=== PATIENT | male | born 1955 | race Caucasian/White ===

== ENCOUNTER 2018-02-08 01:03 | Emergency (ER) | payer MEDICAID, SELFPAY ==
[2018-02-08 01:05] VITALS: BP 124/91; PULSE 68; RESP 17; TEMP 36.7; O2SAT 98; BMI 25.0
--- NOTE | 2018-02-08 01:16 | ED.DCSUM_ITS ---
- ER Visit Summary Date of Service: 02/08/18 Chief Complaint: [] toe laceration History of Present Illness: The patient is a 62 M [] accidentally stepped on a tip of an arrow and cut the bottom of his right first toe. It happened just prior to arrival. No home treatment other than pressure. Tetanus is up -to-date. Thinks he needs stitches. Current severity is mild. He was barefoot coming out of the shower Physical Examination: [] Vital signs reviewed General: Well-nourished well-developed Head: Normocephalic atraumatic Eyes: Pupils equal round and reactive to light extraocular movements intact ENT: TMs clear no hemotympanum no trauma Neck: Nontender full range of motion Cardiovascular: Regular rate rhythm no murmurs normal S1-S2 Respiratory: No distress clear to auscultation bilaterally chest nontender Abdomen: Soft nontender nondistended normal bowel sounds no masses Back: Nontender no CVA tenderness Extremities: 2 cm laceration on the lateral aspect of the base of the right first toe. No active bleeding. It is partial-thickness Neuro alert oriented cranial nerves II through XII intact normal strength sensation reflexes Test Results: [] Emergency Department Course and Treatment: [] Wound was cleansed with chlorhexidine. Anesthetized with 2 cc lidocaine and washed with saline 500 cc. Closed with simple sutures bacitracin applied and dressed. I do not feel he needs antibiotics. This was through bare skin. He will follow-up as an outpatient Treatment Plan: [] Disposition: [] Impression: [] Right great toe laceration status post suture This note was generated with [employer] dictation software. It may contain incorrect words, spelling, and punctuation that were not noted in review of the chart prior to signing ED Disposition - Plan for ED Patient: Chief Complaint: Laceration Referrals: Ben Skaggs MD [Primary Care Provider] -
--- NOTE | 2018-02-08 01:16 | ED.DEP ---
ED Disposition - Plan for ED Patient: Disposition: Home or Assisted Living Chief Complaint: Laceration Instructions: ED Laceration All Referrals: Ben Skaggs MD [Primary Care Provider] - Additional Instructions: follow up 2 weeks for suture removal
[2018-02-08] MEDS: BACITRACIN 15 GM Tube 1 APPLIC TOPICAL (01:42)
== END 2018-02-08 01:43 | disposition home or self-care (01) ==
PROVIDERS: Emergency Provider Emergency Medicine; Family Provider Family Medicine; PCP Family Medicine
DX: S91.111A Laceration without foreign body of right great toe without damage to nail, initial encounter (principal); W26.8XXA Contact with other sharp object(s), not elsewhere classified, initial encounter; Y93.9 Activity, unspecified; Y92.9 Unspecified place or not applicable
CPT/HCPCS: 12001; 99283

== ENCOUNTER 2019-12-22 14:16 | Emergency (ER) | payer MEDICAID, SELFPAY ==
[2019-12-22 14:17] VITALS: BP 145/77; PULSE 64; RESP 16; TEMP 36.4; O2SAT 98; BMI 23.3
--- NOTE | 2019-12-22 14:32 | ED.DCSUM_ITS ---
- ER Visit Summary Date of Service: 12/22/19 Chief Complaint: Back pain History of Present Illness: The patient is a 64 M with right lower back pain since Friday after cutting wood. The pain is localized to his right lower back. He never had this before. No other pain. No abdominal pain or GI symptoms. No symptoms. No neurologic symptoms like weakness or numbness. No history of vascular disease or aortic pathology. No blood thinners. He has an allergy to ibuprofen, he has itching and swelling. Physical Examination: Afebrile and vital signs unremarkable. Inspection is normal. Right lumbar paraspinal muscle tenderness to palpation. Spine is nontender. CVA nontender. Straight leg raise negative. Good strength and sensation. Normal pulses. Test Results: None indicated Emergency Department Course and Treatment: Patient has myofascial back pain. Treated with Norflex and morphine. Will reassess. On reevaluation, patient is up and ambulating. He feels much better. Patient be treated with a course of Flexeril, cdtg-eyc-vjtleba remedies. Outpatient follow-up. Return for any new or worsening issues. Treatment Plan: As above Disposition: Discharge Impression: Right lower back pain This note was generated with [employer] dictation software. It may contain incorrect words, spelling, and punctuation that were not noted in review of the chart prior to signing ED Disposition - Plan for ED Patient: Referrals: Ben Skaggs MD [Primary Care Provider] -
[2019-12-22] MEDS: Orphenadrine 60 MG/2 ML Ampul IM (15:01)
[2019-12-22] MEDS: morphine 10 MG/ML Syringe 4 MG SC (15:02)
--- NOTE | 2019-12-22 15:32 | ED.DEP ---
ED Disposition - Plan for ED Patient: Instructions: ED Back Pain Acute or Chronic Prescriptions: cycloBENZAPRine HCl [Flexeril] 10 mg PO TID PRN #20 tab PRN Reason: Muscle Spasm Prescription Printed Referrals: Ben Skaggs MD [Primary Care Provider] -
[2019-12-22 15:55] VITALS: BP 143/93; PULSE 54; RESP 16
== END 2019-12-22 15:58 | disposition home or self-care (01) ==
LOC: ED 14:42
PROVIDERS: Emergency Provider Emergency Medicine; PCP Family Medicine
DX: M54.5 Low back pain (principal); Z87.891 Personal history of nicotine dependence
CPT/HCPCS: 96372; 99282

== ENCOUNTER 2019-12-29 20:57 | Emergency (ER) | payer MEDICAID, SELFPAY ==
[2019-12-29 20:58] VITALS: BP 118/81; PULSE 90; RESP 18; TEMP 36.6; O2SAT 98; BMI 24.1
--- NOTE | 2019-12-29 22:16 | ED.DCSUM_ITS ---
- ER Visit Summary Date of Service: 12/29/19 Chief Complaint: I think I have sausage stuck in my throat History of Present Illness: The patient is a 64 M dates he had sausage tonight for dinner around 630 mL stuck in his throat. He says he is unable to swallow now. Denies any trouble breathing. Physical Examination: Older male no acute distress vital signs stable afebrile. Pulse ox 90% on room air no signs hypoxia. H EENT exam unremarkable. Posterior pharynx normal. Neck nontender. Lungs clear to auscultation. Heart regular rhythm no murmur. Abdomen soft nontender. Remedies moves all 4. Neurologically is awake alert with no focal motor deficits. I gave the patient a glass of water he drank it but thought it was stuck about residential down his esophagus and then brought it back up. Test Results: None Emergency Department Course and Treatment: I spoke to the general surgeon on- call Dr. Ash Hidalgo will be and evaluate the patient with upper endoscopy for suspected meat impaction obstruction secondary to meat impaction Patient will be turned over to the overnight physician to provide conscious sedation for Dr. Ash Hidalgo when he comes in to the upper endoscopy evaluated patient for esophageal meat impaction. Treatment Plan: [] Disposition: Discharge Impression: Esophageal meat impaction Conscious sedation by ER This note was generated with [employer] dictation software. It may contain incorrect words, spelling, and punctuation that were not noted in review of the chart prior to signing ED Disposition - Plan for ED Patient: Referrals: Ben Skaggs MD [Primary Care Provider] -
--- NOTE | 2019-12-29 22:42 | ED.DEP ---
ED Disposition - Plan for ED Patient: Disposition: Home or Assisted Living Instructions: ED Foreign Body Esophageal Rslv Prescriptions: Omeprazole [Prilosec] 20 mg PO DAILY #30 cap Prescription Printed Referrals: Ben Skaggs MD [Primary Care Provider] - 3-5 Days if not improving Additional Instructions: Shoe your food especially meat thoroughly and slowly and completely before swallowing. Follow-up to ensure this is improving. You may need further scopes. Prilosec for reflux.
--- NOTE | 2019-12-29 23:07 | HP.PCM_ITS ---
Problem List (1) Obstruction of distal esophagus due to foreign body Status: Acute History of Present Illness Date of Admission: 12/29/19 The patient is a 64 year old M who I have been asked to see in the emergency room by Dr. Kamlesh Valera for evaluation of a suspected esophageal food foreign body obstruction. 64-year-old gentleman. 1 year ago he had a similar event with a chicken sandwich. With drinking Coke in the emergency room that was able to be passed. He said that he had elective upper and lower endoscopy done at the [facility]. He states he was told there was some irritation in the esophagus and was instructed to be on omeprazole therapy. He only takes omeprazole when he senses reflux. Today he had a [place] sausage sandwich. He claims the first bite went down well. The second bite obstructed. He is not able to drink liquid or solid. He is been a lifelong cigarette smoker. Claims he quit about 3 years ago. He is aware of the COVID-19 pandemic. He does not wear a mask. He is not aware of any known COVID-19 exposure. Past Medical History Allergies ibuprofen Allergy (Verified 12/29/19 21:00) Swelling Home Medications: Ambulatory Orders Medication Instructions Recorded Omeprazole [Prilosec] 20 mg PO DAILY #30 cap 12/29/19 Smoking Status: Former smoker Review of Systems Constitutional: Denies: Fever HEENT: Reports: Difficulty Swallowing Cardiovascular: Denies: Chest Pain Respiratory: Reports: - - Dyspnea on exertion Gastrointestinal: Denies: Abdominal Pain Endocrine: Denies: Change in Body Habitus VTE Information - Inpt Only VTE Present on Admission: No Patient Problems: Active and Suspected Problems Obstruction of distal esophagus due to foreign body (Acute) - Physical Exam Vitals/I&O's: Vital Signs Temp Pulse Resp BP Pulse Ox 97.9 F 90 18 118/81 H 98 12/29/19 20:58 12/29/19 20:58 12/29/19 20:58 12/29/19 20:58 12/29/19 20:58 Oxygen Delivery Method Room Air Weight: 145 lb Body Mass Index (BMI) 24.1 General: Alert, Oriented x3, Cooperative, No apparent distress HEENT: Atraumatic Oral: Moist Mucosa Lungs: - - Increased anterior posterior diameter. Diminished respiratory excursion. Clear in the apices. Cardiovascular: Regular rate, Regular Rhythm Abdomen: Bowel Sounds Present, Soft, Non Tender Extremities: No Calf Tenderness Psych/Mental Status: Normal Affect Current Medications Sodium Chloride () 1,000 mls @ 999 mls/hr IV .Q1H1M ONE Stop: 12/29/19 23:50 Assessment/Plan All Active Problems Obstruction of distal esophagus due to foreign body (Acute) I have discussed with the patient the diagnosis of suspected [place] sausage food borne esophageal obstruction likely secondary to hiatal hernia or reflux esophagitis or stricturing. I instructed him of the increased risk nature of a emergency procedure for food clearance. We discussed the potential for bleeding and perforation and aspiration and pneumonia and need for additional procedures and . He has had an opportunity to ask and have questions answered. Whereas with his previous occasion it was able to pass on this occasion he does not feel like it is passing and he is having discomfort. He desires to proceed. Dr. Kamlesh Valera has agreed to providing IV sedation and anticipate proc eeding in the emergency room setting. I have already instructed the patient that I will anticipate routine utilization of omeprazole postoperatively. I have additionally counseled the patient regarding COVID-19 and strong recommendations to be utilizing a mask in public. He is aware already that he is placing other people at risk. Ash Hidalgo M.D., F.A.C.S. Procedure Criteria COVID Risk Discussion: Patient is well aware of the COVID-19 pandemic. He is aware of the increased risk of his exposure. He is aware of the potential risk of exposure in this emergency hospitalized setting. He elects to proceed as noted.
[2019-12-29] MEDS: Ondansetron 4 MG/2 ML Vial IV (23:11)
[2019-12-29] MEDS: 0.9% Normal Saline 1,000 ML 999 ML IV (23:11)
[2019-12-29 23:13] VITALS: BP 137/89; PULSE 78; RESP 16; O2SAT 98
[2019-12-29 23:35] VITALS: BP 141/92; PULSE 78; RESP 25; O2SAT 100
--- NOTE | 2019-12-29 23:35 | EGD_PTH ---
PATIENT: JENNIFER COLES LOC: ED U#:[id number] AGE/SX: 64/M ROOM: RE12/29/[address]: Dr. Asad Valera MD : 1955 BED: DIS: 12/30/2019 SPEC #: [id number] RECD: 12/30/19 00:48 STATUS: [place] BRITTVerito #: [id number] FRANCISCO JAVIER: 12/29/19 23:[address]: Ash Hidalgo DEPT: SURGICAL PATHOLOGY RECD BY: Jennifer Field ENTERED: 12/30/19 12:38 SP TYPE: EGD BIOPSY OT DR: MD Dr. Ben Luna MD Tissues: A - Duodenum, NOS B - Gastric mucous membrane C - Esophagus, NOS Procedures: Surgery Specimen Level IV HEADER OPERATION: EGD ([facility] [place] PRE-OP DIAGNOSIS: Foreign body TISSUE SUBMITTED: A - Duodenum biopsy, B - Antrum biopsy for H. pylori and path, C - Distal esophagus biopsy MICROSCOPIC DIAGNOSIS A. Duodenum, biopsy: Mild nonspecific chronic inflammation. B. Gastric antrum, biopsy: Minimal chronic inflammation. C. Distal esophagus, biopsy: Consistent with changes of reflux. AM:lamonte 12/31/19 COMMENT B. The results of immunohistochemistry for Helicobacter pylori will be reported separately ([id number]). MICROSCOPIC DESCRIPTION Slides are reviewed. GROSS DESCRIPTION A - Received in fixative is one container labeled with the patient's name and designated duodenal biopsy. The specimen consists of multiple irregular fragments of light casillas soft tissue that in aggregate measure 0.3 x 0.3 x 0.1 cm. The specimen is totally submitted in one cassette. B - Received in fixative is one container labeled with the patient's name and designated antrum biopsy. The specimen consists of one irregular fragment of light casillas soft tissue that measures 0.3 x 0.2 x 0.1 cm. The specimen is totally submitted in one cassette. C - Received in fixative is one container labeled with the patient's name and designated distal esophagus biopsy. The specimen consists of multiple irregular fragments of light casillas soft tissue that in aggregate measure 0.4 x 0.3 x 0.1 cm. The specimen is totally submitted in one cassette. / SHIVA:lamonte 12/30/19 TC:3 CPT: 06299 x3
--- NOTE | 2019-12-29 23:35 | IMM_PTH ---
PATIENT: JENNIFER COLES LOC: ED U#:[id number] AGE/SX: 64/M ROOM: RE12/29/[address]: Dr. Asad Valera MD : 1955 BED: DIS: 12/30/2019 SPEC #: [id number] RECD: 12/30/19 11:49 STATUS: SALV[place]OR REQ #: [id number] FRANCISCO JAVIER: 12/29/19 23:[address]: Ash Hidalgo DEPT: IMMUNOHISTOCHEMISTRY RECD BY: Linda Hernandez ENTERED: 12/30/19 11:50 SP TYPE: IMMUNO OTHR DR: MD Dr. Ben Luna MD Tissues: B - Stomach, NOS Procedures: H Pylori (initial) PHYSICIAN & INSTITUTION [place] [id number] SPECIMEN INFORMATION: Tissue Source: B - Antrum biopsy Clinical Info: Foreign body Specimen Number: [id number] CPT code: 83625 METHODOLOGY: Deparaffinized sections of prefer/formalin-fixed tissue or PAP/DQ stained slides are incubated with monoclonal/polyclonal antibodies/oligonucleotide probes. Localization is made via biotin free immunoperoxidase method. Appropriate controls are performed and reacted as expected. Results on target cell population are indicated in the following table: RESULTS: ANTIBODY / CLONE RESULT Block B H Pylori (polyclonal) negative These tests were developed and their performance characteristics determined by [facility]. They may not have been cleared or approved by the U.S. Food and Drug Administration. The FDA has determined that such clearance or approval is not necessary. INTERPRETATION: B. Antrum biopsy: Negative for Helicobacter pylori organisms. AM:lamonte 12/31/19
[2019-12-29 23:36] VITALS: BP 129/82; BP 139/90; BP 144/94; BP 145/114; BP 151/106; PULSE 78; PULSE 84; PULSE 87; PULSE 88; PULSE 91; PULSE 98; RESP 20; RESP 22; RESP 23; RESP 39; O2SAT 100; O2SAT 98; O2SAT 99
[2019-12-30 00:01] VITALS: BP 133/97; PULSE 93; RESP 22; O2SAT 99
[2019-12-30] MEDS: Propofol 200 MG/20 ML Vial 120 MG IV BOLUS (00:03)
[2019-12-30 00:06] VITALS: BP 106/90; PULSE 85; RESP 23; O2SAT 99
[2019-12-30] MEDS: Propofol 200 MG/20 ML Vial 40 MG IV BOLUS (00:06)
[2019-12-30 00:11] VITALS: BP 120/93; PULSE 86; RESP 22; O2SAT 95
[2019-12-30 00:27] VITALS: RESP 25; O2SAT 90
--- NOTE | 2019-12-30 00:30 | OP.EGD_ITS ---
Patient Name: Eric Rhodes Procedure Date: 12/29/2019 11:16 PM Date of : 1955 Age: 64 Procedure: Upper GI endoscopy Indications: Foreign body in the esophagus Providers: Ash Hidalgo MD Medicines: See the Anesthesia note for documentation of the administered medications Complications: No immediate complications. Procedure: Pre-Anesthesia Assessment: - Prior to the procedure, a History and Physical was performed, and patient medications and allergies were reviewed. The patient's tolerance of previous anesthesia was also reviewed. The risks and benefits of the procedure and the sedation options and risks were discussed with the patient. All questions were answered, and informed consent was obtained. Prior Anticoagulants: The patient has taken no previous anticoagulant or antiplatelet agents. ASA Grade Assessment: III - A patient with severe systemic disease. After reviewing the risks and benefits, the patient was deemed in satisfactory condition to undergo the procedure. After obtaining informed consent, the endoscope was passed under direct vision. Throughout the procedure, the patient's blood pressure, pulse, and oxygen saturations were monitored continuously. The gastroscope was introduced through the mouth, and advanced to the second part of duodenum. The upper GI endoscopy was accomplished without difficulty. The patient tolerated the procedure well. Scope In: 11:38:30 PM Scope Out: 11:55:25 PM Total Procedure Duration Time 0 hours 16 minutes 55 seconds Findings: LA Grade A (one or more mucosal breaks less than 5 mm, not extending between tops of 2 mucosal folds) esophagitis with no bleeding was found 38 cm from the incisors. Biopsies were taken with a cold forceps for histology. A medium-sized hiatal hernia was present. Food was found in the lower third of the esophagus. The endoscope was removed, and an overtube with cap was fitted. The scope and overtube were then reinserted via the mouth and advanced to the esophagus to aid in foreign body removal. Removal of food was accomplished. Removal of food was accomplished. Diffuse mild inflammation characterized by congestion (edema) was found in the gastric antrum. Biopsies were taken with a cold forceps for histology. Localized moderate inflammation characterized by erythema and linear erosions was found in the duodenal bulb. Biopsies were taken with a cold forceps for histology. Impression: - LA Grade A reflux esophagitis. Biopsied. - Medium-sized hiatal hernia. - Food in the lower third of the esophagus. Removal was successful. - Gastritis. Biopsied. - Chronic duodenitis. Biopsied. - An overtube with cap was used to aid in foreign body removal. During the procedure with each cough free reflux of gastric contents back into the esophagus was noted. The patient was placed fullu upright prior to overtube and scope removal and oral suction was provided. Recommendation: - Discharge patient to home. - Resume previous diet. - Continue present medications. - Use Prilosec (omeprazole) 40 mg PO daily. - Telephone my office for pathology results in 1 week. Procedure Code(s): --- Professional --- 71615, Esophagogastroduodenoscopy, flexible, transoral; with removal of foreign body(s) 64340, Esophagogastroduodenoscopy, flexible, transoral; with biopsy, single or multiple Diagnosis Code(s): --- Professional --- K21.0, Gastro-esophageal reflux disease with esophagitis K44.9, Diaphragmatic hernia without obstruction or gangrene T18.128A, Food in esophagus causing other injury, initial encounter K29.70, Gastritis, unspecified, without bleeding K29.80, Duodenitis without bleeding T18.108A, Unspecified foreign body in esophagus causing other injury, initial encounter CPT copyright 2017 [employer]. All rights reserved. The codes documented in this report are preliminary and upon planning division superintendent review may be revised to meet current compliance requirements. Ash Hidalgo MD 12/30/2019 12:29:52 AM This report has been signed electronically. Number of Addenda: 0 Note Initiated On: 12/29/2019 11:16 PM
--- NOTE | 2019-12-30 00:30 | OP.CCLET_ITS ---
12/30/2019 Ben Skaggs [address] [place] [address] Re : Upper GI endoscopy procedure for Eric Rhodes Dear Dr. Skaggs This procedure was performed on Sunday, December 29, 2019. My impressions and recommendations are as follows: Impressions : - LA Grade A reflux esophagitis. Biopsied. - Medium-sized hiatal hernia. - Food in the lower third of the esophagus. Removal was successful. - Gastritis. Biopsied. - Chronic duodenitis. Biopsied. - An overtube with cap was used to aid in foreign body removal. During the procedure with each cough free reflux of gastric contents back into the esophagus was noted. The patient was placed fullu upright prior to overtube and scope removal and oral suction was provided. Recommendations : - Discharge patient to home. - Resume previous diet. - Continue present medications. - Use Prilosec (omeprazole) 40 mg PO daily. - Telephone my office for pathology results in 1 week. My findings are described in the full procedure note, which is enclosed. If I can be of further assistance, please feel free to contact me at Doctor phone number(s): Work: . Sincerely, Ash Hidalgo MD 12/30/2019 12:29:52 AM This report has been signed electronically.
[2019-12-30 01:46] VITALS: BP 118/80; O2SAT 93
== END 2019-12-30 01:55 | disposition home or self-care (01) ==
PROVIDERS: Surgery; Emergency Provider Emergency Medicine; PCP Family Medicine
PROC: 0DJ08ZZ Inspection of Upper Intestinal Tract, Via Natural or Artificial Opening Endoscopic (ICD-10-PCS; CPT 43235; principal; 2019-12-29 23:30)
DX: K22.2 Esophageal obstruction (principal); T18.128A Food in esophagus causing other injury, initial encounter; X58.XXXA Exposure to other specified factors, initial encounter; Y93.9 Activity, unspecified; Y92.9 Unspecified place or not applicable; K21.0 Gastro-esophageal reflux disease with esophagitis; K29.70 Gastritis, unspecified, without bleeding; K44.9 Diaphragmatic hernia without obstruction or gangrene; K29.80 Duodenitis without bleeding; Z79.899 Other long term (current) drug therapy; Z87.891 Personal history of nicotine dependence
CPT/HCPCS: 43239; 43247; 88305; 88342; 96361; 96374; 99156; 99283; J7030; A4216; J2405

== ENCOUNTER 2020-01-22 21:10 | Emergency (ER) | payer MEDICAID, SELFPAY ==
[2020-01-22 21:10] VITALS: BP 151/120; PULSE 63; RESP 18; TEMP 36.5; O2SAT 99; BMI 24.1
--- NOTE | 2020-01-22 21:19 | CT_ITS ---
STUDY: CT ABDOMEN AND PELVIS WITHOUT CONTRAST REASON FOR EXAM: Male, 64 years old. LT FLANK AND LLQ PAIN THAT RADIATES INTO GROIN,VOMITING -- HX:GERD,APPENDECTOMY RADIATION DOSAGE (If Supplied By Facility): CTDIvol = ( 6.07 ) mGy, DLP = ( 341.38 ) mGycm TECHNIQUE: Transaxial images were obtained from the dome of the diaphragm to the symphysis pubis without oral contrast, and without intravenous contrast. Sagittal and coronal images were reconstructed. Individualized dose optimization techniques were used for this CT. COMPARISON: None. FINDINGS: Mild fibrotic changes at both lung bases. Normal liver. Normal gallbladder and extrahepatic biliary system. Normal spleen. Normal pancreas. Normal bilateral adrenal glands. Normal right kidney. Abnormal left kidney showing evidence for swelling and perinephric stranding. Mild hydronephrosis. Findings are related to a 4 mm left ureteral stone. Evaluation of the GI tract is limited by absence of oral contrast. Cannot exclude stomach wall thickening. No dilated loops of bowel or evidence for obstruction. Cannot exclude segmental thickening of the aquino of the small or large bowel. Cannot exclude enteritis or colitis. Moderate diffuse fecal retention. Appendix is not seen. Normal abdominal aorta. Normal inferior vena cava. Normal retroperitoneum. Normal urinary bladder. There is enlargement of the prostate gland. Normal abdominal wall. Normal osseous structures. CT/Abdomen/Pelvis without Cont IMPRESSION: Obstruction of the left kidney, collecting system and proximal ureter related to a 4 mm proximal left ureteral stone. Electronically Signed: Leonel Bond MD at 22:39 EDT , Service support ,
[2020-01-22] MEDS: Ondansetron 4 MG/2 ML Vial IV (21:36)
[2020-01-22] MEDS: morphine 8 MG/ML Syringe IV (21:36)
[2020-01-22] MEDS: 0.9% Normal Saline 1,000 ML 1000 ML IV (21:37)
--- NOTE | 2020-01-22 21:49 | ED.VIS.GEN ---
History of Present Illness Chief Complaint: Abd Pain Informant: Patient Onset: Today Context: Gradual Onset Timing: Continuous Current Severity: Moderate Maximum Severity: Moderate Narrative: The patient is a 64-year-old male that presents to the emergency department with left lower quadrant pain. He states his pain began just about 12 hours ago. He states he had a dull onset to the pain. He states it is worsened. Does sometimes radiate to his back. He has had some constipation. He denies any fevers or chills. He states the pain did make him vomit once. He is otherwise been in his normal state of health. He does have history of prior appendectomy remotely. Prior similar symptoms: No Recent Illness/Hospitalization: No Past Medical History - Allergies and Home Meds Allergies/Adverse Reactions: Allergies ibuprofen Allergy (Verified 01/22/20 21:13) Swelling Primary Care Physician: Niko Simmons MD [STAFF PHYSICIAN] - Prior records reviewed: Yes Past Medical History: None Surgical History: appendectomy Smoking Status: Former smoker Review of Systems General: Denies: Chills, Fever, Sweats Eyes: Denies: Visual changes - bilaterally, Diplopia ENT: Denies: Rhinorrhea, Sore throat Cardiovascular: Denies: Chest pain, Palpitations Respiratory: Denies: Dyspnea, Cough, Dyspnea on exertion Gastrointestinal: Reports: Abdominal pain, Nausea, Vomiting. Denies: Diarrhea, Melena, Hematochezia Genitourinary: Denies: Dysuria, Hematuria, Frequency Musculoskeletal: Denies: Back pain, Extremity Pain Skin: Denies: Rash, Wounds Neurological: Denies: Headache, Weakness, Numbness Physical Exam Vital Signs/Narrative: Vital Signs Temp Pulse Resp BP Pulse Ox 01/22/20 21:10 97.7 F L 63 18 151/120 H 99 Inital Vital Signs reviewed: Yes General: Well nourished, Well developed, No Acute Distress Head: Normocephalic, Atraumatic Eyes: Perrl, EOMI ENT: Moist mucous membranes, No rhinorrhea Neck: Supple, Nontender Cardiovascular: Regular rate, Regular rhythm, No murmurs Respiratory: No distress, CTA bilaterally, Chest nontender Abdomen: Soft, Nondistended, Normal bowel sounds, Tender. Negative for: Guarding, Rebound tenderness Back: Nontender, Normal Inspection Extremities: Nontender, No edema Skin: Normal color, No rash Neurological: Alert, Oriented x3, Cranial nerves II-XII grossly intact, Normal Strength, Normal Sensation Psychological: Normal affect, Normal Mood Diagnostic/Tx/Re-eval Clinical Impression(s) from Imaging Studies Abdomen/Pelvis CT 01/22/20 21:19 IMPRESSION: Obstruction of the left kidney, collecting system and proximal ureter related to a 4 mm proximal left ureteral stone. Electronically Signed: Leonel Bond MD at 22:39 EDT , Service support , Abnormal Lab Results 01/22/20 01/22/20 21:40 21:40 WBC 7.0 RBC 4.42 L Hgb 14.0 Hct 42.3 MCV 95.7 H MCH 31.7 MCHC 33.1 RDW Std Deviation 44.2 H RDW Coeff of Tim 12.7 Plt Count 198 MPV 10.5 Immature Gran % (Auto) 0.300 Neut % (Auto) 74.3 H Lymph % (Auto) 17.2 L [place] % (Auto) 7.4 Eos % (Auto) 0.4 Baso % (Auto) 0.4 Absolute Neuts (auto) 5.2 Absolute Lymphs (auto) 1.21 Nucleated RBC % 0 Sodium 142 Potassium 4.4 Chloride 110 H Carbon Dioxide 28.0 Anion Gap 4 L BUN 18 Creatinine 1.68 H Estim Creat Clear Calc 39.66 Est GFR (MDRD) Af Amer 53 L Est GFR (MDRD) Non-Af 44 L BUN/Creatinine Ratio 10.7 Glucose 108 H Calcium 9.2 Total Bilirubin 0.60 AST 13 L ALT 17 Alkaline Phosphatase 70 Total Protein 6.9 Albumin 3.8 Globulin 3.1 Albumin/Globulin Ratio 1.2 - Medical Decision Making The patient presents with left flank pain into his left lower quadrant. He had 2 episodes of vomiting. He has mild tenderness to palpation, but does seem harder to reproduce. IV was established. The patient was given analgesics and antiemetics. On reevaluation, he is resting comfortably. Patient underwent CT imaging. This does demonstrate a 4 mm mid obstructing stone with mild hydro-. Patient is now pain-free. Based on the size and location, I do feel that he is safe for outpatient therapy. He does not want to wait to give a urine. I will treat him with analgesics and antiemetics. He was counseled on concerning symptoms and reasons to return. He will be discharged home. Impression 1. 4 mm left-sided kidney stone ED Disposition - Plan for ED Patient: Instructions: ED Renal Stone w Colic Prescriptions: Tamsulosin HCl [Flomax] 0.4 mg PO DAILY #7 cap Prescription Printed Hydrocodone Bitart/Apap 5-325 [[place] 5MG-325MG] 1 tab PO Q6H PRN PRN 3 Days #10 tab PRN Reason: Pain Prescription Printed Ondansetron [Zofran Odt] 4 mg PO Q8H PRN PRN #10 tab PRN Reason: Nausea Prescription Printed Referrals: Niko Simmons MD [STAFF PHYSICIAN] -
[2020-01-22 21:51] LABS: Absolute Lymphocyte Count 1.21 X10^3/uL (0.83-4.51); Absolute Neutrophil Count 5.2 X10^3/uL (2.0-7.7); Basophil# 0.03 X10^3/uL; Basophil% 0.4 % (0-1); Eosinophil# 0.03 X10^3/uL; Eosinophils% 0.4 % (0-5); Hematocrit 42.3 % (40-54); Lymphocyte # 1.21 X10^3/ul (4.0); Lymphocyte % 17.2 % (19-41); Mean Corp Hgb Conc 33.1 g/dL (32-36); Mean Corpuscular Hgb 31.7 pg (27.0-32.0); Mean Corpuscular Volume 95.7 fL (80-94); Mean Platelet Vol. 10.5 fl (6.2-12.0); Monocyte# 0.52 X10^3/uL; Monocyte% 7.4 % (0-10); NRBC Flagged by Analyzer 0 % (0-5); Neutrophil # 5.21 X10^3/uL (2.7-7.7); Neutrophil % 74.3 % (47-70); Platelet Count 198 K/mm3 (150-450); RBC Distribution Width CV 12.7 % (11.6-14.6); RBC Distribution Width SD 44.2 fl (35.1-43.9); Red Blood Count 4.42 M/mm3 (4.6-6.2)
[2020-01-22 22:06] LABS: ALB/GLOB Ratio 1.2 RATIO (0.9-2.4); AST(SGOT) 13 U/L (15-37); Alanine Aminotransfer ALT/SGPT 17 U/L (16-61); Albumin, Serum 3.8 g/dL (3.2-5.0); Alkaline Phosphatase 70 U/L (45-117); Anion Gap 4 (5-15); BUN 18 mg/dL (7-18); BUN/Creat Ratio 10.7 RATIO (10-20); Calcium,Total 9.2 mg/dL (8.5-10.1); Chloride 110 mmol/L (98-107); Creatinine, Serum 1.68 mg/dL (0.70-1.30); EST Glomerular Filtration Rate 44 mL/min (>60); Est Glom Filt Rate - Afr Amer 53 mL/min (>60); Estimated Creatinine Clearance 39.66 ml/min; Globulin 3.1 g/dL (2.2-4.2); Glucose 108 mg/dL (74-106); Potassium 4.4 mmol/L (3.5-5.1); Protein, Total 6.9 g/dL (6.4-8.2); Sodium Level 142 mmol/L (136-145)
== END 2020-01-22 23:01 | disposition home or self-care (01) ==
LOC: ED 21:25
PROVIDERS: Emergency Provider Emergency Medicine; PCP Family Medicine
DX: N13.2 Hydronephrosis with renal and ureteral calculous obstruction (principal); Z87.891 Personal history of nicotine dependence
CPT/HCPCS: 74176; 80053; 85025; 96361; 96374; 96375; 99283; J7030; J2405

== ENCOUNTER 2020-11-02 11:59 | Emergency (ER) | payer MEDICAID, SELFPAY ==
[2020-11-02 11:59] VITALS: BP 148/84; PULSE 57; RESP 17; TEMP 36.3; O2SAT 96; BMI 25.0
--- NOTE | 2020-11-02 12:33 | CT_ITS ---
STUDY: CT ABDOMEN AND PELVIS WITH CONTRAST REASON FOR EXAM: Male, 65 years old. Diarrhea and abdominal pain. RADIATION DOSAGE (If Supplied By Facility): CTDIvol = ( 10.41 ) mGy, DLP = ( 524.15 ) mGycm TECHNIQUE: Transaxial images were obtained from the dome of the diaphragm to the symphysis pubis without oral contrast. IV 100mL Isovue-300 was administered. Sagittal and coronal images were reconstructed. Individualized dose optimization techniques were used for this CT. COMPARISON: Comparison is made with prior examination dated 01/22/2020. FINDINGS: The visualized lung bases are unremarkable. The visualized portions of the heart are within normal limits. There is a 1 cm cyst in the left lobe of the liver superiorly. Normal gallbladder and extrahepatic biliary system. Normal spleen. Normal pancreas. Normal bilateral adrenal glands. Normal right kidney. Mild degree of left hydronephrosis and hydroureter due to a 3.5 mm calculus in the distal portion of the left ureter just proximal to the left ureterovesical junction. Left perinephric and periureteric stranding. There is a small hiatal hernia. Normal small intestine. Normal colon. The appendix is visualized and appears normal. Normal abdominal aorta. Normal inferior vena cava. Normal retroperitoneum. Mild degree of bladder wall thickening at the bladder base likely worse on the left side of the midline. Correlation with cystoscopy is recommended. There is enlargement of the prostate gland. It measures 5.1 cm x 3.5 cm. This causes indentation at the bladder base. There is a small umbilical hernia containing fat. There are mild degenerative changes of the visualized lumbar spine. CT/Abdomen/Pelvis W IV Cont ONLY IMPRESSION: 3.5 mm pancreas and distal portion of the left ureter just proximal to the left ureterovesical junction causing a mild degree of left hydronephrosis and hydroureter. Left perinephric and periureteric stranding. Mild thickening of the bladder wall at its base. Prostatic enlargement. Electronically Signed: Leon Espino MD at 14:17 EDT , Service support ,
--- NOTE | 2020-11-02 12:35 | ED.VIS.GI ---
HPI HPI - GI History of Present Illness Chief Complaint: Abd Pain Narrative Narrative: 64-year-old male presenting with nausea, vomiting, diarrhea. He states his diarrhea has resolved and now he has left lower quadrant pain. He also has been vomiting. He denies fever or chills. He denies urinary complaints. Patient denies any black or bloody stools. He denies any hematemesis or coffee-ground emesis. He localizes his pain to the left lower quadrant 1 finger PFSH PFSH Home Medications ondansetron HCl [Zofran] 4 mg PO Q8H PRN #14 tab 11/02/20 [Rx Last Taken Unknown] oxycodone-acetaminophen [Percocet] 1 tab PO Q6H PRN 3 Days #12 tab 11/02/20 [Rx Last Taken Unknown] Allergy/AdvReac Type Severity Reaction Status Date / Time ibuprofen Allergy Swelling Verified 01/22/20 21:13 Social History Smoking Status: Former smoker ROS ROS ED Constitutional Constitutional ED: Denies fever(s) or subjective ENT ENT ED: Denies rhinorrhea or sore throat Cardiovascular Cardiovascular: Denies chest pain or palpitations Respiratory/Chest Respiratory/Chest: Denies cough or dyspnea Gastrointestinal Gastrointestinal: Reports abdominal pain, diarrhea, nausea and vomiting Genitourinary Genitourinary ED: Denies dysuria or hematuria Musculoskeletal Musculoskeletal: Denies arthralgias or myalgias Integumentary Denies abscess or rash Neurologic Neurologic: Denies headache(s), paresthesias or weakness EXAM Physical Exam Const Vital Signs: 11/02/20 11:59 Temperature 97.3 F L Temperature Source Temporal Pulse Rate 57 L Respiratory Rate 17 Blood Pressure 148/84 H Blood Pressure Mean 105 Pulse Ox 96 Oxygen Delivery Method Room Air Positive well nourished General Appearance ED: NAD HEENT Reports moist mucous membranes normocephalic and atraumatic Eyes PERRL and EOMs intact bilaterally General Eye ED: Negative for scleral icterus Resp normal respiratory effort and clear to auscultation bilaterally Cardio regular rate and regular rhythm GI GI Narrative: Tenderness to palpation left lower quadrant. Abdomen is nonperitoneal. Palpation: soft Back/Spine no CVA tenderness Extremity full ROM General Extremety ED: Negative for edema General Extremity: Negative for edema Neuro Sensorium / Orientation: alert, oriented to person, oriented to place and oriented to time Psych mental status grossly normal and thought process normal Skin Lesions: no lesions Rashes: no rashes MDM MDM MDM Narrative Medical decision making narrative: Patient presenting with left lower quadrant pain and diarrhea. Patient given morphine and Zofran as well as IV fluids. Patient's blood work shows no leukocytosis. Hemoglobin macular stable. Renal function is near baseline and electrolytes are normal. Urinalysis did show occult blood however given the patient is complaining of diarrhea as well I was concerned for diverticulitis. Patient CT shows a 3.5 mm stone just proximal to the UVJ. Patient counseled on findings. He will be given follow-up with Dr. Velasco. Patient given Percocet and Zofran for home. Patient stable discharge. Impression: 1. 3.5 mm ureteral stone 2. Hematuria Lab Data Labs: Laboratory Results - last 24 hr 11/02/20 11/02/20 11/02/20 12:15 12:20 12:20 WBC 7.5 RBC 4.79 Hgb 14.8 Hct 44.7 MCV 93.3 MCH 30.9 MCHC 33.1 RDW Std Deviation 43.3 RDW Coeff of Tim 12.6 Plt Count 210 MPV 10.5 Immature Gran % (Auto) 0.400 Neut % (Auto) 82.5 H Lymph % (Auto) 11.4 L [place] % (Auto) 5.2 Eos % (Auto) 0.1 Baso % (Auto) 0.4 Absolute Neuts (auto) 6.2 Absolute Lymphs (auto) 0.86 Nucleated RBC % 0 Sodium 142 Potassium 3.8 Chloride 107 Carbon Dioxide 27.0 Anion Gap 8 BUN 14 Creatinine 1.49 H Estim Creat Clear Calc 44.14 Est GFR (MDRD) Af Amer 61 Est GFR (MDRD) Non-Af 51 L BUN/Creatinine Ratio 9.4 L Glucose 139 H Calcium 8.9 Urine Color Yellow Urine Clarity Sl. Cloudy Urine pH 5.0 Ur Specific [place] 1.030 Urine Protein 30 H Urine Glucose (UA) Normal Urine Ketones Negative Urine Occult Blood 150 H Urine Nitrite Negative Urine Bilirubin Negative Urine Urobilinogen Normal Ur Leukocyte Esterase 25 H Urine RBC 0-5 SEEN Urine WBC 0 SEEN Ur Squamous Epith Cells 0-5 SEEN Calcium Oxalate Crystal 2+ Urine Bacteria RARE Urine Mucus RARE Radiography Diagnostic Testing: Radiology Impression Abdomen/Pelvis CT 11/02/20 12:33 IMPRESSION: 3.5 mm pancreas and distal portion of the left ureter just proximal to the left ureterovesical junction causing a mild degree of left hydronephrosis and hydroureter. Left perinephric and periureteric stranding. Mild thickening of the bladder wall at its base. Prostatic enlargement. Electronically Signed: Leon Espino MD at 14:17 EDT , Service support , Discharge Plan Triage Chief Complaint: Abd Pain ED Provider: Masoud Bridges Dx/Rx/DC Orders Instructions: ED Kidney Stone w/ Colic Prescriptions: New oxycodone-acetaminophen [Percocet] 5-325 mg tablet 1 tab PO Q6H PRN (Reason: pain) 3 Days Qty: 12 RF: 0 ondansetron HCl [Zofran] 4 mg tablet 4 mg PO Q8H PRN (Reason: nausea and vomiting) Qty: 14 RF: 0 Primary Care Provider: Ben Skaggs Referrals: Niko Simmons MD [STAFF PHYSICIAN] - As soon as possible Ben Skaggs MD [Primary Care Provider] - Disposition Disposition: Home, Self Care
[2020-11-02 12:44] LABS: White Blood Cells 0 SEEN /hpf (0-5)
[2020-11-02] MEDS: Morphine 4 MG/ML Syringe IV (12:45)
[2020-11-02 12:46] LABS: Color, Urine Yellow (Yellow); Glucose, Dipstick Normal (Normal); Ketone-Dipstick Negative (Negative); Leukocyte Esterase-Dipstick 25 /ul (Negative); Nitrite-Dipstick Negative (Negative); Occult Blood-Urine 150 /ul (Negative); Protein-Dipstick 30 mg/dl (Negative); Urine Bilirubin Dipstick Negative (Negative); Urine Clarity Sl. Cloudy (Clear); Urine Urobilinogen Normal (Normal)
[2020-11-02 12:46] LABS: Absolute Lymphocyte Count 0.86 X10^3/uL (0.83-4.51); Absolute Neutrophil Count 6.2 X10^3/uL (2.0-7.7); Basophil# 0.03 X10^3/uL; Basophil% 0.4 % (0-1); Eosinophil# 0.01 X10^3/uL; Eosinophils% 0.1 % (0-5); Hematocrit 44.7 % (40-54); Hemoglobin 14.8 g/dL (13.0-16.5); Lymphocyte # 0.86 X10^3/ul (0.83-4.51); Lymphocyte % 11.4 % (19-41); Mean Corp Hgb Conc 33.1 g/dL (32-36); Mean Corpuscular Hgb 30.9 pg (27.0-32.0); Mean Corpuscular Volume 93.3 fL (80-94); Mean Platelet Vol. 10.5 fl (6.2-12.0); Monocyte# 0.39 X10^3/uL; Monocyte% 5.2 % (0-10); NRBC Flagged by Analyzer 0 % (0-5); Neutrophil # 6.22 X10^3/uL (2.7-7.7); Neutrophil % 82.5 % (47-70); Platelet Count 210 K/mm3 (150-450); RBC Distribution Width CV 12.6 % (11.6-14.6); RBC Distribution Width SD 43.3 fl (35.1-43.9); Red Blood Count 4.79 M/mm3 (4.6-6.2); White Blood Count 7.5 K/mm3 (4.4-11.0)
[2020-11-02] MEDS: 0.9% Normal Saline 1,000 ML 1000 ML IV (12:46)
[2020-11-02] MEDS: Ondansetron 4 MG/2 ML Vial IV (12:46)
[2020-11-02 12:51] LABS: Bacteria RARE /hpf (None Seen); Calcium Oxalate Crystals Ur 2+ /hpf (<or=2+); Mucous, Urine RARE /hpf (<or=2+); Red Blood Cells-Urine 0-5 SEEN /hpf (0-5); Squamous Epithelial Cells - UA 0-5 SEEN /hpf (0-5)
[2020-11-02 12:54] LABS: Anion Gap 8 (5-15); BUN 14 mg/dL (7-18); BUN/Creat Ratio 9.4 RATIO (10-20); Calcium,Total 8.9 mg/dL (8.5-10.1); Chloride 107 mmol/L (98-107); Creatinine, Serum 1.49 mg/dL (0.70-1.30); EST Glomerular Filtration Rate 51 mL/min (>60); Est Glom Filt Rate - Afr Amer 61 mL/min (>60); Estimated Creatinine Clearance 44.14 ml/min; Glucose 139 mg/dL (74-106); Potassium 3.8 mmol/L (3.5-5.1); Sodium Level 142 mmol/L (136-145)
[2020-11-02] MEDS: Contrast Allergy Safety Check IV (13:19)
[2020-11-02 14:34] VITALS: BP 126/60; PULSE 65; RESP 16; O2SAT 97
== END 2020-11-02 14:35 | disposition home or self-care (01) ==
PROVIDERS: Emergency Provider Student in an Organized Health Care Education/Training Program; PCP Family Medicine
DX: N13.2 Hydronephrosis with renal and ureteral calculous obstruction (principal); Z87.891 Personal history of nicotine dependence
CPT/HCPCS: 74177; 80048; 81001; 85025; 96361; 96374; 96375; 99283; Q9967; A4216; J2405

== ENCOUNTER 2021-02-09 12:58 | Emergency (ER) | payer MEDICAID, SELFPAY ==
[2021-02-09 12:59] VITALS: BP 134/96; PULSE 78; RESP 18; TEMP 36.4; O2SAT 97; BMI 25.9
--- NOTE | 2021-02-09 14:02 | RAD_ITS ---
STUDY: X-RAY CHEST REASON FOR EXAM: Male, 65 years old. Chest pain TECHNIQUE: Single AP portable view of the chest. COMPARISON: Comparison is made with prior study dated 10/02/2014. FINDINGS: EKG electrodes are seen. Mild increased markings at the left lung base suggestive of early infiltrate. There is no demonstrated pleural abnormality. Normal size heart. Normal mediastinum and chidi. Normal visualized pulmonary arteries. Normal visualized aortic arch and descending thoracic aorta. Normal visualized thoracic spine. Normal visualized ribs, clavicles, and shoulders. There is no demonstrated abnormality of the visualized soft tissue structures of the upper abdomen. RAD/Chest 1 View (Portable) IMPRESSION: Findings suggestive of early infiltrate at the left lung base. Electronically Signed: Leon Espino MD at 15:06 EDT , Service support ,
--- NOTE | 2021-02-09 14:02 | EKG12_ITS ---
Test Reason : CP Blood Pressure : / mmHG Vent. Rate : 067 BPM Atrial Rate : 067 BPM P-R Int : 118 ms QRS Dur : 082 ms QT Int : 400 ms P-R-T Axes : -08 043 022 degrees QTc Int : 422 ms Normal sinus rhythm Normal ECG No previous ECGs available Confirmed by JANAY HUMPHREY, ALEXUS ([id number]), editor book RAYMOND ASTORGA ([id number]) on 02/14/2021 10:02:58 AM Referred By: /BB Confirmed By:ALEXUS GUSTAFSON MD
[2021-02-09] MEDS: Aspirin 81 MG TAB.CHEW 324 MG PO (14:21)
[2021-02-09 14:29] LABS: Absolute Lymphocyte Count 0.98 X10^3/uL (0.83-4.51); Absolute Neutrophil Count 1.2 X10^3/uL (2.0-7.7); Basophil# 0.01 X10^3/uL; Basophil% 0.4 % (0-1); Eosinophil# 0.02 X10^3/uL; Eosinophils% 0.8 % (0-5); Hemoglobin 14.6 g/dL (13.0-16.5); Lymphocyte # 0.98 X10^3/ul (0.83-4.51); Lymphocyte % 38.4 % (19-41); Mean Corp Hgb Conc 33.2 g/dL (32-36); Mean Corpuscular Hgb 31.5 pg (27.0-32.0); Mean Platelet Vol. 10.1 fl (6.2-12.0); Monocyte# 0.33 X10^3/uL; Monocyte% 12.9 % (0-10); NRBC Flagged by Analyzer 0 % (0-5); Neutrophil # 1.21 X10^3/uL (2.7-7.7); Neutrophil % 47.5 % (47-70); Platelet Count 175 K/mm3 (150-450); RBC Distribution Width CV 12.9 % (11.6-14.6); RBC Distribution Width SD 44.6 fl (35.1-43.9); Red Blood Count 4.63 M/mm3 (4.6-6.2); White Blood Count 2.6 K/mm3 (4.4-11.0)
[2021-02-09 14:43] LABS: Anion Gap 5 (5-15); BUN 15 mg/dL (7-18); BUN/Creat Ratio 12.8 RATIO (10-20); Calcium,Total 8.6 mg/dL (8.5-10.1); Chloride 106 mmol/L (98-107); Creatinine, Serum 1.17 mg/dL (0.70-1.30); EST Glomerular Filtration Rate 67 mL/min (>60); Est Glom Filt Rate - Afr Amer 81 mL/min (>60); Estimated Creatinine Clearance 56.21 ml/min; Glucose 101 mg/dL (74-106); Potassium 4.1 mmol/L (3.5-5.1); Sodium Level 139 mmol/L (136-145); Troponin-I HS 43 pg/mL (3.0-78.0)
[2021-02-09 16:00] VITALS: BP 122/76; PULSE 68; RESP 12; O2SAT 98
--- NOTE | 2021-02-09 17:12 | EDS_ITS ---
HPI History of Present Illness Chief Complaint: Chest Pain Informant: patient Narrative Narrative: 65-year-old male presenting with chest pain. He states that he felt that he may have pulled a muscle. He states this started 3 to 4 days ago. He states he was lifting an air conditioner before this started. He denies shortness of breath, nausea, diaphoresis. Prior similar symptoms: Yes Recent Illness/Hospitalization: No PFSH PFSH Medical History (Updated 02/09/21 @ 17:[address] Maureen Pan MD) Heartburn Home Medications benzonatate [Tessalon Perles] 100 mg PO TID PRN #20 cap 02/09/21 [Rx Last Taken Unknown] omeprazole 40 mg PO DAILY 02/09/21 [History Last Taken Unknown] Allergy/AdvReac Type Severity Reaction Status Date / Time ibuprofen Allergy Swelling Verified 02/09/21 12:59 Surgical History (Updated 02/09/21 @ 13:08 by Deb Britt) Hx of appendectomy Social History Smoking Status: Former smoker ROS ROS ED Constitutional Constitutional ED: Denies fever(s) Eyes Eyes: Denies change in vision ENT ENT ED: Denies rhinorrhea or sore throat Cardiovascular Cardiovascular: Reports chest pain; Denies palpitations Respiratory/Chest Respiratory/Chest: Reports cough; Denies dyspnea Gastrointestinal Gastrointestinal: Denies abdominal pain, diarrhea, nausea or vomiting Genitourinary Genitourinary ED: Denies dysuria Musculoskeletal Musculoskeletal: Denies myalgias Integumentary Denies rash Neurologic Neurologic: Denies headache(s) Psychiatric Psychiatric: Denies suicidal thoughts EXAM Physical Exam Const Vital Signs: 02/09/21 12:59 02/09/21 13:06 02/09/21 14:16 Temperature 97.5 F L Temperature Source Temporal Pulse Rate 78 Respiratory Rate 18 Respiratory Effort Normal Non-Labored Respiratory Pattern Normal Blood Pressure 134/96 H Blood Pressure Mean 108 Pulse Ox 97 Oxygen Delivery Method Room Air Room Air 02/09/21 16:00 Temperature Temperature Source Pulse Rate 68 Respiratory Rate 12 Respiratory Effort Respiratory Pattern Blood Pressure 122/76 H Blood Pressure Mean 91 Pulse Ox 98 Oxygen Delivery Method Room Air Positive well nourished and well developed General Appearance ED: well developed HEENT Reports normocephalic and head/scalp atraumatic Eyes PERRL and EOMs intact bilaterally Neck supple General: Negative for tenderness Chest Wall inspection of chest normal and palpation of chest normal Resp normal respiratory effort and clear to auscultation bilaterally Cardio regular rate and regular rhythm GI non-tender and non-distended Palpation: soft; Negative for guarding or rebound tenderness present no CVA tenderness Extremity normal to inspection Neuro oriented x3 Sensorium / Orientation: alert Psych mental status grossly normal Skin no rashes or lesions noted MDM MDM MDM Narrative Medical decision making narrative: CBC shows white count 2.6. Chemistries are unremarkable. Troponin is negative. He has had 3-4 days of chest pain with a negative troponin. He is not tachycardic or hypoxic. He has no PE/DVT risk factors. He admits to mild cough. Covid is positive. His pulse ox is 98% on room air. He is advised to wear a mask, socially distance. He is given prescription for Tessalon Perles. Advised to follow-up with his primary care physician. Advised signs and symptoms for which to return to the ED. Lab Data Attestation: I reviewed the patient's lab results. Labs: Laboratory Results - last 24 hr 02/09/21 02/09/21 13:05 13:05 WBC 2.6 L RBC 4.63 Hgb 14.6 Hct 44.0 MCV 95.0 H MCH 31.5 MCHC 33.2 RDW Std Deviation 44.6 H RDW Coeff of Tim 12.9 Plt Count 175 MPV 10.1 Immature Gran % (Auto) 0.000 Neut % (Auto) 47.5 Lymph % (Auto) 38.4 [place] % (Auto) 12.9 H Eos % (Auto) 0.8 Baso % (Auto) 0.4 Absolute Neuts (auto) 1.2 L Absolute Lymphs (auto) 0.98 Nucleated RBC % 0 Sodium 139 Potassium 4.1 Chloride 106 Carbon Dioxide 28.0 Anion Gap 5 BUN 15 Creatinine 1.17 Estim Creat Clear Calc 56.21 Est GFR (MDRD) Af Amer 81 Est GFR (MDRD) Non-Af 67 BUN/Creatinine Ratio 12.8 Glucose 101 Calcium 8.6 Troponin I High Sens 43 Radiography Chest X-Ray - ED: 1 View, Read by ED Physician and Read by Radiologist Diagnostic Testing: Clinical Impression(s) from Imaging Studies Chest X-Ray 02/09/21 14:02 IMPRESSION: Findings suggestive of early infiltrate at the left lung base. Electronically Signed: Leon Espino MD at 15:06 EDT , Service support , EKG Initial EKG: Attestation: I personally reviewed and interpreted this EKG as follows: Interpretation: Sinus Rhythm and No Acute Injury Pattern Discharge Plan Triage Chief Complaint: Chest Pain Other Complaint: Back ED Provider: Maureen Pan Dx/Rx/DC Orders Clinical Impression: COVID-19 Instructions: Coronavirus Disease 2019 (COVID-19): Overview Prescriptions: New benzonatate [Tessalon Perles] 100 mg capsule 100 mg PO TID PRN (Reason: cough) Qty: 20 RF: 0 No Action omeprazole 40 mg capsule,delayed release(DR/EC) 40 mg PO DAILY RF: 0 Primary Care Provider: Ben Skaggs Referrals: Ben Skaggs MD [Primary Care Provider] - Disposition Disposition: Home, Self Care Discharge Date/Time: 02/09/21 17:16
[2021-02-09 17:15] VITALS: BP 126/83; PULSE 64; RESP 21; O2SAT 99
== END 2021-02-09 17:16 | disposition home or self-care (01) ==
PROVIDERS: Emergency Provider Emergency Medicine; PCP Family Medicine
DX: U07.1 COVID-19 (principal); Z87.891 Personal history of nicotine dependence
CPT/HCPCS: 71045; 80048; 84484; 85025; 87426; 93005; 99285; A4216

== ENCOUNTER 2021-02-17 11:27 | Emergency (ER) | payer MEDICAID, SELFPAY ==
[2021-02-17] VITALS (7 sets, daily range): BP systolic 113–159; BP diastolic 75–89; PULSE 84–117; RESP 18–26; TEMP 36.7; O2SAT 91–94; BMI 25.9
--- NOTE | 2021-02-17 11:50 | RAD_ITS ---
STUDY: X-RAY CHEST REASON FOR EXAM: Male, 65 years old. covid TECHNIQUE: Frontal portable view of the chest COMPARISON: 09 February 2021 FINDINGS: Bilateral multifocal pneumonia is more clearly seen on the current images, likely disease progression/worsening. There is no pneumothorax, pulmonary edema or pleural effusions. RAD/Chest 1 View (Portable) IMPRESSION: Progression of multifocal Covid pneumonia. Electronically Signed: Vitaly Claudio MD at 13:18 EDT Tel , Service support ,
--- NOTE | 2021-02-17 11:52 | EX.ED.DYSGE1 ---
HPI History of Present Illness Chief Complaint: Nausea/Vomiting Informant: patient Narrative Narrative: Note: Patient is a poor historian offering 1 or 2 word answers as to what is going on. Open ended questions are not effective in elucidating a history from him. 65-year-old male states that on 09 February he tested positive for COVID-19. That ED visit was for chest pain and he endorsed a cough and was noted to be leukopenic. His Covid test returned positive. He states that since that time he is worsened. He notes vomiting and diarrhea. He states that his body hurts and he is fatigued. He states he called his doctor and was told to come to emergency [facility] Medical History Heartburn Home Medications ondansetron 4 mg PO Q6H PRN PRN #15 tab 02/17/21 [Rx Last Taken Unknown] Allergy/AdvReac Type Severity Reaction Status Date / Time ibuprofen Allergy Swelling Verified 02/09/21 12:59 Surgical History Hx of appendectomy Social History (Updated 02/17/21 @ 11:[address] Cirilo Feldman DO) current gender identity: male Smoking Status: Former smoker ROS ROS ED ROS Narrative Generalized fatigue Constitutional Constitutional ED: Reports chills and fever(s); Denies weight loss Eyes Eyes: Denies change in vision or diplopia ENT ENT ED: Denies ear pain, rhinorrhea or sore throat Cardiovascular Cardiovascular: Reports chest pain; Denies orthopnea, palpitations or racing heartbeat Respiratory/Chest Respiratory/Chest: Reports cough and dyspnea; Denies orthopnea Gastrointestinal Gastrointestinal: Reports abdominal pain, diarrhea, nausea and vomiting Genitourinary Genitourinary ED: Denies dysuria, hematuria or urinary frequency Musculoskeletal Musculoskeletal: Reports myalgias; Denies arthralgias Integumentary Denies abscess or rash Neurologic Neurologic: Denies headache(s) or weakness Psychiatric Psychiatric: Denies anxiety, depression, suicidal ideation or suicidal thoughts Endocrine Endocrinology: Denies polydipsia, polyphagia or polyuria Allergic/Immunologic Allergic/Immunologic ED: Denies mouth swelling, tongue swelling or urticaria EXAM Physical Exam Narrative Exam Narrative: Patient is tachypneic at rest Const Vital Signs: 02/17/21 11:28 02/17/21 11:41 02/17/21 12:33 Temperature 98.1 F 98.1 F 98.1 F Temperature Source Temporal Temporal Temporal Pulse Rate 117 H 102 H 90 Respiratory Rate 24 H 24 H 18 Blood Pressure 113/89 H 113/89 H 122/85 H Blood Pressure Mean 97 97 97 Pulse Ox 94 93 93 Oxygen Delivery Method Room Air Room Air Room Air 02/17/21 14:24 02/17/21 14:52 02/17/21 16:00 Temperature 98.1 F Temperature Source Temporal Pulse Rate 87 93 84 Respiratory Rate 22 H 26 H 22 H Blood Pressure 120/77 159/75 H Blood Pressure Mean 91 103 Pulse Ox 91 94 93 Oxygen Delivery Method Room Air Room Air Room Air Positive well nourished and well developed General Appearance ED: well developed HEENT Reports normocephalic, head/scalp atraumatic, TM's clear and moist mucous membranes Negative for trauma Tympanic Membrane ED: Yes TM's clear Eyes PERRL and EOMs intact bilaterally Neck no lymphadenopathy, supple and no JVD Resp clear to auscultation bilaterally Resp Narrative: Patient is tachypneic Cardio regular rate and no murmurs Rate: tachycardic GI non-tender GI Narrative: Diffusely tender to palpation Palpation: soft; Negative for guarding or rebound tenderness present Back/Spine no CVA tenderness and normal ROM Lumbar Spine / Lower Back: Negative for lumbar spinal tenderness Extremity normal to inspection General Extremety ED: Negative for edema General Extremity: Negative for edema Neuro oriented x3 and CN's II-XII intact bilaterally Sensorium / Orientation: alert Motor Exam: strength 5/5 throughout Psych mental status grossly normal Mood & Affect: Negative for depressed or tearful Skin no rashes or lesions noted and no wounds MDM MDM MDM Narrative Medical decision making narrative: White count 4.5. D-dimer greater than 20. BUN of 42 with a creatinine 1.28. Lactic acid elevated 2.30. Patient received IV fluids and Zofran. He has not required any oxygen. He ambulates without hypoxemia. He has been tolerant of fluids p.o. Heart rate is down to 84. Spoke with her hospitalist. Patient is out of the window for and does appear. Does not appear steroids would be of benefit. I will write for him to have Zofran. Patient will be discharged home return if worsening or concerns Lab Data Attestation: I reviewed the patient's lab results. Labs: Laboratory Results - last 24 hr 02/17/21 02/17/21 02/17/21 12:15 12:15 12:15 WBC 4.5 RBC 5.30 Hgb 16.5 Hct 48.2 MCV 90.9 MCH 31.1 MCHC 34.2 RDW Std Deviation 44.4 H RDW Coeff of Tim 13.2 Plt Count 214 MPV 10.4 Immature Gran % (Auto) 1.800 H Neut % (Auto) 69.5 Lymph % (Auto) 19.0 [place] % (Auto) 9.5 Eos % (Auto) 0.0 Baso % (Auto) 0.2 Absolute Neuts (auto) 3.1 Absolute Lymphs (auto) 0.86 Nucleated RBC % 0 Differential Comment SCANNED PT 15.0 H INR 1.3 APTT 31.8 D-Dimer Quant (PE/DVT) > 20.00 H* Sodium 140 Potassium 3.5 Chloride 104 Carbon Dioxide 23.0 Anion Gap 13 BUN 42 H Creatinine 1.28 Estim Creat Clear Calc 51.38 Est GFR (MDRD) Af Amer 73 Est GFR (MDRD) Non-Af 60 BUN/Creatinine Ratio 32.8 H Glucose 117 H Lactic Acid Calcium 8.9 Total Bilirubin 0.80 AST 31 ALT 18 Alkaline Phosphatase 69 Troponin I High Sens 41 Total Protein 7.8 Albumin 3.2 Globulin 4.6 H Albumin/Globulin Ratio 0.7 L Lipase 368 02/17/21 12:15 WBC RBC Hgb Hct MCV MCH MCHC RDW Std Deviation RDW Coeff of Tim Plt Count MPV Immature Gran % (Auto) Neut % (Auto) Lymph % (Auto) [place] % (Auto) Eos % (Auto) Baso % (Auto) Absolute Neuts (auto) Absolute Lymphs (auto) Nucleated RBC % Differential Comment PT INR APTT D-Dimer Quant (PE/DVT) Sodium Potassium Chloride Carbon Dioxide Anion Gap BUN Creatinine Estim Creat Clear Calc Est GFR (MDRD) Af Amer Est GFR (MDRD) Non-Af BUN/Creatinine Ratio Glucose Lactic Acid 2.3 H* Calcium Total Bilirubin AST ALT Alkaline Phosphatase Troponin I High Sens Total Protein Albumin Globulin Albumin/Globulin Ratio Lipase Radiography Diagnostic Testing: Clinical Impression(s) from Imaging Studies Chest X-Ray 02/17/21 11:50 IMPRESSION: Progression of multifocal Covid pneumonia. Electronically Signed: Vitaly Claudio MD at 13:18 EDT Tel , Service support , Chest CTA 02/17/21 13:18 IMPRESSION: 1. No pulmonary embolism 2. Acute Covid pneumonia. 3. Emphysema. Electronically Signed: Vitaly Claudio MD at 14:46 EDT Tel , Service support , Discharge Plan Triage Chief Complaint: Nausea/Vomiting ED Provider: Cirilo Feldman Dx/Rx/DC Orders Clinical Impression: COVID-19, Acute dehydration, Elevated lactic acid level Prescriptions: New ondansetron [ondansetron] 4 MG tablet 4 mg PO Q6H PRN PRN (Reason: Nausea) Qty: 15 RF: 0 Primary Care Provider: Ben Skaggs Referrals: Ben Skaggs MD [Primary Care Provider] - As Needed Disposition Disposition: Home, Self Care
[2021-02-17] MEDS: 0.9% Normal Saline 1,000 ML 1000 ML IV (12:27)
[2021-02-17] MEDS: Ondansetron 4 MG/2 ML Vial IV (12:28)
[2021-02-17 12:29] LABS: Absolute Lymphocyte Count 0.86 X10^3/uL (0.83-4.51); Absolute Neutrophil Count 3.1 X10^3/uL (2.0-7.7); Basophil# 0.01 X10^3/uL; Basophil% 0.2 % (0-1); Hematocrit 48.2 % (40-54); Hemoglobin 16.5 g/dL (13.0-16.5); Lymphocyte # 0.86 X10^3/ul (0.83-4.51); Mean Corp Hgb Conc 34.2 g/dL (32-36); Mean Corpuscular Hgb 31.1 pg (27.0-32.0); Mean Corpuscular Volume 90.9 fL (80-94); Mean Platelet Vol. 10.4 fl (6.2-12.0); Monocyte# 0.43 X10^3/uL; Monocyte% 9.5 % (0-10); NRBC Flagged by Analyzer 0 % (0-5); Neutrophil # 3.14 X10^3/uL (2.7-7.7); Neutrophil % 69.5 % (47-70); POSITIVE MORPHOLOGY YES; Platelet Count 214 K/mm3 (150-450); RBC Distribution Width CV 13.2 % (11.6-14.6); RBC Distribution Width SD 44.4 fl (35.1-43.9); White Blood Count 4.5 K/mm3 (4.4-11.0)
[2021-02-17 12:32] LABS: Differential Indicated SCAN CRITERIA MET
[2021-02-17 12:43] LABS: ALB/GLOB Ratio 0.7 RATIO (0.9-2.4); AST(SGOT) 31 U/L (15-37); Alanine Aminotransfer ALT/SGPT 18 U/L (16-61); Albumin, Serum 3.2 g/dL (3.2-5.0); Alkaline Phosphatase 69 U/L (45-117); Anion Gap 13 (5-15); BUN 42 mg/dL (7-18); BUN/Creat Ratio 32.8 RATIO (10-20); Calcium,Total 8.9 mg/dL (8.5-10.1); Chloride 104 mmol/L (98-107); Creatinine, Serum 1.28 mg/dL (0.70-1.30); EST Glomerular Filtration Rate 60 mL/min (>60); Est Glom Filt Rate - Afr Amer 73 mL/min (>60); Estimated Creatinine Clearance 51.38 ml/min; Globulin 4.6 g/dL (2.2-4.2); Glucose 117 mg/dL (74-106); Lipase 368 U/L (73-393); Potassium 3.5 mmol/L (3.5-5.1); Protein, Total 7.8 g/dL (6.4-8.2); Sodium Level 140 mmol/L (136-145); Troponin-I HS 41 pg/mL (3.0-78.0)
[2021-02-17 12:59] LABS: Differential Comment SCANNED
[2021-02-17 13:01] LABS: Lactic Acid 2.3 mmol/L (0.4-1.9)
[2021-02-17 13:10] LABS: International Normalized Ratio 1.3
[2021-02-17 13:11] LABS: Partial Thromboplast Time 31.8 Seconds (24.1-36.2)
[2021-02-17 13:16] LABS: D-Dimer Quantitative (DVT/PE) > 20.00 FEU/ug/m (0.27-0.49)
--- NOTE | 2021-02-17 13:18 | CT_ITS ---
STUDY: CTA CHEST REASON FOR EXAM: Male, 65 years old. Covid 19 shortness of breath pulmonary embolism evaluation RADIATION DOSAGE (If Supplied By Facility): CTDIvol = ( 6.54 ) mGy, DLP = ( 193.47 ) mGycm TECHNIQUE: The examination was performed with the intravenous administration of IV 100mL Isovue-370. Post-processing of the angiographic images was performed, with multiplanar reformation and 3D reconstruction. Individualized dose optimization techniques were used for this CT. COMPARISON: None. FINDINGS: There is no acute or chronic pulmonary embolism. Aorta is of normal caliber. There is multifocal groundglass viral pneumonia. Lungs are emphysematous with cystic bullous change in the apices. There is no pneumothorax, pulmonary edema or pleural effusions. Mediastinal contents are normal. Osseous structures are intact. Abdominal structures are unremarkable. CT/CTA Chest W/WO Contrast IMPRESSION: 1. No pulmonary embolism 2. Acute Covid pneumonia. 3. Emphysema. Electronically Signed: Vitaly Claudio MD at 14:46 EDT Tel , Service support ,
[2021-02-17] MEDS: 0.9% Normal Saline 1,000 ML 250 ML IV (15:30)
[2021-02-17 16:21] LABS: Reflex Lactate? Y
== END 2021-02-17 16:40 | disposition home or self-care (01) ==
PROVIDERS: Emergency Provider Emergency Medicine; PCP Family Medicine
DX: U07.1 COVID-19 (principal); E86.0 Dehydration; E87.2 Acidosis; Z87.891 Personal history of nicotine dependence
CPT/HCPCS: 71045; 71275; 80053; 83605; 83690; 84484; 85025; 85379; 85610; 85730; 96361; 96374; 99283; J7030; Q9967; A4216; J2405

== ENCOUNTER 2022-12-01 17:11 | Emergency (ER) | payer MEDICARE, MEDICAID, SELFPAY ==
[2022-12-01 17:12] VITALS: BP 112/71; PULSE 79; RESP 18; TEMP 35.8; O2SAT 98; BMI 27.0
--- NOTE | 2022-12-01 17:19 | EDS_ITS ---
HPI History of Present Illness Chief Complaint: Bite [facility] Medical History Heartburn Home Medications ondansetron 4 mg disintegrating tablet 4 mg PO Q6H PRN PRN Nausea #15 tabs 02/17/21 [Rx Last Taken Unknown] prednisone 50 mg tablet 50 mg PO DAILY 5 days #5 tabs 12/01/22 [Rx Last Taken Unknown] Allergy/AdvReac Type Severity Reaction Status Date / Time ibuprofen Allergy Swelling Verified 02/09/21 12:59 Surgical History Hx of appendectomy Social History (Updated 02/17/21 @ 11:[address] Cirilo Feldman DO) Smoking Status: Former smoker EXAM Physical Exam Const Vital Signs: 12/01/22 17:12 Temperature 96.5 F L Temperature Source Temporal Pulse Rate 79 Respiratory Rate 18 Blood Pressure 112/71 Blood Pressure Mean 84 Pulse Ox 98 Oxygen Delivery Method Room Air MDM MDM MDM Narrative Medical decision making narrative: HISTORY OF PRESENT ILLNESS: 67-year-old male here with concern for bee stings last night. He states he has several areas of redness and swelling in his legs and arms. He further states he is concerned from the itching and irritation on bilateral arms and bilateral legs. Denies any trouble swallowing, abdominal pain, shortness of breath, throat closure drooling or difficulty swallowing. REVIEW OF SYSTEMS: Pertinent positives: Bee stings, redness Pertinent negatives: Throat closure, difficulty swallowing, drooling PHYSICAL EXAM: Nursing triage notes reviewed, Vital signs reviewed Constitutional: please see mdm HENT: MMM, posterior oropharynx patent. No stridor. Eyes: Pupils equal round and reactive to light, Extraocular muscles intact Neck: No stridor, no JVD, full neck ROM Lungs: Clear to auscultation, No wheezing or rales. No increased work of breathing, no conversational dyspnea, no accessory muscle use, no nasal flaring. No respiratory distress noted Heart: Regular rate and rhythm, No murmurs, No rubs and No gallops, 2+ distal pulses (radial, femoral, posterior tibial) in all extremities Abdomen: Soft, there is no tenderness, rigidity, rebound or guarding, no obvious peritoneal signs, no palpable pulsatile abdominal masses, no auscultated abdominal bruit : No CVAT Extremities: No edema Neuro: No focal neurological deficits, cranial nerves II through XII intact, 5/5 strength in all extremities. Intact sensation to light touch in all extremities, 2+ reflexes bilateral patella tendons. Normal gait. No ataxia. Skin: Erythematous lesions noted to upper and lower extremity, not obviously urticaria. There is no crepitus bullae. There is no fluctuance or induration. MEDICAL DECISION MAKING: Chief Complaint: Bee sting ALL IMAGES (IF OBTAINED) HAVE BEEN PERSONALLY REVIEWED AND INTERPRETED BY MYSELF. MDM Narrative: Patient was hemodynamically stable, afebrile, nontoxic-appearing. Exam with nonspecific skin irritation likely allergic in origin. There is no sign of anaphylaxis or respiratory compromise. There is no drooling. Patient speaking full sentences. He will be given symptomatic treatment including IM Decadron and instructions to take p.o. Benadryl/Zyrtec as well as Pepcid for H1 and H2 blockade. Strict return precautions were discussed. Follow-up was discussed. The patient and/or family, caregivers express understanding. The patient and/or family, caregivers agrees with the plan. Shared decision making: I will have a discussion with the patient and or visitors regarding risk/benefits of further testing or admission. They will be made aware of of the risk/benefits inherent in this decision they will be given the opportunity to voice understanding. Total critical care time today provided was at least 0 minutes. This excludes separately billable procedures. Critical care time (if documented) is secondary to the patient having high probability of clinically significant/life threatening deterioration in the patient's condition which required my urgent intervention. Discharge Plan Triage Chief Complaint: Bite ED Provider: Phill Wu Dx/Rx/DC Orders Clinical Impression: Allergic reaction, Accidental bee sting Instructions: ED BEE STING General Allergic Rxn Prescriptions: New prednisone 50 mg tablet 50 mg PO DAILY 5 Days Qty: 5 0RF No Action ondansetron [ondansetron] 4 MG tablet 4 mg PO Q6H PRN PRN (Reason: Nausea) Qty: 15 0RF Primary Care Provider: Ben Skaggs Referrals: Ben Skaggs MD [Primary Care Provider] - Activity Restrictions/Additional Instructions: Thank you for trusting us with your care today! Please take Zyrtec (cetirizine)/Benadryl daily. Please also take Pepcid daily. You may obtain Benadryl/Zyrtec and Pepcid [id number] at any drugstore pharmacy. Please take prednisone as prescribed. Please return to the emergency department if your symptoms change or worsen. Specifically if develop drooling, difficulty swallowing, shortness of breath. Please follow with your primary care physician for further outpatient evaluation and management. Disposition Disposition: Home, Self Care
[2022-12-01] MEDS: Famotidine 20 MG Tablet PO (17:45)
[2022-12-01] MEDS: dexAMETHasone 10 MG/ML Vial 6 MG IM (17:45)
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
[2022-12-01] MEDS: Epi Pen (EQUIV) 0.3 MG Syringe IM (20:10)
--- NOTE | 2022-12-01 21:28 | ED.RN ---
pt returned and had a dose of epi 0.3mg IM and is discharged home at this william.
== END 2022-12-01 18:08 | disposition home or self-care (01) ==
PROVIDERS: Emergency Provider Emergency Medicine; PCP Family Medicine; Visit Provider Emergency Medicine
DX: T63.441A Toxic effect of venom of bees, accidental (unintentional), initial encounter (principal); Z87.891 Personal history of nicotine dependence; R21 Rash and other nonspecific skin eruption
CPT/HCPCS: 96372; 99283

== ENCOUNTER → 2023-03-04 | Outpatient (CLI) | payer MEDICARE, MEDICAID, SELFPAY ==
--- NOTE | 2023-03-04 13:02 | CT_ITS ---
STUDY: LOW DOSE CT LUNG CANCER SCREENING REASON FOR EXAM: Male, 67 years old. Lung cancer screening -- and gt;20 pkk yr hx; former smoker; asymptomatic RADIATION DOSAGE (If Supplied By Facility): CTDIvol = ( 2.01 ) mGy, DLP = ( 69.72 ) mGycm TECHNIQUE: No contrast was administered. Low dose technique was utilized (average mAS-38 and kVp 120). 1.25 mm axial source images with a slice interval of 1.25-mm were reconstructed in lung windows. 2.5 mm axial source images with a slice interval of 2.5-mm were reconstructed in lung windows. 5.0 mm axial source images with a slice interval of 5.0-mm were reconstructed in soft tissue windows. COMPARISON: Comparison is made with prior study dated February 17, 2021. NODULES: No suspicious nodules are seen. Emphysema: Hyperinflation. Emphysematous changes more pronounced in the upper lobes. Bullous formation in the posterior aspect of the right upper lobe. Endobronchial lesion: None Aorta: Mild degree of atherosclerotic calcific plaques at the level of the aortic arch. CORONARY ARTERIES: Coronary artery calcification is not seen. Heart: Unremarkable Pulmonary artery: Unremarkable Mediastinal nodes: Small mediastinal lymph nodes. Other chest and abdominal findings: CT/Low Dose CT Lung Screening IMPRESSION: Lung-RADS category 2 - Continue annual screening with LDCT in 12 months. IMPORTANT NOTES FOR USE: ACR Lung-RADS Version 1.1 Assessment Categories Release Date: 2018 Category: Coded 0-4 bases on nodule(s) with highest degree of suspicion. Negative screen is defined as categories 1 and 2; a positive screen is defined as categories 3 and 4. Category 3 and 4A nodules that are unchanged on interval CT should be coded as category 2, and individuals returned to screening in 12 months. Category 4X: Category 3 or 4 nodules with additional imaging findings that increase the suspicion of lung cancer, such as spiculation, GGN that doubles in size in 1 year, enlarged lymph notes, etc. Category Modifiers: S (significant finding unrelated to lung cancer) Electronically Signed: Leon Espino MD at 13:42 EST ,
== END | disposition home or self-care (01) ==
PROVIDERS: PCP Family Medicine; Referring Provider Nurse Practitioner Family; Visit Provider Nurse Practitioner Family
DX: Z12.2 Encounter for screening for malignant neoplasm of respiratory organs (principal); Z87.891 Personal history of nicotine dependence
CPT/HCPCS: 71271

== ENCOUNTER 2023-07-15 00:01 | Emergency (ER) | payer MEDICARE, MEDICAID, SELFPAY ==
[2023-07-15] VITALS (9 sets, daily range): BP systolic 122–145; BP diastolic 74–96; PULSE 62–73; RESP 17–25; TEMP 36.3–36.5; O2SAT 93–98; BMI 28.0
--- NOTE | 2023-07-15 00:16 | EKG12_ITS ---
Test Reason : CP Blood Pressure : / mmHG Vent. Rate : 064 BPM Atrial Rate : 064 BPM P-R Int : 118 ms QRS Dur : 086 ms QT Int : 400 ms P-R-T Axes : 010 045 042 degrees QTc Int : 412 ms Normal sinus rhythm Normal ECG Confirmed by ALEXUS GUSTAFSON MD ([id number]), marketing editor ALYCIA ALARCON ([id number]) on 07/15/2023 8:02:50 AM Referred By: BB Confirmed By:ALEXUS GUSTAFSON MD
--- NOTE | 2023-07-15 00:16 | RAD_ITS ---
INDICATION: chest pain EXAMINATION/TECHNIQUE: X-RAY - XR Chest 2 Views COMPARISON: 02/17/2021 FINDINGS: LINES/DEVICES: None. LUNGS: No consolidation, vascular congestion or pleural effusion. Stable coarsening of interstitial markings. MEDIASTINUM AND CARDIOVASCULAR STRUCTURES: Cardiac silhouette stable within normal limits. BONES AND SOFT TISSUES: No acute changes. RAD/Chest PA and Lateral IMPRESSION: No acute consolidative process. Electronically Signed: Suleman Chamorro MD at 0:51 EDT ,
--- NOTE | 2023-07-15 00:16 | ED.VIS.CHEST ---
HPI History of Present Illness Chief Complaint: Chest Pain Informant: patient Onset/Context/Timing Onset: Hours (6) Activity at onset: gradual and onset Timing: Intermittent (2 episodes) and Lasts (10-15 min each) Quality: Positive for Sharp and Stabbing Location: - (lower central chest radiating into mid-back) Current Severity: Gone Maximum Severity: Moderate Worsened By: Nothing Relieved By: Nothing (Did not take anything, spontaneously abated) Associated Symptoms: Negative for Nausea, Vomiting, Diaphoresis, Dyspnea, Cough, Fever, Lightheadedness or Palpitations Narrative Narrative: Patient states he was resting sitting at a table drawing tonight after dinner at some point started having discomfort in his chest radiating into his back. He had another episode about an hour ago so he presents out of concern. Family history of heart disease in brothers but none personally that he knows of. History of some esophagus issues, he states he had a dilatation about 6 years ago and for the last half year to a year or so he has been having issues with swallowing things sometimes but never to the point where anything is stuck and he had to come to the hospital. [facility] Medical History Encounter for screening for malignant neoplasm of lung Heartburn History of tobacco use Home Medications NK 07/15/23 [History Last Taken Unknown] Allergy/AdvReac Type Severity Reaction Status Date / Time dexamethasone [From Decadron] Allergy Mild Hives Verified 03/04/23 12:31 famotidine [From Pepcid] Allergy Mild Hives Verified 03/04/23 12:31 ibuprofen Allergy Swelling Verified 03/04/23 12:31 Surgical History Hx of appendectomy Social History Smoking Status: Former smoker ROS ROS ED Constitutional Constitutional ED: Denies chills or fever(s) Eyes Eyes: Denies change in vision or diplopia ENT ENT ED: Denies rhinorrhea or sore throat Cardiovascular Cardiovascular: Reports chest pain; Denies palpitations Respiratory/Chest Respiratory/Chest: Denies cough or dyspnea Gastrointestinal Gastrointestinal: Denies abdominal pain, diarrhea, nausea or vomiting Genitourinary Genitourinary ED: Denies dysuria or hematuria Musculoskeletal Musculoskeletal: Reports back pain; Denies neck pain Integumentary Denies abscess or rash Neurologic Neurologic: Denies headache(s), paresthesias or weakness Psychiatric Psychiatric: Denies anxiety or suicidal thoughts EXAM Physical Exam Const Vital Signs: 07/15/23 00:02 07/15/23 00:07 07/15/23 00:25 Temperature 97.7 F L Temperature Source Oral Pulse Rate 63 Respiratory Rate 19 H Respiratory Effort Normal Non-Labored Blood Pressure 145/90 H Blood Pressure Mean 108 Pulse Ox 96 95 Oxygen Delivery Method Room Air Room Air 07/15/23 01:01 07/15/23 01:24 07/15/23 01:30 Temperature Temperature Source Pulse Rate 73 73 68 Respiratory Rate 17 19 H 24 H Respiratory Effort Blood Pressure 122/74 H 132/88 H Blood Pressure Mean 90 102 Pulse Ox 98 95 93 Oxygen Delivery Method Room Air 07/15/23 01:45 07/15/23 02:00 07/15/23 03:00 Temperature Temperature Source Pulse Rate 63 62 63 Respiratory Rate 25 H 23 H 18 Respiratory Effort Blood Pressure 139/96 H 136/81 H Blood Pressure Mean 110 99 Pulse Ox 97 96 98 Oxygen Delivery Method Room Air Room Air Positive well nourished and well developed General Appearance ED: well developed and NAD HEENT Reports moist mucous membranes normocephalic and atraumatic Eyes PERRL and EOMs intact bilaterally Neck full ROM and supple Chest Wall inspection of chest normal and palpation of chest normal Resp normal respiratory effort and clear to auscultation bilaterally Cardio regular rate, regular rhythm and no murmurs Peripheral Pulses: pulses 2+ throughout and radial pulses present bilateral 2+ GI non-tender and non-distended GI Narrative: No pulsatile mass. No [place] sign. No [place] sign. Auscultation: normoactive bowel sounds Palpation: soft Back/Spine no CVA tenderness General Back: other FROM Extremity normal to inspection General Extremety ED: Negative for edema, pulses abnormal or tenderness General Extremity: Negative for edema or pulses abnormal Neuro oriented x3, CN's II-XII intact bilaterally and no sensory deficits noted Sensorium / Orientation: awake and alert Motor Exam: strength 5/5 throughout Skin no rashes or lesions noted and no wounds Heart Score History: Slightly/Non-Suspicious ECG: Normal Age: >/= 65 years Risk Factors: 1 or 2 Risk Factors (Former smoker, family history Brothers) Troponin: </= Normal Limit Score: 3 MDM MDM MDM Narrative Medical decision making narrative: Esophageal etiologies in the differential, the symptoms sound less like cardiac etiologies, he denies any tearing sensations to suggest an aortic dissection, and he has equal pulses everywhere and the symptoms really do not suggest AAA rupture or an aortic catastrophe. EKG was obtained, it is normal in my interpretation. 2 view chest x-ray obtained screening mediastinum, on my interpretation appears normal including the mediastinum. Radiology in agreement. Soon after I saw him, he did have some back discomfort that was starting again like it was another episode, he was given a GI cocktail, he states the discomfort resolved and did not recur. He is not sure if it was a GI cocktail or if it went away on its own, but it occurred after we given the treatment. His initial troponin came back within normal limits, we obtained a 2-hour repeat it came back just a little lower 43 compared with 44, for a delta of -1. Heart score is a low risk 3. He is feeling well and stable for discharge home and close outpatient follow-up. Lab Data Attestation: I reviewed the patient's lab results. Labs: Laboratory Results - last 24 hr 07/15/23 07/15/23 00:05 02:49 WBC 5.8 RBC 4.66 Hgb 14.2 Hct 44.2 MCV 94.8 H MCH 30.5 MCHC 32.1 RDW Std Deviation 44.8 H RDW Coeff of Tim 12.9 Plt Count 217 MPV 10.3 Immature Gran % (Auto) 0.300 Neut % (Auto) 46.0 L Lymph % (Auto) 42.2 H [place] % (Auto) 8.7 Eos % (Auto) 1.4 Baso % (Auto) 1.4 H Absolute Neuts (auto) 2.7 Absolute Lymphs (auto) 2.46 Nucleated RBC % 0 Sodium 141 Potassium 3.7 Chloride 107 Carbon Dioxide 28.0 Anion Gap 6 BUN 10 Creatinine 1.20 Estim Creat Clear Calc 57.85 Est GFR (MDRD) Af Amer 78 Est GFR (MDRD) Non-Af 64 BUN/Creatinine Ratio 8.3 L Glucose 97 Calcium 8.7 Troponin I High Sens 44 43 Radiography Diagnostic Testing: Clinical Impression(s) from Imaging Studies Chest X-Ray 07/15/23 00:16 IMPRESSION: No acute consolidative process. Electronically Signed: Suleman Chamorro MD at 0:51 EDT , Rhythm Strip Rhythm Strip: Sinus Rhythm Rate: 65 Ectopy: None EKG Initial EKG: Attestation: I personally reviewed and interpreted this EKG as follows: Interpretation: Sinus Rhythm and No Acute Injury Pattern Comments: Normal EKG Discharge Plan Triage Chief Complaint: Chest Pain ED Provider: Kris Urrutia Dx/Rx/DC Orders Clinical Impression: Chest pain, unspecified Instructions: ED Chest Pain, Uncertain Cause Prescriptions: No Action NK Primary Care Provider: Ben Skaggs Referrals: Ben Skaggs MD [Primary Care Provider] - As soon as possible Disposition Disposition: Home, Self Care
[2023-07-15 00:30] LABS: Absolute Lymphocyte Count 2.46 X10^3/uL (0.83-4.51); Absolute Neutrophil Count 2.7 X10^3/uL (2.0-7.7); Basophil# 0.08 X10^3/uL; Basophil% 1.4 % (0-1); Eosinophil# 0.08 X10^3/uL; Eosinophils% 1.4 % (0-5); Hematocrit 44.2 % (40-54); Hemoglobin 14.2 g/dL (13.0-16.5); Lymphocyte # 2.46 X10^3/ul (0.83-4.51); Lymphocyte % 42.2 % (19-41); Mean Corp Hgb Conc 32.1 g/dL (32-36); Mean Corpuscular Hgb 30.5 pg (27.0-32.0); Mean Corpuscular Volume 94.8 fL (80-94); Mean Platelet Vol. 10.3 fl (6.2-12.0); Monocyte# 0.51 X10^3/uL; Monocyte% 8.7 % (0-10); NRBC Flagged by Analyzer 0 % (0-5); Neutrophil # 2.68 X10^3/uL (2.7-7.7); Platelet Count 217 K/mm3 (150-450); RBC Distribution Width CV 12.9 % (11.6-14.6); RBC Distribution Width SD 44.8 fl (35.1-43.9); Red Blood Count 4.66 M/mm3 (4.6-6.2); White Blood Count 5.8 K/mm3 (4.4-11.0)
[2023-07-15] MEDS: Mag Hydrox/Al Hydrox/Simeth 30 ML UDC PO (00:36)
[2023-07-15 00:55] LABS: Anion Gap 6 (5-15); BUN 10 mg/dL (7-18); BUN/Creat Ratio 8.3 RATIO (10-20); Calcium,Total 8.7 mg/dL (8.5-10.1); Chloride 107 mmol/L (98-107); EST Glomerular Filtration Rate 64 mL/min (>60); Est Glom Filt Rate - Afr Amer 78 mL/min (>60); Estimated Creatinine Clearance 57.85 ml/min; Glucose 97 mg/dL (74-106); Potassium 3.7 mmol/L (3.5-5.1); Sodium Level 141 mmol/L (136-145); Troponin-I HS (w/2H Reflex) 44 pg/mL (3.0-78.0)
[2023-07-15 00:58] LABS: Reflex Troponin-HS? (from REC) N
[2023-07-15 03:20] LABS: Troponin-I HS 43 pg/mL (3.0-78.0)
== END 2023-07-15 03:29 | disposition home or self-care (01) ==
PROVIDERS: Emergency Provider Emergency Medicine; PCP Family Medicine; Visit Provider Emergency Medicine
DX: R07.9 Chest pain, unspecified (principal); Z87.891 Personal history of nicotine dependence; Z82.49 Family history of ischemic heart disease and other diseases of the circulatory system
CPT/HCPCS: 71046; 80048; 84484; 85025; 93005; 99285; A4216

== ENCOUNTER → 2024-04-09 | Outpatient (CLI) | payer MEDICARE, MEDICAID, SELFPAY ==
--- NOTE | 2024-04-09 15:31 | CT_ITS ---
STUDY: LOW DOSE CT LUNG CANCER SCREENING REASON FOR EXAM: Male, 69 years old. NICOTINE DEP RADIATION DOSAGE (If Supplied By Facility): CTDIvol = ( 2.01 ) mGy, DLP = ( 66.70 ) mGycm TECHNIQUE: No contrast was administered. Low dose technique was utilized (average mAS-38 and kVp 120). 1.25 mm axial source images with a slice interval of 1.25-mm were reconstructed in lung windows. 2.5 mm axial source images with a slice interval of 2.5-mm were reconstructed in lung windows. 5.0 mm axial source images with a slice interval of 5.0-mm were reconstructed in soft tissue windows. COMPARISON: 03/04/2023 Emphysema: Moderate emphysema. No noncalcified nodule or mass. Endobronchial lesion: None Aorta: No thoracic aortic aneurysm. CORONARY ARTERIES: Coronary artery calcification is not seen. Heart: No cardiomegaly. Pulmonary artery: Normal Mediastinal nodes: Normal Other chest and abdominal findings: None CT/Low Dose CT Lung Screening IMPRESSION: Lung-RADS category 1 - Continue annual screening with LDCT in 12 months. IMPORTANT NOTES FOR USE: ACR Lung-RADS Version 1.1 Assessment Categories Release Date: 2018 Category: Coded 0-4 bases on nodule(s) with highest degree of suspicion. Negative screen is defined as categories 1 and 2; a positive screen is defined as categories 3 and 4. Category 3 and 4A nodules that are unchanged on interval CT should be coded as category 2, and individuals returned to screening in 12 months. Category 4X: Category 3 or 4 nodules with additional imaging findings that increase the suspicion of lung cancer, such as spiculation, GGN that doubles in size in 1 year, enlarged lymph notes, etc. Category Modifiers: S (significant finding unrelated to lung cancer) Electronically Signed: Vasiliy Turner MD at 9:31 EST ,
== END | disposition home or self-care (01) ==
LOC: CT 15:30
PROVIDERS: PCP Family Medicine; Referring Provider Nurse Practitioner Family; Visit Provider Nurse Practitioner Family
DX: Z12.2 Encounter for screening for malignant neoplasm of respiratory organs (principal); F17.210 Nicotine dependence, cigarettes, uncomplicated
CPT/HCPCS: 71271

== ENCOUNTER → 2025-04-12 | Outpatient (CLI) | payer MEDICARE, MEDICAID, SELFPAY ==
--- NOTE | 2025-04-12 13:35 | CT_ITS ---
PROCEDURE: LOW DOSE CT LUNG SCREENING 04/12/2025 REASON FOR EXAM: LUNG CANCER SCREENING Former smoker. Patient has smoked 1-1/2 pack per day for multiple years. COPD. Emphysema. TECHNIQUE: Procedure Code: [id number] Modality: CT Procedure: LOW DOSE CT LUNG SCREENING Coronal and Sagittal reconstruction series were provided. One or more dose reduction techniques were used (e.g., Automated exposure control, adjustment of the mA and/or kV according to patient size, use of iterative reconstruction technique). REFERENCE LINK: [facility] Lung-RADS RADIATION DOSE SUMMARY: CTDlvol: 2.39 mGy DLP: 77.13 mGycm COMPARISON: April 09, 2024. FINDINGS: PULMONARY NODULES: (Only nodules >3mm are reported) Nodules described below are on series 1 unless otherwise specified. Pulmonary Nodules: No suspicious pulmonary nodule is seen. Hardware:None Lymph Nodes:No significant mediastinal or hilar adenopathy is seen. Heart and Vasculature:The heart is nonenlarged. Coronary Artery Calcifications: No significant coronary artery calcification is present. Lungs and Airways: Advanced emphysematous changes are present. Pleura:Unremarkable Upper Abdomen:Small hiatal hernia. Bones:Degenerative changes of the thoracic spine. CT/Low Dose CT Lung Screening IMPRESSION: Emphysematous changes. Coronary artery calcification (CAC) is is absent Lung-RADS Category: 2 BENIGN (BASED ON IMAGING FEATURES OR INDOLENT BEHAVIOR). RECOMMEND 12-MONTH SCREENING LDCT. Other Significant Findings: Reading Location: [facility]
--- OUTSIDE RECORDS SUMMARY | 2025-04-12 19:53 | XMS RPT_ITS | CCD ---
Author Organization [facility] Care Team Providers Care Highway Safety Engineer Name Role Phone Darian Skaggs MD Primary Care Provider Dr. Darian Skaggs Primary Care Provider Wilbert CASE BRIEFER, CASE BRIEFER-Melvin Giordano Attending Provider Referred, Self Referring Provider Unavailable Darian Skaggs MD Primary Care Provider aDrian Skaggs MD Primary Care Provider Stephen INSTRUMENT TECHNICIAN HELPER.Eugenia BETANCUR Unavailable Prsahant INSTRUMENT TECHNICIAN HELPER.Isidra BETANCURe Unavailable Eugenia Mitchell Referring Unavailable Darian Skaggs Primary Care Unavailable Eugenia Mitchell Attending Unavailable Kris Urrutia Attending Unavailable Darian Skaggs Primary Care Unavailable Stephen INSTRUMENT TECHNICIAN HELPER.Eugenia BETANCUR Unavailable EUGENIA MITCHELL Attending UnavailDARIAN Bennett Primary Care Unavailable EUGENIA MITCHELL Attending UnavailDARIAN Bennett Primary Care Unavailable DARIAN SKAGGS Primary Care Unavailable MADYSON NOBLE Attending Unavailable SELF Referring Unavailable CAILIN JEFFREY Attending Unavailable DARIAN SKAGGS Primary Care Unavailable DARIAN SKAGGS Primary Care Unavailable ALEXUS DUMONT Attending Unavailable DARIAN SKAGGS Primary Care Unavailable IQRA SARABIA Attending Unavailable DARIAN SKAGGS Primary Care Unavailable ALEXUS DUMONT Attending Unavailable CAILIN JEFFREY Referring Unavailable DARIAN SKAGGS Primary Care Unavailable PODMADYSON LIRA Referring Unavailable DARIAN SKAGGS Primary Care Unavailable DARIAN SKAGGS Primary Care Unavailable Allergies Allergy Classification Reported Allergen(s) Allergy Type Date of Onset Reaction(s) Facility (20 sources) Ibuprofen; Translations: [IBUPROFEN] Drug Allergy 02-03-2014 Itching [facility] (20 sources) meloxicam; Translations: [MELOXICAM] Drug Allergy 08-27-2021 Swelling [facility] Work Phone: (2 sources) Dexamethasone Drug Allergy 03-04-2023 [facility] (2 sources) Famotidine Drug Allergy 03-04-2023 [facility] (1 source) Dexamethasone Drug Allergy 03-04-2023 [facility] (1 source) Famotidine Drug Allergy 03-04-2023 [facility] (1 source) Ibuprofen Drug Allergy 03-04-2023 [facility] Medications Current Medications Medication Drug Class(es) Dates Sig (Normalized) Sig (Original) [id number] 200 actuat albuterol 0.09 mg/actuat metered dose inhaler (20 sources) beta2-Adrenergic Agonist Start: 05-07-2021 End: 05-05-2024 take 2 puff(s) by inhalation every four hours as needed for wheezing albuterol HFA (PROVENTIL HFA, VENTOLIN HFA) 90 mcg/actuation inhaler Indications: Pulmonary emphysema, unspecified emphysema type (HCC) Inhale 2 Puffs as instructed every 4 hours as needed for wheezing/shortness of breath. 1 Each 3 05/05/2024 Active Start: 03-06-2019 End: 03-27-2021 take 2 puff(s) by inhalation every four hours as needed albuterol HFA (PROVENTIL HFA, VENTOLIN HFA) 90 mcg/actuation inhaler Indications: Bronchitis Inhale 2 Puffs as instructed every 4 hours as needed. 1 Inhaler 03/06/2019 03/27/2021 Discontinued Comment on above: Inhale 2 Puffs as in structed every 4 hours as needed for wheezing/shortness of breath. amoxicillin 875 mg / clavulanate 125 mg oral tablet (3 sources) Penicillin-class Antibacterial Start: 025 End: take 1 tablet by mouth twice daily amoxicillin-clavula jairon potassium (AUGMENTIN) 875-125 mg per tablet Take 1 tablet by mouth two times a day for 5 days. 10 tablet 09/03/2024 09/08/2024 Active azithromycin 250 mg oral tablet (2 sources) Macrolide Antimicrobial Start: End: azithromycin (ZITHROMAX Z-KRISTA) 250 mg tablet Indications: Bronchitis Take 2 tablets day one, then, 1 tablet daily until gone. 6 tablet 0 05/27/2022 06/01/2022 Active Comment on above: Take 2 tablets day o ne, then, 1 tablet daily until gone. codeine phosphate 2 mg/ml / guaiFENesin 20 mg/ml oral solution (3 sources) Opioid Agonist Start: End: take 5 mL by mouth three times daily as needed codeine-guaiFENesin (ROBITUSSIN AC) 10-100 mg/5 mL syrup Indications: Bronchitis Take 5 mL by mouth three times daily as needed for up to 5 days. 118 mL 0 05/27/2022 06/01/2022 Active Start: 05-27-2022 End: 05-27-2022 take 5 mL by mouth three times daily as needed Codeine-guaiFENesin 10-200 mg/5 mL liqd Indications: Bronchitis Take 5 mL by mouth three times daily as needed for up to 5 days. 100 mL 0 05/27/2022 05/27/2022 Discontinued Comment on above: Take 5 mL by mouth t hree times daily as needed for up to 5 days. cyclobenzaprine hydrochloride 10 mg oral tablet (1 source) Muscle Relaxant Start: End: take 1 tablet by mouth three times daily as needed for muscle spasms cyclobenzaprine (FLEXERIL) 10 mg tablet Indications: Strain of neck muscle, initial encounter Take 1 tablet by mouth three times daily as needed for muscle spasm for up to 10 days. 30 tablet 0 04/04/2022 04/14/2022 Active Comment on above: Take 1 tablet by brandon three times daily as needed for muscle spasm for up to 10 days. doxycycline monohydrate 100 mg oral tablet (3 sources) Tetracycline-class Drug Start: End: take 1 tablet by mouth twice daily doxycycline monohydrate 100 mg tablet Take 1 tablet by mouth two times a day for 5 days. 10 tablet 09/03/2024 09/08/2024 Active [id number] 0.3 ml EPINEPHrine 1 mg/ml auto-injector (20 sources) alpha-Adrenergic Agonist, beta-Adrenergic Agonist, Catecholamine Start: EPINEPHrine (EPIPEN) 0.3 mg/0.3 mL auto-injector Indications: Allergic reaction to bee sting Administer 1 pen to thigh after being stung. 2 Each 1 12/02/2022 Active Comment on above: Administer 1 pen to thigh after being stung. hydrocortisone 10 mg/ml topical cream (2 sources) Corticosteroid Start: End: hydrocortisone 1 % cream Indications: Atopic dermatitis, unspecified type Apply to affected area two times a day for 7 days. 20 g 1 02/26/2024 03/04/2024 Active Start: 03-18-2023 End: 03-25-2023 hydrocortisone 1 % cream Ind ications: Atopic dermatitis, unspecified type Apply to affected area two times a day for 7 days. 20 g 1 03/18/2023 03/25/2023 Active Comment on above: Apply to affected ar ea two times a day for 7 days. mupirocin 0.02 mg/mg topical ointment (7 sources) RNA Synthetase Inhibitor Antibacterial Start: 08-25-19 25 mupirocin (BACTROBAN) 2 % ointment Indications: Insect bite of left front wall of thorax, initial encounter Apply 1 application to affected area three times a day. 15 g 08/24/2024 Active [place] (Nk) (1 source) Start: 07-15-19 24 [place] (Nk) Active July 15, 2023 12:00am omeprazole 40 mg delayed release oral capsule (20 sources) Proton Pump Inhibitor Start: 01-06-20 25 take 1 capsule by mouth once daily omeprazole (PRILOSEC) 40 mg capsule Indications: Gastroesophageal reflux disease with esophagitis , Esophageal dysphagia Take 1 capsule by mouth once daily. 30 capsule 11 01/05/2025 Active Start: 03-09-2020 End: 01-04-2025 take 1 capsule by mouth once daily omeprazole (PRILOSEC) 40 mg capsule Indications: Gastroesophageal reflux disease with esophagitis , Esophageal dysphagia Take 1 capsule by mouth once daily. 30 capsule 11 10/03/2023 01/04/2025 Discontinued Comment on above: Take 1 capsule by mo [facility] once daily. tiZANidine 4 mg oral tablet (1 source) Central alpha-2 Adrenergic Agonist Start: 07-19-19 End: 07-29-19 take 1 tablet by mouth every eight hours as needed for muscle spasms tiZANidine (ZANAFLEX) 4 mg tablet Indications: Acute right-sided low back pain without sciatica Take 1 tablet by mouth every 8 hours as needed (muscle spasms) for up to 10 days. 30 tablet 0 07/18/2022 07/28/2022 Active Comment on above: Take 1 tablet by [facility] every 8 hours as needed (muscle spasms) for up to 10 days. triamcinolone acetonide 1 mg/ml topical cream (7 sources) Corticosteroid Start: 08-25-19 triamcinolone acetonide (KENALOG) 0.1 % cream Indications: Insect bite of left front wall of thorax, initial encounter Apply to affected area two times a day. 15 g 08/24/2024 Active Completed/Discontinued Medications Medication Drug Class(es) Dates Sig (Normalized) Sig (Original) acetaminophen 325 mg / HYDROcodone bitartrate 5 mg oral tablet (3 sources) Opioid Agonist Start: 01-22-2020 End: 01-25-2020 take 1 tablet by mouth every six hours as needed Hydrocodone-Aceta minophen Discontinued 1 TABLET PO EVERY 6 HOURS NEEDED 10 3 January 22, 2020 January 25, 2020 12:03am baclofen 10 mg oral tablet (1 source) gamma-Aminobutyric Acid-ergic Agonist Start: 09-09-2018 End: 09-06-2020 take 1 tablet by mouth every eight hours as needed baclofen (LIORESAL) 10 mg tablet Take 1 tablet by mouth three times daily as needed (muscle spasms). 20 tablet 09/09/2018 09/06/2020 Discontinued diclofenac sodium 0.01 mg/mg topical gel (4 sources) Nonsteroidal Anti-inflammatory Drug Start: 09-06-2021 End: 10-06-2021 diclofenac (VOLTAREN ARTHRITIS PAIN) 1 % topical gel Indications: Right hip pain Apply 2 g to affected area four times daily. 200 g 3 09/06/2021 10/06/2021 Comment on above: Apply 2 g to affecte d area four times daily. famotidine 20 mg oral tablet (9 sources) Histamine-2 Receptor Antagonist Start: 12-02-2022 End: 10-03-2023 take 1 tablet by mouth twice daily famotidine (PEPCID) 20 mg tablet Indications: Allergic reaction to bee sting Take 1 tablet by mouth two times a day. 10 tablet 2 01/23/2023 10/03/2023 Discontinued Comment on above: Take 1 tablet by brandon th twice daily. Take 1 tablet by brandon th two times a day. 12 hr guaiFENesin 600 mg extended release oral tablet (1 source) Start: 12-30-2019 End: 09-06-2020 take 2 tablets by mouth twice daily guaiFENesin (MUCINEX) 600 mg 12 hr tablet Indications: Cough Take 2 tablets by mouth twice daily. 30 tablet 12/30/2019 09/06/2020 Discontinued (Course of therapy completed) 200 actuat ipratropium bromide 0.017 mg/actuat metered dose inhaler (1 source) Anticholinergic Start: 03-06-2019 End: 09-06-2020 take 2 puff(s) by inhalation every six hours Ipratropium (ATROVENT) 17 mcg/actuation inhaler Indications: Bronchitis Inhale 2 Puffs as instructed every 6 hours. 1 Inhaler 03/06/2019 09/06/2020 Discontinued meloxicam 15 mg oral tablet (20 sources) Nonsteroidal Anti-inflammatory Drug Start: 07-02-2021 End: 10-03-2023 take 1 tablet by mouth once daily at mealtime meloxicam (MOBIC) 15 mg tablet Indications: Thumb pain, right Take 1 tablet by mouth once daily. Take with food. 30 tablet 1 07/02/2021 10/03/2023 Discontinued Comment on above: Take 1 tablet by brandon once daily. Take with food. ondansetron 4 mg disintegrating oral tablet (3 sources) Serotonin-3 Receptor Antagonist Start: 02-17-2021 End: 03-04-2023 take 4 mg by mouth every six hours as needed Ondansetron Discontinued 4 MG PO EVERY 6 HOURS NEEDED February 17, 2021 4:16pm March 04, 2023 1:44pm predniSONE 50 mg oral tablet (4 sources) Start: 12-01-2022 End: 03-04-2023 take 50 mg by mouth once daily Prednisone Discontinued 50 MG PO DAILY 5 December 01, 2022 12:00am March 04, 2023 1:44pm Start: 07-18-2022 End: 07-27-2022 predniSONE (DELTASONE) 10 mg tablet Indications: Acute right-sided low back pain without sciatica Take 4 tabs daily for 3 days, then 2 tabs daily for 3 days, then 1 tab daily for 3 days with food. 21 tablet 0 07/18/2022 07/27/2022 Active Comment on above: Take 4 tabs daily fo r 3 days, then 2 tabs daily for 3 days, then 1 tab daily for 3 days with food. Problems Active Problems Problem Classification Problem Date Documented Da te Episodic/Chronic Allergic reactions (2 sources) Atopic dermatitis; Translations: [Atopic dermatitis, unspecified] 03-18-2023 Chronic Allergic reactions (3 sources) Allergic reaction; Translations: [Allergy, unspecified, initial encounter] 12-01-2022 Episodic Calculus of urinary tract (3 sources) Renal colic; Translations: [Unspecified renal colic] 11-02-2020 Episodic Chronic obstructive pulmonary disease and bronchiectasis (5 sources) Pulmonary emphysema; Translations: [Emphysema, unspecified] Onset: 05-05-2024 05-05-2024 Chronic Chronic obstructive pulmonary disease and bronchiectasis (4 sources) Bronchitis; Translations: [Bronchitis, not specified as acute or chronic] Episodic Esophageal disorders (20 sources) Gastro-esophageal reflux disease with esophagitis; Translations: [Gastroesophageal reflux disease with esophagitis] Onset: 09-02-2017 Resolved: 09-17-2017 Chronic Fluid and electrolyte disorders (3 sources) Dehydration; Translations: [Dehydration] 02-25-2021 Episodic Osteoarthritis (20 sources) Degenerative joint disease involving multiple joints; Translations: [Polyosteoarthritis , unspecified] 01-30-2005 Chronic Other aftercare (1 source) Encounter for removal of sutures; Translations: [Visit for suture removal] Onset: 01-31-2025 Episodic Other aftercare (1 source) Encounter for other specified aftercare; Translations: [Visit for wound check] Onset: 01-24-2025 Episodic Other connective tissue disease (2 sources) Chronic pain of right upper limb; Translations: [Pain in right finger(s)] Episodic Other connective tissue disease (1 source) Acquired trigger finger; Translations: [Trigger finger, unspecified finger] Episodic Other connective tissue disease (2 sources) Trigger thumb of right hand; Translations: [Trigger thumb, right thumb] Episodic Other connective tissue disease (2 sources) Pain in right thumb; Translations: [Pain in right finger(s)] Episodic Other connective tissue disease (1 source) Tendinitis of right elbow; Translations: [Other enthesopathies, not elsewhere classified] 10-03-2023 Episodic Other gastrointestinal disorders (4 sources) Esophageal dysphagia; Translations: [Other dysphagia] Episodic Other injuries and conditions due to external causes (3 sources) Obstruction of esophagus; Translations: [Unspecified foreign body in esophagus causing other injury, initial encounter] 01-22-2020 Episodic Other injuries and conditions due to external causes (1 source) Injury of finger of right hand; Translations: [Unspecified injury of right wrist, hand and finger(s), initial encounter] 2020 Episodic Other non-traumatic joint disorders (1 source) Pain in right hip joint; Translations: [Pain in right hip] Episodic Other non-traumatic joint disorders (1 source) Hip pain; Translations: [Pain in right hip] 09-06-2021 Episodic Other skin disorders (1 source) Skin lesion; Translations: [Disorder of the skin and subcutaneous tissue, unspecified] 03-18-2024 Episodic Other skin disorders (1 source) Sebaceous cyst of skin; Translations: [Sebaceous cyst] 01-10-2025 Episodic Other skin disorders (1 source) Sebaceous cyst; Translations: [Sebaceous cyst] Onset: 01-10-2025 Episodic Poisoning by nonmedicinal substances (5 sources) Bee sting; Translations: [Toxic effect of venom of bees, accidental (unintentional), initial encounter] 12-01-2022 Episodic Residual codes; unclassified (2 sources) Bilateral lower limb edema; Translations: [Localized edema] Episodic Screening and history of mental health and substance abuse codes (3 sources) Tobacco use and exposure - finding; Translations: [Personal history of nicotine dependence] 03-04-2023 Episodic Sprains and strains (1 source) Strain of neck muscle; Translations: [Strain of muscle, fascia and tendon at neck level, initial encounter] Episodic Viral infection (3 sources) Disease caused by 2019-nCoV; Translations: [COVID-19] 02-17-2021 Episodic Past or Other Problems Problem Classification Problem Date Documented Da te Episodic/Chronic E Codes: Natural/environment (1 source) Bitten or stung by nonvenomous insect and other nonvenomous arthropods, initial encounter; Translations: [Insect bite of left front wall of thorax, initial encounter] Onset: 08-24-2024 Episodic Nonspecific chest pain (2 sources) Chest pain; Translations: [Chest pain, unspecified] Onset: 07-21-2023 07-15-2023 Episodic Other connective tissue disease (20 sources) Lateral epicondylitis; Translations: [Lateral epicondylitis, unspecified elbow] Onset: 01-30-2006 01-17-2021 Episodic Other gastrointestinal disorders (20 sources) Dysphagia; Translations: [Dysphagia, unspecified] Onset: 09-02-2017 09-02-2017 Episodic Other screening for suspected conditions (not mental disorders or infectious disease) (16 sources) Increased lactic acid level; Translations: [Other specified abnormal findings of blood chemistry] Onset: 03-18-2024 02-25-2021 Episodic Other skin disorders (1 source) Disorder of the skin and subcutaneous tissue, unspecified; Translations: [Skin lesion] Onset: 03-18-2024 Episodic Spondylosis; intervertebral disc disorders; other back problems (20 sources) Chronic low back pain; Translations: [Lumbago with sciatica, right side] Onset: 01-17-2021 01-17-2021 Episodic Substance-related disorders (18 sources) Smoker; Translations: [Nicotine dependence, unspecified, uncomplicated] Onset: 10-06-2014 Resolved: 07-30-2016 07-30-2016 Chronic Superficial injury; contusion (2 sources) Insect bite of trunk; Translations: [Insect bite (nonvenomous) of left front wall of thorax, initial encounter] Onset: 08-24-2024 08-24-2024 Episodic Unclassified (1 source) Sebaceous cyst of skin 01-10-2025 Results Test Name Value Interpretation Reference Range Facility [facility] 01-31-2025 CNNURSE Nurse Visit (GENSWS) CARMELOERIC ([id number]) 1955 M Date Time Provider Department 01/31/25 2:00 PM NURSE IRON [facility] GENJULES During your visit today, we recorded the following information about you: Terry Vasques RN 01/31/2025 2:20 PM Signed The chest (site) was assessed and sutures were removed as ordered. Dressing was applied. Patient instructed on wound care and verbalized understanding. Allergies As of Date: 01/31/2025 Noted Allergy Reaction IBUPROFEN 02/03/2014 9 - Itching Comments: Swelling and itching MOBIC (MELOXICAM) 08/27/2021 7 - Swelling Date Reviewed: 01/10/2025 Reviewed by: Terry Vasques RN - Fully Assessed Primary Visit Diagnosis:Visit for suture removal [Z48.02] Prescriptions as of 01/31/2025 - omeprazole (PRILOSEC) 40 mg capsule Take 1 capsule by mouth once daily. - triamcinolone acetonide (KENALOG) 0.1 % cream Apply to affected area two times a day. - mupirocin (BACTROBAN) 2 % ointment Apply 1 application to affected area three times a day. - albuterol HFA (PROVENTIL HFA, VENTOLIN HFA) 90 mcg/actuation inhaler Inhale 2 Puffs as instructed every 4 hours as needed for wheezing/shortness of breath. - EPINEPHrine (EPIPEN) 0.3 mg/0.3 mL auto-injector Administer 1 pen to thigh after being stung. Problem List As Of Date 01/31/2025 Noted Resolved Esophageal reflux [K21.9] 09/17/2017 GENERAL OSTEOARTHROSIS [M15.9] Lateral epicondylitis [M77.10] 01/30/2006 Smoker [F17.200] 10/06/2014 07/30/2016 Gastroesophageal reflux disease with esophagiti*09/02/2017 Dysphagia [R13.10] 09/02/2017 Vaccine refused by patient [Z28.20] 01/17/2021 Chronic midline low back pain with right-sided *01/17/2021 Encounter Status:[facility] Visit (GENSWS) CARMELOERIC A ([id number]) 1955 M Date Time Provider Department 01/24/25 2:00 PM NURSE IRON [facility] GENSWS During your visit today, we recorded the following information about you: Enrico Tyler RN 01/24/2025 1:47 PM Signed Incision site to rt chest with no redness, swelling or drainage. Pt aware to look for same, denies fevers. T 97.3 TA. Dressing changed. Opsite applied. Pt tolerated well. Aware to make follow up appointment with nurse in one week. RLM Allergies As of Date: 01/24/2025 Noted Allergy Reaction IBUPROFEN 02/03/2014 9 - Itching Comments: Swelling and itching MOBIC (MELOXICAM) 08/27/2021 7 - Swelling Date Reviewed: 01/10/2025 Reviewed by: Terry Vasques RN - Fully Assessed Primary Visit Diagnosis:Visit for wound check [Z51.89] Order(s):FOLLOW UP IN GENERAL SURGERY [[id number]] Order #: [id number]: 1 FUTURE Prescriptions as of 01/24/2025 - omeprazole (PRILOSEC) 40 mg capsule Take 1 capsule by mouth once daily. - triamcinolone acetonide (KENALOG) 0.1 % cream Apply to affected area two times a day. - mupirocin (BACTROBAN) 2 % ointment Apply 1 application to affected area three times a day. - albuterol HFA (PROVENTIL HFA, VENTOLIN HFA) 90 mcg/actuation inhaler Inhale 2 Puffs as instructed every 4 hours as needed for wheezing/shortness of breath. - EPINEPHrine (EPIPEN) 0.3 mg/0.3 mL auto-injector Administer 1 pen to thigh after being stung. Problem List As Of Date 01/24/2025 Noted Resolved Esophageal reflux [K21.9] 09/17/2017 GENERAL OSTEOARTHROSIS [M15.9] Lateral epicondylitis [M77.10] 01/30/2006 Smoker [F17.200] 10/06/2014 07/30/2016 Gastroesophageal reflux disease with esophagiti*09/02/2017 Dysphagia [R13.10] 09/02/2017 Vaccine refused by patient [Z28.20] 01/17/2021 Chronic midline low back pain with right-sided *01/17/2021 Encounter Status:Closed by ENRICO TYLER on 01/24/25 [facility] 01-17-2025 CNOV Office Visit (GENSWS ) ERIC RHODES ([id number]) 1955 M Date Time Provider Department 01/17/25 2:30 PM ALEXUS DUMONT During your visit today, we recorded the following information about you: Enrico Tyler RN 01/18/2025 3:03 PM Signed UNIVERSAL PROTOCOL / SAFETY CHECKLIST Excision of skin cyst of chest wall Procedure to be Performed: Sign In: A Moment of CARE was completed. Appropriate PPE (Personal Protective Equipment) worn by all providers involved with the procedure. Special equipment not required. Patient/Surrogate Stated/Verified: Patient name, Date of , Relevant allergies, and The intended procedure Time Out: Relevant labs, photos, and/or imaging studies have been reviewed. Intended patient and procedure match the source document(s) (e.g. consent, HANDP, associated studies [imaging, pathology]) match the intended patient and procedure. Consent obtained and matches the intended procedure. Yes. Correct side/site is not applicable. Medications required for this procedure are verified. Fire risk assessed and is not applicable. Implants: are not applicable. Sign Out: Specimens are all correctly labeled and sent. All instruments, equipment, possible retained foreign bodies are accounted for. Yes. The post-procedure plan of care has been communicated to the patient or surrogate. Enrico Tyler RN 01/17/2025 2:46 PM Signed The following instructions are important for you related to your office visit today with the [facility]. Instructions After SKIN EXCISION-SUTURES You can remove the dressing in two days. If the dressing becomes soaked or had significant drainage, the dressing should be changed. If there is minor bleeding from this skin edge, you should hold pressure on the incision until the bleeding stops. If there is continued bleeding, you should contact our office immediately. You do not need to leave a dressing on the wound after two days. If the wound shows signs of redness, inflammation, or purulent drainage, you should contact our office immediately. You should keep the wound dry for the one week. After that time, you may wash the wound with gentle soap and water. The wound should not be immersed in a pool, bathtub, or even hot tub. We prefer to check the incision and remove the stitches in our office when ready. Please make an appointment to return to our office in one week. Please do not remove the stitches yourself without approval from our office. Wound check,in one week do not remove sutures per Dr Dumont. Follow up one week after that to remove 2 mattress sutures Alexus Dumont MD 01/18/2025 3:03 PM Signed Eric presents with infected sebaceous cyst of chest area. PROCEDURE NOTE: Description of procedure: After informed consent was obtained, patient was brought to the procedure room. Appropriate time out protocol was followed. Patient was placed in the supine position. The site of the lesion was then cleansed with a sterile surgical skin preparation. Appropriate sterile surgical drapes were placed. The skin and subcutaneous tissues at the site were then infiltrated with local anesthetic. A skin incision was made at the site in an elliptical fashion to entirely incorporate the lesion with a pore opening noted with a 15 blade scalpel. The incision was carried down to the subcutaneous tissues. Dissection was done to separate the skin lesion from the surrounding subcutaneous tissues. The lesion was excised sharply down to the subcutaneous tissues. The lesion was 1.5 cm in size. Findings consistent with infected sebaceous cyst The tissue was then removed and patient did not want it to be forwarded to pathology for analysis. Hemostasis was controlled by pressure. The skin edges were then reapproximated with interrupted 3-0 nylon suture in a vertical mattress fashion x 2.. Sterile dressing was applied. Patient tolerated procedure well. PLAN: Wound care instructions given by clinic staff. Patient to follow up for nursing visit for wound check in one week, nursing visit for suture visit in two weeks Patient to return to clinic if any signs/symptoms of infection/etc. Patient acknowledges the above. Allergies As of Date: 01/17/2025 Noted Allergy Reaction IBUPROFEN 02/03/2014 9 - Itching Comments: Swelling and itching MOBIC (MELOXICAM) 08/27/2021 7 - Swelling Date Reviewed: 01/10/2025 Reviewed by: Terry Vasques RN - Fully Assessed Primary Visit Diagnosis:Infected sebaceous cyst [L72.3, L08.9] Prescriptions as of 01/18/2025 - omeprazole (PRILOSEC) 40 mg capsule Take 1 capsule by mouth once daily. - triamcinolone acetonide (KENALOG) 0.1 % cream Apply to affected area two times a day. - mupirocin (BACTROBAN) 2 % ointment Apply 1 application to affected area three times a day (more content not included)... Normal [facility] CNOVon 01-10-2025 CNOV Office Visit (GENSWS ) ERIC RHODES ([id number]) 1955 Date Time Provider Department 01/10/25 2:45 PM ALEXUS DUMONT During your visit today, we recorded the following information about you: Alexus Dumont MD 01/13/2025 2:02 PM Signed Eric Rhodes 1955 REFERRING PHYSICIAN: Cailin Jeffrey APRN.Melvin* CHIEF COMPLAINT: Consult (Painful lump right chest wall) HPI: The patient is a 69 year old male presents with infected sebaceous cyst of chest wall. He has noted the lesion for over a year, but it has become increasing painful and larger over time. PAST MEDICAL HISTORY Diagnosis Date Arthritis COPD (chronic obstructive pulmonary disease) (HCC) Dysphagia Esophageal reflux Generalized osteoarthrosis, unspecified site Lactose intolerance in adult Snoring PAST SURGICAL HISTORY Procedure Laterality Date APPENDECTOMY APPENDECTOMY HX COLONOSCOPY FLX DX W/COLLJ SPEC WHEN PFRMD 11/11/2016 Colonoscopy EGD 12/29/2019 Dr. Ash Hidalgo. dx foreign body, Hpylori test negative ESOPHAGOGASTRODUODENOS COPY TRANSORAL DIAGNOSTIC 11/11/2016 EGD INCISE FINGER TENDON SHEATH Right 08/16/2021 Right trigger thumb release PAST SURGICAL HISTORY OF Repair of lateral epicondylitis right elbow PAST SURGICAL HISTORY OF hemorrhoidectomy TNOT ELBOW LATERAL/MEDIAL DEBRIDE OPEN 05/06/2014 Debridement left elbow Current Outpatient Medications Medication Sig omeprazole (PRILOSEC) 40 mg capsule Take 1 capsule by mouth once daily. triamcinolone acetonide (KENALOG) 0.1 % cream Apply to affected area two times a day. mupirocin (BACTROBAN) 2 % ointment Apply 1 application to affected area three times a day. albuterol HFA (PROVENTIL HFA, VENTOLIN HFA) 90 mcg/actuation inhaler Inhale 2 Puffs as instructed every 4 hours as needed for wheezing/shortness of breath. EPINEPHrine (EPIPEN) 0.3 mg/0.3 mL auto-injector Administer 1 pen to thigh after being stung. No current facility-administered medications for this visit. ALLERGIES: Ibuprofen and Mobic [Meloxicam] PERSONAL HISTORY: SOCIAL HISTORY[1] FAMILY HISTORY Problem Relation Age of Onset Cancer Mother colon Alcohol/Drug Father Cancer Brother 63 esophagus Cancer Brother 53 lung and brain Heart Brother 53 heart attack Heart Brother heart attack Heart Brother heart attack Heart Brother heart attack REVIEW OF SYSTEMS: Denies chest pain Denies shortness of breath PHYSICAL EXAMINATION: General: The patient is 69 year old male, well nourished, well hydrated in no acute distress. The patient is oriented to time, place, and person. VITALS: There were no vitals taken for this visit. There is no height or weight on file to calculate BMI. Head: Normal cephalic, atraumatic Eyes: pupils are equally round, sclera are clear/anicteric, wearing glasses Neck is supple with no tracheal deviation Cardiac: normal heart sounds, regular Chest: upper right side chest wall - 2 cm skin cyst of anterior chest wall, - erythematous, no drainage noted Respiratory: normal breath sounds, normal respiratory excursion and pattern. Abdominal exam: benign Extremities: no clubbing, cyanosis or edema. Neuro: non focal Psych: normal mood The sensitive examination was discussed with the Patient or Patient's Authorized Digital Associate. As applicable, any other physician, advance practice provider, medical student, or other health professional student that will be observing or involved in the sensitive examination for educational or training purposes was discussed with the Patient or Authorized Digital Associate. The Patient or Authorized Digital Associate has agreed to proceed with the sensitive examination. (Sensitive examination includes inspection and/or palpation of the breasts, pelvis, prostate and anorectal regions) Assessment IMPRESSION: infected sebaceous cyst of chest wall PLAN: I have discussed the above with the patient. I have offered excision of sebaceous cyst. I have explained the procedure to the patient. To be done in the office using local anesthesia I have counseled the patient as to the risks of the procedure, including but not limited to: infection, bleeding, injury to any blood vessels/nerves, scar tissue, cosmetic deformity, wound infections, complications of anesthesia, etc. - the patient understands. The patient wishes to proceed. I have answered all questions to the patient?s satisfaction and the patient has no further questions. I have confirmed and edited as necessary, the PFSH and ROS obtained by others. Consultation requested by Cailin Jeffrey for an opinion regarding patient's infected sebaceous cyst. My final recommendations will be communicated back to the requesting physician by way of shared Medical record or letter to requesting physician via [place] mail. . Diagnoses: (L72.3) Jumaou (more content not included)... Normal [facility] Office Visit (FAMPWS ) ERIC RHODES ([id number]) 1955 M Date Time Provider Department 01/10/25 1:40 PM CAILIN JEFFREY During your visit today, we recorded the following information about you: Temperature Pulse Respiration Blood pressure 97.6 degrees 64/minute 16/minute 130/78 Weight 71.7 kg Cailin Jeffrey APRN.CNP 01/10/2025 2:04 PM Signed Schedule w/ general surgery Cailin Jeffrey APRN.CNP 01/10/2025 2:10 PM Signed This is a 69 year old male who presents today with: The patient is a 69-year-old male presenting for evaluation and surgical management of a one-year history of an enlarging, intermittently painful cutaneous lump on the right chest wall. HISTORY OF PRESENT ILLNESS: Lump: - Eric Hussein Carmelo noticed a lump approximately one year ago. - Reports the lump has increased in size since initial observation. - Occasionally experiences mild pain associated with the lump. - Denies any previous similar lumps. Had contemplated self removal. PAST MEDICAL HISTORY: PAST MEDICAL HISTORY Diagnosis Date Arthritis COPD (chronic obstructive pulmonary disease) (HCC) Dysphagia Esophageal reflux Generalized osteoarthrosis, unspecified site Lactose intolerance in adult Snoring PAST SURGICAL HISTORY Procedure Laterality Date APPENDECTOMY APPENDECTOMY HX COLONOSCOPY FLX DX W/COLLJ SPEC WHEN PFRMD 11/11/2016 Colonoscopy EGD 12/29/2019 Dr. Ash Hidalgo. dx foreign body, Hpylori test negative ESOPHAGOGASTRODUODENOS COPY TRANSORAL DIAGNOSTIC 11/11/2016 EGD INCISE FINGER TENDON SHEATH Right 08/16/2021 Right trigger thumb release PAST SURGICAL HISTORY OF Repair of lateral epicondylitis right elbow PAST SURGICAL HISTORY OF hemorrhoidectomy TNOT ELBOW LATERAL/MEDIAL DEBRIDE OPEN 05/06/2014 Debridement left elbow ALLERGIES Ibuprofen and Mobic [Meloxicam] MEDICATIONS Current Outpatient Medications Medication Sig omeprazole (PRILOSEC) 40 mg capsule Take 1 capsule by mouth once daily. triamcinolone acetonide (KENALOG) 0.1 % cream Apply to affected area two times a day. mupirocin (BACTROBAN) 2 % ointment Apply 1 application to affected area three times a day. albuterol HFA (PROVENTIL HFA, VENTOLIN HFA) 90 mcg/actuation inhaler Inhale 2 Puffs as instructed every 4 hours as needed for wheezing/shortness of breath. EPINEPHrine (EPIPEN) 0.3 mg/0.3 mL auto-injector Administer 1 pen to thigh after being stung. No current facility-administered medications for this visit. FAMILY HISTORY Problem Relation Age of Onset Cancer Mother colon Alcohol/Drug Father Cancer Brother 63 esophagus Cancer Brother 53 lung and brain Heart Brother 53 heart attack Heart Brother heart attack Heart Brother heart attack Heart Brother heart attack SOCIAL HISTORY[1] REVIEW OF SYSTEMS Skin: (+) lump, (+) intermittent localized pain EXAM: BP 130/78 Pulse 64 Temp 36.4 ?C (97.6 ?F) Resp 16 Wt 71.7 kg (158 lb) SpO2 97% BMI 26.81 kg/m? PHYSICAL EXAM: General Appearance: Well appearing, alert, in no acute distress, well-hydrated, well nourished.. Skin: Skin color, texture, turgor normal, no suspicious rashes. 2.3 cm firm lump right chest wall. Head: Normocephalic, no masses, lesions, tenderness or abnormalities. Eyes: Anicteric sclera. Extraocular movements are intact. . Neurologic: Gait normal. ASSESSMENT/PLAN 1. Sebaceous cyst (L72.3) - Chronic lesion present for over a year with gradual enlargement and occasional mild pain. - Clinically consistent with a sebaceous cyst. - Educated patient on the nature of sebaceous cysts, including the presence of a sac that must be removed to prevent recurrence. - Advised against self-removal due to risk of recurrence and complications. - Referral to general surgery for eval for in-office excision. Discussed treatment plan and patient voices understanding. Patient's questions answered appropriately. Medications and potential side effects were discussed and patient voices understanding. Return to the office as scheduled or as needed for worsening/no improvement. Cailin Jeffrey APRN.HEAD STOCK OPERATOR Recording using [employer] software for draft documentation of the visit was discussed with the patient/authorized patient registration representative; all questions welcomed and answered. Patient/authorized patient registration representative agreed to proceed [1] Social History Tobacco Use Smoking status: Former Current packs/day: 0.00 Average packs/day: 1.5 packs/day for 38.0 years (57.0 ttl pk-yrs) Types: Cigarettes Start date: 05/31/1978 Quit date: 05/31/2016 Years since quittin.6 Smokeless tobacco: Never Vaping Use Vaping status: Never Used Substance Use Topics Alcohol use: No Drug use: No Frequency: 3.0 times per week Types: Marijuana Comment: stopped 10 year ago Allergies As of Date: 01/10/2025 Noted Allergy Reaction IBU (more content not included)... Normal [facility] CNOVon 09-03-2024 CNOV Office Visit (FAMPWS ) ERIC RHODES ([id number]) 1955 M Date Time Provider Department 09/03/24 12:40 PM MADYSON NOBLE During your visit today, we recorded the following information about you: Temperature Pulse Respiration Blood pressure 99.4 degrees 78/minute 18/minute 94/68 Weight 72 kg Madyson Noble APRN.CNP 09/03/2024 1:21 PM Signed 09/03/2024 Patient presents with: Cough: X couple days, had a sore throat, currently has sinus pressure. SUBJECTIVE: This is a 69 year old that is here today for Above Complaints. Upper Respiratory Symptoms: - Cough, sore throat, and sinus pressure x2 days. - Reports chills and believes he broke a fever last night, waking up soaked this morning. - Denies nausea, emesis, or diarrhea. - Using Tylenol for symptom relief. - Denies home testing for COVID-19 or influenza. - Reports exposure to a sick grandson with a cough. COPD: - Chronic wheezing. - Using albuterol inhaler PRN. - Concerns about exacerbation of emphysema when ill. - Allergic to ibuprofen. PAST MEDICAL HISTORY Diagnosis Date Arthritis COPD (chronic obstructive pulmonary disease) (HCC) Dysphagia Esophageal reflux Generalized osteoarthrosis, unspecified site Lactose intolerance in adult Snoring ALLERGIES Ibuprofen and Mobic [Meloxicam] MEDICATIONS Current Outpatient Medications Medication Sig triamcinolone acetonide (KENALOG) 0.1 % cream Apply to affected area two times a day. mupirocin (BACTROBAN) 2 % ointment Apply 1 application to affected area three times a day. albuterol HFA (PROVENTIL HFA, VENTOLIN HFA) 90 mcg/actuation inhaler Inhale 2 Puffs as instructed every 4 hours as needed for wheezing/shortness of breath. omeprazole (PRILOSEC) 40 mg capsule Take 1 capsule by mouth once daily. EPINEPHrine (EPIPEN) 0.3 mg/0.3 mL auto-injector Administer 1 pen to thigh after being stung. No current facility-administered medications for this visit. Medications and allergies reviewed by this provider. SOCIAL HISTORY Social History Tobacco Use Smoking status: Former Current packs/day: 0.00 Average packs/day: 1.5 packs/day for 38.0 years (57.0 ttl pk-yrs) Types: Cigarettes Start date: 05/31/1978 Quit date: 05/31/2016 Years since quittin.2 Smokeless tobacco: Never Vaping Use Vaping status: Never Used Substance Use Topics Alcohol use: No Drug use: No Frequency: 3.0 times per week Types: Marijuana Comment: stopped 10 year ago REVIEW OF SYSTEMS Constitutional: (+) chills, (-) fever Head: (+) head pressure Ears/Nose/Mouth/Throat : (+) runny nose, (+) sore throat Respiratory: (+) cough, (+) wheezing, (+) green phlegm Gastrointestinal: (-) nausea, (-) vomiting, (-) diarrhea OBJECTIVE: BP 94/68 Pulse 78 Temp 37.4 ?C (99.4 ?F) Resp 18 Wt 72 kg (158 lb 12.8 oz) SpO2 96% BMI 26.95 kg/m? . Vital signs reviewed by this provider. GENERAL: NAD, alert and oriented. SKIN: Unremarkable, no rash or skin lesions. HEAD: Normocephalic, tenderness noted across forehead and under eyes. EYES: conjunctiva clear. EARS: External ears normal, canals clear, TM's normal. NOSE/SINUSES: Nares normal. Septum midline. OROPHARYNX: Lips, mucosa, and tongue normal, good dentition. No oral lesions noted. Strong gag reflex observed. NECK: Supple, no lymphadenopathy, n LUNGS: Diminished breath sounds bilaterally, no wheezes/rhonchi/rales. HEART: Regular rate and rhythm, no murmurs. No ectopy. Lung Cancer Screening Never done Colorectal Cancer Screening due on 11/11/2021 DTaP,Tdap,Td Vaccine(2 - Td or Tdap) due on 02/25/2024 Advance Directive Discussion due on 04/28/2024 Diabetes Screening due on 08/03/2024 Depression Screening due on 10/02/2024 Anxiety Screening due on 10/02/2024 Hepatitis C Screening due on 03/18/2025 Shingrix Vaccine(1 of 2) due on 03/18/2025 Covid-19 Vaccine( - season) due on 03/18/2025 Pneumococcal Vaccine: 50+(2 of 2 - PCV) due on 03/18/2025 Influenza Vaccine(Season Ended) due on 12/27/2024 Prostate Cancer Screening Discussion due on 03/27/2026 Lipid Screening due on 06/23/2026 RSV Vaccine(1 - 1-dose 75+ series) due on 2032 Abdominal Aortic Aneurysm Screening Completed 1. Chronic obstructive pulmonary disease with acute exacerbation (HCC) (J44.1) - Symptoms include cough, sore throat, sinus pressure, chills, and post-febrile diaphoresis. Reports increased wheezing and productive cough with green sputum. Denies nausea, vomiting, or diarrhea. - Physical exam reveals diminished breath sounds, sinus tenderness, and clear oropharynx. - Differential diagnosis includes pneumonia. - Ordered chest X-ray to evaluate for pneumonia. - Initiated antibiotic therapy with Augmentin 1 tablet PO BID for 5 days and doxycycline 1 tablet PO BID for 5 days. - Advised use of albuterol inhaler prn for dyspnea or cough. (more content not included)... Normal [facility] XR CHEST 2V FRONTAL/LATon XR CHEST 2V FRONTAL/LAT * * *Final Report* * * DATE OF EXAM: Sep 03 2024 1:24PM WOX [id number] - XR CHEST 2V FRONTAL/LAT / PROCEDURE REASON: Chronic obstructive pulmonary disease with acute exacerbation (HCC) * * * * Physician Interpretation * * * * EXAMINATION: CHEST RADIOGRAPH (2 VIEW FRONTAL and LATERAL) CLINICAL HISTORY: Chronic obstructive pulmonary disease with acute exacerbation (HCC) MQ: XC2_6 EXAM DATE/TIME: 09/03/2024 1:24 PM COMPARISON: 03/06/2019 RESULT: Lines, tubes, and devices: None. Lungs and pleura: No consolidation. No lung mass. No pleural effusion. No pneumothorax. Cardiomediastinal silhouette: Normal cardiomediastinal silhouette. Bones and soft tissues: Unremarkable. IMPRESSION: No acute radiographic abnormality. Healthcare Marketer: PSCB Transcribe Date/Time: Sep 03 2024 1:27P Dictated by : ANIA SIMON MD This examination was interpreted and the report reviewed and electronically signed by: ANIA SIMON MD on Sep 03 2024 1:27PM EST [id number] Normal [facility] XR Chest PA and Lateralon IMPRESSION: No acute radiographic abnormality. Healthcare Marketer: [email or web address] Transcribe Date/Time: Sep 03 2024 1:27P Dictated by : ANIA SIMON MD This examination was interpreted and the report reviewed and electronically signed by: ANIA SIMON MD on Sep 03 2024 1:27PM EST DIVISION OF RADIOLOGY * * *Final Report* * * DATE OF EXAM: Sep 03 2024 1:24PM WOX [id number] - XR CHEST 2V FRONTAL/LAT / PROCEDURE REASON: Chronic obstructive pulmonary disease with acute exacerbation (HCC) * * * * Physician Interpretation * * * * EXAMINATION: CHEST RADIOGRAPH (2 VIEW FRONTAL & LATERAL) CLINICAL HISTORY: Chronic obstructive pulmonary disease with acute exacerbation (HCC) MQ: XC2_6 EXAM DATE/TIME: 09/03/2024 1:24 PM COMPARISON: 03/06/2019 RESULT: Lines, tubes, and devices: None. Lungs and pleura: No consolidation. No lung mass. No pleural effusion. No pneumothorax. Cardiomediastinal silhouette: Normal cardiomediastinal silhouette. Bones and soft tissues: Unremarkable. DIVISION OF RADIOLOGY Provider, [facility] - 09/03/2024 * * *Final Report* * * DATE OF EXAM: Sep 03 2024 1:24PM WOX 5291 - XR CHEST 2V FRONTAL/LAT / PROCEDURE REASON: Chronic obstructive pulmonary disease with acute exacerbation (HCC) * * * * Physician Interpretation * * * * EXAMINATION: CHEST RADIOGRAPH (2 VIEW FRONTAL & LATERAL) CLINICAL HISTORY: Chronic obstructive pulmonary disease with acute exacerbation (HCC) MQ: XC2_6 EXAM DATE/TIME: 09/03/2024 1:24 PM COMPARISON: 03/06/2019 RESULT: Lines, tubes, and devices: None. Lungs and pleura: No consolidation. No lung mass. No pleural effusion. No pneumothorax. Cardiomediastinal silhouette: Normal cardiomediastinal silhouette. Bones and soft tissues: Unremarkable. IMPRESSION IMPRESSION: No acute radiographic abnormality. Healthcare Marketer: PSCB Transcribe Date/Time: Sep 03 2024 1:27P Dictated by : ANIA SIMON MD This examination was interpreted and the report reviewed and electronically signed by: ANIA SIMON MD on Sep 03 2024 1:27PM EST [facility] Radiology Study observation (narrative) [facility] XR Chest PA and LateralOrder ed By: [facility] Provider on 09-03-2024 [facility] CNOVon 08-24-2024 CNOV Office Visit (FAMPWS ) ERIC RHODES ([id number]) 1955 M Date Time Provider Department 08/24/24 11:20 AM IQRA SARABIA During your visit today, we recorded the following information about you: Pulse Respiration Blood pressure Weight 69/minute 16/minute 114/73 75.1 kg Iqra Sarabia PA-C 08/24/2024 11:49 AM Signed Apply the steroid cream and antibiotic cream to the affected area as provided at your preferred pharmacy. Monitor the area for any signs of spreading redness, red streaking, fever over 100?F, or severe pain. If any of these occur, contact the office promptly. Iqra Sarabia PA-C 08/24/2024 11:53 AM Signed Recording using [employer] software for draft documentation of the visit was discussed with the patient/authorized patient registration representative; all questions welcomed and answered. Patient/authorized patient registration representative agreed to proceed 08/24/2024 Suspected Tick Bite: - Noticed a small black spot on the skin last night, accompanied by pruritus. - No tick was attached; Eric used tweezers to pick at the spot, resulting in erythema. - Denies pain or soreness at the site. - Uncertain about the cause of the bite; [place] time [place]. Current Outpatient Medications on File Prior to Visit Medication Sig albuterol HFA (PROVENTIL HFA, VENTOLIN HFA) 90 mcg/actuation inhaler Inhale 2 Puffs as instructed every 4 hours as needed for wheezing/shortness of breath. omeprazole (PRILOSEC) 40 mg capsule Take 1 capsule by mouth once daily. EPINEPHrine (EPIPEN) 0.3 mg/0.3 mL auto-injector Administer 1 pen to thigh after being stung. No current facility-administered medications on file prior to visit. PAST MEDICAL HISTORY Diagnosis Date Arthritis COPD (chronic obstructive pulmonary disease) (HCC) Dysphagia Esophageal reflux Generalized osteoarthrosis, unspecified site Lactose intolerance in adult Snoring Allergies: Ibuprofen Itching Comment:Swelling and itching Mobic [Meloxicam] Swelling Skin: (-) pain, (-) itching resolved now. BP 114/73 Pulse 69 Resp 16 Wt 75.1 kg (165 lb 9.1 oz) BMI 28.09 kg/m? GENERAL: NAD, alert and oriented SKIN: 4 mm erythematous papule noted, no drainage. No tick attached. Otherwise unremarkable, no rash or skin lesions. no lymphangitic streaking. located on left lateral thorax. 1. Insect bite of left front wall of thorax, initial encounter (S20.791A) - Exam reveals a 4 mm erythematous papule without drainage or evidence of an attached tick. - Differential diagnosis includes other insect bites; does not appear consistent with erythema migrans or herpes zoster. - Prescribed topical corticosteroid cream and topical antibiotic cream to be applied to the affected area. - Advised patient to monitor for signs of infection such as spreading erythema, lymphangitic streaking, fever >100 degreeF, or severe pain, and to seek medical attention if these occur. - Discussed low risk of Lyme disease transmission given the absence of an attached tick for >48 hours. - Prescriptions sent to [facility] pharmacy. The patient indicates understanding of these issues and agrees with the plan. Reviewed red flags and when to seek care sooner. Iqra Sarabia PA-C 08/24/2024 Allergies As of Date: 08/24/2024 Noted Allergy Reaction IBUPROFEN 02/03/2014 9 - Itching Comments: Swelling and itching MOBIC (MELOXICAM) 08/27/2021 7 - Swelling Date Reviewed: 08/24/2024 Reviewed by: Shaila Hsieh MA - Fully Assessed Reason for Visit: Insect Bite [929] Cmt: Possible tick bite; Left side/torso Primary Visit Diagnosis:Insect bite of left front wall of thorax, initial encounter [S20.362A, W57.XXXA] Order(s):triamcinolone acetonide (KENALOG) 0.1 % creamApply to affected area two times a day.Disp: 15 gRfl: 0 mupirocin (BACTROBAN) 2 % ointmentApply 1 application to affected area three times a day.Disp: 15 gRfl: 0 Prescriptions as of 08/24/2024 - triamcinolone acetonide (KENALOG) 0.1 % cream Apply to affected area two times a day. - mupirocin (BACTROBAN) 2 % ointment Apply 1 application to affected area three times a day. - albuterol HFA (PROVENTIL HFA, VENTOLIN HFA) 90 mcg/actuation inhaler Inhale 2 Puffs as instructed every 4 hours as needed for wheezing/shortness of breath. - omeprazole (PRILOSEC) 40 mg capsule Take 1 capsule by mouth once daily. - EPINEPHrine (EPIPEN) 0.3 mg/0.3 mL auto-injector Administer 1 pen to thigh after being stung. Problem List As Of Date 08/24/2024 Noted Resolved Esophageal reflux [K21.9] 09/17/2017 GENERAL OSTEOARTHROSIS [M15.9] Lateral epicondylitis [M77.10] 01/30/2006 Smoker [F17.200] 10/06/2014 07/30/2016 Gastroesophageal reflux disease with esophagiti*09/02/2017 Dysphagia [R13.10] 09/02/2017 Vaccine refused by patient [Z28.20] 01/17/2021 Chronic midlin (more content not included)... [facility] [facility] 05-05-2024 CNOV Office Visit (FAMPWS ) ERIC RHODES ([id number]) 1955 M Date Time Provider Department 05/05/24 2:20 PM [facility] During your visit today, we recorded the following information about you: Pulse Respiration Blood pressure Weight 69/minute 16/minute 120/90 75.1 kg Eugenia Mitchell APRN.HEAD STOCK OPERATOR 05/05/2024 2:55 PM Signed This is a 69 year old male who presents today with: Patient presents with: Follow Up: discuss dx of emphysema HISTORY OF PRESENT ILLNESS: Eric Rhodes is a 69 year old male. Patient presents with: Follow Up: discuss dx of emphysema Here in the office to discuss empythema noted on recent lung cancer screening. No nodules noted. Radiology recommending repeat Chest CT in 1 year. Former Smoker, started at age [age] years old, reports he smoked for 42 years. Reports productive cough every now and then, clear/light green and thin. Reports that his cough increases when lying down. Reports no longer smoking for 7 years. Denies wheezing, fever, or chills. Reports SOB with physical activity with the grand children or exercise. Using Albuterol as needed. PAST MEDICAL HISTORY: PAST MEDICAL HISTORY Diagnosis Date Arthritis COPD (chronic obstructive pulmonary disease) (HCC) Dysphagia Esophageal reflux Generalized osteoarthrosis, unspecified site Lactose intolerance in adult Snoring PAST SURGICAL HISTORY Procedure Laterality Date APPENDECTOMY APPENDECTOMY HX COLONOSCOPY FLX DX W/COLLJ SPEC WHEN PFRMD 11/11/2016 Colonoscopy EGD 12/29/2019 Dr. Ash Hidalgo. dx foreign body, Hpylori test negative ESOPHAGOGASTRODUODENOS COPY TRANSORAL DIAGNOSTIC 11/11/2016 EGD INCISE FINGER TENDON SHEATH Right 08/16/2021 Right trigger thumb release PAST SURGICAL HISTORY OF Repair of lateral epicondylitis right elbow PAST SURGICAL HISTORY OF hemorrhoidectomy TNOT ELBOW LATERAL/MEDIAL DEBRIDE OPEN 05/06/2014 Debridement left elbow ALLERGIES Ibuprofen and Mobic [Meloxicam] MEDICATIONS Current Outpatient Medications Medication Sig omeprazole (PRILOSEC) 40 mg capsule Take 1 capsule by mouth once daily. albuterol HFA (PROVENTIL HFA, VENTOLIN HFA) 90 mcg/actuation inhaler Inhale 2 Puffs as instructed every 4 hours as needed for wheezing/shortness of breath. EPINEPHrine (EPIPEN) 0.3 mg/0.3 mL auto-injector Administer 1 pen to thigh after being stung. No current facility-administered medications for this visit. FAMILY HISTORY Problem Relation Age of Onset Cancer Mother colon Alcohol/Drug Father Cancer Brother 63 esophagus Cancer Brother 53 lung and brain Heart Brother 53 heart attack Heart Brother heart attack Heart Brother heart attack Heart Brother heart attack Social History Tobacco Use Smoking status: Former Current packs/day: 0.00 Average packs/day: 1.5 packs/day for 38.0 years (57.0 ttl pk-yrs) Types: Cigarettes Start date: 05/31/1978 Quit date: 05/31/2016 Years since quittin.9 Smokeless tobacco: Never Vaping Use Vaping status: Never Used Substance Use Topics Alcohol use: No Drug use: No Frequency: 3.0 times per week Types: Marijuana Comment: stopped 10 year ago REVIEW OF SYSTEMS GENERAL: No weight loss, malaise or fevers/chills HEENT: Negative for frequent or significant headaches, No changes in hearing or vision. NECK: Negative for lumps, goiter, pain and significant neck swelling RESPIRATORY: Negative for cough, hemoptysis, wheezing, dyspnea or shortness of breath CARDIOVASCULAR: Negative for chest pain, leg swelling, orthopnea, or palpitations GI: No nausea, vomiting, or diarrhea/constipation. No hematochezia/melena. No heartburn or reflux symptoms. : No history of dysuria, frequency or incontinence MUSCULOSKELETAL: Negative for joint pain or swelling. SKIN: Negative for lesions, rash, and itching ENDOCRINE: Negative for cold or heat intolerance, polyuria, polydipsia and goiter NEURO: No history of headaches, syncope, paralysis, seizures or tremors MOOD: Negative for depression, anxiety, or suicidal ideation. EXAM: There were no vitals taken for this visit. PHYSICAL EXAM: General Appearance: Well appearing, alert, in no acute distress, well-hydrated, well nourished.. Skin: Skin color, texture, turgor normal, no suspicious rashes or lesions. Head: Normocephalic, no masses, lesions, tenderness or abnormalities. Eyes: Anicteric sclera. Extraocular movements are intact. . Lungs: Lungs clear to auscultation. No wheezing, rhonchi, rales.. Heart: RRR without murmur, gallop, or rubs. No ectopy. Extremities: No deformities, edema, skin discoloration, clubbing or cyanosis. Good capillary refill. . Musculoskeletal: No joint swelling, deformity, or tenderness. Peripheral Pulses: Normal, Capillary refill <2secs, strong peripheral pulses, Pulses palpable. Neurologic: Gait normal. Sensation grossly int (more content not included)... [facility] ERIC RHODES ([id number]) 1955 M Date Time Provider Department 04/29/24 EUGENIA MITCHELL [facility] During your visit today, we recorded the following information about you: Eugenia Mitchell APRN.CNP 04/29/2024 3:47 PM Signed Can you please call the patient and let him know that I reviewed his lung cancer screening that was completed at [facility]. Emphysema was noted however no lung nodules were seen. Recommending repeat screening in 1 year. Please let me know if he has any questions. Thank you. GABRIELA Townsend Rilee, MA 04/29/2024 4:42 PM Signed Attempted to reach pt number on file and received message that number dialed has been disconnected or is no longer on service. Mailed letter to patient asking for a call back regarding results below. Pt advised to contact office and speak with Triage Nurse regarding lung cancer screening. SILVIA Lockett Laurie Lynn, LPN 05/04/2024 10:39 AM Signed Pt called for results and updated phone number. Pt requested an apt to discuss dx of Emphysema. Vania Armijo LPN Allergies As of Date: 04/29/2024 Noted Allergy Reaction IBUPROFEN 02/03/2014 9 - Itching Comments: Swelling and itching MOBIC (MELOXICAM) 08/27/2021 7 - Swelling Date Reviewed: 03/18/2024 Reviewed by: Yenni Negrete LPN - Fully Assessed Reason for Visit: Results [95] Cmt: Lung Cancer Screening Prescriptions as of 05/04/2024 - omeprazole (PRILOSEC) 40 mg capsule Take 1 capsule by mouth once daily. - albuterol HFA (PROVENTIL HFA, VENTOLIN HFA) 90 mcg/actuation inhaler Inhale 2 Puffs as instructed every 4 hours as needed for wheezing/shortness of breath. - EPINEPHrine (EPIPEN) 0.3 mg/0.3 mL auto-injector Administer 1 pen to thigh after being stung. Problem List As Of Date 04/29/2024 Noted Resolved Esophageal reflux [K21.9] 09/17/2017 GENERAL OSTEOARTHROSIS [M15.9] Lateral epicondylitis [M77.10] 01/30/2006 Smoker [F17.200] 10/06/2014 07/30/2016 Gastroesophageal reflux disease with esophagiti*09/02/2017 Dysphagia [R13.10] 09/02/2017 Vaccine refused by patient [Z28.20] 01/17/2021 Chronic midline low back pain with right-sided *01/17/2021 Letter Text Encounter Status:Closed by EUGENIA MITCHELL on 04/30/24 Normal [facility] Low Dose CT Lung Screeningon 04-09-[address] Lung Screening [facility] Imaging Services [address] [place] [id number] Lung Screening MR#: [id number] Acct: [id number] Name: ERIC RHODES Rep #: [id number] : 1955 M 69 From: Vasiliy Turner MD PCP: Dr. Darian Skaggs MD Status: REG CLI Study: Low Dose CT Lung Screening Date of Exam: 04/09 Exam# [id number] Ordering Dr: Eugenia Mitchell CASE BRIEFER-C [id number] STUDY: LOW DOSE CT LUNG CANCER SCREENING REASON FOR EXAM: Male, 69 years old. NICOTINE DEP RADIATION DOSAGE (If Supplied By Facility): CTDIvol = ( 2.01 ) mGy, DLP = ( 66.70 ) mGycm TECHNIQUE: No contrast was administered. Low dose technique was utilized (average mAS-38 and kVp 120). 1.25 mm axial source images with a slice interval of 1.25-mm were reconstructed in lung windows. 2.5 mm axial source images with a slice interval of 2.5-mm were reconstructed in lung windows. 5.0 mm axial source images with a slice interval of 5.0-mm were reconstructed in soft tissue windows. COMPARISON: 03/04/2023 Emphysema: Moderate emphysema. No noncalcified nodule or mass. Endobronchial lesion: None Aorta: No thoracic aortic aneurysm. CORONARY ARTERIES: Coronary artery calcification is not seen. Heart: No cardiomegaly. Pulmonary artery: Normal Mediastinal nodes: Normal Other chest and abdominal findings: None CT/Low Dose CT Lung Screening IMPRESSION: Lung-RADS category 1 - Continue annual screening with LDCT in 12 months. IMPORTANT NOTES FOR USE: ACR Lung-RADS Version 1.1 Assessment Categories Release Date: 2018 Category: Coded 0-4 bases on nodule(s) with highest degree of suspicion. Negative screen is defined as categories 1 and 2; a positive screen is defined as categories 3 and 4. Category 3 and 4A nodules that are unchanged on interval CT should be coded as category 2, and individuals returned to screening in 12 months. Category 4X: Category 3 or 4 nodules with additional imaging findings that increase the suspicion of lung cancer, such as spiculation, GGN that doubles in size in 1 year, enlarged lymph notes, etc. Category Modifiers: S (significant finding unrelated to lung cancer) Electronically Signed: Vasiliy Turner MD at 9:31 EST , CC: LISBETH Mitchell; Dr. Darian Skaggs MD Healthcare Marketer: Signed [facility] CNOVon 03-18-2024 CNOV Office Visit (FAMPWS ) ERIC RHODES ([id number]) 1955 M Date Time Provider Department 03/18/24 1:20 PM [facility] During your visit today, we recorded the following information about you: Pulse Respiration Blood pressure Weight 69/minute 16/minute 118/84 75.3 kg Eugenia Mitchell APRN.CNP 03/18/2024 3:44 PM Signed This is a 68 year old male who presents today with: Patient presents with: Acute Visit: mass on right pectoral region HISTORY OF PRESENT ILLNESS: Eric Rhodes is a 68 year old male. Patient presents with: Acute Visit: mass on right pectoral region Here in the office for chest mass. Noticeable a couple of months ago, right side of the chest. Non-tender, has not gotten larger. No seeping, fever, or chills. Would like repeat lung cancer screening, stopped smoking 7 years ago. Would like complete at [facility]. PAST MEDICAL HISTORY: PAST MEDICAL HISTORY Diagnosis Date Arthritis COPD (chronic obstructive pulmonary disease) (HCC) Dysphagia Esophageal reflux Generalized osteoarthrosis, unspecified site Lactose intolerance in adult Snoring PAST SURGICAL HISTORY Procedure Laterality Date APPENDECTOMY APPENDECTOMY HX COLONOSCOPY FLX DX W/COLLJ SPEC WHEN PFRMD 11/11/2016 Colonoscopy EGD 12/29/2019 Dr. Ash Hidalgo. dx foreign body, Hpylori test negative ESOPHAGOGASTRODUODENOS COPY TRANSORAL DIAGNOSTIC 11/11/2016 EGD INCISE FINGER TENDON SHEATH Right 08/16/2021 Right trigger thumb release PAST SURGICAL HISTORY OF Repair of lateral epicondylitis right elbow PAST SURGICAL HISTORY OF hemorrhoidectomy TNOT ELBOW LATERAL/MEDIAL DEBRIDE OPEN 05/06/2014 Debridement left elbow ALLERGIES Ibuprofen and Mobic [Meloxicam] MEDICATIONS Current Outpatient Medications Medication Sig omeprazole (PRILOSEC) 40 mg capsule Take 1 capsule by mouth once daily. albuterol HFA (PROVENTIL HFA, VENTOLIN HFA) 90 mcg/actuation inhaler Inhale 2 Puffs as instructed every 4 hours as needed for wheezing/shortness of breath. EPINEPHrine (EPIPEN) 0.3 mg/0.3 mL auto-injector Administer 1 pen to thigh after being stung. No current facility-administered medications for this visit. FAMILY HISTORY Problem Relation Age of Onset Cancer Mother colon Alcohol/Drug Father Cancer Brother 63 esophagus Cancer Brother 53 lung and brain Heart Brother 53 heart attack Heart Brother heart attack Heart Brother heart attack Heart Brother heart attack Social History Tobacco Use Smoking status: Former Current packs/day: 0.00 Average packs/day: 1.5 packs/day for 38.0 years (57.0 ttl pk-yrs) Types: Cigarettes Start date: 05/31/1978 Quit date: 05/31/2016 Years since quittin.8 Smokeless tobacco: Never Vaping Use Vaping status: Never Used Substance Use Topics Alcohol use: No Drug use: No Frequency: 3.0 times per week Types: Marijuana Comment: stopped 10 year ago REVIEW OF SYSTEMS GENERAL: No weight loss, malaise or fevers/chills HEENT: Negative for frequent or significant headaches, No changes in hearing or vision. NECK: Negative for lumps, goiter, pain and significant neck swelling RESPIRATORY: Negative for cough, hemoptysis, wheezing, dyspnea or shortness of breath CARDIOVASCULAR: Negative for chest pain, leg swelling, orthopnea, or palpitations GI: No nausea, vomiting, or diarrhea/constipation. No hematochezia/melena. No heartburn or reflux symptoms. : No history of dysuria, frequency or incontinence MUSCULOSKELETAL: Negative for joint pain or swelling. SKIN: + Chest mass ENDOCRINE: Negative for cold or heat intolerance, polyuria, polydipsia and goiter NEURO: No history of headaches, syncope, paralysis, seizures or tremors MOOD: Negative for depression, anxiety, or suicidal ideation. EXAM: BP 118/84 Pulse 69 Resp 16 Wt 75.3 kg (166 lb 0.1 oz) SpO2 98% BMI 28.17 kg/m? PHYSICAL EXAM: General Appearance: Well appearing, alert, in no acute distress, well-hydrated, well nourished. Skin: 2 skin colored lesions noted to the right side of his chest, no erythema or crusting noted. Head: Normocephalic, no masses, lesions, tenderness or abnormalities. Eyes: Anicteric sclera. Extraocular movements are intact. Lungs: Lungs clear to auscultation. No wheezing, rhonchi, rales. Heart: RRR without murmur, gallop, or rubs. No ectopy. Extremities: No deformities, edema, skin discoloration, clubbing or cyanosis. Good capillary refill. Peripheral Pulses: Normal, Capillary refill <2secs, strong peripheral pulses, Pulses palpable. Neurologic: Gait normal. Sensation grossly intact. ASSESSMENT/PLAN: 1. Skin lesion - ICD9: 709.9, ICD10: L98.9 (primary diagnosis) - Recommend consult with Dermatology for further evaluation, may need biopsy. - CONSULT TO DERMATOLOGY 2. Encounter for screening for lung cancer - ICD9: V76.0, ICD10: Z12.2 (more content not included)... Normal [facility] 02-25-2024 [facility] Tele[facility] (FAMPWS) ERIC RHODES ([id number]) 1955 M Date Time Provider Department 02/25/24 [facility] During your visit today, we recorded the following information about you: Rhonda Parker 02/25/2024 11:44 AM Signed Patient asking for medication that is : hydrocortisone 1 % cream ( Patient last seen 10/03/23 Future appt. Scheduled: no PHARMACY: [facility] Please return call to patient when complete. Darian Skaggs MD 02/26/2024 11:44 AM Signed OK to refill as ordered MD Pato Cason Kathryn, MA 02/26/2024 11:56 AM Signed Tried to reach pt, VM is full. Unable to leave message. SILVIA Nroiega Kathryn, MA 02/27/2024 2:41 PM Signed Pt notified. Erika Whyte MA Allergies As of Date: 02/25/2024 Noted Allergy Reaction IBUPROFEN 02/03/2014 9 - Itching Comments: Swelling and itching MOBIC (MELOXICAM) 08/27/2021 7 - Swelling Date Reviewed: 10/03/2023 Reviewed by: Erika Whyte MA - Fully Assessed Reason for Visit: requesting medication that is on list [Other] Visit Diagnosis:Atopic dermatitis, unspecified type [L20.9] Order(s):hydrocortison e 1 % creamApply to affected area two times a day for 7 days.Disp: 20 gRfl: 1 Prescriptions as of 02/27/2024 - hydrocortisone 1 % cream Apply to affected area two times a day for 7 days. - omeprazole (PRILOSEC) 40 mg capsule Take 1 capsule by mouth once daily. - albuterol HFA (PROVENTIL HFA, VENTOLIN HFA) 90 mcg/actuation inhaler Inhale 2 Puffs as instructed every 4 hours as needed for wheezing/shortness of breath. - EPINEPHrine (EPIPEN) 0.3 mg/0.3 mL auto-injector Administer 1 pen to thigh after being stung. Problem List As Of Date 02/25/2024 Noted Resolved Esophageal reflux [K21.9] 09/17/2017 GENERAL OSTEOARTHROSIS [M15.9] Lateral epicondylitis [M77.10] 01/30/2006 Smoker [F17.200] 10/06/2014 07/30/2016 Gastroesophageal reflux disease with esophagiti*09/02/2017 Dysphagia [R13.10] 09/02/2017 Vaccine refused by patient [Z28.20] 01/17/2021 Chronic midline low back pain with right-sided *01/17/2021 Prescriptions ordered this encounter Disp Refills Start End HYDROCORTISONE 1 % TOPICAL CREAM 20 g 1 02/26/2024 03/04/2024 Route: TOPICAL Sig: Apply to affected area two times a day for 7 days. Medications Discontinued During This Encounter Prescriptions - hydrocortisone 1 % cream (Discontinued) Apply to affected area two times a day for 7 days. Encounter Status:Closed by ERIKA WHYTE on 02/27/24 Normal [facility] 12 Lead EKGon 07-15-2023 12 Lead EKG [facility] Cardiovascular Services [address] [place] [address] 12 Lead EKG 07/15/23 0002 MR#: [id number] Acct: [id number] Name: ERIC RHODES Rep #: [id number] : 1955 68 From: Terence Camacho MD Attending Dr: Status: DEP ER Ordering Dr: Kris Urrutia MD Date: 07/15/23 Location: ED Sex: M C Admitted: Test Reason : CP Blood Pressure : / mmHG Vent. Rate : 064 BPM Atrial Rate : 064 BPM P-R Int : 118 ms QRS Dur : 086 ms QT Int : 400 ms P-R-T Axes : 010 045 042 degrees QTc Int : 412 ms Normal sinus rhythm Normal ECG Confirmed by TERENCE CAMACHO MD ([id number]), video editor ALYCIA ALARCON ([id number]) on 07/15/2023 8:02:50 AM Referred By: BB Confirmed By:TERENCE CAMACHO MD 07/15/23 0802 Date Terence Camacho MD CC: Dr. Kris Urrutia MD; Dr. Darian Skaggs MD Signed Normal [facility] Absolute lymphocyte countOrd ered By: Kris Urrutia on 07-15-2023 Lymphocytes Auto (Unsp spec) [#/Vol] 2.46 10*3/uL 0.83-4.51 [facility] Automated lymphocyte count a s percentage of total leukocytesOrdered By: Kris Urrutia on 07-15-2023 Lymphocytes/100 WBC Auto (Unsp spec) 42.2 % [facility] Basic Metabolic Profile (BMP )on 07-15-2023 BUN/CRE 8.3 RATIO Low 10-20 [facility] Comment on above: Order Comment: 1 Y Performed By: #### L 500.2500, L501.5425, L100.0100 #### [facility] [address] [place], [address] CA,Total 8.7 mg/dL Normal 8.5-10.1 [facility] Comment on above: Order Comment: 1 Y Performed By: #### L 500.2500, L501.5425, L100.0100 #### [facility] [address] [place], [address] Chloride [Moles/Vol] 107 mmol/L Normal 98-107 [facility] Comment on above: Order Comment: 1 Y Performed By: #### L 500.2500, L501.5425, L100.0100 #### [facility] [address] [place], [address] CO2 [Moles/Vol] 28.0 mmol/L Normal 21.0-32.0 [facility] Comment on above: Order Comment: 1 Y Performed By: #### L 500.2500, L501.5425, L100.0100 #### [facility] [address] [place], [address] Creatinine [Mass/Vol] 1.20 mg/dL Normal 0.70-1.30 [facility] Comment on above: Order Comment: 1 Y Result Comment: The validity of the calculated GFR GFRAA in patients over 70 years has not been determined. Clinical correlation is essential. Performed By: #### L 500.2500, L501.5425, L100.0100 #### [facility] [address] [place], [address] ECRCL 57.85 ml/min Normal [facility] Comment on above: Order Comment: 1 Y Performed By: #### L 500.2500, L501.5425, L100.0100 #### [facility] [address] [place], [address] EST GFR - AA 78 mL/min Normal >60 [facility] Comment on above: Order Comment: 1 Y Result Comment: Afri can Georgian GFR Calc Performed By: #### L 500.2500, L501.5425, L100.0100 #### [facility] [address] [place], [address] GAP 6 Normal 5-15 [facility] Comment on above: Order Comment: 1 Y Performed By: #### L 500.2500, L501.5425, L100.0100 #### [facility] [address] [place], [address] GFR/1.73 sq M.predicted among non-blacks MDRD (S/P/Bld) [Vol rate/Area] 64 mL/min/{1.73_m2} Normal >60 [facility] Comment on above: Order Comment: 1 Y Result Comment: Non- GFR Calc Performed By: #### L 500.2500, L501.5425, L100.0100 #### [facility] [address] [place], [address] Glucose [Mass/Vol] 97 mg/dL Normal 74-106 [facility] Comment on above: Order Comment: 1 Y Performed By: #### L 500.2500, L501.5425, L100.0100 #### [facility] [address] [place], [address] Potassium [Moles/Vol] 3.7 mmol/L Normal 3.5-5.1 [facility] Comment on above: Order Comment: 1 Y Performed By: #### L 500.2500, L501.5425, L100.0100 #### [facility] [address] [place], [address] Sodium [Moles/Vol] 141 mmol/L Normal 136-145 [facility] Comment on above: Order Comment: 1 Y Performed By: #### L 500.2500, L501.5425, L100.0100 #### [facility] [address] [place], [address] Urea nitrogen [Mass/Vol] 10 mg/dL Normal 7-18 [facility] Comment on above: Order Comment: 1 Y Performed By: #### L 500.2500, L501.5425, L100.0100 #### [facility] [address] [place], [address] Basophil percentageOrdered B y: Kris Urrutia on 07-15-2023 Basophils/100 WBC (Bld) 1.4 % 0-1 [facility] Chloride [Moles/Vol] 107 mmol/L 98-107 [facility] Eosinophils/100 WBC (Bld) 1.4 % 0-5 [facility] Glucose [Mass/Vol] 97 mg/dL 74-106 [facility] Hemoglobin (Bld) [Mass/Vol] 14.2 g/dL 13.0-16.5 [facility] Monocytes/100 WBC (Bld) 8.7 % 0-10 [facility] Neutrophils (Bld) [#/Vol] 2.7 10*3/uL 2.0-7.7 [facility] Neutrophils/100 WBC (Bld) 46.0 % 47-70 [facility] Potassium [Moles/Vol] 3.7 mmol/L 3.5-5.1 [facility] Sodium [Moles/Vol] 141 mmol/L 136-145 [facility] WBC (Bld) [#/Vol] 5.8 10*3/uL 4.4-11.0 [facility] CBC W/Diff, Automatedon 06-26 Absolute Lymph 2.46 X10 3/uL Normal 0.83-4.51 [facility] Comment on above: Performed By: #### L 500.2500, L501.5425, L100.0100 #### [facility] [address] [place], [address] Absolute Neut 2.7 X10 3/uL Normal 2.0-7.7 [facility] Comment on above: Performed By: #### L 500.2500, L501.5425, L100.0100 #### [facility] [address] [place], [address] Basophils/100 WBC (Bld) 1.4 % High 0-1 [facility] Comment on above: Performed By: #### L 500.2500, L501.5425, L100.0100 #### [facility] [address] [place], [address] Eosinophils/100 WBC (Bld) 1.4 % Normal 0-5 [facility] Comment on above: Performed By: #### L 500.2500, L501.5425, L100.0100 #### [facility] [address] [place], [address] Erythrocyte distribution width (RBC) [Ratio] 12.9 % Normal 11.6-14.6 [facility] Comment on above: Performed By: #### L 500.2500, L501.5425, L100.0100 #### [facility] [address] [place], [address] Hematocrit (Bld) [Volume fraction] 44.2 % Normal 40-54 [facility] Comment on above: Performed By: #### L 500.2500, L501.5425, L100.0100 #### [facility] [address] [place], [address] Hemoglobin (Bld) [Mass/Vol] 14.2 g/dL Normal 13.0-16.5 [facility] Comment on above: Performed By: #### L 500.2500, L501.5425, L100.0100 #### [facility] [address] [place], [address] IG% 0.300 Normal 0.0-0.9 [facility] Comment on above: Result Comment: IG% - Immature Granulocytes (promyelocytes, myelocytes and metamyelocytes) > 1% indicates that a LEFT SHIFT is Present. Performed By: #### L 500.2500, L501.5425, L100.0100 #### [facility] [address] [place], [address] Lymphocytes/100 WBC (Bld) 42.2 % High 19-41 [facility] Comment on above: Performed By: #### L 500.2500, L501.5425, L100.0100 #### [facility] [address] [place], [address] MCH (RBC) [Entitic mass] 30.5 pg Normal 27.0-32.0 [facility] Comment on above: Performed By: #### L 500.2500, L501.5425, L100.0100 #### [facility] [address] [place], [address] MCHC (RBC) [Mass/Vol] 32.1 g/dL Normal 32-36 [facility] Comment on above: Performed By: #### L 500.2500, L501.5425, L100.0100 #### [facility] [address] [place], [address] MCV (RBC) [Entitic vol] 94.8 fL High 80-94 [facility] Comment on above: Performed By: #### L 500.2500, L501.5425, L100.0100 #### [facility] [address] [place], [address] Monocytes/100 WBC (Bld) 8.7 % Normal 0-10 [facility] Comment on above: Performed By: #### L 500.2500, L501.5425, L100.0100 #### [facility] [address] [place], [address] Neutrophils/100 WBC (Bld) 46.0 % Low 47-70 [facility] Comment on above: Performed By: #### L 500.2500, L501.5425, L100.0100 #### [facility] [address] [place], [address] Nucleated RBC (Bld) [#/Vol] 0 10*3/uL Normal 0-5 [facility] Comment on above: Performed By: #### L 500.2500, L501.5425, L100.0100 #### [facility] [address] [place], [address] Platelet mean volume (Bld) [Entitic vol] 10.3 fL Normal 6.2-12.0 [facility] Comment on above: Performed By: #### L 500.2500, L501.5425, L100.0100 #### [facility] [address] [place], [address] Platelets (Bld) [#/Vol] 217 10*3/uL Normal 150-450 [facility] Comment on above: Performed By: #### L 500.2500, L501.5425, L100.0100 #### [facility] [address] [place], [address] RBC (Bld) [#/Vol] 4.66 10*6/uL Normal 4.6-6.2 [facility] Comment on above: Performed By: #### L 500.2500, L501.5425, L100.0100 #### [facility] [address] [place], [address] RDW SD 44.8 fl High 35.1-43.9 [facility] Comment on above: Performed By: #### L 500.2500, L501.5425, L100.0100 #### [facility] [address] [place], [address] WBC (Bld) [#/Vol] 5.8 10*3/uL Normal 4.4-11.0 [facility] Comment on above: Performed By: #### L 500.2500, L501.5425, L100.0100 #### [facility] [address] [place], [address] Chest PA and Lateralon 07-14 Chest PA and Lateral [facility] Imaging Services [address] [place] [address] Chest PA and Lateral MR#: [id number] Acct: [id number] Name: ERIC RHODES Rep #: [id number] : 1955 M 68 From: Suleman Chaomrro MD PCP: Dr. Darian Skaggs MD Status: REG ER Study: Chest PA and Lateral Date of Exam: 07/15/23 Exam# [id number] Ordering Dr: Kris Urrutia MD [id number] INDICATION: chest pain EXAMINATION/TECHNIQUE: X-RAY - XR Chest 2 Views COMPARISON: 02/17/2021 FINDINGS: LINES/DEVICES: None. LUNGS: No consolidation, vascular congestion or pleural effusion. Stable coarsening of interstitial markings. MEDIASTINUM AND CARDIOVASCULAR STRUCTURES: Cardiac silhouette stable within normal limits. BONES AND SOFT TISSUES: No acute changes. RAD/Chest PA and Lateral IMPRESSION: No acute consolidative process. Electronically Signed: Suleman Chamorro MD at 0:51 EDT , CC: Dr. Kris Urrutia MD; Dr. Darian Skaggs MD Healthcare Marketer: Signed Normal [facility] Determination of erythrocyte mean corpuscular volume (MCV)Ordered By: Kris Urrutia on 07-15-2023 MCV (RBC) [Entitic vol] 94.8 fL 80-94 [facility] Emergency Department Summary on 07-15-2023 Emergency Department Summary [facility] Medical Records Department [address] [place] [address] Emergency Department Summary 07/15/23 MR#: [id number] Acct: [id number] Name: ERIC RHODES Rep #: [id number] : 1955 68 From: Kris Urrutia MD PCP: Dr. Darian Skaggs MD Status:REG ER Location: ED HPI History of Present Illness Chief Complaint: Chest Pain Informant: patient Onset/Context/Timing Onset: Hours (6) Activity at onset: gradual and onset Timing: Intermittent (2 episodes) and Lasts (10-15 min each) Quality: Positive for Sharp and Stabbing Location: - (lower central chest radiating into mid-back) Current Severity: Gone Maximum Severity: Moderate Worsened By: Nothing Relieved By: Nothing (Did not take anything, spontaneously abated) Associated Symptoms: Negative for Nausea, Vomiting, Diaphoresis, Dyspnea, Cough, Fever, Lightheadedness or Palpitations Narrative Narrative: Patient states he was resting sitting at a table drawing tonight after dinner at some point started having discomfort in his chest radiating into his back. He had another episode about an hour ago so he presents out of concern. Family history of heart disease in brothers but none personally that he knows of. History of some esophagus issues, he states he had a dilatation about 6 years ago and for the last half year to a year or so he has been having issues with swallowing things sometimes but never to the point where anything is stuck and he had to come to the hospital. [facility] Medical History Encounter for screening for malignant neoplasm of lung Heartburn History of tobacco use Home Medications NK 07/15/23 [History Last Taken Unknown] Allergy/AdvReac Type Severity Reaction Status Date / Time dexamethasone [From Decadron] Allergy Mild Hives Verified 03/04/23 12:31 famotidine [From Pepcid] Allergy Mild Hives Verified 03/04/23 12:31 ibuprofen Allergy Swelling Verified 03/04/23 12:31 Surgical History Hx of appendectomy Social History Smoking Status: Former smoker ROS ROS ED Constitutional Constitutional ED: Denies chills or fever(s) Eyes Eyes: Denies change in vision or diplopia ENT ENT ED: Denies rhinorrhea or sore throat Cardiovascular Cardiovascular: Reports chest pain; Denies palpitations Respiratory/Chest Respiratory/Chest: Denies cough or dyspnea Gastrointestinal Gastrointestinal: Denies abdominal pain, diarrhea, nausea or vomiting Genitourinary Genitourinary ED: Denies dysuria or hematuria Musculoskeletal Musculoskeletal: Reports back pain; Denies neck pain Integumentary Denies abscess or rash Neurologic Neurologic: Denies headache(s), paresthesias or weakness Psychiatric Psychiatric: Denies anxiety or suicidal thoughts EXAM Physical Exam Const Vital Signs: 07/15/23 00:02 07/15/23 00:07 07/15/23 00:25 Temperature 97.7 F L Temperature Source Oral Pulse Rate 63 Respiratory Rate 19 H Respiratory Effort Normal Non-Labored Blood Pressure 145/90 H Blood Pressure Mean 108 Pulse Ox 96 95 Oxygen Delivery Method Room Air Room Air 07/15/23 01:01 07/15/23 01:24 07/15/23 01:30 Temperature Temperature Source Pulse Rate 73 73 68 Respiratory Rate 17 19 H 24 H Respiratory Effort Blood Pressure 122/74 H 132/88 H Blood Pressure Mean 90 102 Pulse Ox 98 95 93 Oxygen Delivery Method Room Air 07/15/23 01:45 07/15/23 02:00 07/15/23 03:00 Temperature Temperature Source Pulse Rate 63 62 63 Respiratory Rate 25 H 23 H 18 Respiratory Effort Blood Pressure 139/96 H 136/81 H Blood Pressure Mean 110 99 Pulse Ox 97 96 98 Oxygen Delivery Method Room Air Room Air Positive well nourished and well developed General Appearance ED: well developed and NAD HEENT Reports moist mucous membranes normocephalic and atraumatic Eyes PERRL and EOMs intact bilaterally Neck full ROM and supple Chest Wall inspection of chest normal and palpation of chest normal Resp normal respiratory effort and clear to auscultation bilaterally Cardio regular rate, regular rhythm and no murmurs Peripheral Pulses: pulses 2+ throughout and radial pulses present bilateral 2+ GI non-tender and non-distended GI Narrative: No pulsatile mass. No Brantley Ann sign. No Laci sign. Auscultation: normoactive bowel sounds Palpation: soft Back/Spine no CVA tenderness General Back: other FROM Extremity normal to inspection General Extremety ED: Negative for edema, pulses abnormal or tenderness General Extremity: Negative for edema or pulses abnormal Neuro oriented x3, CN's II-XII intact bilaterally and no sensory deficits noted Sensorium / Orientatio (more content not included)... Normal [facility] Erythrocyte distribution wid th ratioOrdered By: [facility] on 07-15-2023 Erythrocyte distribution width (RBC) [Ratio] 12.9 % 11.6-14.6 [facility] Erythrocyte distribution wid th standard deviationOrdered By: [facility] on 07-15-2023 Erythrocyte distribution width (RBC) [Entitic vol] 44.8 fL 35.1-43.9 [facility] Hematocrit Auto (Bld) [Volum e fraction]Ordered By: [facility] on 07-15-2023 Hematocrit (Bld) [Volume fraction] 44.2 % 40-54 [facility] Immature granulocytes/100 WB C Auto (Bld)Ordered By: [facility] on 07-15-2023 Immature granulocytes/100 WBC (Bld) 0.300 % 0.0-0.9 [facility] Comment on above: IG% - Immature Granu locytes (promyelocytes, myelocytes and metamyelocytes) > 1% indicates that a LEFT SHIFT is Present. L501.4020on 07-15-2023 TROPONIN-I HS 43 pg/mL Normal 3.0-78.0 [facility] Comment on above: Order Comment: 2 Result Comment: Plea se Note: New Test Units and Gender Specific Reference Ranges. For more information see Policy Stat Procedure [place] High Sensitivity Troponin (TNIH) and attachments. Performed By: #### L 501.4020 #### [facility] [address] [facility] [place], [place], [id number] L501.5425on 07-15-2023 TROPONIN-I HS 44 pg/mL Normal 3.0-78.0 [facility] Comment on above: Order Comment: 1 Y Result Comment: Plea se Note: New Test Units and Gender Specific Reference Ranges. For more information see Policy Stat Procedure [place] High Sensitivity Troponin (TNIH) and attachments. Performed By: #### L 500.2500, L501.5425, L100.0100 #### [facility] [address] [place], [address] Laboratory - Chemistry and C hemistry - challengeOrdered By: Kris Urrutia on 07-15-2023 CO2 [Moles/Vol] 28.0 mmol/L 21.0-32.0 [facility] Urea nitrogen/Creatinine [Mass ratio] 8.3 mg/mg 10-20 [facility] - Hematology and Cell countsOrdered By: Kris Urrutia on 07-15-2023 MCH (RBC) [Entitic mass] 30.5 pg 27.0-32.0 [facility] MCHC (RBC) [Mass/Vol] 32.1 g/dL 32- [facility] Nucleated RBC/100 WBC (Bld) [Ratio] 0 % 0-5 [facility] Platelet mean volume (Bld) [Entitic vol] 10.3 fL 6.2-12.0 [facility] Platelets (Bld) [#/Vol] 217 10*3/uL 150-450 [facility] No Panel InformationOrdered By: Kris Urrutia on 07-15-2023 Troponin I High Sensitivity 43 pg/mL 3.0-78.0 [facility] Comment on above: Please Note: [place] t Units and Gender Specific Reference Ranges. For more information see Policy Stat Procedure [place] High Sensitivity Troponin (TNIH) and attachments. Estimated Creatinine Clearance Calc 57.85 ml/min [facility] Estimated GFR (MDRD) Amer 78 mL/min >60 [facility] Comment on above: GFR Calc Estimated GFR (MDRD) Non-Af Amer 64 mL/min >60 [facility] Comment on above: Non- GFR Calc RBC Auto (Bld) [#/Vol]Ordere d By: Kris Urrutia on 07-15-2023 RBC (Bld) [#/Vol] 4.66 10*6/uL 4.6-6.2 [facility] Serum or plasma calcium leanna urement (mass/volume)Ordered By: Kris Urrutia on 07-15-2023 Calcium [Mass/Vol] 8.7 mg/dL 8.5-10.1 [facility] Serum or plasma creatinine m easurement (mass/volume)Ordered By: Kris Urrutia on 07-15-2023 Creatinine [Mass/Vol] 1.20 mg/dL 0.70-1.30 [facility] Comment on above: The validity of the calculated GFR & GFRAA in patients over 70 years has not been determined. Clinical correlation is essential. Serum or plasma urea nitroge n measurement (mass/volume)Ordered By: Kris Urrutia on 07-15-2023 Urea nitrogen [Mass/Vol] 10 mg/dL - [facility] Thin prep Papanicolaou smear with manual screeningOrdered By: Kris Urrutia on 07-15-2023 Thin prep Papanicolaou smear with manual screening 6 09-09 [facility] US SCREENING FOR AAAon 03-13 [facility] XR HIP GENERAL 3V PELV/AP/LA T RIGHTon 09-06-2021 [facility] XR Pelvis and Hip - right AP and Lateral frogon 09-06-2021 IMPRESSION: NEGATIVE HIP. Healthcare Marketer: SHIRLENE Transcribe Date/Time: Sep 06 2021 12:17P Dictated by : SKIP CURRY MD This examination was interpreted and the report reviewed and electronically signed by: SKIP CURRY MD on Sep 06 2021 12:18PM ANGELA FRANKEL_DO_NOT_US E_DIVISION OF RADIOLOGY * * *Final Report* * * DATE OF EXAM: Sep 06 2021 12:09PM WOX [id number] - XR HIP 3V PELV+ AP/LAT RT / PROCEDURE REASON: Right hip pain * * * * Physician Interpretation * * * * EXAMINATION: XR HIP 3V PELV+ AP/LAT RT HISTORY: Right lateral hip pain x 1 week without injury. Right hip pain. TECHNIQUE: XR HIP 3V PELV+ AP/LAT RT Laterality: RIGHT Number of different views (projections): 3 M: XB_1 COMPARISON: There are no prior relevant examinations available for comparison within the [facility] Imaging Archives. RESULT: Supine radiograph of the pelvis as well as AP and frogleg views of the right hip demonstrate the bony pelvic ring intact. The hips are bilaterally symmetric without fracture or dislocation. No acute bony process is noted. The soft tissues are unremarkable. JOSTIN_DO_NOT_US E_DIVISION OF RADIOLOGY Provider, [facility] Kraig Carmel - 09/06/2021 * * *Final Report* * * DATE OF EXAM: Sep 06 2021 12:09PM WOX 5352 - XR HIP 3V PELV+ AP/LAT RT / PROCEDURE REASON: Right hip pain * * * * Physician Interpretation * * * * EXAMINATION: XR HIP 3V PELV+ AP/LAT RT HISTORY: Right lateral hip pain x 1 week without injury. Right hip pain. TECHNIQUE: XR HIP 3V PELV+ AP/LAT RT Laterality: RIGHT Number of different views (projections): 3 M: XB_1 COMPARISON: There are no prior relevant examinations available for comparison within the [facility] Imaging Archives. RESULT: Supine radiograph of the pelvis as well as AP and frogleg views of the right hip demonstrate the bony pelvic ring intact. The hips are bilaterally symmetric without fracture or dislocation. No acute bony process is noted. The soft tissues are unremarkable. IMPRESSION IMPRESSION: NEGATIVE HIP. Healthcare Marketer: SHIRLENE Transcribe Date/Time: Sep 06 2021 12:17P Dictated by : SKIP CURRY MD This examination was interpreted and the report reviewed and electronically signed by: SKIP CURRY MD on Sep 06 2021 12:18PM [facility] Radiology Study observation (narrative) [facility] XR Pelvis and Hip - right AP and Lateral frogOrdered By: Cc Provider on 09-06-2021 [facility] XR Hand - right PA and Later al and Obliqueon 07-03-2021 * * *Final Report* * * DATE OF EXAM: Jul 02 2021 5:21PM WOX 5346 - XR HAND 3V PA/LAT/OBL RT / PROCEDURE REASON: Thumb pain, right * * * * Physician Interpretation * * * * Indication: Right thumb pain Comparison: None 3 views of the right hand are obtained. There is normal architecture and mineralization of the bones. There is no acute fracture or dislocation. Joint spaces are maintained. There are no periarticular erosions. Impression: 1. No acute fracture or dislocation. Healthcare Marketer: SHIRLENE Transcribe Date/Time: Jul 03 2021 8:15A Dictated by : IVETTE ARECHIGA MD This examination was interpreted and the report reviewed and electronically signed by: IVETTE ARECHIGA MD on Jul 03 2021 8:21AM EST DIVISION OF RADIOLOGY Provider, [facility] - 07/03/2021 * * *Final Report* * * DATE OF EXAM: Jul 02 2021 5:21PM WOX 5346 - XR HAND 3V PA/LAT/OBL RT / PROCEDURE REASON: Thumb pain, right * * * * Physician Interpretation * * * * Indication: Right thumb pain Comparison: None 3 views of the right hand are obtained. There is normal architecture and mineralization of the bones. There is no acute fracture or dislocation. Joint spaces are maintained. There are no periarticular erosions. Impression: 1. No acute fracture or dislocation. Healthcare Marketer: SHIRLENE Transcribe Date/Time: Jul 03 2021 8:15A Dictated by : IVETTE ARECHIGA MD This examination was interpreted and the report reviewed and electronically signed by: IVETTE ARECHIGA MD on Jul 03 2021 8:21AM EST [facility] XR Hand - right PA and Later al and ObliqueOrdered By: Ccf Provider on 07-03-2021 [facility] XR Hand - right PA and Later al and Obliqueon 07-02-2021 Radiology Study observation (narrative) [facility] XR SPINE LUMBOSACRAL 2 OR 3 VIEWSon 09-26-2020 XR SPINE LUMBOSACRAL 2 OR 3 VIEWS ORIGINAL XR SPINE LUMBOSACRAL 3 VIEWS CLINICAL STATEMENT: LOW BACK PAIN. COMPARISON: None FINDINGS: Multilevel disc osteophytes seen in the lumbar spine. Multilevel facet arthropathy. The vertebral body heights are normal. IMPRESSION: Mild degenerative changes. No compression deformities Interpreted By: Mj Rapp MD Preliminary Report By: Mj Rapp MD Electronically Signed By: Mj Rapp MD Dictated Date: 09/26/2020 6:06:40 PM Prelim Date: 09/26/2020 6:06:40 PM Sign Date: 09/26/2020 6:08:08 PM Ordering Provider:Tod Sorto [facility] ([place]) XR Finger - right AP and Lat eral and obliqueon 2020 IMPRESSION: INTRA-ARTICULAR FRACTURE OF THE DORSAL BASE OF THE RING FINGER DISTAL PHALANX Healthcare Marketer: SHIRLENE Transcribe Date/Time: 2020 4:23P Dictated by : PARKER ROY MD This examination was interpreted and the report reviewed and electronically signed by: PARKER ROY MD on 2020 4:24PM [facility] DIVISION OF RADIOLOGY * * *Final Report* * * DATE OF EXAM: 2020 4:15PM WOX 5319 - XR DIGIT 3V FRONTAL/LAT/OBL RT / PROCEDURE REASON: Injury of finger of right hand, initial encounter * * * * Physician Interpretation * * * * HISTORY: Injury of finger of right hand, initial encounter TECHNIQUE: 3 views of the right ring finger COMPARISON: None. RESULT: There is an intra-articular fracture of the dorsal base of the ring finger distal phalanx with only minimal displacement at the fracture site. No other fracture identified. Joint spaces are preserved. There is mild soft tissue swelling about the fracture site. DIVISION OF RADIOLOGY Provider, [facility] - 2020 * * *Final Report* * * DATE OF EXAM: 2020 4:15PM WOX 5319 - XR DIGIT 3V FRONTAL/LAT/OBL RT / PROCEDURE REASON: Injury of finger of right hand, initial encounter * * * * Physician Interpretation * * * * HISTORY: Injury of finger of right hand, initial encounter TECHNIQUE: 3 views of the right ring finger COMPARISON: None. RESULT: There is an intra-articular fracture of the dorsal base of the ring finger distal phalanx with only minimal displacement at the fracture site. No other fracture identified. Joint spaces are preserved. There is mild soft tissue swelling about the fracture site. IMPRESSION IMPRESSION: INTRA-ARTICULAR FRACTURE OF THE DORSAL BASE OF THE RING FINGER DISTAL PHALANX Healthcare Marketer: [facility] Transcribe Date/Time: 2020 4:23P Dictated by : PARKER ROY MD This examination was interpreted and the report reviewed and electronically signed by: PARKER ROY MD on 2020 4:24PM [facility] Radiology Study observation (narrative) [facility] XR Finger - right AP and Lat eral and obliqueOrdered By: Ccf Provider on 2020 [facility] ABDOMEN AP VIEWon 01-26-2020 ABDOMEN AP VIEW Patient Name: ERIC RHODES STUDY: ABDOMEN AP VIEW; 01/26/2020 12:39 pm INDICATION: kidney stone on L (4mm). COMPARISON: None. ACCESSION NUMBER(S): [id number] ORDERING CLINICIAN: KAMLESH SOLITARIO FINDINGS: 2 supine AP radiographs of the abdomen were obtained. A rounded calcification is seen over the left mid abdomen, and may represent a ureteral calculus. There is a nonobstructive bowel gas pattern present. Free intraperitoneal air and air-fluid levels cannot be excluded without upright or decubitus images. IMPRESSION: Calcification over the left mid abdomen, may represent ureteral calculus. Clinical correlation is recommended. Electronically signed by: ALBIN WADSWORTH MD Normal [facility] BASIC METABOLIC PANELon 3 Anion gap [Moles/Vol] 9 mmol/L Low 10 - 20 [facility] Comment on above: Performed By: #### B MP #### [address] [address] Calcium [Mass/Vol] 8.8 mg/dL Normal 8.6 - 10.3 [facility] Comment on above: Performed By: #### B MP #### [address] [address] Chloride [Moles/Vol] 108 mmol/L High 98 - 107 [facility] Comment on above: Performed By: #### B MP #### [address] [address] Creatinine [Mass/Vol] 1.53 mg/dL High 0.50 - 1.30 [facility] Comment on above: Performed By: #### B MP #### [address] [address] GFR- AM. 56 mL/min/1.73m2 Abnormal >60 [facility] Comment on above: Result Comment: CALC ULATIONS OF ESTIMATED GFR ARE PERFORMED USING THE MDRD STUDY EQUATION FOR THE IDMS-TRACEABLE CREATININE METHODS. CLIN CHEM 2007;53:766-72 Performed By: #### B MP #### [address] [address] GFR-NON AM. 46 mL/min/1.73m2 Abnormal >60 [facility] Comment on above: Performed By: #### B MP #### [address] [address] Glucose [Mass/Vol] 100 mg/dL High 74 - 99 [facility] Comment on above: Performed By: #### B MP #### [address] [address] HCO3 (Bld) [Moles/Vol] 27 mmol/L Normal 21 - 32 [facility] Comment on above: Performed By: #### B MP #### [address] [address] Potassium [Moles/Vol] 4.2 mmol/L Normal 3.5 - 5.3 [facility] Comment on above: Performed By: #### B MP #### [address] [address] Sodium [Moles/Vol] 140 mmol/L Normal 136 - 145 [facility] Comment on above: Performed By: #### B MP #### [address] [address] Urea nitrogen [Mass/Vol] 21 mg/dL Normal 6 - 23 [facility] Comment on above: Performed By: #### B MP #### [address] [address] Provider Note - ED v2on 09-3 Provider Note - ED v2 Provider Note - ED v2: Chart Review: ED NOTES ED NOTES: ====HPI==== Patient continues have pain after recent diagnosis of kidney stone on the left. He says that the pain is now rating anteriorly. He denies any fevers chills vomiting diarrhea sore throat cough or any other complaints on full review of systems. Character: Severity: Mild to moderate Exacerbated by: Nothing Improved by: Nothing Recently seen by: Denies ====Review of Systems==== 10 point system review is negative except for those specifically mentioned in history of present illness ====Physical Exam==== Constitutional/General : Alert and conversant, well appearing, nontoxic, and in NAD. Head: Normocephalic and atraumatic. Eyes: PER, conjunctive normal, sclera nonicteric, subconjunctival layer is pink. Mouth: handling secretions, no trismus, moist mucous membranes Neck: Supple, full ROM, no stridor, no crepitus, no meningeal signs. Trachea at midline. Respiratory: not in respiratory distress. Chest: normal chest movement GI: nondistended Musculoskeletal: Moves all extremities, warm and well perfused Integument: Skin warm and dry, no rashes. Neurologic: GCS 15, no focal deficits Psychiatric: Normal affect. ====ED Course and Medical Decision Making==== He has a benign exam but does seem to be in pain. Abdominal x-ray showed a mid ureter stone. The patient was asked to follow-up with his doctor. Given some pain medicine. His kidney function was good and he should do well as an outpatient. He was given some oxycodone. All his questions were answered. He felt comfortable with the plan. Portions of this note were dictated by speech recognition. An attempt at proof reading was made to minimize errors. Minor errors in process worker may be present. Please call if questions.. HISTORY OF PRESENTING ILLNESS ERIC is a 64 year old Male and was seen by me at 26-Jan-2020 12:03 for a chief complaint of abdominal pain (Pt to ED for LLQ abdominal pain. Pt went to [place] ED for symptoms on Friday and was diagnosed with kidney stones. Pt is out of medication to manage pain. No nausea, vomiting, diarrhea, urinary issues, fever.)(1). Triage Information: Most recent Vital Sign Value Date Temp (F): 97.5 01-26-2020 12:15 Temp (C): 36.3 01-26-2020 12:15 Heart Rate (beats/min): 73 01-26-2020 12:15 Respirations (breaths/min): 20 01-26-2020 12:15 SpO2 (%): 97 01-26-2020 12:15 BP Systolic (mm Hg): 147 01-26-2020 12:15 BP Diastolic (mm Hg): 93 01-26-2020 12:15 PAST MEDICAL HISTORY ATTESTATION: I have reviewed and confirmed nurse's/medic's notes for patient's medications, allergies, medical history, and surgical history ALLERGIES/INTOLERANCES : Allergy Allergen: ibuprofen Type: Drug Reaction: Swelling/Edema Itching HEALTH HISTORY: No documented data. OUTPATIENT MEDICATIONS: Home Medications Review Status for Reconciliation: Complete Med Status: Patient Currently Takes Medications Drug Name: omeprazole 20 mg oral delayed release tablet Instructions: 1 tab(s) orally once a day Drug Name: Endocet 5/325 oral tablet Instructions: 1 tab(s) orally every 6 hours Drug Name: Flomax 0.4 mg oral capsule Instructions: 1 cap(s) orally once a day SIGNIFICANT EVENTS: No documented data. CLINICAL IMPRESSION Diagnosis/Annotation: ED Dx Name:Kidney stone on left side Code:N20.0 Dispostion: discharged Type: home ATTESTATION CRITICAL CARE TIME Is this a critically ill patient: no Electronic Signatures: Kamlesh Solitario) (Signed 17-Feb-2020 11:52) Authored: ED Notes, HPI, PMH, Clinical Impression, Attestation, Chart Review, Scores Last Updated: 17-Feb-2020 11:52 by Kamlesh Solitario) References: 1. Data Referenced From Triage - ED 26-Jan-2020 12:15 Normal [facility] Risk Screen - Adult Emergenc yon 01-26-2020 Risk Screen - Adult Emergency Preferred Language: Preferred Language: Preferred Language for Discussing Health Care (patient/designee)Engl hellen Advanced Directives: Advance Directive/DNRno Family Violence Adult: Abuse Screen: Are you or have you been threatened or abused physically, emotionally, or sexually by anyoneno Learning Assessment (Patient): Learning Assessment (Patient): Patient is Able to be Assessed for Learningyes Factors Influencing Readiness to Learninterest in learning; pain Factors that Impact Ability to Learnnone Devices/Methods Used to Communicatenone Learning Preferenceswritten material; verbal instruction Cultural Considerationsnone Developmental Considerationsnone Uatsdin Considerationsnone Learning Assessment (Other Learner): Learning Assessment (Other Learner): Other learner availableno Pressure Injury/TB/Substance: Pressure Injury: Do you have a coughno Substance Use Current or Former Historynever: Cigarette/Tobacco, e-Cigarette/Vaping, Alcohol YES: Street Drugs Drug Usedaily Street Drug/Medication/ Inhalant Use Additional Commentsmarijuana Admission Risk Screen: Significant IndicatorsComplete CAGE: CAGE: Is this an injured patient at a Trauma Center ([facility]/[place]): no Electronic Signatures: Alvina Davis (RN) (Signed 26-Jan-2020 12:18) Authored: Preferred Language, Advanced Directives, Family Violence Adult, Learning Assessment (Patient), Learning Assessment (Other Learner), Pressure Injury/TB/Substance, Pressure Injury, CAGE Last Updated: 26-Jan-2020 12:18 by Alvina Davis (RN) [facility] Triage - EDon 01-26-2020 Triage - ED Chart Review: PRIMARY ASSESSMENT ABCD Normal Findings: airway open and patent, breathing normal, circulation normal and alert and oriented ARRIVAL INFORMATION Mode of Arrival: private vehicle CHIEF COMPLAINT ERIC A STONE is a Male patient with a chief complaint of abdominal pain (Pt to ED for LLQ abdominal pain. Pt went to [place] ED for symptoms on Friday and was diagnosed with kidney stones. Pt is out of medication to manage pain. No nausea, vomiting, diarrhea, urinary issues, fever.). Triage Date/Time: 26-Jan-2020 12:10 Pain Rating (0-10): 8 = Severe Pain location: LLQ Vital Signs: Temperature: 97.5F ( 36.3C) taken oral Blood Pressure: 147/93 Mean: Heart Rate: 73 Respiratory Rate: 20 Pulse Oximetry: 97% on room air, no respiratory support. Height: 5 feet 5.00 inches. 165.1 CM Weight: 145.5 pounds. Calculated 66.0 kg. (stated) Calculated BMI (kg/m2): 24.213 Calculated BSA (m2) 1.74 Julia Coma Scale: Best Eye Response: (E4) spontaneous Best Motor Response: (M6) obeys commands Best Verbal Response: (V5) oriented [place] Score: 15 Cough lasting greater than 3 weeks: no Allergies: yes Mask applied: yes Patient has homicidal thoughts: no CHICHO: 3 Symptoms Are Negative For: anorexia, constipation, diaphoresis, diarrhea, distention, fever, nausea, rectal blood and vomiting. Risk Screens Suicide Risk Screen In the Past Month: Have you wished you were or wished you could go to sleep and not wake up no In the Past Month: Have you had any actual thoughts of killing yourself no In Your Lifetime: Have you ever done anything, started to do anything, or prepared to do anything to end your life no L[place]y Fall Scale Screening Has the patient fallen before (or is the patient in the ED as a result of a fall) has not had a fall Does the patient have an impaired gait does not have impaired gait Is the patient cognitively impaired not cognitively impaired Interventions: Langley Fall Interventions: LOW INTERVENTIONS: *patient oriented to surroundings and call system, * patient/family falls education completed and documented, *patients fall status communicated during bedside handoff, *whiteboard updated, *mode of toileting discussed with patient, *bed in low position with brakes locked, *call light in reach, * non-skid footwear TRAVEL HISTORY Travel History Coronavirus Screening: no exposure or symptoms PAIN Pain Scale Used: POORNIMA Pain Rating (0-10): 8 = Severe Past Medical History: Past Medical History Reviewedyes Electronic Signatures: Alvina Davis (RN) (Signed 26-Jan-2020 12:17) Authored: Quick Triage, Risk Screens, Pain, ABCD, Chart Review, Scores, Past Medical History Last Updated: 26-Jan-2020 12:17 by Alvina Davis (RN) Normal [facility] UA MICROSCOPICon 01-26-2020 MUCUS 1+ /LPF Normal [facility] Comment on above: Performed By: #### U AMIC #### [place] [address] RBC 14 /HPF Abnormal 0-5 [facility] Comment on above: Performed By: #### U AMIC #### [place] [address] SQUAMOUS EPITH. CELLS 1 /HPF Normal [facility] Comment on above: Performed By: #### U AMIC #### [place] [address] WBC 12 /HPF Abnormal 0-5 [facility] Comment on above: Performed By: #### U AMIC #### [place] [address] URINALYSISon 01-26-2020 Appearance (U) CLEAR Normal CLEAR [facility] Comment on above: Performed By: #### U A #### [place] [address] Bilirubin (U) [Mass/Vol] Negative Normal NEGATIVE [facility] Comment on above: Performed By: #### U A #### [address] [address] BLOOD MODERATE(2+) Abnormal NEGATIVE [facility] Comment on above: Performed By: #### U A #### [address] [address] Color (U) Yellow Normal STRAW,YELLOW [facility] Comment on above: Performed By: #### U A #### [place] [id number] Glucose [Mass/Vol] Negative Normal NEGATIVE [facility] Comment on above: Performed By: #### U A #### [place] [id number] Ketones Ql (U) Negative Normal NEGATIVE [facility] Comment on above: Performed By: #### U A #### [place] [address] Leukocyte esterase Test strip Ql (U) TRACE Abnormal NEGATIVE [facility] Comment on above: Performed By: #### U A #### [place] [address] Nitrite Ql (U) Negative Normal NEGATIVE [facility] Comment on above: Performed By: #### U A #### [place] [id number] pH (Bld) 5.0 Normal 5.0 - 8.0 [facility] Comment on above: Performed By: #### U A #### [place] [id number] Protein (U) [Mass/Vol] 30(1+) Abnormal NEGATIVE [facility] Comment on above: Performed By: #### U A #### [address] [address] Specific gravity (U) [Rel density] 1.031 Normal 1.005 - 1.035 [facility] Comment on above: Performed By: #### U A #### [place] [id number] Urobilinogen Qn (U) 4.0 mg/dL High 0.0 - 1.9 [facility] Comment on above: Result Comment: SOME PIGMENTS AND MEDICATIONS MAY CAUSE A FALSE POSITIVE UROBILINOGEN Performed By: #### U A #### [place] [id number] [place] [id number] Vital Signs Date Time Vital Sign Value Performing Clinician Facility 01-10-2025 13:50-0400 Body mass index (BMI) [Ratio] 26.81 kg/m2 Cailin Jeffrey INSTRUMENT TECHNICIAN HELPER.HEAD STOCK OPERATOR Work Phone: [facility] 01-10-2025 13:50-0400 Body temperature 97.59 [degF] Cailin Jeffrey INSTRUMENT TECHNICIAN HELPER.HEAD STOCK OPERATOR Work Phone: [facility] 01-10-2025 13:50-0400 Body weight 71.67 kg Cailin Jeffrey INSTRUMENT TECHNICIAN HELPER.HEAD STOCK OPERATOR Work Phone: [facility] 01-10-2025 13:50-0400 Diastolic blood pressure 78 mm[Hg] Cailin Jeffrey INSTRUMENT TECHNICIAN HELPER.HEAD STOCK OPERATOR Work Phone: [facility] 01-10-2025 13:50-0400 Heart rate 64 /min Cailin Jeffrey INSTRUMENT TECHNICIAN HELPER.HEAD STOCK OPERATOR Work Phone: [facility] 01-10-2025 13:50-0400 Respiratory rate 16 /min Cailin Jeffrey INSTRUMENT TECHNICIAN HELPER.HEAD STOCK OPERATOR Work Phone: [facility] 01-10-2025 13:50-0400 SaO2% (BldA) [Mass fraction] 97 % Cailin Jeffrey INSTRUMENT TECHNICIAN HELPER.HEAD STOCK OPERATOR Work Phone: [facility] 01-10-2025 13:50-0400 Systolic blood pressure 130 mm[Hg] Cailin Jeffrey INSTRUMENT TECHNICIAN HELPER.HEAD STOCK OPERATOR Work Phone: [facility] 09-03-2024 12:49-0400 Body mass index (BMI) [Ratio] 26.95 kg/m2 Madyson Noble INSTRUMENT TECHNICIAN HELPER.HEAD STOCK OPERATOR Work Phone: [facility] 09-03-2024 12:49-0400 Body temperature 99.39 [degF] Madyson Noble INSTRUMENT TECHNICIAN HELPER.HEAD STOCK OPERATOR Work Phone: [facility] 09-03-2024 12:49-0400 Body weight 72.03 kg Madyson Podlogar INSTRUMENT TECHNICIAN HELPER.HEAD STOCK OPERATOR Work Phone: [facility] 09-03-2024 12:49-0400 Diastolic blood pressure 68 mm[Hg] Madyson Podlogar INSTRUMENT TECHNICIAN HELPER.HEAD STOCK OPERATOR Work Phone: [facility] 09-03-2024 12:49-0400 Heart rate 78 /min Madyson Podlogar INSTRUMENT TECHNICIAN HELPER.HEAD STOCK OPERATOR Work Phone: [facility] 09-03-2024 12:49-0400 Respiratory rate 18 /min Madyson Podlogar INSTRUMENT TECHNICIAN HELPER.HEAD STOCK OPERATOR Work Phone: [facility] 09-03-2024 12:49-0400 SaO2% (BldA) [Mass fraction] 96 % Madyson Podlogar INSTRUMENT TECHNICIAN HELPER.HEAD STOCK OPERATOR Work Phone: [facility] 09-03-2024 12:49-0400 Systolic blood pressure 94 mm[Hg] Madyson Podlogar INSTRUMENT TECHNICIAN HELPER.HEAD STOCK OPERATOR Work Phone: [facility] 08-24-2024 11:39-0400 Body mass index (BMI) [Ratio] 28.09 kg/m2 Iqra Bogner PA-C Work Phone: [facility] 08-24-2024 11:39-0400 Body weight 75.1 kg Iqra Bogner PA-C Work Phone: [facility] 08-24-2024 11:39-0400 Diastolic blood pressure 73 mm[Hg] Iqra Bogner PA-C Work Phone: [facility] 08-24-2024 11:39-0400 Heart rate 69 /min Iqra Bogner PA-C Work Phone: [facility] 08-24-2024 11:39-0400 Respiratory rate 16 /min Iqra Bogner PA-C Work Phone: [facility] 08-24-2024 11:39-0400 Systolic blood pressure 114 mm[Hg] Iqra Bogner PA-C Work Phone: [facility] 05-05-2024 14:22-0500 Body mass index (BMI) [Ratio] 28.09 kg/m2 Uegenia Tannhof INSTRUMENT TECHNICIAN HELPER.HEAD STOCK OPERATOR Work Phone: [facility] 05-05-2024 14:22-0500 Body weight 75.1 kg Eugenia Tannhof INSTRUMENT TECHNICIAN HELPER.HEAD STOCK OPERATOR Work Phone: [facility] 05-05-2024 14:22-0500 Diastolic blood pressure 90 mm[Hg] Eugenia Tannhof INSTRUMENT TECHNICIAN HELPER.HEAD STOCK OPERATOR Work Phone: [facility] 05-05-2024 14:22-0500 Heart rate 69 /min Eugenia Tannhof INSTRUMENT TECHNICIAN HELPER.HEAD STOCK OPERATOR Work Phone: [facility] 05-05-2024 14:22-0500 Respiratory rate 16 /min Eugenia Tannhof INSTRUMENT TECHNICIAN HELPER.HEAD STOCK OPERATOR Work Phone: [facility] 05-05-2024 14:22-0500 SaO2% (BldA) [Mass fraction] 100 % Eugenia Tannhof INSTRUMENT TECHNICIAN HELPER.HEAD STOCK OPERATOR Work Phone: [facility] 05-05-2024 14:22-0500 Systolic blood pressure 120 mm[Hg] Eugenia Tannhof INSTRUMENT TECHNICIAN HELPER.HEAD STOCK OPERATOR Work Phone: [facility] 03-18-2024 13:19-0500 Body mass index (BMI) [Ratio] 28.17 kg/m2 Eugenia Tannhof INSTRUMENT TECHNICIAN HELPER.HEAD STOCK OPERATOR Work Phone: [facility] 03-18-2024 13:19-0500 Body weight 75.3 kg Eugenia Tannhof INSTRUMENT TECHNICIAN HELPER.HEAD STOCK OPERATOR Work Phone: [facility] 03-18-2024 13:19-0500 Diastolic blood pressure 84 mm[Hg] Eugenia Tannhof INSTRUMENT TECHNICIAN HELPER.HEAD STOCK OPERATOR Work Phone: [facility] 03-18-2024 13:19-0500 Heart rate 69 /min Eugenia Tannhof INSTRUMENT TECHNICIAN HELPER.HEAD STOCK OPERATOR Work Phone: [facility] 03-18-2024 13:19-0500 Respiratory rate 16 /min Eugenia Mitchell INSTRUMENT TECHNICIAN HELPER.HEAD STOCK OPERATOR Work Phone: [facility] 03-18-2024 13:19-0500 SaO2% (BldA) [Mass fraction] 98 % Eugenia Stephen INSTRUMENT TECHNICIAN HELPER.HEAD STOCK OPERATOR Work Phone: [facility] 03-18-2024 13:19-0500 Systolic blood pressure 118 mm[Hg] Eugenia Mitchell INSTRUMENT TECHNICIAN HELPER.HEAD STOCK OPERATOR Work Phone: [facility] 10-03-2023 11:50-0400 Body mass index (BMI) [Ratio] 27.2 kg/m2 Darian Skaggs MD Work Phone: [facility] 10-03-2023 11:50-0400 Body weight 72.71 kg Darian Skaggs MD Work Phone: [facility] 10-03-2023 11:50-0400 Diastolic blood pressure 72 mm[Hg] Darian Skaggs MD Work Phone: [facility] 10-03-2023 11:50-0400 Heart rate 62 /min Darian Skaggs MD Work Phone: [facility] 10-03-2023 11:50-0400 Respiratory rate 16 /min Darian Skaggs MD Work Phone: [facility] 10-03-2023 11:50-0400 Systolic blood pressure 120 mm[Hg] Darian Skaggs MD Work Phone: [facility] 07-15-2023 03:28-0400 Body temperature 97.3 [degF] [facility] 07-15-2023 03:28-0400 Diastolic blood pressure 92 mm[Hg] [facility] 07-15-2023 03:28-0400 Heart rate 63 /min [facility] 07-15-2023 03:28-0400 Respiratory rate 18 /min [facility] 07-15-2023 03:28-0400 SaO2% (BldA) [Mass fraction] 96 % [facility] 07-15-2023 03:28-0400 Systolic blood pressure 131 mm[Hg] [facility] 07-15-2023 00:02-0400 Body height 165.1 cm [facility] 07-15-2023 00:02-0400 Body mass index (BMI) [Ratio] 28 kg/m2 [facility] 07-15-2023 00:02-0400 Body weight 76.6 kg [facility] 03-18-2023 13:26-0500 Body weight 74.66 kg Madyson Podlogar INSTRUMENT TECHNICIAN HELPER.HEAD STOCK OPERATOR Work Phone: [facility] 03-18-2023 13:26-0500 Diastolic blood pressure 70 mm[Hg] Madyson Podlogar INSTRUMENT TECHNICIAN HELPER.HEAD STOCK OPERATOR Work Phone: [facility] 03-18-2023 13:26-0500 Heart rate 65 /min Madyson Podlogar INSTRUMENT TECHNICIAN HELPER.HEAD STOCK OPERATOR Work Phone: [facility] 03-18-2023 13:26-0500 Respiratory rate 16 /min Madyson Podlogar INSTRUMENT TECHNICIAN HELPER.HEAD STOCK OPERATOR Work Phone: [facility] 03-18-2023 13:26-0500 SaO2% (BldA) [Mass fraction] 99 % Madyson Podlogar INSTRUMENT TECHNICIAN HELPER.HEAD STOCK OPERATOR Work Phone: [facility] 03-18-2023 13:26-0500 Systolic blood pressure 116 mm[Hg] Madyson Podlogar INSTRUMENT TECHNICIAN HELPER.HEAD STOCK OPERATOR Work Phone: [facility] 03-04-2023 12:32-0500 Body height 165.[address] Darian Skaggs Work Phone: [facility] 03-04-2023 12:32-0500 Body mass index (BMI) [Ratio] 27.3 kg/m2 Dr. Darian Skaggs Work Phone: [facility] 03-04-2023 12:32-0500 Body temperature 98.8 [degF] Dr. Darian Skaggs Work Phone: [facility] 03-04-2023 12:32-0500 Body weight 74.[address] Darian Skaggs Work Phone: [facility] 03-04-2023 12:32-0500 Diastolic blood pressure 79 mm[Hg] Dr. Darian Skaggs Work Phone: [facility] 03-04-2023 12:32-0500 Heart rate 65 /min Dr. Darian Skaggs Work Phone: [facility] 03-04-2023 12:32-0500 Respiratory rate 18 /min Dr. Darian Skaggs Work Phone: [facility] 03-04-2023 12:32-0500 SaO2% (BldA) [Mass fraction] 97 % Dr. Darian Skaggs Work Phone: [facility] 03-04-2023 12:32-0500 Systolic blood pressure 128 mm[Hg] Dr. Darian Skaggs Work Phone: [facility] 02-14-2023 13:12-0400 Body height 163.5 cm Eugenia Mitchell INSTRUMENT TECHNICIAN HELPER.HEAD STOCK OPERATOR Work Phone: [facility] 02-14-2023 13:12-0400 Body weight 75.3 kg Eugenia Mitchell INSTRUMENT TECHNICIAN HELPER.HEAD STOCK OPERATOR Work Phone: [facility] 02-14-2023 13:12-0400 Diastolic blood pressure 88 mm[Hg] Eugenia Riveraf INSTRUMENT TECHNICIAN HELPER.HEAD STOCK OPERATOR Work Phone: [facility] 02-14-2023 13:12-0400 Heart rate 60 /min Eugenia Teranhof INSTRUMENT TECHNICIAN HELPER.HEAD STOCK OPERATOR Work Phone: [facility] 02-14-2023 13:12-0400 Respiratory rate 16 /min Eugenia Teranhof INSTRUMENT TECHNICIAN HELPER.HEAD STOCK OPERATOR Work Phone: [facility] 02-14-2023 13:12-0400 SaO2% (BldA) [Mass fraction] 97 % Eugenia Mitchell INSTRUMENT TECHNICIAN HELPER.HEAD STOCK OPERATOR Work Phone: [facility] 02-14-2023 13:12-0400 Systolic blood pressure 120 mm[Hg] Eugenia Teranhof INSTRUMENT TECHNICIAN HELPER.HEAD STOCK OPERATOR Work Phone: [facility] 12-02-2022 13:20-0400 Body weight 73.94 kg Destiney Dong INSTRUMENT TECHNICIAN HELPER.HEAD STOCK OPERATOR Work Phone: [facility] 12-02-2022 13:20-0400 Diastolic blood pressure 80 mm[Hg] Destiney Dong INSTRUMENT TECHNICIAN HELPER.HEAD STOCK OPERATOR Work Phone: [facility] 12-02-2022 13:20-0400 Heart rate 86 /min Destiney Dong INSTRUMENT TECHNICIAN HELPER.HEAD STOCK OPERATOR Work Phone: [facility] 12-02-2022 13:20-0400 Respiratory rate 16 /min Destiney Dong INSTRUMENT TECHNICIAN HELPER.HEAD STOCK OPERATOR Work Phone: [facility] 12-02-2022 13:20-0400 Systolic blood pressure 132 mm[Hg] Destiney Dong INSTRUMENT TECHNICIAN HELPER.HEAD STOCK OPERATOR Work Phone: [facility] 12-01-2022 17:12-0400 Body height 165.1 cm [facility] 12-01-2022 17:12-0400 Body mass index (BMI) [Ratio] 27 kg/m2 [facility] 12-01-2022 17:12-0400 Body temperature 96.5 [degF] [facility] 12-01-2022 17:12-0400 Body weight 73.66 kg [facility] 12-01-2022 17:12-0400 Diastolic blood pressure 71 mm[Hg] [facility] 12-01-2022 17:12-0400 Heart rate 79 /min [facility] 12-01-2022 17:12-0400 Respiratory rate 18 /min [facility] 12-01-2022 17:12-0400 SaO2% (BldA) [Mass fraction] 98 % [facility] 12-01-2022 17:12-0400 Systolic blood pressure 112 mm[Hg] [facility] 07-18-2022 07:49-0400 Body weight 77.11 kg Eugenia Mitchell APRN.HEAD STOCK OPERATOR Work Phone: [facility] 07-18-2022 07:49-0400 Diastolic blood pressure 78 mm[Hg] Eugenia Tannhof INSTRUMENT TECHNICIAN HELPER.HEAD STOCK OPERATOR Work Phone: [facility] 07-18-2022 07:49-0400 Heart rate 71 /min Eugenia Tannhof INSTRUMENT TECHNICIAN HELPER.HEAD STOCK OPERATOR Work Phone: [facility] 07-18-2022 07:49-0400 Respiratory rate 16 /min Eugenia Tannhof INSTRUMENT TECHNICIAN HELPER.HEAD STOCK OPERATOR Work Phone: [facility] 07-18-2022 07:49-0400 SaO2% (BldA) [Mass fraction] 95 % Eugenia Tannhof INSTRUMENT TECHNICIAN HELPER.HEAD STOCK OPERATOR Work Phone: [facility] 07-18-2022 07:49-0400 Systolic blood pressure 120 mm[Hg] Eugenia Tannhof INSTRUMENT TECHNICIAN HELPER.HEAD STOCK OPERATOR Work Phone: [facility] 05-27-2022 11:38-0500 Body weight 75.3 kg Eugenia Tannhof INSTRUMENT TECHNICIAN HELPER.HEAD STOCK OPERATOR Work Phone: [facility] 05-27-2022 11:38-0500 Diastolic blood pressure 80 mm[Hg] Eugenia Tannhof INSTRUMENT TECHNICIAN HELPER.HEAD STOCK OPERATOR Work Phone: [facility] 05-27-2022 11:38-0500 Heart rate 66 /min Eugenia Tannhof INSTRUMENT TECHNICIAN HELPER.HEAD STOCK OPERATOR Work Phone: [facility] 05-27-2022 11:38-0500 Respiratory rate 16 /min Eugenia Tannhof INSTRUMENT TECHNICIAN HELPER.HEAD STOCK OPERATOR Work Phone: [facility] 05-27-2022 11:38-0500 SaO2% (BldA) [Mass fraction] 98 % Eugenia Tannhof INSTRUMENT TECHNICIAN HELPER.HEAD STOCK OPERATOR Work Phone: [facility] 05-27-2022 11:38-0500 Systolic blood pressure 114 mm[Hg] Eugenia Tannhof INSTRUMENT TECHNICIAN HELPER.HEAD STOCK OPERATOR Work Phone: [facility] 04-04-2022 11:03-0500 Body weight 75.3 kg Eugenia Tannhof INSTRUMENT TECHNICIAN HELPER.HEAD STOCK OPERATOR Work Phone: [facility] 04-04-2022 11:03-0500 Diastolic blood pressure 88 mm[Hg] Eugenia Tannhof INSTRUMENT TECHNICIAN HELPER.HEAD STOCK OPERATOR [facility] [facility] 04-04-2022 11:03-0500 Heart rate 67 /min Eugenia Tannhof INSTRUMENT TECHNICIAN HELPER.HEAD STOCK OPERATOR Work Phone: [facility] 04-04-2022 11:03-0500 Respiratory rate 16 /min Eugenia Tannhof INSTRUMENT TECHNICIAN HELPER.HEAD STOCK OPERATOR Work Phone: [facility] 04-04-2022 11:03-0500 SaO2% (BldA) [Mass fraction] 97 % Eugenia Tannhof INSTRUMENT TECHNICIAN HELPER.HEAD STOCK OPERATOR Work Phone: [facility] 04-04-2022 11:03-0500 Systolic blood pressure 126 mm[Hg] Eugenia Tannhof INSTRUMENT TECHNICIAN HELPER.HEAD STOCK OPERATOR Work Phone: [facility] 09-06-2021 11:39-0400 Body weight 74.39 kg Eugenia Tannhof INSTRUMENT TECHNICIAN HELPER.HEAD STOCK OPERATOR Work Phone: [facility] 09-06-2021 11:39-0400 Diastolic blood pressure 72 mm[Hg] Eugenia Tannhof INSTRUMENT TECHNICIAN HELPER.HEAD STOCK OPERATOR Work Phone: [facility] 09-06-2021 11:39-0400 Heart rate 71 /min Eugenia Tannhof INSTRUMENT TECHNICIAN HELPER.HEAD STOCK OPERATOR Work Phone: [facility] 09-06-2021 11:39-0400 Respiratory rate 16 /min Eugenia Tannhof INSTRUMENT TECHNICIAN HELPER.HEAD STOCK OPERATOR Work Phone: [facility] 09-06-2021 11:39-0400 SaO2% (BldA) [Mass fraction] 97 % Eugenia Tannhof INSTRUMENT TECHNICIAN HELPER.HEAD STOCK OPERATOR Work Phone: [facility] 09-06-2021 11:39-0400 Systolic blood pressure 110 mm[Hg] Eugenia Tannhof INSTRUMENT TECHNICIAN HELPER.HEAD STOCK OPERATOR Work Phone: [facility] 08-06-2021 08:56-0400 Body height 165.1 cm Kris Muñoz MD Work Phone: [facility] 08-06-2021 08:56-0400 Body weight 77.11 kg Kris Muñoz MD Work Phone: [facility] 08-03-2021 09:43-0400 Body weight 77.11 kg Darian Skaggs MD Work Phone: [facility] 08-03-2021 09:43-0400 Diastolic blood pressure 82 mm[Hg] Darian Skaggs MD Work Phone: [facility] 08-03-2021 09:43-0400 Heart rate 64 /min Darian Skaggs MD Work Phone: [facility] 08-03-2021 09:43-0400 Respiratory rate 16 /min Darian Skaggs MD Work Phone: [facility] 08-03-2021 09:43-0400 Systolic blood pressure 132 mm[Hg] Darian Skaggs MD Work Phone: [facility] Encounters Encounter Date Encounter Type Care Provider Facility Start: 01-31-2025 End: 01-31-2025 ambulatory DARIAN SKAGGS Facility:[facility] Start: 01-24-2025 End: 01-24-2025 ambulatory DARIAN Skip [facility] Facility:[facility] Start: 01-17-2025 End: 01-17-2025 ambulatory ALEXUS DUMONT Facility:[facility] Start: 01-10-2025 End: 01-10-2025 Office outpatient visit 15 minutes Cailin Jeffrey APRN.CNP Work Phone: [facility] [place] Comment on above: Sebaceous cyst (Prim neptali Dx) Start: 01-10-2025 End: 01-10-2025 ambulatory ALEXUS DUMONT Facility:[facility] Start: 01-04-2025 End: 01-05-2025 Refill Darian Skaggs MD Work Phone: [facility] [place] [facility] Comment on above: Refill Request Start: 09-03-2024 End: 09-03-2024 Follow-up encounter Myrna Gutierrez LPN [facility] Start: 09-03-2024 End: 09-03-2024 Subsequent hospital visit by physician [facility] [place] Work Phone: Radiology Comment on above: Chronic obstructive pulmonary disease with acute exacerbation (HCC) [J44.1] Start: 09-03-2024 End: 09-03-2024 ambulatory DARIAN SKAGGS Facility:[facility] Start: 09-03-2024 End: 09-03-2024 Patient encounter procedure Madyson Noble APRN.HEAD STOCK OPERATOR Work Phone: [facility] [place] Comment on above: Chronic obstructive pulmonary disease with acute exacerbation (HCC) (Primary Dx) Start: 08-24-2024 End: 08-24-2024 ambulatory Darian Skaggs MD Work Phone: [facility] [place] Comment on above: Tick bite Start: 08-24-2024 End: 08-24-2024 Office outpatient visit 15 minutes Iqra Sarabia PA-C Work Phone: [facility] [place] Comment on above: Insect bite of left front wall of thorax, initial encounter (Primary Dx) Start: 05-05-2024 End: 05-05-2024 Patient encounter procedure Eugenia Mitchell APRN.HEAD STOCK OPERATOR Work Phone: [facility] [place] Comment on above: Pulmonary emphysema, unspecified emphysema type (HCC) (Primary Dx) Start: 05-05-2024 End: 05-05-2024 [facility] Start: 04-29-2024 End: 04-30-2024 Telephone encounter Eugenia Mitchell APRN.HEAD STOCK OPERATOR Work Phone: [facility] [place] Comment on above: Results (Lung Cancer Screening ) Start: 04-13-2024 End: 04-13-2024 ambulatory Lori Charlton MA [facility] [place] Start: 04-13-2024 End: 04-13-2024 Patient encounter procedure Lori Charlton MA [facility] [place] Comment on above: Population Health Na vigation Outreach (Heydi lisa) Start: 04-09-2024 End: 04-09-2024 ambulatory Eugeniajose a Mitchell Facility:[facility] Start: 03-18-2024 End: 03-18-2024 Patient encounter procedure Eugenia Mitchell APRN.HEAD STOCK OPERATOR Work Phone: [facility] Comment on above: Skin lesion (Primary Dx); Encounter for screening for lung cancer Start: 03-18-2024 End: 03-18-2024 ambulatory EUGENIA MITCHELL Facility:[facility] Start: 02-25-2024 End: 02-27-2024 Telephone encounter Darian Skaggs MD Work Phone: [facility] [place] Comment on above: requesting medicatio n that is on list Start: 02-10-2024 End: 02-10-2024 Telephone encounter Darian Skaggs MD Work Phone: [facility] Comment on above: Erroneous encounter- disregard Start: 10-21-2023 ambulatory [facility] [place] Start: 10-21-2023 Patient encounter procedure Lori Charlton MA [facility] [place] Comment on above: Population Health Na vigation Outreach ([facility]) Start: 10-03-2023 End: 10-03-2023 Patient encounter procedure Darian Skaggs MD Work Phone: [facility] Comment on above: Gastroesophageal ref lux disease with esophagitis (Primary Dx); Esophageal dysphagia; Screening for colon cancer; Bronchitis; Tendonitis of elbow, right; Gastroesophageal reflux disease with esophagitis without hemorrhage Start: 07-15-2023 End: 07-15-2023 Emergency department patient visit [facility] Work Phone: Start: 03-18-2023 End: 03-18-2023 Patient encounter procedure Madyson Noble APRN.HEAD STOCK OPERATOR Work Phone: [facility] Comment on above: Atopic dermatitis, u nspecified type (Primary Dx) Start: 03-14-2023 Telephone encounter Reece kelley APRN.HEAD STOCK OPERATOR Work Phone: [facility] Comment on above: Results Start: 03-13-2023 End: 03-13-2023 Subsequent hospital visit by physician [facility] Work Phone: Radiology Comment on above: Screening for abdomi nal aortic aneurysm [Z13.6] Start: 03-04-2023 End: 03-04-[address] Darian Skaggs Work Phone: [facility] Work Phone: Start: 03-04-2023 End: 03-04-[address] Darian Skaggs Work Phone: [facility] Work Phone: Start: 02-14-2023 End: 02-14-2023 Patient encounter procedure Eugenia Mitchell APRN.HEAD STOCK OPERATOR Work Phone: [facility] Comment on above: Medicare welcome exa m (Primary Dx); Gastroesophageal reflux disease with esophagitis without hemorrhage; Encounter for screening for lung cancer; Screening for abdominal aortic aneurysm; Screening for lipid disorders; Special screening for malignant neoplasms, colon; Screening for prostate cancer Start: 02-14-2023 End: 02-14-2023 Patient encounter status Eugenia Mitchell APRN.HEAD STOCK OPERATOR Work Phone: [facility] Work Phone: Start: 01-27-2023 Telephone encounter Darian duque MD Work Phone: [facility] Comment on above: Rx issue; wrong medi cation ordered Start: 01-23-2023 Refill Darian mukherjee MD Work Phone: [facility] Comment on above: Refill Request Start: 12-02-2022 End: 12-02-2022 Patient encounter procedure Destiney Dong APRN.HEAD STOCK OPERATOR Work Phone: [facility] Comment on above: Allergic reaction to bee sting (Primary Dx) Start: 12-01-2022 End: 12-01-2022 Emergency department patient visit [facility] Work Phone: Start: 11-25-2022 Refill Eugenia Mitchell APRN.HEAD STOCK OPERATOR Work Phone: [facility] Comment on above: Refill Request Start: 07-18-2022 End: 07-18-2022 Patient encounter procedure Eugenia Mitchell APRN.HEAD STOCK OPERATOR Work Phone: [facility] [place] Comment on above: Acute right-sided lo w back pain without sciatica (Primary Dx) Start: 05-27-2022 Telephone encounter Darian duque MD Work Phone: [facility] [place] Comment on above: Medication Problem Start: 05-27-2022 End: 05-27-2022 Patient encounter procedure Eugenia Mitchell INSTRUMENT TECHNICIAN HELPER.HEAD STOCK OPERATOR Work Phone: [facility] [place] Comment on above: Bronchitis (Primary Dx) Start: 04-04-2022 End: 04-04-2022 Patient encounter procedure Eugenia Mitchell INSTRUMENT TECHNICIAN HELPER.HEAD STOCK OPERATOR Work Phone: [facility] [place] Comment on above: Strain of neck muscl e, initial encounter (Primary Dx) Start: 10-01-2021 End: 10-01-2021 Patient encounter procedure Yolanda Paige PA-C Work Phone: Orthopaedics Comment on above: Thumb pain, right (P rimary Dx) Start: 09-07-2021 Telephone encounter Eugenia sawyerof INSTRUMENT TECHNICIAN HELPER.HEAD STOCK OPERATOR Work Phone: [facility] [place] Comment on above: Results Start: 09-06-2021 End: 09-06-2021 Subsequent hospital visit by physician Luanne [facility] [place] Work Phone: Radiology Comment on above: Right hip pain [M25. 551] Start: 09-06-2021 End: 09-06-2021 Patient encounter procedure Eugenia Mitchell APRN.HEAD STOCK OPERATOR Work Phone: [facility] [place] Comment on above: Right hip pain (Prim neptali Dx) Start: 08-27-2021 End: 08-27-2021 Patient encounter procedure Kris Muñoz MD Work Phone: Orthopaedics Comment on above: Trigger finger of ri ght thumb (Primary Dx) Start: 08-08-2021 Telephone encounter Eugenia mcclellan INSTRUMENT TECHNICIAN HELPER.HEAD STOCK OPERATOR Work Phone: [facility] [place] Comment on above: Results Start: 08-06-2021 Telephone encounter Kris mathews MD Work Phone: Orthopaedics Comment on above: Schedule Surgery Start: 08-06-2021 End: 08-06-2021 Patient encounter procedure Kris Muñoz MD Work Phone: Orthopaedics Comment on above: Trigger finger of ri ght thumb (Primary Dx); Chronic pain of right thumb; Bilateral leg edema Start: 08-03-2021 End: 08-03-2021 Patient encounter procedure Darian Skaggs MD Work Phone: [facility] Comment on above: Chronic pain of righ t thumb (Primary Dx); Bilateral leg edema Start: 07-23-2021 Refill Darian mukherjee MD Work Phone: [facility] Comment on above: Prescription Refills Start: 07-02-2021 End: 07-02-2021 Subsequent hospital visit by physician [facility] [place] Work Phone: Radiology Comment on above: Thumb pain, right [M 79.644] Start: 2020 End: 2020 Subsequent hospital visit by physician [facility] [place] Work Phone: Radiology Comment on above: Injury of finger of right hand, initial encounter [S69.91XA] Procedures Date Procedure Procedure Detail Performing Clinician Start: 09-03-2024 Radiologic exam ches t 2 views Madyson Noble INSTRUMENT TECHNICIAN HELPER.HEAD STOCK OPERATOR Work Phone: Start: 10-03-2023 Adult depression screening assessment [facility] [place] Work Phone: Start: 07-15-2023 Plain chest X-ray Start: 03-13-2023 Us abdominal aorta r eal time screen study aaa Eguenia Mitchell INSTRUMENT TECHNICIAN HELPER.HEAD STOCK OPERATOR Work Phone: Start: 03-04-[address] Darian coreas Work Phone: Start: 09-06-2021 Radex hip unilateral with pelvis 2-3 views Eugenia Mitchell INSTRUMENT TECHNICIAN HELPER.HEAD STOCK OPERATOR Work Phone: Start: 07-02-2021 Radex hand minimum 3 views Darian Skaggs MD Work Phone: Start: 06-23-2021 Lipid 1996 panel - S barbi or Plasma Darian Skaggs MD Work Phone: Start: 03-27-2021 Adult depression screening assessment Darian Skaggs MD Work Phone: Start: 01-17-2021 Vaccine refused by patient Vaccine refused by patient Darian Skaggs MD Work Phone: Start: 2020 Radex fingr minimum 2 views Darian Skaggs MD Work Phone: Start: 11-11-2016 Colonoscopy Darian vora MD Work Phone: Plan of Treatment Date Care Activity Detail Author Start: 2032 RSV Vaccine (1 - 1-d ose 75+ series) RSV Vaccine (1 - 1-dose 75+ series) [facility] Start: 06-23-2026 Lipid 1996 panel - Serum or Plasma Lipid Screening [facility] Start: 06-23-2026 Lipid panel Lipid Screening [facility] Start: 06-23-2026 LIPID SCREEN LIPID SCREEN [facility] Start: 03-27-2026 PROSTATE CANCER SCREENING DISCUSSION PROSTATE CANCER SCREENING DISCUSSION [facility] Start: 03-27-2026 Prostate specific antigen measurement Prostate Cancer Screening Discussion [facility] Start: 01-10-2026 Annual PCP Team Senior Center Manager erlin Disease Visit Annual PCP Team Chronic Disease Visit [facility] Start: 09-03-2025 Annual PCP Team Senior Center Manager erlin Disease Visit Annual PCP Team Chronic Disease Visit [facility] Start: 03-18-2025 Covid-19 Vaccine ( season) Covid-19 Vaccine () [facility] Comment on above: Postponed from 12/27 (Declined at this time) Start: 03-18-2025 Hepatitis C screening Hepatitis C Dc liliana [facility] Comment on above: Postponed from 03/29 (Declined at this time) Start: 03-18-2025 Pneumococcal Vaccine : 50+ (2 of 2 - PCV) Pneumococcal Vaccine: 50+ (2 of 2 - PCV) [facility] Comment on above: Postponed from 02/24 (Declined at this time) Start: 03-18-2025 Pneumococcal Vaccine : 65+ (2 of 2 - PCV) Pneumococcal Vaccine: 65+ (2 of 2 - PCV) [facility] Comment on above: Postponed from 03/29 (Declined at this time) Start: 03-18-2025 Shingrix Vaccine (1 of 2) Shingrix Vaccine (1 of 2) [facility] Comment on above: Postponed from 03/29 (Declined at this time) Start: 01-17-2025 End: 01-17-2025 Patient encounter procedure 01/17/2025 2:30 PM EDT Office Visit General Surgery [address] [place], [place] [id number] Alexus Dumont MD [address] [place] [address] cyst removal General Surgery Comment on above: cyst removal Start: 12-27-2024 Influenza vaccination [facility] Start: 10-25-2024 Influenza vaccination Influenza Vacc ine (#1) [facility] Comment on above: Postponed from 12/27 (Declined at this time) Start: 10-02-2024 Anxiety Screening Anxiety Screening [facility] Start: 10-02-2024 Depression Screening Depression Scre ening [facility] Start: 08-03-2024 DIABETES SCREEN DIABETES SCREEN [facility] Start: 08-03-2024 Diabetes Screening Diabetes Screenin g [facility] Start: 04-28-2024 Advance Directive Discussion Advance Directive Discussion [facility] Start: 04-28-2024 Medicare Advantage Annual Wellness Visit Medicare Advantage Annual Wellness Visit [facility] Start: 02-25-2024 Urine microalbumin profile [facility] Start: 02-15-2024 Covid-19 Vaccine (#1) Covid-19 Vacci ne (#1) [facility] Comment on above: Postponed from 09/27 (Declined at this time) Start: 02-15-2024 Covid-19 Vaccine () Covid-19 Vaccine () [facility] Comment on above: Postponed from 12/27 (Declined at this time) Start: 02-15-2024 Hepatitis C Screening Hepatitis C Sc liliana [facility] Comment on above: Postponed from 03/29 (Declined at this time) Start: 02-15-2024 Hepatitis C screening Hepatitis C Sc reening [facility] Comment on above: Postponed from 03/29 (Declined at this time) Start: 02-15-2024 HIV Screening HIV Screening [facility] Comment on above: Postponed from 03/29 (Declined at this time) Start: 02-15-2024 Pneumococcal Vaccine : 65+ (2 - PCV) Pneumococcal Vaccine: 65+ (2 - PCV) [facility] Comment on above: Postponed from 03/29 (Declined at this time) Start: 02-15-2024 Pneumococcal Vaccine : 65+ (2 of 2 - PCV) Pneumococcal Vaccine: 65+ (2 of 2 - PCV) [facility] Comment on above: Postponed from 03/29 (Declined at this time) Start: 02-15-2024 RSV Vaccine (1 - 1-d ose 60+ series) RSV Vaccine (1 - 1-dose 60+ series) [facility] Comment on above: Postponed from 03/29 (Declined at this time) Start: 02-15-2024 Shingrix Vaccine (1 of 2) Shingrix Vaccine (1 of 2) [facility] Comment on above: Postponed from 03/29 (Declined at this time) Start: 12-28-2023 Covid-19 Vaccine ( season) Covid-19 Vaccine ( season) [facility] Start: 12-28-2023 Influenza vaccination [facility] Start: 10-26-2023 Influenza vaccination Influenza Vacc ine (#1) [facility] Comment on above: Postponed from 12/27 (Declined at this time) Start: 10-08-2023 End: 10-08-2023 Patient encounter procedure 10/08/2023 2:15 PM EDT Office Visit General Surgery [address] [place] [address] Cirilo Salazar MD [address] [place] [address] reening for colon cancer [Z12.11] General Surgery Comment on above: reening for colon ca ncer [Z12.11] Start: 07-15-2023 [facility] Start: 07-15-2023 End: 07-15-2023 [facility] Start: 04-28-2023 Behavioral Health Screening Behavioral Health Screening [facility] Start: 02-14-2023 End: 05-16-2023 Comprehensive metabolic 2000 panel - Serum or Plasma COMP METABOLIC PANEL Lab Routine Gastroesophageal reflux disease with esophagitis without hemorrhage Expected: 02/14/2023, Expires: 05/16/2023 [facility] Work Phone: Comment on above: Expected: 02/14/2023 , Expires: 05/16/2023 Start: 02-14-2023 End: 05-16-2023 Lipid 1996 panel - Serum or Plasma LIPID PANEL BASIC Lab Routine Screening for lipid disorders Expected: 02/14/2023, Expires: 05/16/2023 [facility] Work Phone: Comment on above: Expected: 02/14/2023 , Expires: 05/16/2023 Start: 02-14-2023 End: 05-16-2023 PSA/PROSTSPECAG SCRN PSA/PROSTSPECAG SCRN Lab Routine Screening for prostate cancer Expected: 02/14/2023, Expires: 05/16/2023 [facility] Work Phone: Comment on above: Expected: 02/14/2023 , Expires: 05/16/2023 Start: 12-27-2022 Influenza vaccination [facility] Start: 04-28-2022 ADVANCE DIRECTIVE DISCUSSION ADVANCE DIRECTIVE DISCUSSION [facility] Start: 04-28-2022 DEPRESSION ASSESSMENT DEPRESSION ASS ESSMENT [facility] Start: 2022 ADVANCE DIRECTIVE DISCUSSION ADVANCE DIRECTIVE DISCUSSION [facility] Start: 2022 Pneumococcal Vaccine : 65+ (2 - PCV) Pneumococcal Vaccine: 65+ (2 - PCV) [facility] Start: 2022 Pneumococcal Vaccine : 65+ (2 of 2 - PCV) Pneumococcal Vaccine: 65+ (2 of 2 - PCV) [facility] Start: 2022 PNEUMOCOCCAL: 65+ (2 - PCV) PNEUMOCOCCAL: 65+ (2 - PCV) [facility] Start: 03-27-2022 Adult depression screening assessment DEPRESSION SCREENING [facility] Start: 03-27-2022 HEPATITIS C SCREENING HEPATITIS C SC LILIANA [facility] Comment on above: Postponed from 03/29 (Declined at this time) Start: 03-27-2022 HIV SCREENING HIV SCREENING [facility] Comment on above: Postponed from 03/29 (Declined at this time) Start: 03-27-2022 SHINGRIX VACCINE (1 of 2) SHINGRIX VACCINE (1 of 2) [facility] Comment on above: Postponed from 03/29 (Declined at this time) Start: 02-02-2022 End: 04-04-2022 Comprehensive metabolic 2000 panel - Serum or Plasma COMP METABOLIC PANEL Lab Routine Bilateral leg edema Expected: 02/02/2022 (Approximate), Expires: 04/04/2022 [facility] Work Phone: Comment on above: Expected: 02/02/2022 (Approximate), Expires: 04/04/2022 Start: 01-17-2022 COVID-19 VACCINE (#1) COVID-19 VACCI NE (#1) [facility] Comment on above: Postponed from 03/29 (Declined at this time) Start: 01-17-2022 COVID-19 VACCINE (1) COVID-19 VACCIN E (1) [facility] Comment on above: Postponed from 03/29 (Declined at this time) Start: 12-27-2021 Influenza vaccination [facility] Start: 11-11-2021 Colonoscopy COLONOSCOPY [facility] Start: 11-11-2021 COLORECTAL CANCER SCREENING COLORECTAL CANCER SCREENING [facility] Start: 11-11-2021 Screening for malign ant neoplasm of colon [facility] Start: 10-25-2021 Influenza vaccination INFLUENZA (#1) [facility] Comment on above: Postponed from 12/27 (Declined at this time) Start: 04-28-2021 DEPRESSION ASSESSMENT DEPRESSION ASS ESSMENT [facility] Start: 04-15-2021 DIABETES SCREEN DIABETES SCREEN [facility] Start: 2017 RSV Vaccine (1 - Ris k 60-74 years 1-dose series) RSV Vaccine (1 - Risk 60-74 years 1-dose series) [facility] Start: 03-25-2017 FECAL OCCULT BLOOD FECAL OCCULT BLOO D [facility] Start: 03-25-2017 Screening for malign ant neoplasm of colon Fecal Occult Blood [facility] Start: 02-24-2015 PNEUMOCOCCAL: 65+ (2 - PCV) PNEUMOCOCCAL: 65+ (2 - PCV) [facility] Start: 2012 Influenza vaccination LUNG CANCER [facility] Start: 2007 Influenza vaccination LUNG CANCER [facility] Start: 2007 Screening for malign ant neoplasm of lung Lung Cancer Screening [facility] Start: 2007 SHINGRIX VACCINE (1 of 2) SHINGRIX VACCINE (1 of 2) [facility] Start: 2002 COLOGUARD (FIT-DNA) COLOGUARD (FIT-D NA) [facility] Start: [address] COLONOGRAPHY [facility] Start: 2002 Screening for malign ant neoplasm of colon [facility] Start: 2002 SIGMOIDOSCOPY SIGMOIDOSCOPY [facility] Start: 1975 HEPATITIS C SCREENING HEPATITIS C [facility] Start: 1973 Hepatitis C screening Hepatitis C [facility] Start: 1975 HIV SCREENING HIV SCREENING [facility] Start: 1955 COVID-19 VACCINE (#1) COVID-19 VACCI NE (#1) [facility] Start: 1955 ABDOMINAL AORTIC ANEURYSM SCREENING ABDOMINAL AORTIC ANEURYSM SCREENING [facility] Patient Education [facility] Work Phone: Patient referral [facility] Work Phone: End: 02-15-2024 Screening colonoscopy COLONOSCOPY SCREENING Endoscopy Routine Special screening for malignant neoplasms, colon 1 Occurrences starting 02/14/2023 until 02/15/2024 [facility] Work Phone: Comment on above: 1 Occurrences starti ng 02/14/2023 until 02/15/2024 End: 03-15-2024 Us abdominal aorta real time screen study aaa US SCREENING FOR AAA Radiology Routine Screening for abdominal aortic aneurysm 1 Occurrences starting 02/14/2023 until 03/15/2024 [facility] Work Phone: Comment on above: 1 Occurrences starti ng 02/14/2023 until 03/15/2024 [facility] Immunizations Immunization Date Immunization Notes Care Provider Fa gabriel 04-15-2018 influenza virus vacc ine, unspecified formulation Darian Skaggs MD Work Phone: [facility] 02-24-2014 pneumococcal polysaccharide vaccine, 23 valent Darian Skaggs MD Work Phone: [facility] 02-24-2014 tetanus toxoid, redu april diphtheria toxoid, and acellular pertussis vaccine, adsorbed Darian Skaggs MD Work Phone: [facility] Payers Date Payer Category Payer Medicare (Managed Care) 1.2. [id number] 2023 Self-pay [id number] 2023 Unknown [id number] 2023 Private Health Insurance [id number] 2022 Medicaid [id number] 2022 Medicare [id number] 2014 Unknown [facility] COMMUNITY PLAN [id number] 2014 Unknown [id number] 2014 Medicaid [facility] MEDICAID [facility] COMMUNITY PLAN MEDICAID [id number] 2014-Present [phone] [address] [place] [address] Medicaid [id number] 2014 Medicaid [id number] Unknown TOSIN [facility] [id number] Unknown [id number] Unknown [id number] Social History Date Type Detail Facility Start: 07-30-2016 End: 03-18-2024 Tobacco smoking status NHIS Ex-smoker [facility] Start: 05-31-1978 End: 05-31-2016 History of tobacco use Current smoker [facility] Start: 05-31-1978 End: 05-31-2016 History of tobacco use Cigarette Smoker [facility] Start: 07-30-2016 End: 02-14-2023 Cigarettes smoked current (pack per day) - Reported 1.5 [facility] Start: 07-30-2016 End: 03-18-2024 Tobacco use and exposure Smokeless tobacco non-user [facility] Start: 07-02-2021 End: 01-10-2025 Alcohol intake Current non-drinker of alcohol (finding) [facility] Start: 1955 Sex Assigned At Not on file [facility] Start: 02-28-2020 End: 10-01-2021 Exposure to SARS-CoV-2 (event) Not sure [facility] Start: 07-18-2022 End: 02-14-2023 Tobacco use panel [facility] Start: 12-01-2022 End: 07-15-2023 Tobacco smoking status NCIS Unknown if ever smoked [facility] Start: 1955 Sex Assigned At Male [facility] Start: 2012 Adult Depression Screening Assessment 0 [facility] Functional Status Date Assessment Result Facility 10-06-2014 Are you deaf, or do you have serious difficulty hearing No 10/06/2014 3:05 PM Margarita Atkinson Cma No [facility] 10-06-2014 Are you blind, or do you have serious difficulty seeing, even when wearing glasses No 10/06/2014 3:05 PM Margarita Atkinson Cma No [facility] 10-06-2014 Do you have serious difficulty walking or climbing stairs No 10/06/2014 3:05 PM EDT Giovaniamber Margarita Spencer No [facility] 10-06-2014 Do you have difficul ty dressing or bathing No 10/06/2014 3:05 PM EDT Giovaniamber Margarita Spencer No [facility] 10-06-2014 Because of a physica l, mental, or emotional condition, do you have difficulty doing errands alone such as visiting a physician's office or shopping No 10/06/2014 3:05 PM EDT Rosette Margarita Spencer No [facility] Mental Status Date Assessment Result Facility 07-15-2023 Cognitive function Voice/Name [facility] Work Phone: 10-06-2014 Because of a physica l, mental, or emotional condition, do you have serious difficulty concentrating, remembering, or making decisions No 10/06/2014 3:05 PM EDT Rosette SpencerMargarita No [facility] Clinical Notes 10-06-2014 to 01-31-2025 Cailin Jeffrey APRN.HEAD STOCK OPERATOR - 01/10/2025 2:06 PM EDTPatient InstructionsTelephone Encounter - Reece Villa APRN.[facility] - 01/05/2025 5:34 AM Nishant Macdonald RT(R) - 09/03/2024 1:10 PM EDT Note Date & Type Note Facility 01-31-2025 Note HNO ID: [id number] Author: TERRY VASQUES RN Service: ? Author Type: Registered Nurse Type: Progress Notes Filed: 01/31/2025 14:20 Note Text: The chest (site) was assessed and sutures were removed as ordered. Dressing was applied. Patient instructed on wound care and verbalized understanding. [facility] 01-24-2025 Note HNO ID: [id number] Author: ENRICO TYLER RN Service: ? Author Type: Registered Nurse Type: Progress Notes Filed: 01/24/2025 13:47 Note Text: Incision site to rt chest with no redness, swelling or drainage. Pt aware to look for same, denies fevers. T 97.3 TA. Dressing changed. Opsite applied. Pt tolerated well. Aware to make follow up appointment with nurse in one week. [facility] HNO ID: [id number] Author: ALEXUS DUMONT MD Service: ? Author Type: Physician Type: Progress Notes Filed: 01/18/2025 15:03 Note Text: Eric presents with infected sebaceous cyst of chest area. PROCEDURE NOTE: Description of procedure: After informed consent was obtained, patient was brought to the procedure room. Appropriate time out protocol was followed. Patient was placed in the supine position. The site of the lesion was then cleansed with a sterile surgical skin preparation. Appropriate sterile surgical drapes were placed. The skin and subcutaneous tissues at the site were then infiltrated with local anesthetic. A skin incision was made at the site in an elliptical fashion to entirely incorporate the lesion with a pore opening noted with a 15 blade scalpel. The incision was carried down to the subcutaneous tissues. Dissection was done to separate the skin lesion from the surrounding subcutaneous tissues. The lesion was excised sharply down to the subcutaneous tissues. The lesion was 1.5 cm in size. Findings consistent with infected sebaceous cyst The tissue was then removed and patient did not want it to be forwarded to pathology for analysis. Hemostasis was controlled by pressure. The skin edges were then reapproximated with interrupted 3-0 nylon suture in a vertical mattress fashion x 2.. Sterile dressing was applied. Patient tolerated procedure well. PLAN: Wound care instructions given by clinic staff. Patient to follow up for nursing visit for wound check in one week, nursing visit for suture visit in two weeks Patient to return to clinic if any signs/symptoms of infection/etc. Patient acknowledges the above. [facility] 01-17-2025 Note HNO ID: [id number] Author: ENRICO TYLER RN Service: ? Author Type: Registered Nurse Type: Progress Notes Filed: 01/18/2025 15:03 Note Text: UNIVERSAL PROTOCOL / SAFETY CHECKLIST Excision of skin cyst of chest wall Procedure to be Performed: Sign In: A Moment of CARE was completed. Appropriate PPE (Personal Protective Equipment) worn by all providers involved with the procedure. Special equipment not required. Patient/Surrogate Stated/Verified: Patient name, Date of , Relevant allergies, and The intended procedure Time Out: Relevant labs, photos, and/or imaging studies have been reviewed. Intended patient and procedure match the source document(s) (e.g. consent, HANDP, associated studies [imaging, pathology]) match the intended patient and procedure. Consent obtained and matches the intended procedure. Yes. Correct side/site is not applicable. Medications required for this procedure are verified. Fire risk assessed and is not applicable. Implants: are not applicable. Sign Out: Specimens are all correctly labeled and sent. All instruments, equipment, possible retained foreign bodies are accounted for. Yes. The post-procedure plan of care has been communicated to the patient or surrogate. [facility] 01-10-2025 Note HNO ID: [id number] Author: ALEXUS DUMONT MD Service: ? Author Type: Physician Type: Progress Notes Filed: 01/13/2025 14:02 Note Text: Eric Rhodes 1955 REFERRING PHYSICIAN: Cailin Jeffrey APRN.C* CHIEF COMPLAINT: Consult (Painful lump right chest wall) HPI: The patient is a 69 year old male presents with infected sebaceous cyst of chest wall. He has noted the lesion for over a year, but it has become increasing painful and larger over time. PAST MEDICAL HISTORY Diagnosis Date Arthritis COPD (chronic obstructive pulmonary disease) (HCC) Dysphagia Esophageal reflux Generalized osteoarthrosis, unspecified site Lactose intolerance in adult Snoring PAST SURGICAL HISTORY Procedure Laterality Date APPENDECTOMY APPENDECTOMY HX COLONOSCOPY FLX DX W/COLLJ SPEC WHEN PFRMD 11/11/2016 Colonoscopy EGD 12/29/2019 Dr. Ash Hidalgo. dx foreign body, Hpylori test negative ESOPHAGOGASTRODUODENOSCOPY TRANSORAL DIAGNOSTIC 11/11/2016 EGD INCISE FINGER TENDON SHEATH Right 08/16/2021 Right trigger thumb release PAST SURGICAL HISTORY OF Repair of lateral epicondylitis right elbow PAST SURGICAL HISTORY OF hemorrhoidectomy TNOT ELBOW LATERAL/MEDIAL DEBRIDE OPEN 05/06/2014 Debridement left elbow Current Outpatient Medications Medication Sig omeprazole (PRILOSEC) 40 mg capsule Take 1 capsule by mouth once daily. triamcinolone acetonide (KENALOG) 0.1 % cream Apply to affected area two times a day. mupirocin (BACTROBAN) 2 % ointment Apply 1 application to affected area three times a day. albuterol HFA (PROVENTIL HFA, VENTOLIN HFA) 90 mcg/actuation inhaler Inhale 2 Puffs as instructed every 4 hours as needed for wheezing/shortness of breath. EPINEPHrine (EPIPEN) 0.3 mg/0.3 mL auto-injector Administer 1 pen to thigh after being stung. No current facility-administered medications for this visit. ALLERGIES: Ibuprofen and Mobic [Meloxicam] PERSONAL HISTORY: SOCIAL HISTORY[1] FAMILY HISTORY Problem Relation Age of Onset Cancer Mother colon Alcohol/Drug Father Cancer Brother 63 esophagus Cancer Brother 53 lung and brain Heart Brother 53 heart attack Heart Brother heart attack Heart Brother heart attack Heart Brother heart attack REVIEW OF SYSTEMS: Denies chest pain Denies shortness of breath PHYSICAL EXAMINATION: General: The patient is 69 year old male, well nourished, well hydrated in no acute distress. The patient is oriented to time, place, and person. VITALS: There were no vitals taken for this visit. There is no height or weight on file to calculate BMI. Head: Normal cephalic, atraumatic Eyes: pupils are equally round, sclera are clear/anicteric, wearing glasses Neck is supple with no tracheal deviation Cardiac: normal heart sounds, regular Chest: upper right side chest wall - 2 cm skin cyst of anterior chest wall, - erythematous, no drainage noted Respiratory: normal breath sounds, normal respiratory excursion and pattern. Abdominal exam: benign Extremities: no clubbing, cyanosis or edema. Neuro: non focal Psych: normal mood The sensitive examination was discussed with the Patient or Patient's Authorized Digital Associate. As applicable, any other physician, advance practice provider, medical student, or other health professional student that will be observing or involved in the sensitive examination for educational or training purposes was discussed with the Patient or Authorized Digital Associate. The Patient or Authorized Digital Associate has agreed to proceed with the sensitive examination. (Sensitive examination includes inspection and/or palpation of the breasts, pelvis, prostate and anorectal regions) Assessment IMPRESSION: infected sebaceous cyst of chest wall PLAN: I have discussed the above with the patient. I have offered excision of sebaceous cyst. I have explained the procedure to the patient. To be done in the office using local anesthesia I have counseled the patient as to the risks of the procedure, including but not limited to: infection, bleeding, injury to any blood vessels/nerves, scar tissue, cosmetic deformity, wound infections, complications of anesthesia, etc. - the patient understands. The patient wishes to proceed. I have answered all questions to the patient?s satisfaction and the patient has no further questions. I have confirmed and edited as necessary, the PFSH and ROS obtained by others. Consultation requested by Cailin Jeffrey for an opinion regarding patient's infected sebaceous cyst. My final recommendations will be communicated back to the requesting physician by way of shared Medical record or letter to requesting physician via US mail. . Diagnoses: (L72.3) Sebaceous cyst Medical Decision Making: Risk: Low: Low risk from testing/treatment Medical Decision Making Level: 2 - Straightforward Alexus Dumont MD [1] Social His (more content not included)... [facility] 01-10-2025 Note HNO ID: [id number] Author: CAILIN JEFFREY APRN.HEAD STOCK OPERATOR Service: ? Author Type: Nurse Practitioner Type: Progress Notes Filed: 01/10/2025 14:10 Note Text: This is a 69 year old male who presents today with: The patient is a 69-year-old male presenting for evaluation and surgical management of a one-year history of an enlarging, intermittently painful cutaneous lump on the right chest wall. HISTORY OF PRESENT ILLNESS: Lump: - Eric A Stone noticed a lump approximately one year ago. - Reports the lump has increased in size since initial observation. - Occasionally experiences mild pain associated with the lump. - Denies any previous similar lumps. Had contemplated self removal. PAST MEDICAL HISTORY: PAST MEDICAL HISTORY Diagnosis Date Arthritis COPD (chronic obstructive pulmonary disease) (HCC) Dysphagia Esophageal reflux Generalized osteoarthrosis, unspecified site Lactose intolerance in adult Snoring PAST SURGICAL HISTORY Procedure Laterality Date APPENDECTOMY APPENDECTOMY HX COLONOSCOPY FLX DX W/COLLJ SPEC WHEN PFRMD 11/11/2016 Colonoscopy EGD 12/29/2019 Dr. Ash Hidalgo. dx foreign body, Hpylori test negative ESOPHAGOGASTRODUODENOSCOPY TRANSORAL DIAGNOSTIC 11/11/2016 EGD INCISE FINGER TENDON SHEATH Right 08/16/2021 Right trigger thumb release PAST SURGICAL HISTORY OF Repair of lateral epicondylitis right elbow PAST SURGICAL HISTORY OF hemorrhoidectomy TNOT ELBOW LATERAL/MEDIAL DEBRIDE OPEN 05/06/2014 Debridement left elbow ALLERGIES Ibuprofen and Mobic [Meloxicam] MEDICATIONS Current Outpatient Medications Medication Sig omeprazole (PRILOSEC) 40 mg capsule Take 1 capsule by mouth once daily. triamcinolone acetonide (KENALOG) 0.1 % cream Apply to affected area two times a day. mupirocin (BACTROBAN) 2 % ointment Apply 1 application to affected area three times a day. albuterol HFA (PROVENTIL HFA, VENTOLIN HFA) 90 mcg/actuation inhaler Inhale 2 Puffs as instructed every 4 hours as needed for wheezing/shortness of breath. EPINEPHrine (EPIPEN) 0.3 mg/0.3 mL auto-injector Administer 1 pen to thigh after being stung. No current facility-administered medications for this visit. FAMILY HISTORY Problem Relation Age of Onset Cancer Mother colon Alcohol/Drug Father Cancer Brother 63 esophagus Cancer Brother 53 lung and brain Heart Brother 53 heart attack Heart Brother heart attack Heart Brother heart attack Heart Brother heart attack SOCIAL HISTORY[1] REVIEW OF SYSTEMS Skin: (+) lump, (+) intermittent localized pain EXAM: BP 130/78 Pulse 64 Temp 36.4 ?C (97.6 ?F) Resp 16 Wt 71.7 kg (158 lb) SpO2 97% BMI 26.81 kg/m? PHYSICAL EXAM: General Appearance: Well appearing, alert, in no acute distress, well-hydrated, well nourished.. Skin: Skin color, texture, turgor normal, no suspicious rashes. 2.3 cm firm lump right chest wall. Head: Normocephalic, no masses, lesions, tenderness or abnormalities. Eyes: Anicteric sclera. Extraocular movements are intact. . Neurologic: Gait normal. ASSESSMENT/PLAN 1. Sebaceous cyst (L72.3) - Chronic lesion present for over a year with gradual enlargement and occasional mild pain. - Clinically consistent with a sebaceous cyst. - Educated patient on the nature of sebaceous cysts, including the presence of a sac that must be removed to prevent recurrence. - Advised against self-removal due to risk of recurrence and complications. - Referral to general surgery for eval for in-office excision. Discussed treatment plan and patient voices understanding. Patient's questions answered appropriately. Medications and potential side effects were discussed and patient voices understanding. Return to the office as scheduled or as needed for worsening/no improvement. Cailin Jeffrey APRN.HEAD STOCK OPERATOR Recording using [employer] software for draft documentation of the visit was discussed with the patient/authorized patient registration representative; all questions welcomed and answered. Patient/authorized patient registration representative agreed to proceed [1] Social History Tobacco Use Smoking status: Former Current packs/day: 0.00 Average packs/day: 1.5 packs/day for 38.0 years (57.0 ttl pk-yrs) Types: Cigarettes Start date: 05/31/1978 Quit date: 05/31/2016 Years since quittin.6 Smokeless tobacco: Never Vaping Use Vaping status: Never Used Substance Use Topics Alcohol use: No Drug use: No Frequency: 3.0 times per week Types: Marijuana Comment: stopped 10 year ago [facility] 01-10-2025 History of Presen t illness Narrative This is a 69 year old male who presents today with: The patient is a 69-year-old male presenting for evaluation and surgical management of a one-year history of an enlarging, intermittently painful cutaneous lump on the right chest wall. HISTORY OF PRESENT ILLNESS: Lump: - Eric A Stone noticed a lump approximately one year ago. - Reports the lump has increased in size since initial observation. - Occasionally experiences mild pain associated with the lump. - Denies any previous similar lumps. Had contemplated self removal. PAST MEDICAL HISTORY: PAST MEDICAL HISTORY Diagnosis Date Arthritis COPD (chronic obstructive pulmonary disease) (HCC) Dysphagia Esophageal reflux Generalized osteoarthrosis, unspecified site Lactose intolerance in adult Snoring PAST SURGICAL HISTORY Procedure Laterality Date APPENDECTOMY APPENDECTOMY HX COLONOSCOPY FLX DX W/COLLJ SPEC WHEN PFRMD 11/11/2016 Colonoscopy EGD 12/29/2019 Dr. Ash Hidalgo. dx foreign body, Hpylori test negative ESOPHAGOGASTRODUODENOSCOPY TRANSORAL DIAGNOSTIC 11/11/2016 EGD INCISE FINGER TENDON SHEATH Right 08/16/2021 Right trigger thumb release PAST SURGICAL HISTORY OF Repair of lateral epicondylitis right elbow PAST SURGICAL HISTORY OF hemorrhoidectomy TNOT ELBOW LATERAL/MEDIAL DEBRIDE OPEN 05/06/2014 Debridement left elbow ALLERGIES Ibuprofen and Mobic [Meloxicam] MEDICATIONS Current Outpatient Medications Medication Sig omeprazole (PRILOSEC) 40 mg capsule Take 1 capsule by mouth once daily. triamcinolone acetonide (KENALOG) 0.1 % cream Apply to affected area two times a day. mupirocin (BACTROBAN) 2 % ointment Apply 1 application to affected area three times a day. albuterol HFA (PROVENTIL HFA, VENTOLIN HFA) 90 mcg/actuation inhaler Inhale 2 Puffs as instructed every 4 hours as needed for wheezing/shortness of breath. EPINEPHrine (EPIPEN) 0.3 mg/0.3 mL auto-injector Administer 1 pen to thigh after being stung. No current facility-administered medications for this visit. FAMILY HISTORY Problem Relation Age of Onset Cancer Mother colon Alcohol/Drug Father Cancer Brother 63 esophagus Cancer Brother 53 lung and brain Heart Brother 53 heart attack Heart Brother heart attack Heart Brother heart attack Heart Brother heart attack SOCIAL HISTORY[1] REVIEW OF SYSTEMS Skin: (+) lump, (+) intermittent localized pain EXAM: BP 130/78 Pulse 64 Temp 36.4 C (97.6 F) Resp 16 Wt 71.7 kg (158 lb) SpO2 97% BMI 26.81 kg/m PHYSICAL EXAM: General Appearance: Well appearing, alert, in no acute distress, well-hydrated, well nourished.. Skin: Skin color, texture, turgor normal, no suspicious rashes. 2.3 cm firm lump right chest wall. Head: Normocephalic, no masses, lesions, tenderness or abnormalities. Eyes: Anicteric sclera. Extraocular movements are intact. . Neurologic: Gait normal. ASSESSMENT/PLAN 1. Sebaceous cyst (L72.3) - Chronic lesion present for over a year with gradual enlargement and occasional mild pain. - Clinically consistent with a sebaceous cyst. - Educated patient on the nature of sebaceous cysts, including the presence of a sac that must be removed to prevent recurrence. - Advised against self-removal due to risk of recurrence and complications. - Referral to general surgery for eval for in-office excision. Discussed treatment plan and patient voices understanding. Patient's questions answered appropriately. Medications and potential side effects were discussed and patient voices understanding. Return to the office as scheduled or as needed for worsening/no improvement. Cailin Jeffrey APRN.HEAD STOCK OPERATOR Recording using [employer] software for draft documentation of the visit was discussed with the patient/authorized patient registration representative; all questions welcomed and answered. Patient/authorized patient registration representative agreed to proceed [1] Social History Tobacco Use Smoking status: Former Current packs/day: 0.00 Average packs/day: 1.5 packs/day for 38.0 years (57.0 ttl pk-yrs) Types: Cigarettes Start date: 05/31/1978 Quit date: 05/31/2016 Years since quittin.6 Smokeless tobacco: Never Vaping Use Vaping status: Never Used Substance Use Topics Alcohol use: No Drug use: No Frequency: 3.0 times per week Types: Marijuana Comment: stopped 10 year ago documented in this encounter [facility] 01-10-2025 Instructions Cailin Jeffrey APRN.CNP - 01/10/2025 2:04 PM EDT Schedule w/ general surgery documented in this encounter [facility] 01-05-2025 Telephone encounter Note The following approved medication requests have been transmitted electronically. Requested Prescriptions Pending Prescriptions Disp Refills omeprazole (PRILOSEC) 40 mg capsule 30 capsule 11 Sig: Take 1 capsule by mouth once daily. Reece Villa APRN.CNP [facility] 01-05-2025 Miscellaneous Notes The following approved medication requests have been transmitted electronically. Requested Prescriptions Pending Prescriptions Disp Refills omeprazole (PRILOSEC) 40 mg capsule 30 capsule 11 Sig: Take 1 capsule by mouth once daily. Reece Villa APRN.CNP Prescription Refill Information The patient has been identified by name and date of : Yes Caregiver verified no other encounters exist for this prescription request: Yes Caregiver confirmed with patient/requestor that no other refills are due, in the near future, with this provider at this time: Yes The last office visit in the department: 09/03/24 Does the patient have a future office visit with this provider/department: Yes Requested Prescriptions Pending Prescriptions Disp Refills omeprazole (PRILOSEC) 40 mg capsule 30 capsule 11 Sig: Take 1 capsule by mouth once daily. Shaye Harden January 04, 2025 1:03 PM documented in this encounter [facility] 01-04-2025 Telephone encounter Note Prescription Refill Information The patient has been identified by name and date of : Yes Caregiver verified no other encounters exist for this prescription request: Yes Caregiver confirmed with patient/requestor that no other refills are due, in the near future, with this provider at this time: Yes The last office visit in the department: 09/03/24 Does the patient have a future office visit with this provider/department: Yes Requested Prescriptions Pending Prescriptions Disp Refills omeprazole (PRILOSEC) 40 mg capsule 30 capsule 11 Sig: Take 1 capsule by mouth once daily. Shaye Harden January 04, 2025 1:03 PM [facility] 09-03-2024 Telephone encounter Note Patient notified. Myrna Gutierrez LPN [facility] 09-03-2024 Miscellaneous Notes Patient notified. Myrna Gutierrez LPN ----- Message from Madyson Noble APRN.HEAD STOCK OPERATOR sent at 09/03/2024 1:30 PM EDT ----- Chest xray is normal. Complete antibiotics Madyson Noble APRN.HEAD STOCK OPERATOR documented in this encounter [facility] 09-03-2024 Telephone encounter Note ----- Message from Madyson Noble APRN.PIPE sent at 09/03/2024 1:30 PM EDT ----- Chest xray is normal. Complete antibiotics Madyson Noble APRN.HEAD STOCK OPERATOR [facility] 09-03-2024 History of Presen t illness Narrative Radiology Service Progress Note PATIENT NAME: Eric Rhodes DATE OF SERVICE: September 03, 2024 TIME: 1:17 PM PATIENT IDENTITY VERIFICATION COMPLETED USING TWO (2) IDENTIFIERS: Name and Date of confirmed by patient verbally. FALL SCREENING: Has the patient had 2 falls in the last year or 1 fall with injury or currently using an Ambulatory Assistive Device (Walker, Cane, Wheelchair, Crutches, etc.)? No PATIENT GENDER DATA: Assigned male at PATIENT RELEVANT IMPLANT DATA REVIEWED: Yes PATIENT PRESENTS WITH AN IMPLANTABLE OR ATTACHED MOBILE APPLICATION DEVELOPMENT LEAD: No RADIOLOGY DEPARTMENT: General X-ray: Exam(s) Completed: Chest X-Ray PERIPHERAL IV DATA: Not applicable SIGNED BY: RT Mike(Sondra) September 03, 2024 1:17 PM documented in this encounter [facility] 09-03-2024 Note HNO ID: [id number] Author: NISHANT TERRY RT(Sondra) Service: ? Author Type: Pipe Fitter Maintenance Type: Progress Notes Filed: 09/03/2024 13:24 Note Text: Radiology Service Progress Note PATIENT NAME: Eric Rhodes DATE OF SERVICE: September 03, 2024 TIME: 1:17 PM PATIENT IDENTITY VERIFICATION COMPLETED USING TWO (2) IDENTIFIERS: Name and Date of confirmed by patient verbally. FALL SCREENING: Has the patient had 2 falls in the last year or 1 fall with injury or currently using an Ambulatory Assistive Device (Walker, Cane, Wheelchair, Crutches, etc.)? No PATIENT GENDER DATA: Assigned male at PATIENT RELEVANT IMPLANT DATA REVIEWED: Yes PATIENT PRESENTS WITH AN IMPLANTABLE OR ATTACHED MOBILE APPLICATION DEVELOPMENT LEAD: No RADIOLOGY DEPARTMENT: General X-ray: Exam(s) Completed: Chest X-Ray PERIPHERAL IV DATA: Not applicable SIGNED BY: RT Mike(R) September 03, 2024 1:17 PM [facility] 09-03-2024 Instructions Madyson Noble APRN.PIPE - 09/03/2024 1:00 PM EDT Start Augmentin - take one tablet by mouth twice daily for 5 days. Start Doxycycline - take one tablet by mouth twice daily for 5 days. Undergo a chest x-ray to document your lung condition. Use your albuterol inhaler as needed for shortness of breath or coughing. For cough and congestion, you may use ghsj-srs-xslljni cough syrup (such as Delsym or Robitussin), a decongestant, or saline nasal spray. Optionally, try Flonase nasal spray--administer 1-2 squirts in each nostril, and rinse your mouth after use. Your prescriptions will be sent to [facility]. documented in this encounter [facility] 09-03-2024 History of Presen t illness Narrative 09/03/2024 Patient presents with: Cough: X couple days, had a sore throat, currently has sinus pressure. SUBJECTIVE: This is a 69 year old that is here today for Above Complaints. Upper Respiratory Symptoms: - Cough, sore throat, and sinus pressure x2 days. - Reports chills and believes he broke a fever last night, waking up soaked this morning. - Denies nausea, emesis, or diarrhea. - Using Tylenol for symptom relief. - Denies home testing for COVID-19 or influenza. - Reports exposure to a sick grandson with a cough. COPD: - Chronic wheezing. - Using albuterol inhaler PRN. - Concerns about exacerbation of emphysema when ill. - Allergic to ibuprofen. PAST MEDICAL HISTORY Diagnosis Date Arthritis COPD (chronic obstructive pulmonary disease) (HCC) Dysphagia Esophageal reflux Generalized osteoarthrosis, unspecified site Lactose intolerance in adult Snoring ALLERGIES Ibuprofen and Mobic [Meloxicam] MEDICATIONS Current Outpatient Medications Medication Sig triamcinolone acetonide (KENALOG) 0.1 % cream Apply to affected area two times a day. mupirocin (BACTROBAN) 2 % ointment Apply 1 application to affected area three times a day. albuterol HFA (PROVENTIL HFA, VENTOLIN HFA) 90 mcg/actuation inhaler Inhale 2 Puffs as instructed every 4 hours as needed for wheezing/shortness of breath. omeprazole (PRILOSEC) 40 mg capsule Take 1 capsule by mouth once daily. EPINEPHrine (EPIPEN) 0.3 mg/0.3 mL auto-injector Administer 1 pen to thigh after being stung. No current facility-administered medications for this visit. Medications and allergies reviewed by this provider. SOCIAL HISTORY Social History Tobacco Use Smoking status: Former Current packs/day: 0.00 Average packs/day: 1.5 packs/day for 38.0 years (57.0 ttl pk-yrs) Types: Cigarettes Start date: 05/31/1978 Quit date: 05/31/2016 Years since quittin.2 Smokeless tobacco: Never Vaping Use Vaping status: Never Used Substance Use Topics Alcohol use: No Drug use: No Frequency: 3.0 times per week Types: Marijuana Comment: stopped 10 year ago REVIEW OF SYSTEMS Constitutional: (+) chills, (-) fever Head: (+) head pressure Ears/Nose/Mouth/Throat: (+) runny nose, (+) sore throat Respiratory: (+) cough, (+) wheezing, (+) green phlegm Gastrointestinal: (-) nausea, (-) vomiting, (-) diarrhea OBJECTIVE: BP 94/68 Pulse 78 Temp 37.4 C (99.4 F) Resp 18 Wt 72 kg (158 lb 12.8 oz) SpO2 96% BMI 26.95 kg/m . Vital signs reviewed by this provider. GENERAL: NAD, alert and oriented. SKIN: Unremarkable, no rash or skin lesions. HEAD: Normocephalic, tenderness noted across forehead and under eyes. EYES: conjunctiva clear. EARS: External ears normal, canals clear, TM's normal. NOSE/SINUSES: Nares normal. Septum midline. OROPHARYNX: Lips, mucosa, and tongue normal, good dentition. No oral lesions noted. Strong gag reflex observed. NECK: Supple, no lymphadenopathy, n LUNGS: Diminished breath sounds bilaterally, no wheezes/rhonchi/rales. HEART: Regular rate and rhythm, no murmurs. No ectopy. Lung Cancer Screening Never done Colorectal Cancer Screening due on 11/11/2021 DTaP,Tdap,Td Vaccine(2 - Td or Tdap) due on 02/25/2024 Advance Directive Discussion due on 04/28/2024 Diabetes Screening due on 08/03/2024 Depression Screening due on 10/02/2024 Anxiety Screening due on 10/02/2024 Hepatitis C Screening due on 03/18/2025 Shingrix Vaccine(1 of 2) due on 03/18/2025 Covid-19 Vaccine( - season) due on 03/18/2025 Pneumococcal Vaccine: 50+(2 of 2 - PCV) due on 03/18/2025 Influenza Vaccine(Season Ended) due on 12/27/2024 Prostate Cancer Screening Discussion due on 03/27/2026 Lipid Screening due on 06/23/2026 RSV Vaccine(1 - 1-dose 75+ series) due on 2032 Abdominal Aortic Aneurysm Screening Completed 1. Chronic obstructive pulmonary disease with acute exacerbation (HCC) (J44.1) - Symptoms include cough, sore throat, sinus pressure, chills, and post-febrile diaphoresis. Reports increased wheezing and productive cough with green sputum. Denies nausea, vomiting, or diarrhea. - Physical exam reveals diminished breath sounds, sinus tenderness, and clear oropharynx. - Differential diagnosis includes pneumonia. - Ordered chest X-ray to evaluate for pneumonia. - Initiated antibiotic therapy with Augmentin 1 tablet PO BID for 5 days and doxycycline 1 tablet PO BID for 5 days. - Advised use of albuterol inhaler prn for dyspnea or cough. - Recommended [id number] cough suppressants such as Delsym or Robitussin and decongestants as needed. - Suggested saline nasal spray and Flonase nasal spray, 1-2 squirts per nostril daily, with instructions to rinse mouth after use. - Prescriptions sent to [facility] pharmacy. Madyson Noble APRN.PIPE Prescription instructions reviewed with patient as applicable. Patient advised if symptoms do not improve or if symptoms worsen sooner, to contact their primary care physician. Potential red flag symptoms discussed with the patient. Reviewed appropriate action plan to take if red flag symptoms occur. Patient agreeable to treatment plan. Medical Decision Making: Problems: Low: Acute, uncomplicated illness or injury Data: Unique test(s) ordered: 1 Risk: Moderate: Drug management and Moderate risk from testing/treatment Medical Decision Making Level: 3 - Low documented in this encounter [facility] 09-03-2024 Note HNO ID: [id number] Author: MADYSON NOBLE APRN.PIPE Service: ? Author Type: Nurse Practitioner Type: Progress Notes Filed: 09/03/2024 13:21 Note Text: 09/03/2024 Patient presents with: Cough: X couple days, had a sore throat, currently has sinus pressure. SUBJECTIVE: This is a 69 year old that is here today for Above Complaints. Upper Respiratory Symptoms: - Cough, sore throat, and sinus pressure x2 days. - Reports chills and believes he broke a fever last night, waking up soaked this morning. - Denies nausea, emesis, or diarrhea. - Using Tylenol for symptom relief. - Denies home testing for COVID-19 or influenza. - Reports exposure to a sick grandson with a cough. COPD: - Chronic wheezing. - Using albuterol inhaler PRN. - Concerns about exacerbation of emphysema when ill. - Allergic to ibuprofen. PAST MEDICAL HISTORY Diagnosis Date Arthritis COPD (chronic obstructive pulmonary disease) (HCC) Dysphagia Esophageal reflux Generalized osteoarthrosis, unspecified site Lactose intolerance in adult Snoring ALLERGIES Ibuprofen and Mobic [Meloxicam] MEDICATIONS Current Outpatient Medications Medication Sig triamcinolone acetonide (KENALOG) 0.1 % cream Apply to affected area two times a day. mupirocin (BACTROBAN) 2 % ointment Apply 1 application to affected area three times a day. albuterol HFA (PROVENTIL HFA, VENTOLIN HFA) 90 mcg/actuation inhaler Inhale 2 Puffs as instructed every 4 hours as needed for wheezing/shortness of breath. omeprazole (PRILOSEC) 40 mg capsule Take 1 capsule by mouth once daily. EPINEPHrine (EPIPEN) 0.3 mg/0.3 mL auto-injector Administer 1 pen to thigh after being stung. No current facility-administered medications for this visit. Medications and allergies reviewed by this provider. SOCIAL HISTORY Social History Tobacco Use Smoking status: Former Current packs/day: 0.00 Average packs/day: 1.5 packs/day for 38.0 years (57.0 ttl pk-yrs) Types: Cigarettes Start date: 05/31/1978 Quit date: 05/31/2016 Years since quittin.2 Smokeless tobacco: Never Vaping Use Vaping status: Never Used Substance Use Topics Alcohol use: No Drug use: No Frequency: 3.0 times per week Types: Marijuana Comment: stopped 10 year ago REVIEW OF SYSTEMS Constitutional: (+) chills, (-) fever Head: (+) head pressure Ears/Nose/Mouth/Throat: (+) runny nose, (+) sore throat Respiratory: (+) cough, (+) wheezing, (+) green phlegm Gastrointestinal: (-) nausea, (-) vomiting, (-) diarrhea OBJECTIVE: BP 94/68 Pulse 78 Temp 37.4 ?C (99.4 ?F) Resp 18 Wt 72 kg (158 lb 12.8 oz) SpO2 96% BMI 26.95 kg/m? . Vital signs reviewed by this provider. GENERAL: NAD, alert and oriented. SKIN: Unremarkable, no rash or skin lesions. HEAD: Normocephalic, tenderness noted across forehead and under eyes. EYES: conjunctiva clear. EARS: External ears normal, canals clear, TM's normal. NOSE/SINUSES: Nares normal. Septum midline. OROPHARYNX: Lips, mucosa, and tongue normal, good dentition. No oral lesions noted. Strong gag reflex observed. NECK: Supple, no lymphadenopathy, n LUNGS: Diminished breath sounds bilaterally, no wheezes/rhonchi/rales. HEART: Regular rate and rhythm, no murmurs. No ectopy. Lung Cancer Screening Never done Colorectal Cancer Screening due on 11/11/2021 DTaP,Tdap,Td Vaccine(2 - Td or Tdap) due on 02/25/2024 Advance Directive Discussion due on 04/28/2024 Diabetes Screening due on 08/03/2024 Depression Screening due on 10/02/2024 Anxiety Screening due on 10/02/2024 Hepatitis C Screening due on 03/18/2025 Shingrix Vaccine(1 of 2) due on 03/18/2025 Covid-19 Vaccine( - season) due on 03/18/2025 Pneumococcal Vaccine: 50+(2 of 2 - PCV) due on 03/18/2025 Influenza Vaccine(Season Ended) due on 12/27/2024 Prostate Cancer Screening Discussion due on 03/27/2026 Lipid Screening due on 06/23/2026 RSV Vaccine(1 - 1-dose 75+ series) due on 2032 Abdominal Aortic Aneurysm Screening Completed 1. Chronic obstructive pulmonary disease with acute exacerbation (HCC) (J44.1) - Symptoms include cough, sore throat, sinus pressure, chills, and post-febrile diaphoresis. Reports increased wheezing and productive cough with green sputum. Denies nausea, vomiting, or diarrhea. - Physical exam reveals diminished breath sounds, sinus tenderness, and clear oropharynx. - Differential diagnosis includes pneumonia. - Ordered chest X-ray to evaluate for pneumonia. - Initiated antibiotic therapy with Augmentin 1 tablet PO BID for 5 days and doxycycline 1 tablet PO BID for 5 days. - Advised use of albuterol inhaler prn for dyspnea or cough. - Recommended [id number]-[id number] cough suppressants such as Delsym or Robitussin and decongestants as needed. - Suggested saline nasal spray and Flonase nasal spray, 1-2 squirts per nostril daily, with instructions to rinse mouth after use. - Prescriptions sent to [facility] pharmacy. (more content not included)... [facility] 08-24-2024 Note HNO ID: [id number] Author: IQRA SARABIA PA-C Service: ? Author Type: Physician Traffic Safety Administrator Type: Progress Notes Filed: 08/24/2024 11:53 Note Text: Recording using [employer] software for draft documentation of the visit was discussed with the patient/authorized patient registration representative; all questions welcomed and answered. Patient/authorized patient registration representative agreed to proceed 08/24/2024 Suspected Tick Bite: - Noticed a small black spot on the skin last night, accompanied by pruritus. - No tick was attached; Eric used tweezers to pick at the spot, resulting in erythema. - Denies pain or soreness at the site. - Uncertain about the cause of the bite; has been spending time in the [place]. Current Outpatient Medications on File Prior to Visit Medication Sig albuterol HFA (PROVENTIL HFA, VENTOLIN HFA) 90 mcg/actuation inhaler Inhale 2 Puffs as instructed every 4 hours as needed for wheezing/shortness of breath. omeprazole (PRILOSEC) 40 mg capsule Take 1 capsule by mouth once daily. EPINEPHrine (EPIPEN) 0.3 mg/0.3 mL auto-injector Administer 1 pen to thigh after being stung. No current facility-administered medications on file prior to visit. PAST MEDICAL HISTORY Diagnosis Date Arthritis COPD (chronic obstructive pulmonary disease) (HCC) Dysphagia Esophageal reflux Generalized osteoarthrosis, unspecified site Lactose intolerance in adult Snoring Allergies: Ibuprofen Itching Comment:Swelling and itching Mobic [Meloxicam] Swelling Skin: (-) pain, (-) itching resolved now. BP 114/73 Pulse 69 Resp 16 Wt 75.1 kg (165 lb 9.1 oz) BMI 28.09 kg/m? GENERAL: NAD, alert and oriented SKIN: 4 mm erythematous papule noted, no drainage. No tick attached. Otherwise unremarkable, no rash or skin lesions. no lymphangitic streaking. located on left lateral thorax. 1. Insect bite of left front wall of thorax, initial encounter (S20.205A) - Exam reveals a 4 mm erythematous papule without drainage or evidence of an attached tick. - Differential diagnosis includes other insect bites; does not appear consistent with erythema migrans or herpes zoster. - Prescribed topical corticosteroid cream and topical antibiotic cream to be applied to the affected area. - Advised patient to monitor for signs of infection such as spreading erythema, lymphangitic streaking, fever >100 degreeF, or severe pain, and to seek medical attention if these occur. - Discussed low risk of Lyme disease transmission given the absence of an attached tick for >48 hours. - Prescriptions sent to [facility] pharmacy. The patient indicates understanding of these issues and agrees with the plan. Reviewed red flags and when to seek care sooner. Iqra Sarabia PA-C 08/24/2024 [facility] 08-24-2024 History of Presen t illness Narrative Recording using [employer] software for draft documentation of the visit was discussed with the patient/authorized patient registration representative; all questions welcomed and answered. Patient/authorized patient registration representative agreed to proceed 08/24/2024 Suspected Tick Bite: - Noticed a small black spot on the skin last night, accompanied by pruritus. - No tick was attached; Eric used tweezers to pick at the spot, resulting in erythema. - Denies pain or soreness at the site. - Uncertain about the cause of the bite; has been spending time [place] the [place]. Current Outpatient Medications on File Prior to Visit Medication Sig albuterol HFA (PROVENTIL HFA, VENTOLIN HFA) 90 mcg/actuation inhaler Inhale 2 Puffs as instructed every 4 hours as needed for wheezing/shortness of breath. omeprazole (PRILOSEC) 40 mg capsule Take 1 capsule by mouth once daily. EPINEPHrine (EPIPEN) 0.3 mg/0.3 mL auto-injector Administer 1 pen to thigh after being stung. No current facility-administered medications on file prior to visit. PAST MEDICAL HISTORY Diagnosis Date Arthritis COPD (chronic obstructive pulmonary disease) (HCC) Dysphagia Esophageal reflux Generalized osteoarthrosis, unspecified site Lactose intolerance in adult Snoring Allergies: Ibuprofen Itching Comment:Swelling and itching Mobic [Meloxicam] Swelling Skin: (-) pain, (-) itching resolved now. BP 114/73 Pulse 69 Resp 16 Wt 75.1 kg (165 lb 9.1 oz) BMI 28.09 kg/m GENERAL: NAD, alert and oriented SKIN: 4 mm erythematous papule noted, no drainage. No tick attached. Otherwise unremarkable, no rash or skin lesions. no lymphangitic streaking. located on left lateral thorax. 1. Insect bite of left front wall of thorax, initial encounter (S20.598A) - Exam reveals a 4 mm erythematous papule without drainage or evidence of an attached tick. - Differential diagnosis includes other insect bites; does not appear consistent with erythema migrans or herpes zoster. - Prescribed topical corticosteroid cream and topical antibiotic cream to be applied to the affected area. - Advised patient to monitor for signs of infection such as spreading erythema, lymphangitic streaking, fever >100 degreeF, or severe pain, and to seek medical attention if these occur. - Discussed low risk of Lyme disease transmission given the absence of an attached tick for >48 hours. - Prescriptions sent to [facility] pharmacy. The patient indicates understanding of these issues and agrees with the plan. Reviewed red flags and when to seek care sooner. Iqra Sarabia PA-C 08/24/2024 documented in this encounter [facility] 08-24-2024 Instructions Iqra Sarabia PA-C - 08/24/2024 11:49 AM EDT Apply the steroid cream and antibiotic cream to the affected area as provided at your preferred pharmacy. Monitor the area for any signs of spreading redness, red streaking, fever over 100 F, or severe pain. If any of these occur, contact the office promptly. documented in this encounter [facility] 08-24-2024 Telephone encounter Note Reason for Disposition Can't remove live tick (after trying Care Advice) Answer Assessment - Initial Assessment Questions 1. ATTACHED: Pt found tick on left torso. Can feel it but can't see it. Has red area around the bump. Thinks the tick is still attached. 2. ONSET - TICK STILL ATTACHED: Pt states could have only been there no more than a couple days. 3. ONSET - TICK NOT STILL ATTACHED: Pt can feel a bump and thinks it's a tick but not sure. Reports there is a red ring around it. 4. LOCATION: Left side torso 5. TYPE of TICK: Unsure 6. SIZE of TICK: Not sure 7. ENGORGED: Unsure . 8. OTHER SYMPTOMS: Reddness at bite area 9. :N/A Protocols used: Tick [id number] [facility] 08-24-2024 Miscellaneous Notes Reason for Disposition Can't remove live tick (after trying Care Advice) Answer Assessment - Initial Assessment Questions 1. ATTACHED: Pt found tick on left torso. Can feel it but can't see it. Has red area around the bump. Thinks the tick is still attached. 2. ONSET - TICK STILL ATTACHED: Pt states could have only been there no more than a couple days. 3. ONSET - TICK NOT STILL ATTACHED: Pt can feel a bump and thinks it's a tick but not sure. Reports there is a red ring around it. 4. LOCATION: Left side torso 5. TYPE of TICK: Unsure 6. SIZE of TICK: Not sure 7. ENGORGED: Unsure . 8. OTHER SYMPTOMS: Reddness at bite area 9. :N/A Protocols used: Tick [id number] documented in this encounter [facility] 05-05-2024 Instructions Eugenia Mitchell APRN.PIPE - 05/05/2024 2:43 PM EST Get repeat lung cancer screening in a year Continue with Albuterol as needed Monitor symptoms at home Follow up as needed documented in this encounter [facility] 05-05-2024 History of Presen t illness Narrative This is a 69 year old male who presents today with: Patient presents with: Follow Up: discuss dx of emphysema HISTORY OF PRESENT ILLNESS: Eric Rhodes is a 69 year old male. Patient presents with: Follow Up: discuss dx of emphysema Here in the office to discuss empythema noted on recent lung cancer screening. No nodules noted. Radiology recommending repeat Chest CT in 1 year. Former Smoker, started at age [age] years old, reports he smoked for 42 years. Reports productive cough every now and then, clear/light green and thin. Reports that his cough increases when lying down. Reports no longer smoking for 7 years. Denies wheezing, fever, or chills. Reports SOB with physical activity with the grand children or exercise. Using Albuterol as needed. PAST MEDICAL HISTORY: PAST MEDICAL HISTORY Diagnosis Date Arthritis COPD (chronic obstructive pulmonary disease) ([facility]) Dysphagia Esophageal reflux Generalized osteoarthrosis, unspecified site Lactose intolerance in adult Snoring PAST SURGICAL HISTORY Procedure Laterality Date APPENDECTOMY APPENDECTOMY HX COLONOSCOPY FLX DX W/COLLJ SPEC WHEN PFRMD 11/11/2016 Colonoscopy EGD 12/29/2019 Dr. Ash Hidalgo. dx foreign body, Hpylori test negative ESOPHAGOGASTRODUODENOSCOPY TRANSORAL DIAGNOSTIC 11/11/2016 EGD INCISE FINGER TENDON SHEATH Right 08/16/2021 Right trigger thumb release PAST SURGICAL HISTORY OF Repair of lateral epicondylitis right elbow PAST SURGICAL HISTORY OF hemorrhoidectomy TNOT ELBOW LATERAL/MEDIAL DEBRIDE OPEN 05/06/2014 Debridement left elbow ALLERGIES Ibuprofen and Mobic [Meloxicam] MEDICATIONS Current Outpatient Medications Medication Sig omeprazole (PRILOSEC) 40 mg capsule Take 1 capsule by mouth once daily. albuterol HFA (PROVENTIL HFA, VENTOLIN HFA) 90 mcg/actuation inhaler Inhale 2 Puffs as instructed every 4 hours as needed for wheezing/shortness of breath. EPINEPHrine (EPIPEN) 0.3 mg/0.3 mL auto-injector Administer 1 pen to thigh after being stung. No current facility-administered medications for this visit. FAMILY HISTORY Problem Relation Age of Onset Cancer Mother colon Alcohol/Drug Father Cancer Brother 63 esophagus Cancer Brother 53 lung and brain Heart Brother 53 heart attack Heart Brother heart attack Heart Brother heart attack Heart Brother heart attack Social History Tobacco Use Smoking status: Former Current packs/day: 0.00 Average packs/day: 1.5 packs/day for 38.0 years (57.0 ttl pk-yrs) Types: Cigarettes Start date: 05/31/1978 Quit date: 05/31/2016 Years since quittin.9 Smokeless tobacco: Never Vaping Use Vaping status: Never Used Substance Use Topics Alcohol use: No Drug use: No Frequency: 3.0 times per week Types: Marijuana Comment: stopped 10 year ago REVIEW OF SYSTEMS GENERAL: No weight loss, malaise or fevers/chills HEENT: Negative for frequent or significant headaches, No changes in hearing or vision. NECK: Negative for lumps, goiter, pain and significant neck swelling RESPIRATORY: Negative for cough, hemoptysis, wheezing, dyspnea or shortness of breath CARDIOVASCULAR: Negative for chest pain, leg swelling, orthopnea, or palpitations GI: No nausea, vomiting, or diarrhea/constipation. No hematochezia/melena. No heartburn or reflux symptoms. : No history of dysuria, frequency or incontinence MUSCULOSKELETAL: Negative for joint pain or swelling. SKIN: Negative for lesions, rash, and itching ENDOCRINE: Negative for cold or heat intolerance, polyuria, polydipsia and goiter NEURO: No history of headaches, syncope, paralysis, seizures or tremors MOOD: Negative for depression, anxiety, or suicidal ideation. EXAM: There were no vitals taken for this visit. PHYSICAL EXAM: General Appearance: Well appearing, alert, in no acute distress, well-hydrated, well nourished.. Skin: Skin color, texture, turgor normal, no suspicious rashes or lesions. Head: Normocephalic, no masses, lesions, tenderness or abnormalities. Eyes: Anicteric sclera. Extraocular movements are intact. . Lungs: Lungs clear to auscultation. No wheezing, rhonchi, rales.. Heart: RRR without murmur, gallop, or rubs. No ectopy. Extremities: No deformities, edema, skin discoloration, clubbing or cyanosis. Good capillary refill. . Musculoskeletal: No joint swelling, deformity, or tenderness. Peripheral Pulses: Normal, Capillary refill <2secs, strong peripheral pulses, Pulses palpable. Neurologic: Gait normal. Sensation grossly intact.. ASSESSMENT/PLAN: 1. Pulmonary emphysema, unspecified emphysema type (HCC) - ICD9: 492.8, ICD10: J43.9 - Stable, continue to use Albuterol as needed. - Instructed to monitor symptoms at home. - Any worsening symptoms discussed getting repeat PFT's and discussed maintenance inhaler. - ALBUTEROL SULFATE HFA 90 MCG/ACTUATION AEROSOL INHALER Follow up as needed Discussed treatment plan and patient voices understanding. Patient's questions answered appropriately. Medications and potential side effects were discussed and patient voices understanding. Eugenia Mitchell APRN.PIPE This note was partially generated using [employer] voice recognition system. Note was reviewed for accuracy. There may be minor misspellings or grammar miscues with [employer] voice recognition. documented in this encounter [facility] 05-05-2024 Note HNO ID: [id number] Author: EUGENIA MITCHELL APRN.HEAD STOCK OPERATOR Service: ? Author Type: Nurse Practitioner Type: Progress Notes Filed: 05/05/2024 14:55 Note Text: This is a 69 year old male who presents today with: Patient presents with: Follow Up: discuss dx of emphysema HISTORY OF PRESENT ILLNESS: Eric Rhodes is a 69 year old male. Patient presents with: Follow Up: discuss dx of emphysema Here in the office to discuss empythema noted on recent lung cancer screening. No nodules noted. Radiology recommending repeat Chest CT in 1 year. Former Smoker, started at age [age] years old, reports he smoked for 42 years. Reports productive cough every now and then, clear/light green and thin. Reports that his cough increases when lying down. Reports no longer smoking for 7 years. Denies wheezing, fever, or chills. Reports SOB with physical activity with the grand children or exercise. Using Albuterol as needed. PAST MEDICAL HISTORY: PAST MEDICAL HISTORY Diagnosis Date Arthritis COPD (chronic obstructive pulmonary disease) (HCC) Dysphagia Esophageal reflux Generalized osteoarthrosis, unspecified site Lactose intolerance in adult Snoring PAST SURGICAL HISTORY Procedure Laterality Date APPENDECTOMY APPENDECTOMY HX COLONOSCOPY FLX DX W/COLLJ SPEC WHEN PFRMD 11/11/2016 Colonoscopy EGD 12/29/2019 Dr. Ash Hidalgo. dx foreign body, Hpylori test negative ESOPHAGOGASTRODUODENOSCOPY TRANSORAL DIAGNOSTIC 11/11/2016 EGD INCISE FINGER TENDON SHEATH Right 08/16/2021 Right trigger thumb release PAST SURGICAL HISTORY OF Repair of lateral epicondylitis right elbow PAST SURGICAL HISTORY OF hemorrhoidectomy TNOT ELBOW LATERAL/MEDIAL DEBRIDE OPEN 05/06/2014 Debridement left elbow ALLERGIES Ibuprofen and Mobic [Meloxicam] MEDICATIONS Current Outpatient Medications Medication Sig omeprazole (PRILOSEC) 40 mg capsule Take 1 capsule by mouth once daily. albuterol HFA (PROVENTIL HFA, VENTOLIN HFA) 90 mcg/actuation inhaler Inhale 2 Puffs as instructed every 4 hours as needed for wheezing/shortness of breath. EPINEPHrine (EPIPEN) 0.3 mg/0.3 mL auto-injector Administer 1 pen to thigh after being stung. No current facility-administered medications for this visit. FAMILY HISTORY Problem Relation Age of Onset Cancer Mother colon Alcohol/Drug Father Cancer Brother 63 esophagus Cancer Brother 53 lung and brain Heart Brother 53 heart attack Heart Brother heart attack Heart Brother heart attack Heart Brother heart attack Social History Tobacco Use Smoking status: Former Current packs/day: 0.00 Average packs/day: 1.5 packs/day for 38.0 years (57.0 ttl pk-yrs) Types: Cigarettes Start date: 05/31/1978 Quit date: 05/31/2016 Years since quittin.9 Smokeless tobacco: Never Vaping Use Vaping status: Never Used Substance Use Topics Alcohol use: No Drug use: No Frequency: 3.0 times per week Types: Marijuana Comment: stopped 10 year ago REVIEW OF SYSTEMS GENERAL: No weight loss, malaise or fevers/chills HEENT: Negative for frequent or significant headaches, No changes in hearing or vision. NECK: Negative for lumps, goiter, pain and significant neck swelling RESPIRATORY: Negative for cough, hemoptysis, wheezing, dyspnea or shortness of breath CARDIOVASCULAR: Negative for chest pain, leg swelling, orthopnea, or palpitations GI: No nausea, vomiting, or diarrhea/constipation. No hematochezia/melena. No heartburn or reflux symptoms. : No history of dysuria, frequency or incontinence MUSCULOSKELETAL: Negative for joint pain or swelling. SKIN: Negative for lesions, rash, and itching ENDOCRINE: Negative for cold or heat intolerance, polyuria, polydipsia and goiter NEURO: No history of headaches, syncope, paralysis, seizures or tremors MOOD: Negative for depression, anxiety, or suicidal ideation. EXAM: There were no vitals taken for this visit. PHYSICAL EXAM: General Appearance: Well appearing, alert, in no acute distress, well-hydrated, well nourished.. Skin: Skin color, texture, turgor normal, no suspicious rashes or lesions. Head: Normocephalic, no masses, lesions, tenderness or abnormalities. Eyes: Anicteric sclera. Extraocular movements are intact. . Lungs: Lungs clear to auscultation. No wheezing, rhonchi, rales.. Heart: RRR without murmur, gallop, or rubs. No ectopy. Extremities: No deformities, edema, skin discoloration, clubbing or cyanosis. Good capillary refill. . Musculoskeletal: No joint swelling, deformity, or tenderness. Peripheral Pulses: Normal, Capillary refill <2secs, strong peripheral pulses, Pulses palpable. Neurologic: Gait normal. Sensation grossly intact.. ASSESSMENT/PLAN: 1. Pulmonary emphysema, unspecified emphysema type (HCC) - ICD9: 492.8, ICD10: J43.9 - Stable, continue to use Albuterol as needed. - Instructed to monitor symptoms at home. - Any worsening symptoms discussed getting repeat PF (more content not included)... [facility] 04-29-2024 Telephone encounter Note Attempted to reach pt number on file and received message that number dialed has been disconnected or is no longer on service. Mailed letter to patient asking for a call back regarding results below. Pt advised to contact office and speak with Triage Nurse regarding lung cancer screening. Kacy Ortiz MA [facility] 04-29-2024 Miscellaneous Notes Attempted to reach pt number on file and received message that number dialed has been disconnected or is no longer on service. Mailed letter to patient asking for a call back regarding results below. Pt advised to contact office and speak with Triage Nurse regarding lung cancer screening. Kacy Ortiz MA Can you please call the patient and let him know that I reviewed his lung cancer screening that was completed at [facility]. Emphysema was noted however no lung nodules were seen. Recommending repeat screening in 1 year. Please let me know if he has any questions. Thank you. Eugenia Mitchell APRN.PIPE documented in this encounter [facility] 04-29-2024 Telephone encounter Note Can you please call the patient and let him know that I reviewed his lung cancer screening that was completed at [facility]. Emphysema was noted however no lung nodules were seen. Recommending repeat screening in 1 year. Please let me know if he has any questions. Thank you. Eugenia Mitchell APRN.HEAD STOCK OPERATOR [facility] Work Phone: 04-13-2024 Note HNO ID: [id number] Author: LORI CHARLTON MA Service: ? Author Type: Senior Director Insight Type: Progress Notes Filed: 04/13/2024 14:36 Note Text: POPULATION HEALTH NAVIGATION OUTREACH Action/FYI msg to schedule wellness, colonoscopy Reason for Outreach Care Gap/HCC or Scheduling Wellness Visits Care Gaps due: Medicare Annual Wellness Visit Colorectal Cancer Screening Patient Contacted: Unable or unnecessary to reach patient: Unable to leave message Five minutes message sent Navigation Signature: Lori Charlton MA April 13, 2024 2:36 PM [facility] 04-13-2024 History of Presen t illness Narrative POPULATION HEALTH NAVIGATION OUTREACH Action/FYI msg to schedule wellness, colonoscopy Reason for Outreach Care Gap/HCC or Scheduling Wellness Visits Care Gaps due: Medicare Annual Wellness Visit Colorectal Cancer Screening Patient Contacted: Unable or unnecessary to reach patient: Unable to leave message Five minutes message sent Navigation Signature: Lori Charlton MA April 13, 2024 2:36 PM documented in this encounter [facility] 04-13-2024 Note Patient Outreach (NE TNAV) ERIC RHODES ([id number]) 1955 M Date Time Provider Department 04/13/24 LORI CHARLTON During your visit today, we recorded the following information about you: Lori Charlton MA 04/13/2024 2:36 PM Signed POPULATION HEALTH NAVIGATION OUTREACH Action/FYI msg to schedule wellness, colonoscopy Reason for Outreach Care Gap/HCC or Scheduling Wellness Visits Care Gaps due: Medicare Annual Wellness Visit Colorectal Cancer Screening Patient Contacted: Unable or unnecessary to reach patient: Unable to leave message [employer] message sent Navigation Signature: Lori SILVIA Charlton April 13, 2024 2:36 PM Allergies As of Date: 04/13/2024 Noted Allergy Reaction IBUPROFEN 02/03/2014 9 - Itching Comments: Swelling and itching MOBIC (MELOXICAM) 08/27/2021 7 - Swelling Date Reviewed: 03/18/2024 Reviewed by: Yenni Negrete LPN - Fully Assessed Reason for Visit: Population Health Navigation Outreach [3910] Cmt: [employer] [facility] Prescriptions as of 04/13/2024 - omeprazole (PRILOSEC) 40 mg capsule Take 1 capsule by mouth once daily. - albuterol HFA (PROVENTIL HFA, VENTOLIN HFA) 90 mcg/actuation inhaler Inhale 2 Puffs as instructed every 4 hours as needed for wheezing/shortness of breath. - EPINEPHrine (EPIPEN) 0.3 mg/0.3 mL auto-injector Administer 1 pen to thigh after being stung. Problem List As Of Date 04/13/2024 Noted Resolved Esophageal reflux [K21.9] 09/17/2017 GENERAL OSTEOARTHROSIS [M15.9] Lateral epicondylitis [M77.10] 01/30/2006 Smoker [F17.200] 10/06/2014 07/30/2016 Gastroesophageal reflux disease with esophagiti*09/02/2017 Dysphagia [R13.10] 09/02/2017 Vaccine refused by patient [Z28.20] 01/17/2021 Chronic midline low back pain with right-sided *01/17/2021 Encounter Status:Closed by LORI CHARLTON on 04/13/24 [facility] 03-18-2024 Instructions Eugenia Mitchell APRN.CNP - 03/18/2024 1:31 PM EST Recommend consult with Dermatology, Local to [place] [facility] Monitor the skin lesions. Consult placed for lung cancer screening Follow up as needed. documented in this encounter [facility] 03-18-2024 History of Presen t illness Narrative This is a 68 year old male who presents today with: Patient presents with: Acute Visit: mass on right pectoral region HISTORY OF PRESENT ILLNESS: Eric Rhodes is a 68 year old male. Patient presents with: Acute Visit: mass on right pectoral region Here in the office for chest mass. Noticeable a couple of months ago, right side of the chest. Non-tender, has not gotten larger. No seeping, fever, or chills. Would like repeat lung cancer screening, stopped smoking 7 years ago. Would like complete at [facility]. PAST MEDICAL HISTORY: PAST MEDICAL HISTORY Diagnosis Date Arthritis COPD (chronic obstructive pulmonary disease) (HCC) Dysphagia Esophageal reflux Generalized osteoarthrosis, unspecified site Lactose intolerance in adult Snoring PAST SURGICAL HISTORY Procedure Laterality Date APPENDECTOMY APPENDECTOMY HX COLONOSCOPY FLX DX W/COLLJ SPEC WHEN PFRMD 11/11/2016 Colonoscopy EGD 12/29/2019 Dr. Ash Hidalgo. dx foreign body, Hpylori test negative ESOPHAGOGASTRODUODENOSCOPY TRANSORAL DIAGNOSTIC 11/11/2016 EGD INCISE FINGER TENDON SHEATH Right 08/16/2021 Right trigger thumb release PAST SURGICAL HISTORY OF Repair of lateral epicondylitis right elbow PAST SURGICAL HISTORY OF hemorrhoidectomy TNOT ELBOW LATERAL/MEDIAL DEBRIDE OPEN 05/06/2014 Debridement left elbow ALLERGIES Ibuprofen and Mobic [Meloxicam] MEDICATIONS Current Outpatient Medications Medication Sig omeprazole (PRILOSEC) 40 mg capsule Take 1 capsule by mouth once daily. albuterol HFA (PROVENTIL HFA, VENTOLIN HFA) 90 mcg/actuation inhaler Inhale 2 Puffs as instructed every 4 hours as needed for wheezing/shortness of breath. EPINEPHrine (EPIPEN) 0.3 mg/0.3 mL auto-injector Administer 1 pen to thigh after being stung. No current facility-administered medications for this visit. FAMILY HISTORY Problem Relation Age of Onset Cancer Mother colon Alcohol/Drug Father Cancer Brother 63 esophagus Cancer Brother 53 lung and brain Heart Brother 53 heart attack Heart Brother heart attack Heart Brother heart attack Heart Brother heart attack Social History Tobacco Use Smoking status: Former Current packs/day: 0.00 Average packs/day: 1.5 packs/day for 38.0 years (57.0 ttl pk-yrs) Types: Cigarettes Start date: 05/31/1978 Quit date: 05/31/2016 Years since quittin.8 Smokeless tobacco: Never Vaping Use Vaping status: Never Used Substance Use Topics Alcohol use: No Drug use: No Frequency: 3.0 times per week Types: Marijuana Comment: stopped 10 year ago REVIEW OF SYSTEMS GENERAL: No weight loss, malaise or fevers/chills HEENT: Negative for frequent or significant headaches, No changes in hearing or vision. NECK: Negative for lumps, goiter, pain and significant neck swelling RESPIRATORY: Negative for cough, hemoptysis, wheezing, dyspnea or shortness of breath CARDIOVASCULAR: Negative for chest pain, leg swelling, orthopnea, or palpitations GI: No nausea, vomiting, or diarrhea/constipation. No hematochezia/melena. No heartburn or reflux symptoms. : No history of dysuria, frequency or incontinence MUSCULOSKELETAL: Negative for joint pain or swelling. SKIN: + Chest mass ENDOCRINE: Negative for cold or heat intolerance, polyuria, polydipsia and goiter NEURO: No history of headaches, syncope, paralysis, seizures or tremors MOOD: Negative for depression, anxiety, or suicidal ideation. EXAM: BP 118/84 Pulse 69 Resp 16 Wt 75.3 kg (166 lb 0.1 oz) SpO2 98% BMI 28.17 kg/m PHYSICAL EXAM: General Appearance: Well appearing, alert, in no acute distress, well-hydrated, well nourished. Skin: 2 skin colored lesions noted to the right side of his chest, no erythema or crusting noted. Head: Normocephalic, no masses, lesions, tenderness or abnormalities. Eyes: Anicteric sclera. Extraocular movements are intact. Lungs: Lungs clear to auscultation. No wheezing, rhonchi, rales. Heart: RRR without murmur, gallop, or rubs. No ectopy. Extremities: No deformities, edema, skin discoloration, clubbing or cyanosis. Good capillary refill. Peripheral Pulses: Normal, Capillary refill <2secs, strong peripheral pulses, Pulses palpable. Neurologic: Gait normal. Sensation grossly intact. ASSESSMENT/PLAN: 1. Skin lesion - ICD9: 709.9, ICD10: L98.9 (primary diagnosis) - Recommend consult with Dermatology for further evaluation, may need biopsy. - CONSULT TO DERMATOLOGY 2. Encounter for screening for lung cancer - ICD9: V76.0, ICD10: Z12.2 - Order faxed to [facility] - CONSULT LUNG CANCER SCREENING CLINIC Follow-up as needed. Discussed treatment plan and patient voices understanding. Patient's questions answered appropriately. Medications and potential side effects were discussed and patient voices understanding. Eugenia Mitchell APRN.CNP This note was partially generated using [employer] voice recognition system. Note was reviewed for accuracy. There may be minor misspellings or grammar miscues with [employer] voice recognition. documented in this encounter [facility] 03-18-2024 Note HNO ID: [id number] Author: EUGENIA MITCHELL APRN.CNP Service: ? Author Type: Nurse Practitioner Type: Progress Notes Filed: 03/18/2024 15:44 Note Text: This is a 68 year old male who presents today with: Patient presents with: Acute Visit: mass on right pectoral region HISTORY OF PRESENT ILLNESS: Eric Hussein Stone is a 68 year old male. Patient presents with: Acute Visit: mass on right pectoral region Here in the office for chest mass. Noticeable a couple of months ago, right side of the chest. Non-tender, has not gotten larger. No seeping, fever, or chills. Would like repeat lung cancer screening, stopped smoking 7 years ago. Would like complete at [facility]. PAST MEDICAL HISTORY: PAST MEDICAL HISTORY Diagnosis Date Arthritis COPD (chronic obstructive pulmonary disease) (HCC) Dysphagia Esophageal reflux Generalized osteoarthrosis, unspecified site Lactose intolerance in adult Snoring PAST SURGICAL HISTORY Procedure Laterality Date APPENDECTOMY APPENDECTOMY HX COLONOSCOPY FLX DX W/COLLJ SPEC WHEN PFRMD 11/11/2016 Colonoscopy EGD 12/29/2019 Dr. Ash Hidalgo. dx foreign body, Hpylori test negative ESOPHAGOGASTRODUODENOSCOPY TRANSORAL DIAGNOSTIC 11/11/2016 EGD INCISE FINGER TENDON SHEATH Right 08/16/2021 Right trigger thumb release PAST SURGICAL HISTORY OF Repair of lateral epicondylitis right elbow PAST SURGICAL HISTORY OF hemorrhoidectomy TNOT ELBOW LATERAL/MEDIAL DEBRIDE OPEN 05/06/2014 Debridement left elbow ALLERGIES Ibuprofen and Mobic [Meloxicam] MEDICATIONS Current Outpatient Medications Medication Sig omeprazole (PRILOSEC) 40 mg capsule Take 1 capsule by mouth once daily. albuterol HFA (PROVENTIL HFA, VENTOLIN HFA) 90 mcg/actuation inhaler Inhale 2 Puffs as instructed every 4 hours as needed for wheezing/shortness of breath. EPINEPHrine (EPIPEN) 0.3 mg/0.3 mL auto-injector Administer 1 pen to thigh after being stung. No current facility-administered medications for this visit. FAMILY HISTORY Problem Relation Age of Onset Cancer Mother colon Alcohol/Drug Father Cancer Brother 63 esophagus Cancer Brother 53 lung and brain Heart Brother 53 heart attack Heart Brother heart attack Heart Brother heart attack Heart Brother heart attack Social History Tobacco Use Smoking status: Former Current packs/day: 0.00 Average packs/day: 1.5 packs/day for 38.0 years (57.0 ttl pk-yrs) Types: Cigarettes Start date: 05/31/1978 Quit date: 05/31/2016 Years since quittin.8 Smokeless tobacco: Never Vaping Use Vaping status: Never Used Substance Use Topics Alcohol use: No Drug use: No Frequency: 3.0 times per week Types: Marijuana Comment: stopped 10 year ago REVIEW OF SYSTEMS GENERAL: No weight loss, malaise or fevers/chills HEENT: Negative for frequent or significant headaches, No changes in hearing or vision. NECK: Negative for lumps, goiter, pain and significant neck swelling RESPIRATORY: Negative for cough, hemoptysis, wheezing, dyspnea or shortness of breath CARDIOVASCULAR: Negative for chest pain, leg swelling, orthopnea, or palpitations GI: No nausea, vomiting, or diarrhea/constipation. No hematochezia/melena. No heartburn or reflux symptoms. : No history of dysuria, frequency or incontinence MUSCULOSKELETAL: Negative for joint pain or swelling. SKIN: + Chest mass ENDOCRINE: Negative for cold or heat intolerance, polyuria, polydipsia and goiter NEURO: No history of headaches, syncope, paralysis, seizures or tremors MOOD: Negative for depression, anxiety, or suicidal ideation. EXAM: BP 118/84 Pulse 69 Resp 16 Wt 75.3 kg (166 lb 0.1 oz) SpO2 98% BMI 28.17 kg/m? PHYSICAL EXAM: General Appearance: Well appearing, alert, in no acute distress, well-hydrated, well nourished. Skin: 2 skin colored lesions noted to the right side of his chest, no erythema or crusting noted. Head: Normocephalic, no masses, lesions, tenderness or abnormalities. Eyes: Anicteric sclera. Extraocular movements are intact. Lungs: Lungs clear to auscultation. No wheezing, rhonchi, rales. Heart: RRR without murmur, gallop, or rubs. No ectopy. Extremities: No deformities, edema, skin discoloration, clubbing or cyanosis. Good capillary refill. Peripheral Pulses: Normal, Capillary refill <2secs, strong peripheral pulses, Pulses palpable. Neurologic: Gait normal. Sensation grossly intact. ASSESSMENT/PLAN: 1. Skin lesion - ICD9: 709.9, ICD10: L98.9 (primary diagnosis) - Recommend consult with Dermatology for further evaluation, may need biopsy. - CONSULT TO DERMATOLOGY 2. Encounter for screening for lung cancer - ICD9: V76.0, ICD10: Z12.2 - Order faxed to [facility] - CONSULT L[facility]G CANCER SCREENING CLINIC Follow-up as needed. Discussed treatment plan and patient voices understanding. Patient's questions answered appropriately. Medications and potential side effects were discussed and patient voice (more content not included)... [facility] 02-27-2024 Telephone encounter Note Pt notified. Erika Whyte MA [facility] 02-27-2024 Miscellaneous Notes Pt notified. Erika Whyte MA Tried to reach pt, VM is full. Unable to leave message. Erika Whyte MA OK to refill as ordered Darian Skaggs MD Patient asking for medication that is : hydrocortisone 1 % cream ( Patient last seen 10/03/23 Future appt. Scheduled: no PHARMACY: [facility]. Please return call to patient when complete. documented in this encounter [facility] 02-26-2024 Telephone encounter Note Tried to reach pt, VM is full. Unable to leave message. Erika Whyte MA [facility] 02-26-2024 Telephone encounter Note OK to refill as ordered Darian Skaggs MD [facility] 02-25-2024 Telephone encounter Note Patient asking for medication that is : hydrocortisone 1 % cream ( Patient last seen 10/03/23 Future appt. Scheduled: no PHARMACY: [facility]. Please return call to patient when complete. [facility] [facility] History of Presen t illness Narrative POPULATION HEALTH NAVIGATION OUTREACH Action/FYI msg to schedule wellness, colonoscopy, hcc gap closure Reason for Outreach Care Gap/HCC or Scheduling Wellness Visits Care Gaps due: Medicare Annual Wellness Visit Colorectal Cancer Screening Patient Contacted: Unable or unnecessary to reach patient: Unable to leave message MyChart message sent HCC related Navigation Signature: Lori Charlton MA October 21, 2023 11:15 AM documented in this encounter [facility] 10-03-2023 History of Presen t illness Narrative Chief Complaint Patient presents with: Follow Up: Medication follow up CJ Rhodes is a 68 year old male who presents here today for medication follow up. No advanced directive. Behavioral health screening: denies feeling depressed or hopeless. Behavioral Health Screening PHQ-2 Score: 0 (Lower risk for depression) Recommendation: no further intervention at this time No bowel, Gi, or urinary issues. Due for colonoscopy, last one done in October 2016, recommend repeat in 5 years. Pt was scheduled for several appts with Gen Surgery for consult but they were cancelled and rescheduled and then most recent in May pt was marked as a no show. GERD: Sx stable with Prilosec 40 mg daily. No longer using Pepcid. He does try to watch what he is eating but admits sometimes he still eats things that trigger his reflux. No chest pains, dizziness, or SOB. Denies any regular exercise other than walking his dog a few times a day, 10-15 minutes at a time. Does get some SOB with walking far or too long. He uses a shopping to lean on when walking in the stores due to running out of breath. He had covid back in 2020. Does not follow with any technical engineer. Would like to get a handicap placard. Uses the albuterol inhaler once at night before bed to keep the wheezing controlled. Former smoker, quit 7 years ago. Had lung cancer screening test done at [facility]-results in scanned records. Elbow: right; pain x 1 month with trying to bend and raise arm or if lifting something heavy. He has not been taking anything for the pain, no heat or ice used. No splints. He stated it is not keeping him from doing his daily living activities. He stated he noticed the pain when he went to lift and dump trash barrel. Past medical history, appointments, medications, allergies reviewed. Previous Medical History PAST MEDICAL HISTORY Diagnosis Date Arthritis COPD (chronic obstructive pulmonary disease) (HCC) Dysphagia Esophageal reflux Generalized osteoarthrosis, unspecified site Lactose intolerance in adult Snoring Previous Surgical History PAST SURGICAL HISTORY Procedure Laterality Date APPENDECTOMY APPENDECTOMY HX COLONOSCOPY FLX DX W/COLLJ SPEC WHEN PFRMD 11/11/2016 Colonoscopy EGD 12/29/2019 Dr. Ash Hidalgo. dx foreign body, Hpylori test negative ESOPHAGOGASTRODUODENOSCOPY TRANSORAL DIAGNOSTIC 11/11/2016 EGD INCISE FINGER TENDON SHEATH Right 08/16/2021 Right trigger thumb release PAST SURGICAL HISTORY OF Repair of lateral epicondylitis right elbow PAST SURGICAL HISTORY OF hemorrhoidectomy TNOT ELBOW LATERAL/MEDIAL DEBRIDE OPEN 05/06/2014 Debridement left elbow Family History FAMILY HISTORY Problem Relation Age of Onset Cancer Mother colon Alcohol/Drug Father Cancer Brother 63 esophagus Cancer Brother 53 lung and brain Heart Brother 53 heart attack Heart Brother heart attack Heart Brother heart attack Heart Brother heart attack Patient Allergies ALLERGIES Allergen Reactions Ibuprofen Itching Swelling and itching Mobic [Meloxicam] Swelling Current Medications Current Outpatient Medications on File Prior to Visit Medication Sig omeprazole (PRILOSEC) 40 mg capsule Take 1 capsule by mouth once daily. famotidine (PEPCID) 20 mg tablet Take 1 tablet by mouth two times a day. EPINEPHrine (EPIPEN) 0.3 mg/0.3 mL auto-injector Administer 1 pen to thigh after being stung. albuterol HFA (PROVENTIL HFA, VENTOLIN HFA) 90 mcg/actuation inhaler Inhale 2 Puffs as instructed every 4 hours as needed for wheezing/shortness of breath. meloxicam (MOBIC) 15 mg tablet Take 1 tablet by mouth once daily. Take with food. (Patient not taking: Reported on 08/06/2021 ) No current facility-administered medications on file prior to visit. Social History Social History Tobacco Use Smoking status: Former Packs/day: 1.50 Years: 38.00 Additional pack years: 0.00 Total pack years: 57.00 Types: Cigarettes Quit date: 05/31/2016 Years since quittin.3 Smokeless tobacco: Never Vaping Use Vaping Use: Never used Substance Use Topics Alcohol use: No Drug use: No Frequency: 3.0 times per week Types: Marijuana Comment: stopped 10 year ago EXAM: BP 120/72 Pulse 62 Resp 16 Wt 72.7 kg (160 lb 4.8 oz) BMI 27.20 kg/m General Appearance: Well appearing, alert, in no acute distress, well-hydrated, well nourished.. Lungs: Lungs clear to auscultation. No wheezing, rhonchi, rales.. Heart: RRR without murmur, gallop, or rubs. No ectopy. Extremities: Tenderness to medial epicondyle right elbow.. Health Maintenance List Lung Cancer Screening Never done Colorectal Cancer Screening due on 11/11/2021 Advance Directive Discussion due on 04/28/2023 Behavioral Health Screening Never done RSV Vaccine(1 - 1-dose 60+ series) due on 02/15/2024 Hepatitis C Screening due on 02/15/2024 Shingrix Vaccine(1 of 2) due on 02/15/2024 Covid-19 Vaccine(1 - season) due on 02/15/2024 Pneumococcal Vaccine: 65+(2 of 2 - PCV) due on 02/15/2024 Influenza Vaccine(Season Ended) due on 12/28/2023 DTaP,Tdap,Td Vaccine(2 - Td or Tdap) due on 02/25/2024 Diabetes Screening due on 08/03/2024 Prostate Cancer Screening Discussion due on 03/27/2026 Lipid Screening due on 06/23/2026 Abdominal Aortic Aneurysm Screening Completed Data reviewed None ASSESSMENT/PLAN: 1. Gastroesophageal reflux disease with esophagitis - ICD9: 530.11, ICD10: K21.00 (primary diagnosis) Stable Continue current medications. - OMEPRAZOLE 40 MG CAPSULE,DELAYED RELEASE 2. Esophageal dysphagia - ICD9: 787.29, ICD10: R13.19 Stable Continue current medications. - OMEPRAZOLE 40 MG CAPSULE,DELAYED RELEASE 3. Screening for colon cancer - ICD9: V76.51, ICD10: Z12.11 Consult General Surgery 4. Bronchitis - ICD9: 490, ICD10: J40 Continue current medications. 5. Tendonitis of elbow, right - ICD9: 727.09, ICD10: M77.8 Recommend using heat or ice Continue to monitor if not improving follow up Follow up 1 year or sooner if needed. I agree with the Chief Complaint, ROS, and Past Histories independently gathered by the clinical administrative support associate and the remaining scribed note accurately describes my personal service to the patient. Medical Decision Making: Problems: Low: Acute, uncomplicated illness or injury Moderate: 2+ stable chronic illnesses Data: Unique test(s) ordered: 1 Risk: Moderate: Drug management Medical Decision Making Level: 4 - Moderate Darian Skaggs MD The documentation for this note was completed by Erika Whyte MA acting as scribe for Darian Skaggs MD. October 03, 2023 11:50 AM. Erika Whyte MA documented in this encounter [facility] 07-15-2023 Discharge summary Note Date/Time July 15, 2023 12:21am [facility] Medical Records Department [address] [place] [address] Emergency Department Summary 07/15/23 MR#: [id number] Acct: [id number] Name: ERIC RHODES Rep #:[id number] : 1955 68 From: Kris Urrutia MD PCP: Dr. Darian Skaggs MD Status:RE G ER Location: ED HPI History of Present Illness Chief Complaint: Chest Pain Informant: patient Onset/Context/Timing Onset: Hours (6) Activity at onset: gradual and onset Timing: Intermittent (2 episodes) and Lasts (10-15 min each) Quality: Positive for Sharp and Stabbing Location: - (lower central chest radiating into mid-back) Current Severity: Gone Maximum Severity: Moderate Worsened By: Nothing Relieved By: Nothing (Did not take anything, spontaneously abated) Associated Symptoms: Negative for Nausea, Vomiting, Diaphoresis, Dyspnea, Cough,Fever, Lightheadedness or Palpitations Narrative Narrative: Patient states he was resting sitting at a table drawing tonight after dinner atsome point started having discomfort in his chest radiating into his back. He had another episode about an hour ago so he presents out of concern. Family history of heart disease in brothers but none personally that he knows of. History of some esophagus issues, he states he had a dilatation about 6 years ago and for the last half year to a year or so he has been having issues with swallowing things sometimes but never to the point where anything is stuck and he had to come to the hospital. [facility] Medical History Encounter for screening for malignant neoplasm of lung Heartburn History of tobacco use Home Medications NK 07/15/23 [History Last Taken Unknown] Allergy/AdvReac Type Severity Reaction Status Date / Time dexamethasone [From Decadron] Allergy Mild Hives Verified 03/04/23 12:31 famotidine [From Pepcid] Allergy Mild Hives Verified 03/04/23 12:31 ibuprofen Allergy Swelling Verified 03/04/23 12:31 Surgical History Hx of appendectomy Social History Smoking Status: Former smoker ROS ROS ED Constitutional Constitutional ED: Denies chills or fever(s) Eyes Eyes: Denies change in vision or diplopia ENT ENT ED: Denies rhinorrhea or sore throat Cardiovascular Cardiovascular: Reports chest pain; Denies palpitations Respiratory/Chest Respiratory/Chest: Denies cough or dyspnea Gastrointestinal Gastrointestinal: Denies abdominal pain, diarrhea, nausea or vomiting Genitourinary Genitourinary ED: Denies dysuria or hematuria Musculoskeletal Musculoskeletal: Reports back pain; Denies neck pain Integumentary Denies abscess or rash Neurologic Neurologic: Denies headache(s), paresthesias or weakness Psychiatric Psychiatric: Denies anxiety or suicidal thoughts EXAM Physical Exam Const Vital Signs: 07/15/23 00:02 07/15/23 00:07 07/15/23 00:25 Temperature 97.7 F L Temperature Source Oral Pulse Rate 63 Respiratory Rate 19 H Respiratory Effort Normal Non-Labored Blood Pressure 145/90 H Blood Pressure Mean 108 Pulse Ox 96 95 Oxygen Delivery Method Room Air Room Air 07/15/23 01:01 07/15/23 01:24 07/15/23 01:30 Temperature Temperature Source Pulse Rate 73 73 68 Respiratory Rate 17 19 H 24 H Respiratory Effort Blood Pressure 122/74 H 132/88 H Blood Pressure Mean 90 102 Pulse Ox 98 95 93 Oxygen Delivery Method Room Air 07/15/23 01:45 07/15/23 02:00 07/15/23 03:00 Temperature Temperature Source Pulse Rate 63 62 63 Respiratory Rate 25 H 23 H 18 Respiratory Effort Blood Pressure 139/96 H 136/81 H Blood Pressure Mean 110 99 Pulse Ox 97 96 98 Oxygen Delivery Method Room Air Room Air Positive well nourished and well developed General Appearance ED: well developed and NAD HEENT Reports moist mucous membranes normocephalic and atraumatic Eyes PERRL and EOMs intact bilaterally Neck full ROM and supple Chest Wall inspection of chest normal and palpation of chest normal Resp normal respiratory effort and clear to auscultation bilaterally Cardio regular rate, regular rhythm and no murmurs Peripheral Pulses: pulses 2+ throughout and radial pulses present bilateral 2+ GI non-tender and non-distended GI Narrative: No pulsatile mass. No Brantley Ann sign. No Langlois sign. Auscultation: normoactive bowel sounds Palpation: soft Back/Spine no CVA tenderness General Back: other FROM Extremity normal to inspection General Extremety ED: Negative for edema, pulses abnormal or tenderness General Extremity: Negative for edema or pulses abnormal Neuro oriented x3, CN's II-XII intact bilaterally and no sensory deficits noted Sensorium / Orientation: awake and alert Motor Exam: strength 5/5 throughout Skin no rashes or lesions noted and no wounds Heart Score History: Slightly/Non-Suspicious ECG: Normal Age: >/= 65 years Risk Factors: 1 or 2 Risk Factors (Former smoker, family history Brothers) Troponin: </= Normal Limit Score: 3 MDM MDM MDM Narrative Medical decision making narrative: Esophageal etiologies in the differential, the symptoms sound less like cardiac etiologies, he denies any tearing sensations to suggest an aortic dissection, and he has equal pulses everywhere and the symptoms really do not suggest AAA rupture or an aortic catastrophe. EKG was obtained, it is normal in my interpretation. 2 view chest x-ray obtained screening mediastinum, on my interpretation appears normal including the mediastinum. Radiology in agreement. Soon after I saw him, he did have some back discomfort that was starting again like it was another episode, he was given a GI cocktail, he states the discomfort resolved and did not recur. He is not sure if it was a GIcocktail or if it went away on its own, but it occurred after we given the treatment. His initial troponin came back within normal limits, we obtained a 2-hour repeat it came back just a little lower 43 compared with 44, for a delta of -1. Heart score is a low risk 3. He is feeling well and stable for discharge home and close outpatient follow-up. Lab Data Attestation: I reviewed the patient's lab results. Labs: Laboratory Results - last 24 hr 07/15/23 07/15/23 00:05 02:49 WBC 5.8 RBC 4.66 Hgb 14.2 Hct 44.2 MCV 94.8 H MCH 30.5 MCHC 32.1 RDW Std Deviation 44.8 H RDW Coeff of Tim 12.9 Plt Count 217 MPV 10.3 Immature Gran % (Auto) 0.300 Neut % (Auto) 46.0 L Lymph % (Auto) 42.2 H Norman % (Auto) 8.7 Eos % (Auto) 1.4 Baso % (Auto) 1.4 H Absolute Neuts (auto) 2.7 Absolute Lymphs (auto) 2.46 Nucleated RBC % 0 Sodium 141 Potassium 3.7 Chloride 107 Carbon Dioxide 28.0 Anion Gap 6 BUN 10 Creatinine 1.20 Estim Creat Clear Calc 57.85 Est GFR (MDRD) Af Amer 78 Est GFR (MDRD) Non-Af 64 BUN/Creatinine Ratio 8.3 L Glucose 97 Calcium 8.7 Troponin I High Sens 44 43 Radiography Diagnostic Testing: Clinical Impression(s) from Imaging Studies Chest X-Ray 07/15/23 00:16 IMPRESSION: No acute consolidative process. Electronically Signed: Suleman Chamorro MD at 0:51 EDT , Rhythm Strip Rhythm Strip: Sinus Rhythm Rate: 65 Ectopy: None EKG Initial EKG: Attestation: I personally reviewed and interpreted this EKG as follows: Interpretation: Sinus Rhythm and No Acute Injury Pattern Comments: Normal EKG Discharge Plan Triage Chief Complaint: Chest Pain ED Provider: Kris Urrutia Dx/Rx/DC Orders Clinical Impression: Chest pain, unspecified Instructions: ED Chest Pain, Uncertain Cause Prescriptions: No Action NK Primary Care Provider: Darian Skaggs Referrals: Darian Skaggs MD [Primary Care Provider] - As soon as possible Disposition Disposition: Home, Self Care What to do if you have Problems For any increased pain, shortness of breath, bleeding, nausea or vomiting, chestpain, or any unexpected problems, contact your Primary Care Provider. Call [facility] ([phone]) or report to the closest Emergency Room. Call 911 if necessary. 07/15/237 <Electronically signed by Kris Urrutia MD> Cosigner Signature (if applicable): CC: Dr. Darian Skaggs MD ~ Signed [facility] Work Phone: 1(928) 163-653411-21-2023 Instructions* Patient Instructions* Madyson Noble APRN.HEAD STOCK OPERATOR - 03/18/2023 1:37 PM EST Recommend Cetaphil facial wash and lotion Apply lotion in the morning and evening documented in this encounterUniversity [facility] History of Present illness Narrative* Madyson Noble APRN.PIPE - 03/18/2023 1:20 PM EST 03/18/2023 Patient presents with: Derm Problem: Dry skin on face SUBJECTIVE: This is a 67 year old that is here today for Above Complaints. Reports has dry skin around the nose and eye lid. Has been putting some OTC lotion on it but not much better. Has had in the past and used hydrocortisone cream which helped. Denies hx of eczema, psoriasis or dry skin to other areas PAST MEDICAL HISTORY Diagnosis Date Arthritis COPD (chronic obstructive pulmonary disease) (HCC) Esophageal reflux Generalized osteoarthrosis, unspecified site Lactose intolerance in adult Snoring ALLERGIES Ibuprofen and Mobic [Meloxicam] MEDICATIONS Current Outpatient Medications Medication Sig omeprazole (PRILOSEC) 40 mg capsule Take 1 capsule by mouth once daily. famotidine (PEPCID) 20 mg tablet Take 1 tablet by mouth two times a day. EPINEPHrine (EPIPEN) 0.3 mg/0.3 mL auto-injector Administer 1 pen to thigh after being stung. albuterol HFA (PROVENTIL HFA, VENTOLIN HFA) 90 mcg/actuation inhaler Inhale 2 Puffs as instructed every 4 hours as needed for wheezing/shortness of breath. meloxicam (MOBIC) 15 mg tablet Take 1 tablet by mouth once daily. Take with food. (Patient not taking: Reported on 08/06/2021 ) No current facility-administered medications for this visit. Medications and allergies reviewed by this provider. SOCIAL HISTORY Social History Tobacco Use Smoking status: Former Packs/day: 1.50 Years: 38.00 Additional pack years: 0.00 Total pack years: 57.00 Types: Cigarettes Quit date: 05/31/2016 Years since quittin.8 Smokeless tobacco: Never Vaping Use Vaping Use: Never used Substance Use Topics Alcohol use: No Drug use: No Frequency: 3.0 times per week Types: Marijuana Comment: stopped 10 year ago REVIEW OF SYSTEMS All other reviewed and negative other than HPI. OBJECTIVE: BP 116/70 Pulse 65 Resp 16 Wt 74.7 kg (164 lb 9.6 oz) SpO2 99% BMI 27.93 kg/m . Vital signs reviewed by this provider. APPEARANCE Well appearing, alert, in no acute distress, well-hydrated, well nourished. Skin: Mild dry skin and erythema to bilateral eyelids. Mild erythema to nasolabial folds without dryness Lung Cancer Screening Never done Colorectal Cancer Screening due on 11/11/2021 Influenza Vaccine(1) due on 10/26/2023 RSV Vaccine(1 - 1-dose 60+ series) due on 02/15/2024 Hepatitis C Screening due on 02/15/2024 HIV Screening due on 02/15/2024 Shingrix Vaccine(1 of 2) due on 02/15/2024 Covid-19 Vaccine(1) due on 02/15/2024 Pneumococcal Vaccine: 65+(2 - PCV) due on 02/15/2024 DTaP,Tdap,Td Vaccine(2 - Td or Tdap) due on 02/25/2024 Diabetes Screening due on 08/03/2024 Prostate Cancer Screening Discussion due on 03/27/2026 Lipid Screening due on 06/23/2026 Abdominal Aortic Aneurysm Screening Completed Advance Directive Discussion Completed Depression Assessment Completed ASSESSMENT/PLAN: 1. Atopic dermatitis, unspecified type - ICD9: 691.8, ICD10: L20.9 - Begin treatment with topical steriods- no more - Dry skin care instructions reviewed - Use mild soap like Dove, Aveeno or Cetaphil - limit shower/bath to less than 15 minutes with warm, not hot, water - BID use of recommended emollients such as Cetaphil, Eucerin Plus, Aveeno, Aquaphor - Follow up if symptoms persist or worsen. - HYDROCORTISONE 1 % TOPICAL CREAM Madyson Noble, MANJINDER.HEAD STOCK OPERATOR Prescription instructions reviewed with patient as applicable. Patient advised if symptoms do not improve or if symptoms worsen sooner, to contact their primary care physician. Potential red flag symptoms discussed with the patient. Reviewed appropriate action plan to take if red flag symptoms occur. Patient agreeable to treatment plan. I spent a total of 20 minutes on the date of the service which included preparing to see the patient, [id number] patient care, completing clinical documentation, obtaining and/or reviewing separately obtained history, performing a medically appropriate examination, counseling and educating the pat ient/family/caregiver, and ordering medications, tests, or procedures. documented in this encounterUniversity [facility]als [facility]11-17-2023 Miscellaneous Notes* Telephone Encounter - Alma Hodges RN - 03/14/2023 11:08 AM EST Pt called and is notified of providers results. Pt voices understanding. Alma Hodges RN * Telephone Encounter - Reece Villa APRN.CNP - 03/14/2023 10:16 AM EST Please let the patient know that his ultrasound for screening for abdominal aortic aneurysm was normal. There is no evidence of this disease. Reece Villa APRN.CNP documented in this encounterUniversity Hospitals Cleveland [facility] Center11-16-2023 History of Present illness Narrative* Kristen Balderrama RDMS - 03/13/2023 10:00 AM EST Radiology Service Progress Note PATIENT NAME: Eric Rhodes DATE OF SERVICE: March 13, 2023 TIME: 2:55 PM PATIENT IDENTITY VERIFICATION COMPLETED USING TWO (2) IDENTIFIERS: Name and Date of confirmedby patient verbally. FALL SCREENING: Has the patient had 2 falls in the last year or 1 fall with injury or currently using an Ambulatory Assistive Device (Walker, Cane, Wheelchair, Crutches, etc.)? No PATIENT GENDER DATA: Male PATIENT RELEVANT IMPLANT DATA REVIEWED: Not Applicable RADIOLOGY DEPARTMENT: Ultrasound PERIPHERAL IV DATA: Not applicable SIGNED BY: Kristen Balderrama RDMS RVT March 13, 2023 2:55 PM documented in this encounterUniversity Hospitals [facility] Center10-20-2023 Instructions* Patient Instructions* Eugenia Mitchell APRN.HEAD STOCK OPERATOR - 02/14/2023 1:31 PM EDT Images from the original note were not included. Get fasting labs completed, no food 10-12 hours prior. You can have black coffee and water. Schedule for Lung Cancer Screening, Ultrasound AAA Due for colonoscopy, Dr. Ash Hidalgo, office will look at records Follow up in 1 year or sooner pending test results. Health Promotion: - Eat healthy -- go to [employer]Cool[employer]gov to get started - Have a yearly physical - Get at least 30 minutes of physical activity daily - Get at least 7 to 8 hours of sleep each night - Reach and maintain a healthy weight - Get help to quit or don't start smoking - Limit alcohol use to one drink or less - Do not use illegal drugs or misuse prescription drugs - Wear a helmet when riding a bike and wear protective gear for sports - Wear a seatbelt in cars and not text and drive - Wear sunscreen Miralax/Dulcolax Bowel Prep For this bowel preparation, you will need to purchase the following medications at any pharmacy: Over the counter Miralax (generic name is polyethylene glycol) 8.3 oz or 238 grams Four (4) Dulcolax (generic name is Bisacodyl) tablets 3 days prior to your procedure, you need to be on a low fiber diet (Such as popcorn, beans, seeds, nuts, salad and raw vegetables, corn, fresh and dried fruit and multi-grain bread) YOU MUST BE ON CLEAR LIQUIDS FOR 2 FULL DAYS PRIOR TO YOUR COLONOSCOPY Day one which would be two days before your colonoscopy, you will need to be on clear liquids all day. You may have coffee or tea-black only (no cream), clear broths (beef, chicken or vegetable), apple juice, white grape juice, pop, Gatorade, Powerade, lemonade, Jello, popsicles, Nithin-aid, and water-But nothing red or dark purple in color and no dairy products, tomato or orange juices. Day two which would be the day before your colonoscopy continue clear liquids all day as above. And follow the instructions below: 8:00 AM - Mix the Miralax with 64 oz of Gatorade or another clear liquid of choice and place in refrigerator. Most people say the drink is better cold. 4:00 PM - Take 2 of the Dulcolax tablets with 8 oz of water. 6:00 PM - Start to drink the Miralax mixture. You must finish it by midnight. 8:00 PM - Take the other 2 Dulcolax tablets with 8 oz of water. You may continue to drink clear liquids while you are taking your prep and after you finish it as long as it is before midnight. Drink lots of fluids so you don t become dehydrated. Nothing to drink after midnight the night before the procedure unless you are instructed differently by the physician or nurses. Please remember to take your normal medications the morning of the procedure with a small sip of water especially your blood pressure medications. If you are diabetic, you need to contact your physician about how to take your diabetic medications and/or insulin during the prepping period and the day of your procedure. Any questions please call: Dr. Dumont or Dr. Baum [phone] Amrita Wall [phone] Dr. Alvarado [phone] [facility] nurses [phone] documented in this encounterUniversity Hospitals [facility] Center10-20-2023 History of Present illness Narrative* Eugenia Mitchell APRN.HEAD STOCK OPERATOR - 02/14/2023 1:20 PM EDT Welcome To Medicare Visit Medical B eligibility date 2023 Date of last exam, first exam today PAST MEDICAL HISTORY Diagnosis Date Arthritis COPD (chronic obstructive pulmonary disease) (HCC) Esophageal reflux Generalized osteoarthrosis, unspecified site Lactose intolerance in adult Snoring PAST SURGICAL HISTORY Procedure Laterality Date APPENDECTOMY APPENDECTOMY HX COLONOSCOPY FLX DX W/COLLJ SPEC WHEN PFRMD 11/11/2016 Colonoscopy EGD 12/29/2019 Dr. Ash Hidalgo. dx foreign body, Hpylori test negative ESOPHAGOGASTRODUODENOSCOPY TRANSORAL DIAGNOSTIC 11/11/2016 EGD INCISE FINGER TENDON SHEATH Right 08/16/2021 Right trigger thumb release PAST SURGICAL HISTORY OF Repair of lateral epicondylitis right elbow PAST SURGICAL HISTORY OF hemorrhoidectomy TNOT ELBOW LATERAL/MEDIAL DEBRIDE OPEN 05/06/2014 Debridement left elbow ALLERGIES Allergen Reactions Ibuprofen Itching Swelling and itching Mobic [Meloxicam] Swelling Medications reviewed: Yes FAMILY HISTORY Problem Relation Age of Onset Cancer Mother colon Alcohol/Drug Father Cancer Brother 63 esophagus Cancer Brother 53 lung and brain Heart Brother 53 heart attack Heart Brother heart attack Heart Brother heart attack Heart Brother heart attack Social History Tobacco Use Smoking status: Former Packs/day: 1.50 Years: 38.00 Additional pack years: 0.00 Total pack years: 57.00 Types: Cigarettes Quit date: 05/31/2016 Years since quittin.7 Smokeless tobacco: Never Vaping Use Vaping Use: Never used Substance Use Topics Alcohol use: No Drug use: No Frequency: 3.0 times per week Types: Marijuana Comment: stopped 10 year ago Risk Factors: none ACTIVE PROBLEM LIST Generalized Osteoarthrosis, Unspecified Site Lateral Epicondylitis Gastroesophageal Reflux Disease With Esophagitis Dysphagia Vaccine Refused By Patient Chronic Midline Low Back Pain With Right-Sided Sciatica Eric A Stone gets minimal exercise. He watches his diet for sodium, low fat and low cholesterol some of the time. List of current specialists seen: None End of Life Planning discussed including patients advanced directive wishes: No I am willing to follow Eric advanced directives. Depression screen He in the past two weeks denies having felt down, depressed, hopeless, or with little interest or pleasure in doing things. Evidence of Cognitive Impairment: No What tool was used to assess the patients cognitive status? Mini cog 5. Functional Ability/Safety Screen 1. Was the patient's timed Up and Go test unsteady or longer than 30 seconds? No 2. Does the patient need help with the phone, transportation, shopping, preparing meals, housework,laundry, medications or managing money? No 3. Does the patient's home have rugs in the hallway, lack of grab bars in the bathroom, lack of handrails on the stairs or have poor lighting? No Hearing Evaluation: wears hearing aids and normal PHYSICAL EXAM BP 120/88 Pulse 60 Resp 16 Ht 5' 4.37 (1.64m) Wt 166 lb (75.3kg) SpO2 97% BMI 28.17 kg/(m^2). Visual acuity: follows with ophthalmology ASSESSMENT/PLAN: The following prevention plan was discussed during the office visit and provided to the patient: - Counseled on healthy diet and regular exercise - Fall avoidance information provided - Personalized prevention plan provided Eugenia Mitchell APRN.CNP This is a 67 year old male who presents today with: Patient presents with: Medicare Wellness Exam HISTORY OF PRESENT ILLNESS: Eric A Stone is a 67 year old male. Patient presents with: Medicare Wellness Exam Here in the office for extensive exam. Diet: Trying to eat well balanced diet. Exericse: Staying active at home. Vision: Up to date, wearing glasses. Dentist: No Teeth, have dentures but do not fit. Sleep: 6-7 hours per night. Mood: Denies any increased sadness, anxiety, or SI/HI. GERD: Symptoms well controlled. Wheezing: Using albuterol as needed. Concerns for possible cancer. Several brothers have different kinds of cancer. 7 total brothers. One has brain and Lung CA. Other brother passed from brain cancer. 3rd brother had throat cancer, smoker. Would like to have recommended screenings completed. Former smoker, quit 5 years ago. Colonoscopy/EGD: Last completed in [address] Ash Hidalgo at [facility]. PSA: Normal in 2021 Vaccines: Denies wanting at this time. PAST MEDICAL HISTORY: PAST MEDICAL HISTORY Diagnosis Date Arthritis COPD (chronic obstructive pulmonary disease) (HCC) Esophageal reflux Generalized osteoarthrosis, unspecified site Lactose intolerance in adult Snoring PAST SURGICAL HISTORY Procedure Laterality Date APPENDECTOMY APPENDECTOMY HX COLONOSCOPY FLX DX W/COLLJ SPEC WHEN PFRMD 11/11/2016 Colonoscopy EGD 12/29/2019 Dr. Ash Hidalgo. dx foreign body, Hpylori test negative ESOPHAGOGASTRODUODENOSCOPY TRANSORAL DIAGNOSTIC 11/11/2016 EGD INCISE FINGER TENDON SHEATH Right 08/16/2021 Right trigger thumb release PAST SURGICAL HISTORY OF Repair of lateral epicondylitis right elbow PAST SURGICAL HISTORY OF hemorrhoidectomy TNOT ELBOW LATERAL/MEDIAL DEBRIDE OPEN 05/06/2014 Debridement left elbow ALLERGIES Ibuprofen and Mobic [Meloxicam] MEDICATIONS Current Outpatient Medications Medication Sig omeprazole (PRILOSEC) 40 mg capsule Take 1 capsule by mouth once daily. famotidine (PEPCID) 20 mg tablet Take 1 tablet by mouth two times a day. EPINEPHrine (EPIPEN) 0.3 mg/0.3 mL auto-injector Administer 1 pen to thigh after being stung. albuterol HFA (PROVENTIL HFA, VENTOLIN HFA) 90 mcg/actuation inhaler Inhale 2 Puffs as instructed every 4 hours as needed for wheezing/shortness of breath. meloxicam (MOBIC) 15 mg tablet Take 1 tablet by mouth once daily. Take with food. (Patient not taking: Reported on 08/06/2021 ) No current facility-administered medications for this visit. FAMILY HISTORY Problem Relation Age of Onset Cancer Mother colon Alcohol/Drug Father Cancer Brother 63 esophagus Cancer Brother 53 lung and brain Heart Brother 53 heart attack Heart Brother heart attack Heart Brother heart attack Heart Brother heart attack Social History Tobacco Use Smoking status: Former Packs/day: 1.50 Years: 38.00 Additional pack years: 0.00 Total pack years: 57.00 Types: Cigarettes Quit date: 05/31/2016 Years since quittin.7 Smokeless tobacco: Never Vaping Use Vaping Use: Never used Substance Use Topics Alcohol use: No Drug use: No Frequency: 3.0 times per week Types: Marijuana Comment: stopped 10 year ago REVIEW OF SYSTEMS GENERAL: No weight loss, malaise or fevers/chills HEENT: Negative for frequent or significant headaches, No changes in hearing or vision. NECK: Negative for lumps, goiter, pain and significant neck swelling RESPIRATORY: Negative for cough, hemoptysis, wheezing, dyspnea or shortness of breath CARDIOVASCULAR: Negative for chest pain, leg swelling, orthopnea, or palpitations GI: No nausea, vomiting, or diarrhea/constipation. No hematochezia/melena. No heartburn or reflux symptoms. : No history of dysuria, frequency or incontinence MUSCULOSKELETAL: Negative for joint pain or swelling. SKIN: Negative for lesions, rash, and itching ENDOCRINE: Negative for cold or heat intolerance, polyuria, polydipsia and goiter NEURO: No history of headaches, syncope, paralysis, seizures or tremors MOOD: Negative for depression, anxiety, or suicidal ideation. EXAM: BP 120/88 Pulse 60 Resp 16 Ht 163.5 cm (5' 4.37) Wt 75.3 kg (166 lb) SpO2 97% BMI 28.17 kg/m PHYSICAL EXAM: General Appearance: Well appearing, alert, in no acute distress, well-hydrated, well nourished.. Skin: Skin color, texture, turgor normal, no suspicious rashes or lesions. Head: Normocephalic, no masses, lesions, tenderness or abnormalities. Eyes: Anicteric sclera. Pupils are equally round and reactive to light. Extraocular movements are intact. . Ears: External ears normal, canals clear. Neck: Supple, no adenopathy; thyroid symmetric, normal size, no bruits. Lungs: Lungs clear to auscultation. No wheezing, rhonchi, rales.. Heart: RRR without murmur, gallop, or rubs. No ectopy. Abdomen: Normal abdominal exam, Abdomen soft, non-tender. Bowel sounds normal. No masses, organomegaly, Negative CVA tenderness. Extremities: No deformities, edema, skin discoloration, clubbing or cyanosis. Good capillary refill. . Musculoskeletal: No joint swelling, deformity, or tenderness. Peripheral Pulses: Normal, Capillary refill <2secs, strong peripheral pulses, Pulses palpable. Neurologic: Gait normal. Reflexes normal and symmetric. Sensation grossly intact.. ASSESSMENT/PLAN: 1. Medicare welcome exam - ICD9: V70.0, ICD10: Z00.00 (primary diagnosis) - Counseled on healthy diet and regular exercise - Colorectal cancer screening recommended - agrees to Colonoscopy - Risks/benefits of prostate cancer screening discussed. screening PSA ordered - Lung cancer screening recommended - Ultrasound screening for AAA - Depression screening tool completed and reviewed with patient. Based on score and interview, patient is not at risk for depression and recommended no further intervention at this time. - Follow up for annual exam in one year 2. Gastroesophageal reflux disease with esophagitis without hemorrhage - ICD9: 530.81, 530.10, ICD10: K21.00 - Stable, continue to take medication as prescribed. - COMP METABOLIC PANEL 3. Encounter for screening for lung cancer - ICD9: V76.0, ICD10: Z12.2 - CONSULT LUNG CANCER SCREENING CLINIC 4. Screening for abdominal aortic aneurysm - ICD9: V81.2, ICD10: Z13.6 - US SCREENING FOR AAA 5. Screening for lipid disorders - ICD9: V77.91, ICD10: Z13.220 - LIPID PANEL BASIC 6. Special screening for malignant neoplasms, colon - ICD9: V76.51, ICD10: Z12.11 - Office will try to get Dr. Hidalgo office note to see screening recommendations - COLONOSCOPY SCREENING 7. Screening for prostate cancer - ICD9: V76.44, ICD10: Z12.5 - PSA/PROSTSPECAG SCRN Follow up in 1 year or sooner pending test results. Discussed treatment plan and patient voices understanding. Patient's questions answered appropriately. Medications and potential side effects were discussed and patient voices understanding. Eugenia Mitchell APRN.HEAD STOCK OPERATOR This note was partially generated using [employer] voice recognition system. Note was reviewed for accuracy. There may be minor misspellings or grammar miscues with [employer] voice recognition. TR OPEN ACCESS QUESTIONNAIRE 1. Are you currently having any new or unusual stomach/gastrointestinal issues at this time such asconstipation, diarrhea, abdominal pain, rectal bleeding etc?No 2. Do you have any difficulty swallowing? No 3. Do you have any implanted devices such as a defibrillator, pacemaker, cardiac stents or deep brain stimulator? No 4. Do you take any Blood thinners such as Coumadin, Plavix, Xarelto, Eliquis, Brilinta or any otherblood thinner? No 5. Do you have any new or past cardiac (heart) or pulmonary (lung) issues? No 6. Do you currently use any oxygen? No 7. Have you been hospitalized in the past 6 weeks? No 8. Have you had difficulty with anesthesia previously re: Difficult intubation? No Other difficulty or allergic reaction to anesthesia other than post op N/V? No 9. Are you on dialysis? No 10. Do you have any bleeding disorders such as hemophilia or Factor 5? No 11. Are you an Insulin Dependent Diabetic? No IF ANY OF THE TOP ELEVEN QUESTIONS ARE ANSWERED YES PLEASE SCHEDULE THE PATIENT FOR A CONSULT. N/A 12. Is the patient's BMI 40 or greater? No:Body mass index is 28.17 kg/m .. 13. Do you take any narcotics or anti-Anxiety medications? No 14. Do you use any illegal or recreational drugs including marijuana? Yes / Marijuana 15. Any alcohol use: No. 16. Have you been diagnosed with chronic liver disease such as hepatitis or cirrhosis? No 17. Do you have a seizure disorder? No 18. Do you have ulcerative colitis or Crohn's disease? No 19. Are you or could you be ? No 20. Any other important health information we should be made aware of prior to your colonoscopy? No To be completed by LIP: Did patient have MAC anesthesia with a previous endoscopy procedure? No Patient appropriate for Open Access Colonoscopy: Yes: appropriate for Open Access Procedure Checklist: Prior to closing the encounter: Complete questionnaire: Yes Confirm Prep order has been Ordered/Pended: Yes. Patient's procedure could be delayed if not given the script for the prep. Please ensure the prep is escripted to pharmacy or printed. Instructions for the prep will print upon filing or pending thissmartset. Please send all open access questionnaires to [facility] Pool #[id number] documented in this encounterUniversity Hospitals Cleveland Medical Center10-02-2023 Miscellaneous Notes* Telephone Encounter - Kacy Ortiz Ma - 01/27/2023 1:37 PM EDT Call to pt and left generic message on that new Rx was sent into pharmacy, if any issues to contact office and speak with Triage Nurse. Kacy Ortiz Ma * Telephone Encounter - Reece Villa APRN.PIPE - 01/27/2023 1:21 PM EDT Okay I have sent the omeprazole 40 mg. The following approved medication requests have been transmitted electronically. Requested Prescriptions Signed Prescriptions Disp Refills omeprazole (PRILOSEC) 40 mg capsule 30 capsule 11 Sig: Take 1 capsule by mouth once daily. Authorizing Provider: REECE VILLA APRN.CNP * Telephone Encounter - Yenni Negrete LPN - 01/27/2023 1:13 PM EDT Check Pt meds. It should be Omeprazole 40 mg. Daily. Please send correct medication. Yenni Negrete LPN * Telephone Encounter - Imani Newton - 01/27/2023 12:59 PM EDT Patient said he picked up the rx that Dr. Skaggs sent for his acid reflux. Said it is the wrongmedication. He didn't know the name of the medication it should be. I asked if it was omeprazole. He didn't know. Just said it is a purple and yellow pill. Please review and call him at [phone]. documented in this encounterUniversity Hospitals Cleveland Medical Center09-28-2023 Miscellaneous Notes* Telephone Encounter - Darian Skaggs MD - 01/23/2023 5:02 PM EDT OK to refill as ordered Darian Skaggs MD * Telephone Encounter - Erika Whyte Ma - 01/23/2023 4:54 PM EDT Last office visit: 12/02/22 F/u scheduled: none Erika Whyte Ma * Telephone Encounter - Rhonda Parker - 01/23/2023 4:45 PM EDT Patient has been identified by name and date of : Yes Requested Prescriptions Pending Prescriptions Disp Refills famotidine (PEPCID) 20 mg tablet 10 tablet 0 Sig: Take 1 tablet by mouth two times a day. RX INSTRUCTIONS: Patient aware RX will be sent to pharmacy. No need to notify patient. Rhonda Parker documented in this encounterUniversity Hospitals Cleveland Medical Center08-07-2023 History of Present illness Narrative* Destiney Dong APRN.HEAD STOCK OPERATOR - 12/02/2022 1:18 PM EDT Chief Complaint No chief complaint on file. CJ Rhodes is a 67 year old male who presents here today for Above Complaints.. Patient presents for ER follow up for allergic reaction. Patient was seen after being stung about 15-20 times. Patient was treated and sent home on prednisone. Past medical history, appointments, medications, allergies reviewed. Previous Medical History PAST MEDICAL HISTORY Diagnosis Date Arthritis COPD (chronic obstructive pulmonary disease) (HCC) Esophageal reflux Generalized osteoarthrosis, unspecified site Lactose intolerance in adult Snoring Previous Surgical History PAST SURGICAL HISTORY Procedure Laterality Date APPENDECTOMY APPENDECTOMY HX COLONOSCOPY FLX DX W/COLLJ SPEC WHEN PFRMD 11/11/2016 Colonoscopy EGD 12/29/2019 Dr. Ash Hidalgo. dx foreign body, Hpylori test negative ESOPHAGOGASTRODUODENOSCOPY TRANSORAL DIAGNOSTIC 11/11/2016 EGD INCISE FINGER TENDON SHEATH Right 08/16/2021 Right trigger thumb release PAST SURGICAL HISTORY OF Repair of lateral epicondylitis right elbow PAST SURGICAL HISTORY OF hemorrhoidectomy TNOT ELBOW LATERAL/MEDIAL DEBRIDE OPEN 05/06/2014 Debridement left elbow Family History FAMILY HISTORY Problem Relation Age of Onset Cancer Mother colon Alcohol/Drug Father Cancer Brother 63 esophagus Cancer Brother 53 lung and brain Heart Brother 53 heart attack Heart Brother heart attack Heart Brother heart attack Heart Brother heart attack Patient Allergies ALLERGIES Allergen Reactions Ibuprofen Itching Swelling and itching Mobic [Meloxicam] Swelling Current Medications Current Outpatient Medications on File Prior to Visit Medication Sig albuterol HFA (PROVENTIL HFA, VENTOLIN HFA) 90 mcg/actuation inhaler Inhale 2 Puffs as instructed every 4 hours as needed for wheezing/shortness of breath. omeprazole (PRILOSEC) 40 mg capsule Take 1 capsule by mouth once daily. meloxicam (MOBIC) 15 mg tablet Take 1 tablet by mouth once daily. Take with food. (Patient not taking: Reported on 08/06/2021 ) No current facility-administered medications on file prior to visit. Social History Social History Tobacco Use Smoking status: Former Packs/day: 1.50 Years: 38.00 Total pack years: 57.00 Types: Cigarettes Quit date: 05/31/2016 Years since quittin.5 Smokeless tobacco: Never Vaping Use Vaping Use: Never used Substance Use Topics Alcohol use: No Drug use: No Frequency: 3.0 times per week Types: Marijuana Comment: stopped 10 year ago Review of Symptoms REVIEW OF SYSTEMS SEE HPI EXAM: BP 132/80 Pulse 86 Resp 16 Wt 73.9 kg (163 lb) BMI 27.12 kg/m General Appearance: Well appearing, alert, in no acute distress, well-hydrated, well nourished.. Skin: Red raised rash to bilateral arms. Health Maintenance List ABDOMINAL AORTIC ANEURYSM SCREENING Never done COVID-19 VACCINE(1) Never done HEPATITIS C SCREENING Never done HIV SCREENING Never done LUNG CANCER SCREENING Never done SHINGRIX VACCINE(1 of 2) Never done COLORECTAL CANCER SCREENING due on 11/11/2021 PNEUMOCOCCAL: 67+(2 - PCV) due on 2022 ADVANCE DIRECTIVE DISCUSSION Never done DEPRESSION ASSESSMENT Never done INFLUENZA(1) due on 12/27/2022 DTAP,TDAP,TD(2 - Td or Tdap) due on 02/25/2024 DIABETES SCREEN due on 08/03/2024 PROSTATE CANCER SCREENING DISCUSSION due on 03/27/2026 LIPID SCREEN due on 06/23/2026 ASSESSMENT/PLAN: 1. Allergic reaction to bee sting - ICD9: 989.5, E905.3, ICD10: T63.441A - FAMOTIDINE 20 MG TABLET - EPINEPHRINE 0.3 MG/0.3 ML INJECTION, AUTO-INJECTOR -continue prednisone provided from ER as well as needed benadryl Destiney Dong APRN.HEAD STOCK OPERATOR documented in this encounterUniversity Hospitals Cleveland Medical Center08-06-2023 Discharge summary Author Phill Wu [facility] December 01, 2022 5:33pm Note Date/Time December 01, 2022 5:2 0pm [facility] Medical Records Department [address] [place] [address] Emergency Department Summary 12/01/22 MR#: [id number] Acct: [id number] Name: ERIC RHODES Rep #:[id number] : 1955 67 From: Phill Daniel PCP: Dr. Darian Skaggs MD Status:RE G ER Location: ED HPI History of Present Illness Chief Complaint: [facility] Medical History Heartburn Home Medications ondansetron 4 mg disintegrating tablet 4 mg PO Q6H PRN PRN Nausea #15 tabs 02/17/21 [Rx Last Taken Unknown] prednisone 50 mg tablet 50 mg PO DAILY 5 days #5 tabs 12/01/22 [Rx Last Taken Unknown] Allergy/AdvReac Type Severity Reaction Status Date / Time ibuprofen Allergy Swelling Verified 02/09/21 12:59 Surgical History Hx of appendectomy Social History (Updated 02/17/21 @ 11:[address] Cirilo Feldman, ) Smoking Status: Former smoker EXAM Physical Exam Const Vital Signs: 12/01/22 17:12 Temperature 96.5 F L Temperature Source Temporal Pulse Rate 79 Respiratory Rate 18 Blood Pressure 112/71 Blood Pressure Mean 84 Pulse Ox 98 Oxygen Delivery Method Room Air MDM MDM MDM Narrative Medical decision making narrative: HISTORY OF PRESENT ILLNESS: 67-year-old male here with concern for bee stings last night. He states he has several areas of redness and swelling in his legs and arms. He further states he is concerned from the itching and irritation on bilateral arms and bilateral legs. Denies any trouble swallowing, abdominal pain, shortness of breath, throat closure drooling or difficulty swallowing. REVIEW OF SYSTEMS: Pertinent positives: Bee stings, redness Pertinent negatives: Throat closure, difficulty swallowing, drooling PHYSICAL EXAM: Nursing triage notes reviewed, Vital signs reviewed Constitutional: please see mdm HENT: MMM, posterior oropharynx patent. No stridor. Eyes: Pupils equal round and reactive to light, Extraocular muscles intact Neck: No stridor, no JVD, full neck ROM Lungs: Clear to auscultation, No wheezing or rales. No increased work of breathing, no conversational dyspnea, no accessory muscle use, no nasal flaring. No respiratory distress noted Heart: Regular rate and rhythm, No murmurs, No rubs and No gallops, 2+ distal pulses (radial, femoral, posterior tibial) in all extremities Abdomen: Soft, there is no tenderness, rigidity, rebound or guarding, no obviousperitoneal signs, no palpable pulsatile abdominal masses, no auscultated abdominal bruit : No CVAT Extremities: No edema Neuro: No focal neurological deficits, cranial nerves II through XII intact, 5/5strength in all extremities. Intact sensation to light touch in all extremities,2+ reflexes bilateral patella tendons. Normal gait. No ataxia. Skin: Erythematous lesions noted to upper and lower extremity, not obviously urticaria. There is no crepitus bullae. There is no fluctuance or induration. MEDICAL DECISION MAKING: Chief Complaint: Bee sting ALL IMAGES (IF OBTAINED) HAVE BEEN PERSONALLY REVIEWED AND INTERPRETED BY MYSELF. MDM Narrative: Patient was hemodynamically stable, afebrile, nontoxic-appearing. Exam with nonspecific skin irritation likely allergic in origin. There is no sign of anaphylaxis or respiratory compromise. There is no drooling. Patient speaking full sentences. He will be given symptomatic treatmentincluding IM Decadron and instructions to take p.o. Benadryl/Zyrtec as well as Pepcid for H1 and H2 blockade. Strict return precautions were discussed. Follow-up was discussed. The patient and/or family, caregivers express understanding. The patient and/orfamily, caregivers agrees with the plan. Shared decision making: I will have a discussion with the patient and or visitors regarding risk/benefits of further testing or admission. They will be made aware of of the risk/benefits inherent in this decision they will be given the opportunity to voice understanding. Total critical care time today provided was at least 0 minutes. This excludes separately billable procedures. Critical care time (if documented) is secondary to the patient having high probability of clinically significant/life threatening deterioration in the patient's condition which required my urgent intervention. Discharge Plan Triage Chief Complaint: Bite ED Provider: Phill Wu Dx/Rx/DC Orders Clinical Impression: Allergic reaction, Accidental bee sting Instructions: ED BEE STING General Allergic Rxn Prescriptions: New prednisone 50 mg tablet 50 mg PO DAILY 5 Days Qty: 5 0RF No Action ondansetron [ondansetron] 4 MG tablet 4 mg PO Q6H PRN PRN (Reason: Nausea) Qty: 15 0RF Primary Care Provider: Darian Skaggs Referrals: Darian Skaggs MD [Primary Care Provider] - Activity Restrictions/Additional Instructions: Thank you for trusting us with your care today! Please take Zyrtec (cetirizine)/Benadryl daily. Please also take Pepcid daily. You may obtain Benadryl/Zyrtec and Pepcid [id number] at any drugstore pharmacy. Please take prednisone as prescribed. Please return to the emergency department if your symptoms change or worsen. Specifically if develop drooling, difficulty swallowing, shortness of breath. Please follow with your primary care physician for further outpatient evaluationand management. Disposition Disposition: Home, Self Care What to do if you have Problems For any increased pain, shortness of breath, bleeding, nausea or vomiting, chestpain, or any unexpected problems, contact your Primary Care Provider. Call [employer] [facility] ([phone]) or report to the closest Emergency Room. Call 911 if necessary. 12/01/22 1733 <Electronically signed by Phill Wu DO> Cosigner Signature (if applicable): CC: Dr. Darian Skaggs MD ~ Signed [facility] Work Phone: [phone] 525-551907-31-2023 Miscellaneous Notes* Telephone Encounter - Reece Villa APRN.CNP - 11/25/2022 2:03 PM EDT The following approved medication requests have been transmitted electronically. Requested Prescriptions Pending Prescriptions Disp Refills albuterol HFA (PROVENTIL HFA, VENTOLIN HFA) 90 mcg/actuation inhaler 1 Each 3 Sig: Inhale 2 Puffs as instructed every 4 hours as needed for wheezing/shortness of breath. Reece Villa APRN.CNP * Telephone Encounter - Eugenia Lynn - 11/25/2022 1:39 PM EDT Patient has been identified by name and date of : Yes, Provider COTY Patient phones for refill(s): Requested Prescriptions Pending Prescriptions Disp Refills albuterol HFA (PROVENTIL HFA, VENTOLIN HFA) 90 mcg/actuation inhaler 1 Each 3 Sig: Inhale 2 Puffs as instructed every 4 hours as needed for wheezing/shortness of breath. Date of last office visit in primary care: 07/18/22 Last 2 Encounter Wt Readings: Date: Wt: 07/18/2022 77.1 kg (170 lb) 05/27/2022 75.3 kg (166 lb) Previous labs/tests for medication: Not applicable Please advise. Thank you. Eugenia Lynn documented in this encounterUniversity Hospitals [facility] Center03-23-2023 Instructions* Patient Instructions* Eugenia Mitchell APRN.CNP - 07/18/2022 8:02 AM EDT Start prednisone, take with food. May use zanaflex as needed for muscle tension, may make you tired. Continue supportive care at home, heat, ice, gentle stretching of back and legs. Massage may be helpful. Follow up as needed. documented in this encounterUniversity Hospitals [facility] Center03-23-2023 History of Present illness Narrative* Eugenia Mitchell APRN.CNP - 07/18/2022 8:00 AM EDT This is a 67 year old male who presents today with: Patient presents with: Back Pain HISTORY OF PRESENT ILLNESS: Eric Rhodes is a 67 year old male. Patient presents with: Back Pain Here in the office for Right sided low back pain. Started about 2 weeks ago. Pain is sharp that is intermittent, worse with sitting. No numbness and tingling into the legs. Refers he doesn't like to take medication, has not tried any OTC analgesia. Applied heat without relief. No numbness and tingling into the leg. No loss bowel/bladder and saddle anestheisa. PAST MEDICAL HISTORY: PAST MEDICAL HISTORY Diagnosis Date Arthritis COPD (chronic obstructive pulmonary disease) (HCC) Esophageal reflux Generalized osteoarthrosis, unspecified site Lactose intolerance in adult Snoring PAST SURGICAL HISTORY Procedure Laterality Date APPENDECTOMY APPENDECTOMY HX COLONOSCOPY FLX DX W/COLLJ SPEC WHEN PFRMD 11/11/2016 Colonoscopy EGD 12/29/2019 Dr. Ash Hidalgo. dx foreign body, Hpylori test negative ESOPHAGOGASTRODUODENOSCOPY TRANSORAL DIAGNOSTIC 11/11/2016 EGD INCISE FINGER TENDON SHEATH Right 08/16/2021 Right trigger thumb release PAST SURGICAL HISTORY OF Repair of lateral epicondylitis right elbow PAST SURGICAL HISTORY OF hemorrhoidectomy TNOT ELBOW LATERAL/MEDIAL DEBRIDE OPEN 05/06/2014 Debridement left elbow ALLERGIES Ibuprofen and Mobic [Meloxicam] MEDICATIONS Current Outpatient Medications Medication Sig albuterol HFA (PROVENTIL HFA, VENTOLIN HFA) 90 mcg/actuation inhaler Inhale 2 Puffs as instructed every 4 hours as needed for wheezing/shortness of breath. omeprazole (PRILOSEC) 40 mg capsule Take 1 capsule by mouth once daily. meloxicam (MOBIC) 15 mg tablet Take 1 tablet by mouth once daily. Take with food. (Patient not taking: Reported on 08/06/2021 ) No current facility-administered medications for this visit. FAMILY HISTORY Problem Relation Age of Onset Cancer Mother colon Alcohol/Drug Father Cancer Brother 63 esophagus Cancer Brother 53 lung and brain Heart Brother 53 heart attack Heart Brother heart attack Heart Brother heart attack Heart Brother heart attack Social History Tobacco Use Smoking status: Former Packs/day: 1.50 Years: 38.00 Pack years: 57.00 Types: Cigarettes Quit date: 05/31/2016 Years since quittin.1 Smokeless tobacco: Never Vaping Use Vaping Use: Never used Substance Use Topics Alcohol use: No Drug use: No Frequency: 3.0 times per week Types: Marijuana Comment: stopped 10 year ago REVIEW OF SYSTEMS GENERAL: No weight loss, malaise or fevers/chills HEENT: Negative for frequent or significant headaches, No changes in hearing or vision. NECK: Negative for lumps, goiter, pain and significant neck swelling RESPIRATORY: Negative for cough, hemoptysis, wheezing, dyspnea or shortness of breath CARDIOVASCULAR: Negative for chest pain, leg swelling, orthopnea, or palpitations GI: No nausea, vomiting, or diarrhea/constipation. No hematochezia/melena. No heartburn or reflux symptoms. : No history of dysuria, frequency or incontinence MUSCULOSKELETAL: + Back Pain SKIN: Negative for lesions, rash, and itching ENDOCRINE: Negative for cold or heat intolerance, polyuria, polydipsia and goiter NEURO: No history of headaches, syncope, paralysis, seizures or tremors MOOD: Negative for depression, anxiety, or suicidal ideation. EXAM: BP 120/78 Pulse 71 Resp 16 Wt 77.1 kg (170 lb) SpO2 95% BMI 28.29 kg/m PHYSICAL EXAM: General Appearance: Well appearing, alert, in no acute distress, well-hydrated, well nourished. Skin: Skin color, texture, turgor normal, no suspicious rashes or lesions. Head: Normocephalic, no masses, lesions, tenderness or abnormalities. Eyes: Anicteric sclera. Extraocular movements are intact. Extremities: No deformities, edema, skin discoloration, clubbing or cyanosis. Good capillary refill. Musculoskeletal: + Low Right sided back/buttock tenderness. Hamstring is tight. Reduced ROM. Peripheral Pulses: Normal, Capillary refill <2secs, strong peripheral pulses, Pulses palpable. Neurologic: Gait normal. Reflexes normal and symmetric. Sensation grossly intact. ASSESSMENT/PLAN: 1. Acute right-sided low back pain without sciatica - ICD9: 724.2, ICD10: M54.50 - Start Prednisone taper, take with food. - May use Zanaflex as needed for muscle tension. - Recommend supportive care at home, ice/heat, gentle stretching. - PREDNISONE 10 MG TABLET - TIZANIDINE 4 MG TABLET Follow-up as needed or sooner if symptoms get worse or do not improve. Discussed treatment plan and patient voices understanding. Patient's questions answered appropriately. Medications and potential side effects were discussed and patient voices understanding. Eugenia Mitchell APRN.CNP This note was partially generated using [employer] voice recognition system. Note was reviewed for accuracy. There may be minor misspellings or grammar miscues with [employer] voice recognition. documented in this encounterUniversity Hospitals Cleveland Medical Center01-30-2023 Miscellaneous Notes* Telephone Encounter - Eugenia Mitchell APRN.CNP - 05/27/2022 12:52 PM EST The following approved medication requests have been transmitted electronically. Requested Prescriptions Signed Prescriptions Disp Refills codeine-guaiFENesin (ROBITUSSIN AC) 10-100 mg/5 mL syrup 118 mL 0 Sig: Take 5 mL by mouth three times daily as needed for up to 5 days. Authorizing Provider: EUGENIA MITCHELL APRN.CNP PDMP website checked and validated. All prescriptions have been APPROPRIATELY filled. No suspiciousactivity was identified. 05/27/2022 by Eugenia Mitchell APRN.CNP * Telephone Encounter - Deloris Paz RN - 05/27/2022 12:26 PM EST [facility] calling to let provider know they do not have Codeine- Guaifenesin 10-200 mg/5mL but they do have Codeine-Guaifenesin 10-100mg/5 mL. If agree, please send new script. Deloris Paz RN documented in this encounterUniversity Hospitals Cleveland Medical Center01-30-2023 Instructions* Patient Instructions* Eugenia Mitchell APRN.CNP - 05/27/2022 11:52 AM EST Start zpack, take as directed. May use albuterol inhaler as needed. Use codeine cough syrup as needed for severe cough, may make you sleepy. Stay well hydrated and get plenty of rest. Follow up if symptoms do not improve documented in this encounterUniversity Hospitals Cleveland [facility] Center01-30-2023 History of Present illness Narrative* Eugenia Mitchell APRN.CNP - 05/27/2022 11:40 AM EST This is a 67 year old male who presents today with: Patient presents with: Acute Visit: cough HISTORY OF PRESENT ILLNESS: Eric Rhodes is a 67 year old male. Patient presents with: Acute Visit: cough Here in the office for persistent cough. Started about 3 weeks ago. Having on going productive cough, green mucus. Increase SOB with coughing fits. Cough is keeping him up at night. Wheezing, has been using albuterol as needed which seems helpful. No fever or chills. Has been using cough lozenges. Quit smoking 5 years ago. PAST MEDICAL HISTORY: PAST MEDICAL HISTORY Diagnosis Date Arthritis COPD (chronic obstructive pulmonary disease) (HCC) Esophageal reflux Generalized osteoarthrosis, unspecified site Lactose intolerance in adult Snoring PAST SURGICAL HISTORY Procedure Laterality Date APPENDECTOMY APPENDECTOMY HX COLONOSCOPY FLX DX W/COLLJ SPEC WHEN PFRMD 11/11/2016 Colonoscopy EGD 12/29/2019 Dr. Ash Hidalgo. dx foreign body, Hpylori test negative ESOPHAGOGASTRODUODENOSCOPY TRANSORAL DIAGNOSTIC 11/11/2016 EGD INCISE FINGER TENDON SHEATH Right 08/16/2021 Right trigger thumb release PAST SURGICAL HISTORY OF Repair of lateral epicondylitis right elbow PAST SURGICAL HISTORY OF hemorrhoidectomy TNOT ELBOW LATERAL/MEDIAL DEBRIDE OPEN 05/06/2014 Debridement left elbow ALLERGIES Ibuprofen and Mobic [Meloxicam] MEDICATIONS Current Outpatient Medications Medication Sig albuterol HFA (PROVENTIL HFA, VENTOLIN HFA) 90 mcg/actuation inhaler Inhale 2 Puffs as instructed every 4 hours as needed for wheezing/shortness of breath. omeprazole (PRILOSEC) 40 mg capsule Take 1 capsule by mouth once daily. meloxicam (MOBIC) 15 mg tablet Take 1 tablet by mouth once daily. Take with food. (Patient not taking: Reported on 08/06/2021 ) No current facility-administered medications for this visit. FAMILY HISTORY Problem Relation Age of Onset Cancer Mother colon Alcohol/Drug Father Cancer Brother 63 esophagus Cancer Brother 53 lung and brain Heart Brother 53 heart attack Heart Brother heart attack Heart Brother heart attack Heart Brother heart attack Social History Tobacco Use Smoking status: Former Packs/day: 1.50 Years: 38.00 Pack years: 57.00 Types: Cigarettes Quit date: 05/31/2016 Years since quittin.9 Smokeless tobacco: Never Vaping Use Vaping Use: Never used Substance Use Topics Alcohol use: No Drug use: No Frequency: 3.0 times per week Types: Marijuana Comment: stopped 10 year ago REVIEW OF SYSTEMS GENERAL: No weight loss, malaise or fevers/chills HEENT: Negative for frequent or significant headaches, No changes in hearing or vision. NECK: Negative for lumps, goiter, pain and significant neck swelling RESPIRATORY: + Cough, SOB, Wheezing CARDIOVASCULAR: Negative for chest pain, leg swelling, orthopnea, or palpitations GI: No nausea, vomiting, or diarrhea/constipation. No hematochezia/melena. No heartburn or reflux symptoms. : No history of dysuria, frequency or incontinence MUSCULOSKELETAL: Negative for joint pain or swelling. SKIN: Negative for lesions, rash, and itching ENDOCRINE: Negative for cold or heat intolerance, polyuria, polydipsia and goiter NEURO: No history of headaches, syncope, paralysis, seizures or tremors MOOD: Negative for depression, anxiety, or suicidal ideation. EXAM: BP 114/80 Pulse 66 Resp 16 Wt 75.3 kg (166 lb) SpO2 98% BMI 27.62 kg/m PHYSICAL EXAM: General Appearance: Well appearing, alert, in no acute distress, well-hydrated, well nourished. Skin: Skin color, texture, turgor normal, no suspicious rashes or lesions. Head: Normocephalic, no masses, lesions, tenderness or abnormalities. Eyes: Anicteric sclera. Extraocular movements are intact. Ears: External ears normal, canals clear. TMs pearly toussaint. Nose/Sinuses: Nares normal, septum midline, mucosa normal, no drainage or sinus tenderness. Oropharynx: Lips, mucosa, and tongue normal, teeth and gums normal, oropharynx normal. Neck: Supple, no adenopathy; thyroid symmetric, normal size, no bruits. Lungs: + Wheezing noted in upper lobes bilaterally. Heart: RRR without murmur, gallop, or rubs. No ectopy. Extremities: No deformities, edema, skin discoloration, clubbing or cyanosis. Good capillary refill. Peripheral Pulses: Normal, Capillary refill <2secs, strong peripheral pulses, Pulses palpable. Neurologic: Gait normal. Sensation grossly intact.. ASSESSMENT/PLAN: 1. Bronchitis - ICD9: 490, ICD10: J40 - Due to length of symptoms will treat with Zpack. - May continue to use albuterol inhaler as needed for shortness of breath or wheezing. - May use codeine cough syrup as needed for moderate to severe cough. Medication education and instructions provided. - Continue supportive care at home. - ALBUTEROL SULFATE HFA 90 MCG/ACTUATION AEROSOL INHALER - AZITHROMYCIN 250 MG TABLET - CODEINE 10 MG-GUAIFENESIN 200 MG/5 ML ORAL LIQUID Follow-up as needed or sooner if symptoms get worse or do not improve. Discussed treatment plan and patient voices understanding. Patient's questions answered appropriately. Medications and potential side effects were discussed and patient voices understanding. Eugenia Mitchell APRN.CNP This note was partially generated using [employer] voice recognition system. Note was reviewed for accuracy. There may be minor misspellings or grammar miscues with [employer] voice recognition. documented in this encounterUniversity Hospitals Cleveland Medical Center12-08-2022 Instructions* Patient Instructions* Eugenia Mitchell APRN.CNP - 04/04/2022 11:16 AM EST May use Aleve every 8 hours as needed for pain. May use flexeril as needed for muscle tension, may make you sleepy. May apply heat to the area. Massage may be helpful. Gentle stretching when able to do so. Follow up as needed. documented in this encounterUniversity Hospitals Cleveland [facility] Center12-08-2022 History of Present illness Narrative* Eugenia Mitchell APRN.CNP - 04/04/2022 11:00 AM EST This is a 67 year old male who presents today with: Patient presents with: Acute Visit: Stiff neck HISTORY OF PRESENT ILLNESS: Eric Rhoeds is a 67 year old male. Patient presents with: Acute Visit: Stiff neck Here in the office for neck discomfort, started 3 days ago. Woke up with dull pain, seems to be constant. Refers he slept on the couch. Pain increases with moving head. No numbness/tingling into arms. Has not taken any OTC analgesia for this pain. PAST MEDICAL HISTORY: PAST MEDICAL HISTORY Diagnosis Date Arthritis COPD (chronic obstructive pulmonary disease) (HCC) Esophageal reflux Generalized osteoarthrosis, unspecified site Lactose intolerance in adult Snoring PAST SURGICAL HISTORY Procedure Laterality Date APPENDECTOMY APPENDECTOMY HX COLONOSCOPY FLX DX W/COLLJ SPEC WHEN PFRMD 11/11/2016 Colonoscopy EGD 12/29/2019 Dr. Ash Hidalgo. dx foreign body, Hpylori test negative ESOPHAGOGASTRODUODENOSCOPY TRANSORAL DIAGNOSTIC 11/11/2016 EGD INCISE FINGER TENDON SHEATH Right 08/16/2021 Right trigger thumb release PAST SURGICAL HISTORY OF Repair of lateral epicondylitis right elbow PAST SURGICAL HISTORY OF hemorrhoidectomy TNOT ELBOW LATERAL/MEDIAL DEBRIDE OPEN 05/06/2014 Debridement left elbow ALLERGIES Ibuprofen and Mobic [Meloxicam] MEDICATIONS Current Outpatient Medications Medication Sig albuterol HFA (PROVENTIL HFA, VENTOLIN HFA) 90 mcg/actuation inhaler Inhale 2 Puffs as instructed every 4 hours as needed for wheezing/shortness of breath. omeprazole (PRILOSEC) 40 mg capsule Take 1 capsule by mouth once daily. meloxicam (MOBIC) 15 mg tablet Take 1 tablet by mouth once daily. Take with food. (Patient not taking: Reported on 08/06/2021 ) No current facility-administered medications for this visit. FAMILY HISTORY Problem Relation Age of Onset Cancer Mother colon Alcohol/Drug Father Cancer Brother 63 esophagus Cancer Brother 53 lung and brain Heart Brother 53 heart attack Heart Brother heart attack Heart Brother heart attack Heart Brother heart attack Social History Tobacco Use Smoking status: Former Packs/day: 1.50 Years: 38.00 Pack years: 57.00 Types: Cigarettes Quit date: 05/31/2016 Years since quittin.8 Smokeless tobacco: Never Vaping Use Vaping Use: Never used Substance Use Topics Alcohol use: No Drug use: No Frequency: 3.0 times per week Types: Marijuana Comment: stopped 10 year ago REVIEW OF SYSTEMS GENERAL: No weight loss, malaise or fevers/chills HEENT: Negative for frequent or significant headaches, No changes in hearing or vision. NECK: Negative for lumps, goiter, pain and significant neck swelling RESPIRATORY: Negative for cough, hemoptysis, wheezing, dyspnea or shortness of breath CARDIOVASCULAR: Negative for chest pain, leg swelling, orthopnea, or palpitations GI: No nausea, vomiting, or diarrhea/constipation. No hematochezia/melena. No heartburn or reflux symptoms. : No history of dysuria, frequency or incontinence MUSCULOSKELETAL: + Neck Pain SKIN: Negative for lesions, rash, and itching ENDOCRINE: Negative for cold or heat intolerance, polyuria, polydipsia and goiter NEURO: No history of headaches, syncope, paralysis, seizures or tremors MOOD: Negative for depression, anxiety, or suicidal ideation. EXAM: BP 126/88 Pulse 67 Resp 16 Wt 75.3 kg (166 lb) SpO2 97% BMI 27.62 kg/m PHYSICAL EXAM: General Appearance: Well appearing, alert, in no acute distress, well-hydrated, well nourished. Skin: Skin color, texture, turgor normal, no suspicious rashes or lesions. Head: Normocephalic, no masses, lesions, tenderness or abnormalities. Eyes: Anicteric sclera. Extraocular movements are intact. Lungs: Lungs clear to auscultation. No wheezing, rhonchi, rales. Heart: RRR without murmur, gallop, or rubs. No ectopy. Extremities: No deformities, edema, skin discoloration, clubbing or cyanosis. Good capillary refill. Musculoskeletal: + Cervical spine nontender, limited range of motion, moderate muscle tension notedin right trapezius muscle with mild tenderness. Peripheral Pulses: Normal, Capillary refill <2secs, strong peripheral pulses, Pulses palpable. Neurologic: Gait normal. Sensation grossly intact. ASSESSMENT/PLAN: 1. Strain of neck muscle, initial encounter - ICD9: 847.0, ICD10: S16.1XXA - Use NSAIDS, every 6-8 hours as needed for pain. - May use Flexeril as needed for muscle tension. Medication instructions and education provided. - Apply heat to the area, gentle stretching when able to do so, massage may be helpful. - CYCLOBENZAPRINE 10 MG TABLET Follow-up as needed or sooner if symptoms do not improve. Discussed treatment plan and patient voices understanding. Patient's questions answered appropriately. Medications and potential side effects were discussed and patient voices understanding. Eugenia Mitchell APRN.PIPE This note was partially generated using [employer] voice recognition system. Note was reviewed for accuracy. There may be minor misspellings or grammar miscues with [employer] voice recognition. documented in this encounterUniversity Hospitals Cleveland Medical Center06-06-2022 History of Present illness Narrative* Yolanda Paige PA-C - 10/01/2021 10:59 AM EDT Yolanda Paige PA-C Department of Orthopaedics [facility] [address] [place] [address] Dept: [phone] Dept October 01, 2021 CHIEF COMPLAINT: Post Op of the Right Thumb and 6 weeks 4 days post op Right trigger thumb release. ASSESSMENT: M79.644 Thumb pain, right (primary encounter diagnosis) SUMMARY/PLAN: Patient presents 6 weeks and 4 days status post right trigger thumb release. He states that he is doing very well, no locking or catching of the thumb. Occasional soreness near the incision site withoveruse. Otherwise he is very happy with the results. We discussed having him continue with a bit of scar massage and continue activities as tolerated. Follow-up in as-needed basis. Exam: Right thumb incision site is well-healed. Patient has full and active range of motion of the digit without any locking or catching. Imaging: Deferred today. Mr. Eric Hussein Stone was advised as to contrast therapies and/or to take analgesics/anti-inflammatories as needed and all contraindications were reviewed. Supporting Information Below: Medications: Current Outpatient Medications Medication Sig diclofenac (VOLTAREN ARTHRITIS PAIN) 1 % topical gel Apply 2 g to affected area four times daily. omeprazole (PRILOSEC) 40 mg capsule Take 1 capsule by mouth once daily. albuterol HFA (PROVENTIL HFA, VENTOLIN HFA) 90 mcg/actuation inhaler Inhale 2 Puffs as instructed every 4 hours as needed for wheezing/shortness of breath. meloxicam (MOBIC) 15 mg tablet Take 1 tablet by mouth once daily. Take with food. (Patient not taking: Reported on 08/06/2021 ) No current facility-administered medications for this visit. Allergies: Ibuprofen and Mobic [Meloxicam] This note was partially generated using [employer] voice recognition system, and there may be some incorrect words, spellings, and punctuation that were not noted in checking the note before saving. Yolanda Paige PA-C * Alexus Holland Ma - 10/01/2021 10:39 AM EDT Patient presents with: Right Thumb - Post Op 6 weeks 4 days post op Right trigger thumb release AMB ROOMING INTAKE FLOWSHEET DATA Risk Screening Do you have concerns about personal safety or safety in the home?: No Patient states he feels his thumb is almost back to normal. He is able to make a fist with no problems. documented in this encounterUniversity Hospitals Cleveland Medical Center05-13-2022 Miscellaneous Notes* Telephone Encounter - Yenni Negrete LPN - 09/07/2021 3:34 PM EDT Patient notified of results, verbalizes understanding of instructions. Yenni Negrete LPN * Telephone Encounter - Eugenia Mitchell APRN.CNP - 09/07/2021 3:25 PM EDT Can you please call the patient and let him know that his hip x-ray was normal. I would recommend that he discuss his concerns with Dr. Muñoz at next follow- up. Please let me know if he has any questions. Thank you. Eugenia Mitchell APRN.PIPE documented in this encounterUniversity Hospitals Cleveland Medical Center05-12-2022 History of Present illness Narrative* Imelda Huitron RT(R) - 09/06/2021 12:00 PM EDT Radiology Service Progress Note PATIENT NAME: Eric Rhodes DATE OF SERVICE: September 06, 2021 TIME: 11:57 AM PATIENT IDENTITY VERIFICATION COMPLETED USING TWO (2) IDENTIFIERS: Name and Date of confirmedby patient verbally. FALL SCREENING: Has the patient had 2 falls in the last year or 1 fall with injury or currently using an Ambulatory Assistive Device (Walker, Cane, Wheelchair, Crutches, etc.)? No PATIENT GENDER DATA: Male PATIENT RELEVANT IMPLANT DATA REVIEWED: Yes RADIOLOGY DEPARTMENT: General X-ray: Exam(s) Completed: Pelvis X-Ray: Pelvis with Hip Right PERIPHERAL IV DATA: Not applicable SIGNED BY: RT Sonia(R) September 06, 2021 11:57 AM documented in this encounterUniversity Hospitals Cleveland Medical Center05-12-2022 Instructions* Patient Instructions* Eugenia Mitchell APRN.CNP - 09/06/2021 11:51 AM EDT 1.) Get xray completed today. 2.) Continue to use Aleve as needed for pain. You may try Voltaren Gel to the area. Apply heat as needed. 3.) Keep scheduled appointment with Orthopedics. 4.) Follow up pending test results. documented in this encounterUniversity Hospitals Cleveland Medical Center05-12-2022 History of Present illness Narrative* Eugenia Mitchell APRN.CNP - 09/06/2021 11:40 AM EDT This is a 66 year old male who presents today with: Patient presents with: Acute Visit: right hip pain HISTORY OF PRESENT ILLNESS: Eric Rhodes is a 66 year old male. Patient presents with: Acute Visit: right hip pain Here in the office for chronic right hip pain. Pain seems to be worse this past week. No injury to the area. Noticed the pain when laying in bed. Has applied heat to the area and took aleve which was helpful. Pain is a dull and in the posterior side of the hip. At times pain will be worse with certain movement. Has had to catch himself severaltimes due to feeling like the hip will give out. No numbness/tingling into the legs. PAST MEDICAL HISTORY: PAST MEDICAL HISTORY Diagnosis Date Arthritis COPD (chronic obstructive pulmonary disease) (HCC) Esophageal reflux Generalized osteoarthrosis, unspecified site Lactose intolerance in adult Snoring PAST SURGICAL HISTORY Procedure Laterality Date APPENDECTOMY APPENDECTOMY HX COLONOSCOPY FLX DX W/COLLJ SPEC WHEN PFRMD 11/11/2016 Colonoscopy EGD 12/29/2019 Dr. Ash Hidalgo. dx foreign body, Hpylori test negative ESOPHAGOGASTRODUODENOSCOPY TRANSORAL DIAGNOSTIC 11/11/2016 EGD INCISE FINGER TENDON SHEATH Right 08/16/2021 Right trigger thumb release PAST SURGICAL HISTORY OF Repair of lateral epicondylitis right elbow PAST SURGICAL HISTORY OF hemorrhoidectomy TNOT ELBOW LATERAL/MEDIAL DEBRIDE OPEN 05/06/2014 Debridement left elbow ALLERGIES Ibuprofen and Mobic [Meloxicam] MEDICATIONS Current Outpatient Medications Medication Sig omeprazole (PRILOSEC) 40 mg capsule Take 1 capsule by mouth once daily. meloxicam (MOBIC) 15 mg tablet Take 1 tablet by mouth once daily. Take with food. (Patient not taking: Reported on 08/06/2021 ) albuterol HFA (PROVENTIL HFA, VENTOLIN HFA) 90 mcg/actuation inhaler Inhale 2 Puffs as instructed every 4 hours as needed for wheezing/shortness of breath. No current facility-administered medications for this visit. FAMILY HISTORY Problem Relation Age of Onset Cancer Mother colon Alcohol/Drug Father Cancer Brother 63 esophagus Cancer Brother 53 lung and brain Heart Brother 53 heart attack Heart Brother heart attack Heart Brother heart attack Heart Brother heart attack Social History Tobacco Use Smoking status: Former Smoker Packs/day: 1.50 Years: 38.00 Pack years: 57.00 Types: Cigarettes Quit date: 05/31/2016 Years since quittin.2 Smokeless tobacco: Never Used Vaping Use Vaping Use: Never used Substance Use Topics Alcohol use: No Drug use: No Frequency: 3.0 times per week Types: Marijuana Comment: stopped 10 year ago REVIEW OF SYSTEMS GENERAL: No weight loss, malaise or fevers/chills HEENT: Negative for frequent or significant headaches, No changes in hearing or vision. NECK: Negative for lumps, goiter, pain and significant neck swelling RESPIRATORY: Negative for cough, hemoptysis, wheezing, dyspnea or shortness of breath CARDIOVASCULAR: Negative for chest pain, leg swelling, orthopnea, or palpitations GI: No nausea, vomiting, or diarrhea/constipation. No hematochezia/melena. No heartburn or reflux symptoms. : No history of dysuria, frequency or incontinence MUSCULOSKELETAL: + Right Hip Pain SKIN: Negative for lesions, rash, and itching ENDOCRINE: Negative for cold or heat intolerance, polyuria, polydipsia and goiter NEURO: No history of headaches, syncope, paralysis, seizures or tremors MOOD: Negative for depression, anxiety, or suicidal ideation. EXAM: BP 110/72 Pulse 71 Resp 16 Wt 74.4 kg (164 lb) SpO2 97% BMI 27.29 kg/m PHYSICAL EXAM: General Appearance: Well appearing, alert, in no acute distress, well-hydrated, well nourished. Skin: Skin color, texture, turgor normal, no suspicious rashes or lesions. Head: Normocephalic, no masses, lesions, tenderness or abnormalities. Eyes: Anicteric sclera. Extraocular movements are intact. Lungs: Lungs clear to auscultation. No wheezing, rhonchi, rales. Heart: RRR without murmur, gallop, or rubs. No ectopy. Extremities: No deformities, edema, skin discoloration, clubbing or cyanosis. Good capillary refill. Musculoskeletal: Rt iliac crest tenderness with palpation. Full ROM. Peripheral Pulses: Normal, Capillary refill <2secs, strong peripheral pulses, Pulses palpable. Neurologic: Gait normal. Reflexes normal and symmetric. Sensation grossly intact.. ASSESSMENT/PLAN: 1. Right hip pain - ICD9: 719.45, ICD10: M25.551 - Get xray of right hip. - May apply Voltaren Gel to the area. - DICLOFENAC 1 % TOPICAL GEL - XR HIP GENERAL 3V PELV/AP/LAT RIGHT Follow-up pending test results or sooner as needed. Discussed treatment plan and patient voices understanding. Patient's questions answered appropriately. Medications and potential side effects were discussed and patient voices understanding. Eugenia Mitchell APRN.PIPE This note was partially generated using [employer] voice recognition system. Note was reviewed for accuracy. There may be minor misspellings or grammar miscues with [employer] voice recognition. documented in this encounterUniversity Hospitals [facility] Center05-02-2022 History of Present illness Narrative* Mimi Taylor Ma - 08/27/2021 9:20 AM EDT Patient presents for suture removal after appointment with Dr. Muñoz. The wound is well healed without signs of infection. The sutures are removed. Instructions on how to care for wound explained topatient. * Kris Mñuoz MD - 08/27/2021 8:57 AM EDT Kirs Muñoz MD Department of Orthopaedics Orthopaedics [address] [facility] [address] Dept: [phone] Dept August 27, 2021 CHIEF COMPLAINT: Post Op of the Right Thumb and 1 week 4 days post op Right trigger thumb release. HPI Sutures intact. No redness or drainage. Taking no med's for the pain. AMB ROOMING INTAKE FLOWSHEET DATA Risk Screening Do you have concerns about personal safety or safety in the home?: No Pain Pain Level: 2 Pain Location: (Right thumb) Description: Sharp Duration Amount of Time: (Post op) Frequency: Intermittent (Occurs when he bends his thumb) Comments: None ASSESSMENT: M65.311 Trigger finger of right thumb (primary encounter diagnosis) SUMMARY/PLAN: Patient is doing quite well. Mild and appropriate soreness in the thumb. We will get his stitches out today and he can continue activities as tolerated Exam: Nicely approximated incision. Good range of motion. Mild and appropriate swelling for the surgery. Supporting Information Below: Medications: Current Outpatient Medications Medication Sig omeprazole (PRILOSEC) 40 mg capsule Take 1 capsule by mouth once daily. albuterol HFA (PROVENTIL HFA, VENTOLIN HFA) 90 mcg/actuation inhaler Inhale 2 Puffs as instructed every 4 hours as needed for wheezing/shortness of breath. meloxicam (MOBIC) 15 mg tablet Take 1 tablet by mouth once daily. Take with food. (Patient not taking: Reported on 08/06/2021 ) No current facility-administered medications for this visit. Allergies: Ibuprofen Kris Muñoz MD documented in this encounterUniversity Hospitals Cleveland Medical Center04-13-2022 Miscellaneous Notes* Telephone Encounter - Alma Hodges RN - 08/08/2021 1:03 PM EDT Pt called and is notified of providers results. Pt voices understanding, and states that he was notfasting for his labs. Alma Hodges RN * Telephone Encounter - Eugenia Mitchell APRN.CNP - 08/08/2021 12:35 PM EDT Can you please call the patient and let him know that I reviewed his lab results. PSA and A1c were normal. His glucose was elevated, however if he was not fasting this could be a normal finding. No further testing needed at this time. Please let me know if he has any questions. Thank you. Eugenia Mitchell APRN.HEAD STOCK OPERATOR documented in this encounterUniversity Hospitals Cleveland Medical Center04-11-2022 Miscellaneous Notes* Telephone Encounter - Mimi Taylor Ma - 08/06/2021 3:54 PM EDT Surgery has been scheduled as requested. * Telephone Encounter - Mimi Taylor Ma - 08/06/2021 10:24 AM EDT Surgical request completed for right trigger thumb release at [facility] on 08/16/2021. Post op appointments have been scheduled and mailed to patient. documented in this encounterUniversity Hospitals Cleveland Medical Center04-11-2022 History of Present illness Narrative* Kris Muñoz MD - 08/06/2021 8:51 AM EDT Kris Muñoz MD Department of Orthopaedics Orthopaedics [address] [facility] [address] Dept: [phone] Dept August 06, [address] Skaggs for an opinion regarding Right thumb pain. My final recommendations will be communicated back to the requesting physician by way of shared Medical record or letter to requesting physician via [place] mail. CHIEF COMPLAINT: Pain and New of the Right Thumb and Referred by Dr. Skaggs (Last seen 06/16/14 S/P Nirschi procedure (1/9/15)) HPI Patient states he is having pain at the base of his right thumb. No specific injury. Dr. Skaggsgave him Meloxicam but made him have swelling in his hands and feet. Patient is right hand dominant. He is retired. Taking no med's for the pain. X-rays done on 07/02/21. AMB ROOMING INTAKE FLOWSHEET DATA Risk Screening Do you have concerns about personal safety or safety in the home?: No Pain Pain Level: 7 Pain Location: (Right thumb) Description: Dull Duration Amount of Time: 1 Frequency: Continuous Intervention/Comfort measure: Medication ASSESSMENT: M65.311 Trigger finger of right thumb (primary encounter diagnosis) M79.644, G89.29 Chronic pain of right thumb R60.0 Bilateral leg edema PLAN: We reviewed the risks, benefits, alternatives and potential complications involving both operative and nonoperative care. He would like to proceed with a trigger thumb release surgically. FOLLOW UP INSTRUCTIONS: We will get him scheduled at his convenience. Mr. Eric Rhodes was advised as to contrast therapies and/or to take analgesics/anti-inflammatories as needed and all contraindications were reviewed. OBJECTIVE: Mr. Eric Rhodes is a pleasant 66 year old in no apparent distress. Gen:There were no vitals taken for this visit. nl development, non obese, no deformities ENT: Normocephalic, normal hearing, moist mucosa CV: Pulses:Radial= 2+ and symmetric, capillary refill < 2 secs, no peripheral edema/varicosities Skin: no rash, bruising or lesions. Good turgor. Psych: cooperative and appropriate, alert and oriented x 3, good mood and affect. Musculoskeletal: Tender to palpation at the A1 rosey site of the right thumb. He has active clicking and locking ofthe digit as well. Median nerve distributions intact. IMAGING: * * *Final Report* * * DATE OF EXAM: Jul 02 2021 5:21PM WOX [id number] - XR HAND 3V PA/LAT/OBL RT / PROCEDURE REASON: Thumb pain, right * * * * Physician Interpretation * * * * Indication: Right thumb pain Comparison: None 3 views of the right hand are obtained. There is normal architecture and mineralization of the bones. There is no acute fracture or dislocation. Joint spaces are maintained. There are no periarticular erosions. Impression: 1. No acute fracture or dislocation. Healthcare Marketer: SHIRLENE Transcribe Date/Time: Jul 03 2021 8:15A Dictated by : IVETTE ARECHIGA MD This examination was interpreted and the report reviewed and electronically signed by: IVETTE ARECHIGA MD on Jul 03 2021 8:21AM EST Supporting Subjective Information Below: Past Medical History: PAST MEDICAL HISTORY Diagnosis Date Esophageal reflux Generalized osteoarthrosis, unspecified site Lactose intolerance in adult Snoring Past Surgical History: PAST SURGICAL HISTORY Procedure Laterality Date APPENDECTOMY COLONOSCOPY FLX DX W/COLLJ SPEC WHEN PFRMD 11/11/2016 Colonoscopy EGD 12/29/2019 Dr. Ash Hidalgo. dx foreign body, Hpylori test negative ESOPHAGOGASTRODUODENOSCOPY TRANSORAL DIAGNOSTIC 11/11/2016 EGD PAST SURGICAL HISTORY OF Repair of lateral epicondylitis right elbow PAST SURGICAL HISTORY OF hemorrhoidectomy TNOT ELBOW LATERAL/MEDIAL DEBRIDE OPEN 05/06/2014 Debridement left elbow Family History: FAMILY HISTORY Problem Relation Age of Onset Cancer Mother colon Alcohol/Drug Father Cancer Brother 63 esophagus Cancer Brother 53 lung and brain Heart Brother 53 heart attack Heart Brother heart attack Heart Brother heart attack Heart Brother heart attack Social History: Social History Tobacco Use Smoking status: Former Smoker Packs/day: 1.50 Years: 38.00 Pack years: 57.00 Types: Cigarettes Quit date: 05/31/2016 Years since quittin.1 Smokeless tobacco: Never Used Vaping Use Vaping Use: Never used Substance Use Topics Alcohol use: No Drug use: No Frequency: 3.0 times per week Types: Marijuana Comment: stopped 10 year ago Medications: Current Outpatient Medications Medication Sig omeprazole (PRILOSEC) 40 mg capsule Take 1 capsule by mouth once daily. albuterol HFA (PROVENTIL HFA, VENTOLIN HFA) 90 mcg/actuation inhaler Inhale 2 Puffs as instructed every 4 hours as needed for wheezing/shortness of breath. meloxicam (MOBIC) 15 mg tablet Take 1 tablet by mouth once daily. Take with food. (Patient not taking: Reported on 08/06/2021 ) No current facility-administered medications for this visit. Allergies: Ibuprofen ROS: General (negative for fatigue, malaise, weight loss/gain) HEENT (negative for headache, earache, recent vision changes, sinus pain, sore throat) Respiratory (no recent shortness of breath, hemoptysis) CV (negative for chest tightness, palpitations) Musculoskeletal (see HPI) Psych (no depression, anxiety) REFERRING PHYSICIAN: Mr. Eric Rhodes was referred to me for consultation by the following physician. This consultation note will be sent to the following physician by either mail or electronic medical record. Darian Skaggs [address] [facility] [address] Darian Skaggs MD [address] [facility] [address] Kris Muñoz MD documented in this encounterUniversity Hospitals Cleveland [facility] Center04-08-2022 History of Present illness Narrative* Darian Skaggs MD - 08/03/2021 9:40 AM EDT Chief Complaint Patient presents with: Edema: hands, legs X 2 weeks HPI Eric Rhodes is a 66 year old male who presents here today for Above Complaints.. For the last 2-3 weeks has noted swelling in his hands and feet. Does not change at night. No increase in SOB. Still with right thumb pain, no better with mobic. He has been taking the mobic daily. Past medical history, appointments, medications, allergies reviewed. Previous Medical History PAST MEDICAL HISTORY Diagnosis Date Esophageal reflux Generalized osteoarthrosis, unspecified site Lactose intolerance in adult Snoring Previous Surgical History PAST SURGICAL HISTORY Procedure Laterality Date APPENDECTOMY COLONOSCOPY FLX DX W/COLLJ SPEC WHEN PFRMD 11/11/2016 Colonoscopy EGD 12/29/2019 Dr. Ash Hidalgo. dx foreign body, Hpylori test negative ESOPHAGOGASTRODUODENOSCOPY TRANSORAL DIAGNOSTIC 11/11/2016 EGD PAST SURGICAL HISTORY OF Repair of lateral epicondylitis right elbow PAST SURGICAL HISTORY OF hemorrhoidectomy TNOT ELBOW LATERAL/MEDIAL DEBRIDE OPEN 05/06/2014 Debridement left elbow Family History FAMILY HISTORY Problem Relation Age of Onset Cancer Mother colon Alcohol/Drug Father Cancer Brother 63 esophagus Cancer Brother 53 lung and brain Heart Brother 53 heart attack Heart Brother heart attack Heart Brother heart attack Heart Brother heart attack Patient Allergies ALLERGIES Allergen Reactions Ibuprofen Itching Swelling and itching Current Medications Current Outpatient Medications on File Prior to Visit Medication Sig omeprazole (PRILOSEC) 40 mg capsule Take 1 capsule by mouth once daily. meloxicam (MOBIC) 15 mg tablet Take 1 tablet by mouth once daily. Take with food. albuterol HFA (PROVENTIL HFA, VENTOLIN HFA) 90 mcg/actuation inhaler Inhale 2 Puffs as instructed every 4 hours as needed for wheezing/shortness of breath. No current facility-administered medications on file prior to visit. Social History Social History Tobacco Use Smoking status: Former Smoker Packs/day: 1.50 Years: 38.00 Pack years: 57.00 Types: Cigarettes Quit date: 05/31/2016 Years since quittin.1 Smokeless tobacco: Never Used Vaping Use Vaping Use: Never used Substance Use Topics Alcohol use: No Drug use: No Frequency: 3.0 times per week Types: Marijuana Comment: stopped 10 year ago EXAM: BP 132/82 Pulse 64 Resp 16 Wt 77.1 kg (170 lb) BMI 28.32 kg/m General Appearance: Well appearing, alert, in no acute distress, well-hydrated, well nourished.. Lungs: Lungs clear to auscultation. No wheezing, rhonchi, rales.. Heart: RRR without murmur, gallop, or rubs. No ectopy. Ext: mild swelling bilateral lower elgs. Health Maintenance List LUNG CANCER SCREENING Never done DIABETES SCREEN due on 04/15/2021 COVID-19 VACCINE(1) due on 01/17/2022 HEPATITIS C SCREENING due on 03/27/2022 HIV SCREENING due on 03/27/2022 SHINGRIX VACCINE(1 of 2) due on 03/27/2022 COLORECTAL CANCER SCREENING due on 11/11/2021 INFLUENZA(Season Ended) due on 12/27/2021 DEPRESSION SCREENING due on 03/27/2022 DTAP,TDAP,TD(2 - Td or Tdap) due on 02/25/2024 PROSTATE CANCER SCREENING DISCUSSION due on 03/27/2026 LIPID SCREEN due on 06/23/2026 MENINGOCOCCAL CONJUGATE Aged Out Data reviewed None ASSESSMENT/PLAN: 1. Chronic pain of right thumb - ICD9: 729.5, 338.29, ICD10: M79.644, G89.29 (primary diagnosis) Stop mobic - CONSULT TO ORTHOPAEDICS 2. Bilateral leg edema - ICD9: 782.3, ICD10: R60.0 Check CMP today; notify of results Stop mobic Call is swelling not improved in 1-2 weeks - CONSULT TO ORTHOPAEDICS - COMP METABOLIC PANEL Medical Decision Making: Problems: Moderate: New problem with uncertain prognosis Data: Unique test(s) ordered: 1 Risk: Moderate: Drug management Medical Decision Making Level: 4 - Moderate Darian Skaggs MD documented in this encounterUniversity Hospitals [facility] Center03-28-2022 Miscellaneous Notes* Telephone Encounter - Darian Skaggs MD - 07/23/2021 3:38 PM EDT OK to refill as ordered Darian Skaggs MD * Telephone Encounter - Yenni Negrete LPN - 07/23/2021 3:21 PM EDT Patient phones requesting refills as follows: Pending Prescriptions Disp Refills OMEPRAZOLE 40 MG CAPSULE,DELAYED RELEASE 30 capsule 11 Sig: Take 1 capsule by mouth once daily. SHAHNAZ: No ZACH-07/02/21 Labs-06/23/21 NOV-none med filled 03/09/20 Please review and advise. Yenni Negrete LPN documented in this encounterUniversity Hospitals Cleveland Medical Center12-02-2020 History of Present illness Narrative* Martha Shipley (Tech), Tech - 2020 4:10 PM EST Radiology Service Progress Note PATIENT NAME: Eric Rhodes DATE OF SERVICE: 2020 TIME: 4:08 PM PATIENT IDENTITY VERIFICATION COMPLETED USING TWO (2) IDENTIFIERS: Name and Date of confirmedby patient verbally. FALL SCREENING: Has the patient had 2 falls in the last year or 1 fall with injury or currently using an Ambulatory Assistive Device (Walker, Cane, Wheelchair, Crutches, etc.)? No PATIENT GENDER DATA: Male PATIENT RELEVANT IMPLANT DATA REVIEWED: Not Applicable RADIOLOGY DEPARTMENT: General X-ray: Exam(s) Completed: Upper Extremity X- Ray(s): Fingers/Thumb, right : PERIPHERAL IV DATA: Not applicable SIGNED BY: Randy Curtis 2020 4:08 PM documented in this encounterUniversity Hospitals Cleveland Medical Center06-11-2015 History of Past illness Narrative* Problem Noted Date Resolved Date Smoker 10/06/2014 07/30/2016 Esophageal reflux 09/17/2017 documented as of this encounter (statuses as of 07/23/2021) [address] History of Past illness Narrative* Problem Noted Date Resolved Date Smoker 10/06/2014 07/30/2016 Esophageal reflux 09/17/2017 documented as of this encounter (statuses as of 08/03/2021) [address] History of Past illness Narrative* Problem Noted Date Resolved Date Smoker 10/06/2014 07/30/2016 Esophageal reflux 09/17/2017 documented as of this encounter (statuses as of 08/06/2021) [address] History of Past illness Narrative* Problem Noted Date Resolved Date Smoker 10/06/2014 07/30/2016 Esophageal reflux 09/17/2017 documented as of this encounter (statuses as of 08/08/2021) [address] History of Past illness Narrative* Problem Noted Date Resolved Date Smoker 10/06/2014 07/30/2016 Esophageal reflux 09/17/2017 documented as of this encounter (statuses as of 08/16/2021) [address] History of Past illness Narrative* Problem Noted Date Resolved Date Smoker 10/06/2014 07/30/2016 Esophageal reflux 09/17/2017 documented as of this encounter (statuses as of 08/27/2021) [address] History of Past illness Narrative* Problem Noted Date Resolved Date Smoker 10/06/2014 07/30/2016 Esophageal reflux 09/17/2017 documented as of this encounter (statuses as of 09/06/2021) [address] History of Past illness Narrative* Problem Noted Date Resolved Date Smoker 10/06/2014 07/30/2016 Esophageal reflux 09/17/2017 documented as of this encounter (statuses as of 09/08/2021) [address] History of Past illness Narrative* Problem Noted Date Resolved Date Smoker 10/06/2014 07/30/2016 Esophageal reflux 09/17/2017 documented as of this encounter (statuses as of 10/01/2021) [address] History of Past illness Narrative* Problem Noted Date Resolved Date Smoker 10/06/2014 07/30/2016 Esophageal reflux 09/17/2017 documented as of this encounter (statuses as of 04/04/2022) [facility] of [facility] Narrative* Problem Noted Date Resolved Date Smoker 10/06/2014 07/30/2016 Esophageal reflux 09/17/2017 documented as of this encounter (statuses as of 05/27/2022) [address] History of Past illness Narrative* Problem Noted Date Resolved Date Smoker 10/06/2014 07/30/2016 Esophageal reflux 09/17/2017 documented as of this encounter (statuses as of 07/18/2022) [address] History of Past illness Narrative* Problem Noted Date Diagnosed Date Resolved Date Smoker 10/06/2014 07/30/2016 Esophageal reflux 09/17/2017 documented as of this encounter (statuses as of 11/26/2022) [facility] Narrative* Problem Noted Date Diagnosed Date Resolved Date Smoker 10/06/2014 07/30/2016 Esophageal reflux 09/17/2017 documented as of this encounter (statuses as of 12/02/2022) [facility] Narrative* Problem Noted Date Diagnosed Date Resolved Date Smoker 10/06/2014 07/30/2016 Esophageal reflux 09/17/2017 documented as of this encounter (statuses as of 01/24/2023) [address] History of Past illness Narrative* Problem Noted Date Diagnosed Date Resolved Date Smoker 10/06/2014 07/30/2016 Esophageal reflux 09/17/2017 documented as of this encounter (statuses as of 01/28/2023) [address] History of Past illness Narrative* Problem Noted Date Diagnosed Date Resolved Date Smoker 10/06/2014 07/30/2016 Esophageal reflux 09/17/2017 documented as of this encounter (statuses as of 02/14/2023) [address] History of Past illness Narrative* Problem Noted Date Diagnosed Date Resolved Date Smoker 10/06/2014 07/30/2016 Esophageal reflux 09/17/2017 documented as of this encounter (statuses as of 03/14/2023) [facility] Narrative* Problem Noted Date Diagnosed Date Resolved Date Smoker 10/06/2014 07/30/2016 Esophageal reflux 09/17/2017 documented as of this encounter (statuses as of 03/14/2023) [facility] Narrative* Problem Noted Date Diagnosed Date Resolved Date Smoker 10/06/2014 07/30/2016 Esophageal reflux 09/17/2017 documented as of this encounter (statuses as of 03/19/2023) [facility] note* Diagnosis Gastroesophageal reflux disease with esophagitis Esophageal dysphagia Dysphagia, pharyngoesophageal phase documented in this encounter [facility] note* Diagnosis Chronic pain of right thumb- Primary Bilateral leg edema Edema documented in this encounter [facility] note* Diagnosis Acquired trigger finger- Primary Trigger finger (acquired) Acquired trigger finger Trigger finger (acquired) documented in this encounter [facility] note* Diagnosis Trigger finger of right thumb- Primary Chronic pain of right thumb Bilateral leg edema Edema [facility]* Diagnosis Trigger finger of right thumb- Primary documented in this encounter [facility] note* Diagnosis Right hip pain- Primary Pain in joint, pelvic region and thigh documented in this encounter [facility] note* Diagnosis Thumb pain, right- Primary documented in this encounter [facility] note* Diagnosis Strain of neck muscle, initial encounter- Primary documented in this encounter [facility] note* Diagnosis Bronchitis- Primary Bronchitis, not specified as acute or chronic documented in this encounter [facility] note* Diagnosis Acute right-sided low back pain without sciatica- Primary [facility]* Diagnosis Bronchitis Bronchitis, not specified as acute or chronic documented in this encounter [facility] noteNo assessment information availableWMagruder Memorial [facility] Work Phone: Evaluation note* Diagnosis Allergic reaction to bee sting- Primary Toxic effect of venom documented in this encounter [facility] note* Diagnosis Allergic reaction to bee sting Toxic effect of venom [facility] Diagnosis Gastroesophageal reflux disease with esophagitis Esophageal dysphagia Dysphagia, pharyngoesophageal phase documented [facility]* Diagnosis Medicare welcome exam- Primary Routine general medical examination at a health care facility Gastroesophageal reflux disease with esophagitis without hemorrhage Encounter for screening for lung cancer Screening for abdominal aortic aneurysm Screening for other and unspecified cardiovascular conditions Screening for lipid disorders Special screening for malignant neoplasms, colon Screening for prostate cancer Special screening for malignant neoplasm of prostate documented in this encounter [facility] note* Diagnosis Onset Date Resolution Status Encounter for screening for malignant neoplasm of lung acute History of tobacco use acute [facility] Work Phone: [facility]* Diagnosis Screening for abdominal aortic aneurysm Screening for other and unspecified cardiovascular conditions [facility]* Diagnosis Atopic dermatitis, unspecified type- Primary [facility]* Diagnosis Gastroesophageal reflux disease with esophagitis without hemorrhage Esophageal dysphagia Dysphagia, pharyngoesophageal phase Screening for colon cancer Special screening for malignant neoplasms, colon Bronchitis Bronchitis, not specified as acute or chronic Tendonitis of elbow, right Other synovitis and tenosynovitis [facility] Diagnosis Right hip pain Pain in joint, pelvic region and thigh documented [facility]* Diagnosis Thumb pain, right documented [facility] Diagnosis Injury of finger of right hand, initial encounter [facility]* Diagnosis Atopic dermatitis, unspecified type documented [facility] Diagnosis Skin lesion- Primary Unspecified disorder of skin and subcutaneous tissue Encounter for screening for lung cancer documented [facility]* Diagnosis Pulmonary emphysema, unspecified emphysema type (HCC)- Primary [facility]* Diagnosis Insect bite of left front wall of thorax, initial encounter- Primary [facility]* Diagnosis Chronic obstructive pulmonary disease with acute exacerbation (HCC)- Primary Obstructive chronic bronchitis with exacerbation Chronic obstructive pulmonary disease with acute exacerbation (HCC) Obstructive chronic bronchitis with exacerbation [facility]* Diagnosis Chronic obstructive pulmonary disease with acute exacerbation (HCC) Obstructive chronic bronchitis with exacerbation [facility]* Diagnosis Gastroesophageal reflux disease with esophagitis Esophageal dysphagia Dysphagia, pharyngoesophageal phase documented in this encounter [facility] note* Diagnosis Sebaceous cyst- [facility] Additional Instructions Thank you for trusting us with your care today! Please take Zyrtec (cetirizine)/Benadryl daily. Please also take Pepcid daily. You may obtain Benadryl/Zyrtec and Pepcid [id number] at any drugstore pharmacy. Please take prednisone as prescribed. Please return to the emergency department if your symptoms change or worsen. Specifically if develop drooling, difficulty swallowing, shortness of breath. Please follow with your primary care physician for further outpatient evaluation and management.[facility] Work Phone: Reason for referral (narrative)* Diagnostic Procedure Only (Routine) - Closed Specialty Diagnoses / Procedures Referred By Kali isaacs Referred To Contact XR IMAGING Diagnoses Right hip pain Procedures XR HIP GENERAL 3V PELV/AP/LAT RIGHT RADEX HIP UNILATERAL WITH PELVIS 2-3 VIEWS Eugenia Mitchell APRN.HEAD STOCK OPERATOR [address] [place] [address] Xr Imaging Referral ID Status Reason Start Date Expiration Date V isits Requested Visits Authorized [id number] Closed Auto-Generate d Referral 09/06/2021 10/06/2022 1 1 [facility] for referral (narrative)* Outpatient Procedure (Routine) - Pending Review Specialty Diagnoses / Procedures Referred By Kali isaacs Referred To Contact [facility] Diagnoses Special screening for malignant neoplasms, colon Procedures COLONOSCOPY SCREENING COLONOSCOPY FLX DX W/COLLJ SPEC WHEN PFRMD Eugenia Mitchell APRN.HEAD STOCK OPERATOR [address] [place] [address] [facility] [address] [place] [address] Referral ID Status Reason Start Date Expiration Date Visits Requested Visits Authorized [id number] Pending Review Auto-Generat ed Referral 3 02/15/2024 1 1 * Diagnostic Procedure Only (Routine) - Pending Review Specialty Diagnoses / Procedures Referred By Contac t Referred To Contact US IMAGING Diagnoses Screening for abdominal aortic aneurysm Procedures US SCREENING FOR AAA (2016) US ABDOMINAL AORTA REAL TIME SCREEN STUDY AAA Eugenia Mitchell APRN.HEAD STOCK OPERATOR [address] [place] [address] [place] [address] Referral ID Status Reason Start Date Expiration Date Visits Requested Visits Authorized [id number] Pending Review Auto-Generat ed Referral 3 03/15/2024 1 1 [facility] for referral (narrative)* Diagnostic Procedure Only (Routine) - Closed Specialty Diagnoses / Procedures Referred By Contac t Referred To Contact US IMAGING Diagnoses Screening for abdominal aortic aneurysm Procedures US SCREENING FOR AAA (2017) US ABDOMINAL AORTA REAL TIME SCREEN STUDY AAA Eugenia Mitchell APRN.HEAD STOCK OPERATOR [address] [place] [address] [place] [address] Referral ID Status Reason Start Date Expiration Date V isits Requested Visits Authorized [id number] Closed Auto-Generate d Referral 02/14/2023 03/15/2024 1 1 [facility] for referral (narrative)* Diagnostic Procedure Only (Routine) - Closed Specialty Diagnoses / Procedures Referred By Contac t Referred To Contact XR IMAGING Diagnoses Right hip pain Procedures XR HIP GENERAL 3V PELV/AP/LAT RIGHT RADEX HIP UNILATERAL WITH PELVIS 2-3 VIEWS Eugenia Mitchell APRN.HEAD STOCK OPERATOR [address] [place] [address] [place] [address] Referral ID Status Reason Start Date Expiration Date V isits Requested Visits Authorized [id number] Closed Auto-Generate d Referral 09/06/2021 10/06/2022 1 1 [facility] for referral (narrative)* Diagnostic Procedure Only (Routine) - Closed Specialty Diagnoses / Procedures Referred By Contac t Referred To Contact XR IMAGING Diagnoses Thumb pain, right Procedures XR HAND GENERAL 3V PA/LAT/OBL RIGHT RADEX HAND MINIMUM 3 VIEWS Darian Skaggs MD [address] [place] [address] [place] [address] Referral ID Status Reason Start Date Expiration Date V isits Requested Visits Authorized [id number] Closed Auto-Generate d Referral 07/02/2021 08/01/2022 1 1 [facility] for visit Narrative* Diagnostic Procedure Only (Routine) - Closed Specialty Diagnoses / Procedures Referred By Contac t Referred To Contact XR IMAGING Diagnoses Right hip pain Procedures XR HIP GENERAL 3V PELV/AP/LAT RIGHT RADEX HIP UNILATERAL WITH PELVIS 2-3 VIEWS Eugenia Mitchell, MANJINDER.PIPE [address] [place] [address] [place] [address] Referral ID Status Reason Start Date Expiration Date V isits Requested Visits Authorized [id number] Closed Auto-Generate d Referral 09/06/2021 10/06/2022 1 1 [facility] for visit Narrative* Diagnostic Procedure Only (Routine) - Closed Specialty Diagnoses / Procedures Referred By Contac t Referred To Contact XR IMAGING Diagnoses Thumb pain, right Procedures XR HAND GENERAL 3V PA/LAT/OBL RIGHT RADEX HAND MINIMUM 3 VIEWS Darian Skaggs MD [address] [place] [address] [place] [address] Referral ID Status Reason Start Date Expiration Date V isits Requested Visits Authorized [id number] Closed Auto-Generate d Referral 07/02/2021 08/01/2022 1 1 [facility] Summary Purpose Family History No Family History Records FoundNo Family History Records FoundNo Family History Records FoundNo Family History Records Found Advance Directives No Advanced Directives Records FoundDocuments on File Type Date Recorded Patient Digital Associate Expl anation Advance Directive(s) 09/15/2017 8:40 AM Advance Directive(s) 11/11/2016 1:28 PM Documents on File Type Date Recorded Patient Digital Associate Expl anation Advance Directive(s) 09/15/2017 8:40 AM Advance Directive(s) 11/11/2016 1:28 PM Documents on File Type Date Recorded Patient Digital Associate Expl anation Advance Directive(s) 08/09/2021 8:06 AM Advance Directive(s) 09/15/2017 8:40 AM Advance Directive(s) 11/11/2016 1:28 PM Documents on File Type Date Recorded Patient Digital Associate Expl anation Advance Directive(s) 08/16/2021 1:51 PM Advance Directive(s) 08/09/2021 8:06 AM Advance Directive(s) 09/15/2017 8:40 AM Advance Directive(s) 11/11/2016 1:28 PM Documents on File Type Date Recorded Patient Digital Associate Expl anation Advance Directive(s) 08/16/2021 1:51 PM Advance Directive(s) 08/09/2021 8:06 AM Advance Directive(s) 09/15/2017 8:40 AM Advance Directive(s) 11/11/2016 1:28 PM Advance Directive Response Recorded Date/ Time Living Will No December 01, 2022 5:46pm Power of Carriage Rider No December 01 5:46pm Advance Directive Response Recorded Date/ Time Living Will No December 01, 2022 4:46pm Power of Carriage Rider No December 01 4:46pm Advance Directive Response Recorded Date/ Time Living Will No July 15, 2023 12:06am Power of Carriage Rider No July 14 12:06am Reason for Referral Specialty Diagnoses / Procedures Referred By Contjayesh t Referred To Contact Orthopedics Diagnoses Chronic pain of right thumb Bilateral leg edema Procedures CONSULT TO ORTHOPAEDICS OFFICE/OUTPATIENT [facility] 60-74 MINUTES Darian Skaggs MD [address] [place] [address] Referral ID Status Reason Start Date Expiration Date Visits Requested Visits Authorized [id number] Authorized PCP Requested Referral 08/03/2021 08/03/2022 1 1 Specialty Diagnoses / Procedures Referred By Contjayesh t Referred To Contact General Surgery Diagnoses Screening for colon cancer Procedures CONSULT TO GENERAL SURGERY OFFICE/OUTPATIENT [facility] MDM 60 MINUTES Darian Skaggs MD [address] [place] [address] Referral ID Status Reason Start Date Expiration Date Visits Requested Visits Authorized [id number] Authorized PCP Requested Referral 10/03/2023 10/02/2024 1 1 Specialty Diagnoses / Procedures Referred By Contac t Referred To Contact Dermatology Diagnoses Skin lesion Procedures CONSULT TO DERMATOLOGY Eugenia Mitchell APRN.HEAD STOCK OPERATOR [address] [place] [address] Referral ID Status Reason Start Date Expiration Date Visits Requested Visits Authorized [id number] Ref Not Required PCP Requested Referral 4 03/18/2025 1 1 Chief Complaint and Reason for Visit Chief Complaint BITE Chief Complaint BITE Lung cancer screening NICOTINE DEPENDENCE Reason for Visit Encounter for screen ing for malignant neoplasm of lung History of tobacco use Chief Complaint chest pain Additional Source Comments (unrecognized sect ion and content) No Status Records FoundNo Status Records FoundNo Status Records FoundNo Status Records Found INFORMATION SOURCE (unrecogn ized section and content) DATE CREATED AUTHOR 02/18/2020 [facility] DATE CREATED AUTHOR AUTHOR'S ORGANIZ ATION 09/30/2020 [facility] ([place]) DATE CREATED AUTHOR AUTHOR'S ORGANIZ ATION 05/20/2024 [facility] DATE CREATED AUTHOR AUTHOR'S ORGANIZ ATION 02/06/2025 [facility] Source Comments (unrecognize d section and content) In the event this informatio n is protected by the Federal Confidentiality of Alcohol and Drug Abuse Patient Records regulations: The Federal rules restrict any use of the information to criminally investigate or prosecute any alcohol or drug abuse patient.[facility] the event this information is protected by the Federal Confidentiality of Alcohol and Drug Abuse Patient Records regulations: The Federal rules restrict any use of the information to criminally investigate or prosecute any alcohol or drug abuse patient.[facility] the event this information is protected by the Federal Confidentiality of Alcohol and Drug Abuse Patient Records regulations: The Federal rules restrict any use of the information to criminally investigate or prosecute any alcohol or drug abuse patient.[facility] the event this information is protected by the Federal Confidentiality of Alcohol and Drug Abuse Patient Records regulations: The Federal rules restrict any use of the information to criminally investigate or prosecute any alcohol or drug abuse patient.[facility] the event this information is protected by the Federal Confidentiality of Alcohol and Drug Abuse Patient Records regulations: The Federal rules restrict any use of the information to criminally investigate or prosecute any alcohol or drug abuse patient.[facility] Center[facility] the event this information is protected by the Federal Confidentiality of Alcohol and Drug Abuse Patient Records regulations: The Federal rules restrict any use of the information to criminally investigate or prosecute any alcohol or drug abuse patient.[facility] the event this information is protected by the Federal Confidentiality of Alcohol and Drug Abuse Patient Records regulations: The Federal rules restrict any use of the information to criminally investigate or prosecute any alcohol or drug abuse patient.[facility] Center[facility] the event this information is protected by the Federal Confidentiality of Alcohol and Drug Abuse Patient Records regulations: The Federal rules restrict any use of the information to criminally investigate or prosecute any alcohol or drug abuse patient.[facility] Center[facility] the event this information is protected by the Federal Confidentiality of Alcohol and Drug Abuse Patient Records regulations: The Federal rules restrict any use of the information to criminally investigate or prosecute any alcohol or drug abuse patient.[facility] Center[facility] the event this information is protected by the Federal Confidentiality of Alcohol and Drug Abuse Patient Records regulations: The Federal rules restrict any use of the information to criminally investigate or prosecute any alcohol or drug abuse patient.[facility] Center[facility] the event this information is protected by the Federal Confidentiality of Alcohol and Drug Abuse Patient Records regulations: The Federal rules restrict any use of the information to criminally investigate or prosecute any alcohol or drug abuse patient.[facility] Center[facility] the event this information is protected by the Federal Confidentiality of Alcohol and Drug Abuse Patient Records regulations: The Federal rules restrict any use of the information to criminally investigate or prosecute any alcohol or drug abuse patient.[facility] Center[facility] the event this information is protected by the Federal Confidentiality of Alcohol and Drug Abuse Patient Records regulations: The Federal rules restrict any use of the information to criminally investigate or prosecute any alcohol or drug abuse patient.[facility] CenterIn the event this information is protected by the Federal Confidentiality of Alcohol and Drug Abuse Patient Records regulations: The Federal rules restrict any use of the information to criminally investigate or prosecute any alcohol or drug abuse patient.[facility] CenterIn the event this information is protected by the Federal Confidentiality of Alcohol and Drug Abuse Patient Records regulations: The Federal rules restrict any use of the information to criminally investigate or prosecute any alcohol or drug abuse patient.[facility] CenterIn the event this information is protected by the Federal Confidentiality of Alcohol and Drug Abuse Patient Records regulations: The Federal rules restrict any use of the information to criminally investigate or prosecute any alcohol or drug abuse patient.[facility] Center[facility] the event this information is protected by the Federal Confidentiality of Alcohol and Drug Abuse Patient Records regulations: The Federal rules restrict any use of the information to criminally investigate or prosecute any alcohol or drug abuse patient.[facility] CenterIn the event this information is protected by the Federal Confidentiality of Alcohol and Drug Abuse Patient Records regulations: The Federal rules restrict any use of the information to criminally investigate or prosecute any alcohol or drug abuse patient.[facility] CenterIn the event this information is protected by the Federal Confidentiality of Alcohol and Drug Abuse Patient Records regulations: The Federal rules restrict any use of the information to criminally investigate or prosecute any alcohol or drug abuse patient.[facility] CenterIn the event this information is protected by the Federal Confidentiality of Alcohol and Drug Abuse Patient Records regulations: The Federal rules restrict any use of the information to criminally investigate or prosecute any alcohol or drug abuse patient.[facility] CenterIn the event this information is protected by the Federal Confidentiality of Alcohol and Drug Abuse Patient Records regulations: The Federal rules restrict any use of the information to criminally investigate or prosecute any alcohol or drug abuse patient.[facility] the event this information is protected by the Federal Confidentiality of Alcohol and Drug Abuse Patient Records regulations: The Federal rules restrict any use of the information to criminally investigate or prosecute any alcohol or drug abuse patient.[facility] CenterIn the event this information is protected by the Federal Confidentiality of Alcohol and Drug Abuse Patient Records regulations: The Federal rules restrict any use of the information to criminally investigate or prosecute any alcohol or drug abuse patient.[facility] CenterIn the event this information is protected by the Federal Confidentiality of Alcohol and Drug Abuse Patient Records regulations: The Federal rules restrict any use of the information to criminally investigate or prosecute any alcohol or drug abuse patient.[facility] CenterIn the event this information is protected by the Federal Confidentiality of Alcohol and Drug Abuse Patient Records regulations: The Federal rules restrict any use of the information to criminally investigate or prosecute any alcohol or drug abuse patient.[facility] CenterIn the event this information is protected by the Federal Confidentiality of Alcohol and Drug Abuse Patient Records regulations: The Federal rules restrict any use of the information to criminally investigate or prosecute any alcohol or drug abuse patient.[facility] CenterIn the event this information is protected by the Federal Confidentiality of Alcohol and Drug Abuse Patient Records regulations: The Federal rules restrict any use of the information to criminally investigate or prosecute any alcohol or drug abuse patient.[facility] CenterIn the event this information is protected by the Federal Confidentiality of Alcohol and Drug Abuse Patient Records regulations: The Federal rules restrict any use of the information to criminally investigate or prosecute any alcohol or drug abuse patient.[facility] CenterIn the event this information is protected by the Federal Confidentiality of Alcohol and Drug Abuse Patient Records regulations: The Federal rules restrict any use of the information to criminally investigate or prosecute any alcohol or drug abuse patient.[facility] CenterIn the event this information is protected by the Federal Confidentiality of Alcohol and Drug Abuse Patient Records regulations: The Federal rules restrict any use of the information to criminally investigate or prosecute any alcohol or drug abuse patient.[facility] CenterIn the event this information is protected by the Federal Confidentiality of Alcohol and Drug Abuse Patient Records regulations: The Federal rules restrict any use of the information to criminally investigate or prosecute any alcohol or drug abuse patient.[facility] CenterIn the event this information is protected by the Federal Confidentiality of Alcohol and Drug Abuse Patient Records regulations: The Federal rules restrict any use of the information to criminally investigate or prosecute any alcohol or drug abuse patient.[facility] CenterIn the event this information is protected by the Federal Confidentiality of Alcohol and Drug Abuse Patient Records regulations: The Federal rules restrict any use of the information to criminally investigate or prosecute any alcohol or drug abuse patient.[facility] CenterIn the event this information is protected by the Federal Confidentiality of Alcohol and Drug Abuse Patient Records regulations: The Federal rules restrict any use of the information to criminally investigate or prosecute any alcohol or drug abuse patient.[facility] CenterIn the event this information is protected by the Federal Confidentiality of Alcohol and Drug Abuse Patient Records regulations: The Federal rules restrict any use of the information to criminally investigate or prosecute any alcohol or drug abuse patient.[facility] CenterIn the event this information is protected by the Federal Confidentiality of Alcohol and Drug Abuse Patient Records regulations: The Federal rules restrict any use of the information to criminally investigate or prosecute any alcohol or drug abuse patient.[facility] CenterIn the event this information is protected by the Federal Confidentiality of Alcohol and Drug Abuse Patient Records regulations: The Federal rules restrict any use of the information to criminally investigate or prosecute any alcohol or drug abuse patient.[facility] CenterIn the event this information is protected by the Federal Confidentiality of Alcohol and Drug Abuse Patient Records regulations: The Federal rules restrict any use of the information to criminally investigate or prosecute any alcohol or drug abuse patient.[facility] Center[facility] the event this information is protected by the Federal Confidentiality of Alcohol and Drug Abuse Patient Records regulations: The Federal rules restrict any use of the information to criminally investigate or prosecute any alcohol or drug abuse patient.[facility] Reason for Visit (unrecogniz ed section and content) Reason Comments Prescription Refills Reason Comments Edema hands, legs X 2 week s Reason Comments Schedule Surgery Reason Comments Results Reason Comments Referred by Dr. Skaggs Last seen 05/29 01/10 S/P Nirschi procedure (05/06/14) Pain New Specialty Diagnoses / Procedures Referred By Contac t Referred To Contact Orthopedics Diagnoses Chronic pain of right thumb Bilateral leg edema Procedures CONSULT TO ORTHOPAEDICS OFFICE/OUTPATIENT NEW HIGH MDM 60-74 MINUTES Darian Skaggs MD [address] [place] [address] Referral ID Status Reason Start Date Expiration Date V isits Requested Visits Authorized [id number] Closed PCP Requested Referral 08/03/2021 08/03/2022 1 1 Reason Comments 1 week 4 days post op Right trigger thum b release Post Op Reason Comments Acute Visit right hip pain Reason Comments 6 weeks 4 days post op Right trigger bobby mb release Post Op Reason Comments Acute Visit Stiff neck Specialty Diagnoses / Procedures Referred By Shadiac t Referred To Contact Family Medicine / FAMILY MEDICINE Diagnoses stiff neck x 3 days Procedures 4C EST Self Eugenia Mitchell, INSTRUMENT TECHNICIAN HELPER.HEAD STOCK OPERATOR [address] [place] [address] Referral ID Status Reason Start Date Expiration Date V isits Requested Visits Authorized [id number] Closed Patient Cleared - Qualified 100% FAS 04/04/2022 07/03/2022 99 99 Reason Comments Acute Visit cough Reason Comments Medication Problem Reason Comments Back Pain Reason Onset Date Comments Refill Request 11/25/2022 Reason Comments Hospital F/U Reason Onset Date Comments Refill Request 01/23/2023 Reason Comments Rx issue; wrong medication ordered Reason Comments Medicare Wellness Exam Reason Comments Radiology US Specialty Diagnoses / Procedures Referred By Kali t Referred To Contact US IMAGING Diagnoses Screening for abdominal aortic aneurysm Procedures US SCREENING FOR AAA (2017) US ABDOMINAL AORTA REAL TIME SCREEN STUDY AAA Eugenia Mitchell, INSTRUMENT TECHNICIAN HELPER.HEAD STOCK OPERATOR [address] [place] [address] [place] [address] Referral ID Status Reason Start Date Expiration Date V isits Requested Visits Authorized [id number] Closed Auto-Generate d Referral 02/14/2023 03/15/2024 1 1 Reason Comments Derm Problem Dry skin on face Reason Comments Follow Up Medication follow up Reason Onset Date Comments Population Health Navigation Outreach [facility]21[facility]2023 [facility] Reason Comments Radiology XR Reason Comments Erroneous encounter-disregard Reason Onset Date Comments requesting medication that is on list Reason Comments Acute Visit mass on right pector al region Reason Onset Date Comments Population Health Navigation Outreach 04/13/2024 [employer] [facility] Reason Comments Results Lung Cancer Screenin g Reason Comments Follow Up discuss dx of emphys blue Reason Comments Insect Bite Possible tick bite; Left side/torso Reason Comments Tick bite Reason Comments Cough X couple days, had a sore throat, currently has sinus pressure. Reason Onset Date Comments Refill Request 01/04/2025 Reason Comments Acute Visit Lump on chest for q uite sometime; saw Dermatology about year ago Care Teams (unrecognized sec tion and content) Highway Safety Engineer Relationship Specialty Start Date End Date Darian Skaggs MD [address] [facility] [place] [address] PCP - General Family Practice 02/17/15 Highway Safety Engineer Relationship Specialty Start Date End Date Darian Skaggs MD [address] [place] [address] PCP - General Family Practice 02/17/15 Highway Safety Engineer Relationship Specialty Start Date End Date Darian Skaggs MD [address] [facility] [place] [address] PCP - General Family Practice 02/17/15 Highway Safety Engineer Relationship Specialty Start Date End Date Darian Skaggs MD [address] [facility] [place] [address] PCP - General Family Practice 02/17/15 Highway Safety Engineer Relationship Specialty Start Date End Date Darian Skaggs MD [address] [facility] [place] [address] PCP - General Family Practice 02/17/15 Highway Safety Engineer Relationship Specialty Start Date End Date Darian Skaggs MD [address] [facility] [place] [address] PCP - General Family Practice 02/17/15 Highway Safety Engineer Relationship Specialty Start Date End Date Darian Skaggs MD [address] [place] [address] PCP - General Family Medicine 02/17/15 Highway Safety Engineer Relationship Specialty Start Date End Date Darian Skaggs MD [address] [place] [address] PCP - General Family Medicine 02/17/15 Highway Safety Engineer Relationship Specialty Start Date End Date Darian Skaggs MD [address] [place] [address] PCP - General Family Medicine 02/17/15 Highway Safety Engineer Relationship Specialty Start Date End Date Darian Skaggs MD [address] [place] [address] PCP - General Family Medicine 02/17/15 Highway Safety Engineer Relationship Specialty Start Date End Date Darian Skaggs MD [address] [place] [address] PCP - General Family Medicine 02/17/15 Team Status: Active Member Role Status Dates Dr. Darian Skaggs MD Family Provider Active Dr. Darian Skaggs MD Primary Care Provider Active Team Status: Inactive Member Role Status Dates Dr. Darian Skaggs MD Primary Care Provider Active Dr. Phill Wu DO Emergency Provider Active Highway Safety Engineer Relationship Specialty Start Date End Date Darian Skaggs MD [address] [place] [address] PCP - General Family Medicine 02/17/15 Highway Safety Engineer Relationship Specialty Start Date End Date Darian Skaggs MD [address] [place] [address] PCP - General Family Medicine 02/17/15 Highway Safety Engineer Relationship Specialty Start Date End Date Darian Skaggs MD [address] [place] [address] PCP - General Family Medicine 02/17/15 Highway Safety Engineer Relationship Specialty Start Date End Date Darian Skaggs MD [address] [place] [address] PCP - General Family Medicine 02/17/15 Team Status: Inactive Member Role Status Dates Dr. Darian Skaggs MD Primary Care Provider Active Giuliana Atkins CASE BRIEFER, CASE BRIEFER-C Attending Provider Active Self Referred Referring Provider Active Team Status: Inactive Member Role Status Dates Dr. Darian Skaggs MD Primary Care Provider Active Dr. Phill Wu DO Attending Provider, Emergency Jl paz Active Team Status: Inactive Member Role Status Dates Dr. Darian Skaggs MD Primary Care Provider Active Giuliana Atkins CASE BRIEFER, CASE BRIEFER-C Attending Provider, Referring Provider Active Highway Safety Engineer Relationship Specialty Start Date End Date Darian Skaggs MD [address] [place] [address] PCP - General Family Medicine 02/17/15 Highway Safety Engineer Relationship Specialty Start Date End Date Darian Skaggs MD [address] [place] [address] PCP - General Family Medicine 02/17/15 Highway Safety Engineer Relationship Specialty Start Date End Date Darian Skaggs MD [address] [place] [address] PCP - General Family Medicine 02/17/15 Team Status: Inactive Member Role Status Dates Dr. Darian Skaggs MD Primary Care Provider Active Dr. Kris Urrutia MD Emergency Provider Active Highway Safety Engineer Relationship Specialty Start Date End Date Darian Skaggs MD [address] [place] [address] PCP - General Family Medicine 02/17/15 Highway Safety Engineer Relationship Specialty Start Date End Date Darian Skaggs MD [address] [place] [address] PCP - General Family Medicine 02/17/15 Highway Safety Engineer Relationship Specialty Start Date End Date Darian Skaggs MD [address] [place] [address] PCP - General Family Medicine 02/17/15 Highway Safety Engineer Relationship Specialty Start Date End Date Darian Skaggs MD [address] [place] [address] PCP - General Family Medicine 02/17/15 Highway Safety Engineer Relationship Specialty Start Date End Date Darian Skaggs MD [address] [place] [address] PCP - General Family Medicine 02/17/15 Highway Safety Engineer Relationship Specialty Start Date End Date Darian Skaggs MD [address] [place] [address] PCP - General Family Medicine 02/17/15 Eugenia Mitchell APRN.HEAD STOCK OPERATOR [address] [place] [address] Primary Grade Teacher Family Medicine 04/04/24 Highway Safety Engineer Relationship Specialty Start Date End Date Darian Skaggs MD [address] [place] [address] PCP - General Family Medicine 02/17/15 Eugenia Mitchell APRN.HEAD STOCK OPERATOR [address] [place] [address] Primary Grade Teacher Family Medicine 04/04/24 Reece Villa APRN.HEAD STOCK OPERATOR [address] [facility] [place] [address] Primary Grade Teacher Family Medicine 04/13/24 Highway Safety Engineer Relationship Specialty Start Date End Date Darian Skaggs MD [address] [place] [address] PCP - General Family Medicine 02/17/15 Eugenia Mitchell APRN.HEAD STOCK OPERATOR [address] [place] [address] Primary Grade Teacher Family Medicine 04/04/24 Reece Villa APRN.HEAD STOCK OPERATOR [address] [place] [address] Primary Grade Teacher Family Medicine 04/13/24 Highway Safety Engineer Relationship Specialty Start Date End Date Darian Skaggs MD [address] [place] [address] PCP - General Family Medicine 02/17/15 Eugenia Mitchell APRN.HEAD STOCK OPERATOR [address] [place] [address] Primary Grade Teacher Family Medicine 04/04/24 Reece Villa APRN.HEAD STOCK OPERATOR [address] [place] [address] Primary Grade Teacher Family Medicine 04/13/24 Highway Safety Engineer Relationship Specialty Start Date End Date Darian Skaggs MD [address] [place] [address] PCP - General Family Medicine 02/17/15 Eugenia Mitchell APRN.HEAD STOCK OPERATOR [address] [facility] [place] [address] Primary Grade Teacher Family Medicine 04/04/24 Reece Villa APRN.HEAD STOCK OPERATOR [address] [facility] [place] [address] Primary Grade Teacher Family Medicine 04/13/24 Highway Safety Engineer Relationship Specialty Start Date End Date Darian Skaggs MD [address] [facility] [place] [address] PCP - General Family Medicine 02/17/15 Eugenia Mitchell APRN.HEAD STOCK OPERATOR [address] [facility] [place] [address] Primary Grade Teacher Family Medicine 04/04/24 Reece Villa APRN.HEAD STOCK OPERATOR [address] [facility] [place] [address] Primary Grade Teacher Family Medicine 04/13/24 Highway Safety Engineer Relationship Specialty Start Date End Date Darian Skaggs MD [address] [facility] [place] [address] PCP - General Family Medicine 02/17/15 Eugenia Mitchell INSTRUMENT TECHNICIAN HELPER.HEAD STOCK OPERATOR [address] [facility] [place] [address] Primary Grade Teacher Family Medicine 04/04/24 Reece Villa INSTRUMENT TECHNICIAN HELPER.HEAD STOCK OPERATOR [address] [facility] [place] [address] Primary Grade Teacher Family Medicine 04/13/24 Highway Safety Engineer Relationship Specialty Start Date End Date Darian Skaggs MD [address] [facility] [place] [address] PCP - General Family Medicine 02/17/15 Reece Villa APRN.HEAD STOCK OPERATOR [address] [place], [place] [address] [facility] 04/13/24 Highway Safety Engineer Relationship Specialty Start Date End Date Darian Skaggs MD [address] [place] [address] PCP - General Family Medicine 02/17/15 Reece Villa APRN.HEAD STOCK OPERATOR [address] [place], [place] [address] [facility] 04/13/24 Goals (unrecognized section and content) Goals may be documented in a n alternate sectionGoals may be documented in an alternate sectionGoals may be documented in an alternate section FOR RECORDS PERTAINING TO PATIENTS WHO ARE OR HAVE BEEN ENROLLED IN A CHEMICAL DEPENDENCY/SUBSTANCEABUSE PROGRAM, SOME INFORMATION MAY BE OMITTED. This clinical summary was aggregated from multiple sources. Caution should be exercised in using it in the provision of clinical care. This summary normalizes information from multiple sources, and as a consequence, information in this document may materially change the coding, format and clinical context of patient data. In addition, data may be omitted in some cases. CLINICAL DECISIONS SHOULD BE BASED ON THE PRIMARY CLINICAL RECORDS. [facility]. provides no warranty or guarantee of the accuracy or completeness of information in this document.
== END | disposition home or self-care (01) ==
LOC: CT 13:31
PROVIDERS: PCP Family Medicine; Referring Provider Nurse Practitioner Family; Visit Provider Nurse Practitioner Family
DX: Z12.2 Encounter for screening for malignant neoplasm of respiratory organs (principal); Z87.891 Personal history of nicotine dependence
CPT/HCPCS: 71271